=== PATIENT | female | born 1960 | race Caucasian/White ===

== ENCOUNTER → 2017-11-10 09:21 | Outpatient (CLI) | payer MEDICARE, MEDICAID, SELFPAY ==
--- NOTE | 2017-11-10 09:27 | MM_ITS ---
MM Dig screening mamm BI w/CAD CAD Screening COMPARISON: Digital mammograms 08/23/2013 and 03/22/2016 INDICATION: There is no personal or family history of breast cancer TECHNIQUE: Standard CC and MLO images were obtained. R2 CAD reviewed. FINDINGS: The breasts are composed primarily of fat with minimal scattered fibroglandular densities in each breast. Stable tiny nodular densities upper outer quadrant of the left breast. There is no new or suspicious lesion in either breast and there are no suspicious microcalcifications. IMPRESSION: Patient type breast parenchyma with no suspicious lesion seen recommend yearly follow-up BI-RADS Category: 2 Benign Finding(s) RECOMMENDED FOLLOW-UP: 1YR - 1 YEAR FOLLOW-UP (A letter has been sent to the patient regarding results of the study.)
--- NOTE | 2017-11-10 09:30 | XR_ITS ---
XR DEXA axial skeleton HISTORY: ITS.REASON: POST MENOPAUSAL ORDERING PHYSICIAN: Jean Pierre Johnston MD PATIENT AGE: 57 years COMPARISON: None FINDINGS: The BMD measured at the L1 L4 is 0.944 g/cm squared with a T score of -2.0. This is considered Osteopenic according to the World Health Organization criteria. Fracture risk is Moderate. Treatment lumbar spine density has increased by 4.5% in the hip density has increased by 0.8% compared to 03/08/2014. The density of left hip as a T score of -1.2 and density of the right hip has a T score of -1.3 IMPRESSION: Osteopenia with moderate fracture risk. See above for details
== END ==
PROVIDERS: Family Provider Internal Medicine Adolescent Medicine; PCP Internal Medicine Adolescent Medicine; Visit Provider Internal Medicine Adolescent Medicine
DX: Z12.31 Encounter for screening mammogram for malignant neoplasm of breast (principal); Z78.0 Asymptomatic menopausal state; Z13.820 Encounter for screening for osteoporosis
CPT/HCPCS: 77067; 77080

== ENCOUNTER → 2018-01-20 12:06 | Outpatient (CLI) | payer MEDICARE, MEDICAID, SELFPAY ==
--- NOTE | 2018-01-20 12:14 | XR_ITS ---
XR chest 2V HISTORY: ITS.REASON: COUGH, CHEST PAIN ORDERING PHYSICIAN: Jean Pierre Johnston MD PATIENT AGE: 57 years COMPARISON: 12/08/2015 FINDINGS: The cardiomediastinal silhouette and pulmonary vascularity are within normal limits. The lungs are clear without infiltrates, suspicious nodules, or pleural effusions. No acute bony abnormalities. IMPRESSION: Negative chest, no acute finding
--- NOTE | 2018-01-20 12:14 | XR_ITS ---
XR ribs RT 2V HISTORY: Cough, right-sided chest wall pain ITS.REASON: RT SIDED CHEST WALL PAIN ORDERING PHYSICIAN: Jean Pierre Johnston MD PATIENT AGE: 57 years COMPARISON: None FINDINGS: No fractures are healing. There is a change in density involving the mid aspect of the right sixth rib laterally. This is of questioned clinical significance. An underlying lucent lesion of the rib could cause this finding. May also be artifactual. If symptoms persist, chest CT may be of further value. IMPRESSION: 1. No acute fracture. 2. Lucency of the sixth rib laterally nonspecific. Chest CT may be of further value if clinically warranted
--- NOTE | 2018-01-20 12:14 | XR_ITS ---
XR ribs LT 2V HISTORY: ITS.REASON: LT SIDED CHEST WALL PAIN ORDERING PHYSICIAN: Jean Pierre Johnston MD PATIENT AGE: 57 years COMPARISON: None FINDINGS: No fracture or other significant anomalies. IMPRESSION: Negative left ribs
== END ==
PROVIDERS: PCP Internal Medicine Adolescent Medicine; Visit Provider Internal Medicine Adolescent Medicine
DX: R07.89 Other chest pain (principal); R05 Cough
CPT/HCPCS: 71046; 71100

== ENCOUNTER → 2018-02-15 10:08 | Outpatient (CLI) | payer MEDICARE, MEDICAID, SELFPAY ==
[2018-02-15 11:23] LABS: Basophils # 0.1 K/mm3 (0-0.2); Basophils % 0.6 % (0.1-2.0); Eosinophils # 0.2 K/mm3 (0.0-0.4); Eosinophils % 1.2 % (0.1-12.0); Hematocrit 38.8 % (37.0-47.0); Hemoglobin 12.3 g/dL (12.2-16.2); Lymphocytes # 9.2 K/mm3 (0.7-4.5); Lymphocytes % 70.5 K/mm3 (10-50); Mean Corpuscular HGB Conc 31.6 g/dL (31.8-35.4); Mean Corpuscular Hemoglobin 26.2 pg (27.0-31.2); Mean Corpuscular Volume 82.8 fl (81-99); Mean Platelet Volume 7.6 fl (7.4-10.4); Monocytes # 0.5 K/mm3 (0.1-1.0); Neutrophils # 3.1 K/mm3 (1.8-7.8); Neutrophils % 23.7 % (37.0-80.0); Platelet Count 188 K/mm3 (142-424); Red Blood Count 4.68 M/mm3 (4.20-5.40); Red Cell Distribution Width 14.6 % (11.5-17.5); White Blood Count 13.1 K/mm3 (4.8-10.8)
[2018-02-15 11:27] LABS: MANUAL DIFFERENTIAL MANUAL DIFFERENTIAL (MANUAL DIFF)
[2018-02-15 12:33] LABS: Albumin Level 3.5 gm/dL (3.4-5.0); Alkaline Phosphatase 124 U/L (46-116); Anion Gap 13.9 mEq/L (5-15); Aspartate Amino Transferase 20 U/L (15-37); Bilirubin,Total 0.5 mg/dL (0.2-1.0); Blood Urea Nitrogen 7 mg/dL (7-18); Carbon Dioxide 26 mmol/L (21.0-32.0); Chloride 105 mmol/L (98-107); Creatinine,Serum 0.61 mg/dL (0.55-1.02); Estimated Glomerular Filt Rate 101 ml/min (>60); GFR (African American) 122 ML/MIN (>60); Globulin 3.5 gm/dl (1.3-3.2); Potassium 3.9 mmoL/L (3.5-5.1); Sodium 141 mmol/L (136-145)
[2018-02-15 14:07] LABS: Alanine Aminotransferase 26 U/L (12-78); Calcium 11.5 mg/dL (8.5-10.1); Glucose 101 mg/dL (74-106)
[2018-02-15 18:52] LABS: Eosinophils % 2 % (0-3); Lymphocytes % 79 % (10-50); Monocytes % 5 % (2-9); Neutrophils % 14 % (42-76); Platelet Estimate Normal; RBC Morphology Normal; Total Cells Counted 100
== END ==
PROVIDERS: Visit Provider Internal Medicine
DX: C91.40 Hairy cell leukemia not having achieved remission (principal)
CPT/HCPCS: 36415; 80053; 85007; 85025

== ENCOUNTER → 2018-03-14 09:26 | Outpatient (CLI) | payer MEDICARE, MEDICAID, SELFPAY ==
[2018-03-14 09:43] LABS: Basophils # 0.1 K/mm3 (0-0.2); Basophils % 0.5 % (0.1-2.0); Eosinophils # 0.2 K/mm3 (0.0-0.4); Eosinophils % 1.6 % (0.1-12.0); Hemoglobin 12.2 g/dL (12.2-16.2); Lymphocytes # 8.3 K/mm3 (0.7-4.5); Lymphocytes % 70.6 K/mm3 (10-50); Mean Corpuscular HGB Conc 32.9 g/dL (31.8-35.4); Mean Corpuscular Hemoglobin 26.7 pg (27.0-31.2); Mean Corpuscular Volume 81.1 fl (81-99); Mean Platelet Volume 7.5 fl (7.4-10.4); Monocytes # 0.5 K/mm3 (0.1-1.0); Monocytes % 3.8 % (1.7-9.3); Neutrophils # 2.8 K/mm3 (1.8-7.8); Neutrophils % 23.5 % (37.0-80.0); Platelet Count 177 K/mm3 (142-424); Red Blood Count 4.56 M/mm3 (4.20-5.40); Red Cell Distribution Width 14.1 % (11.5-17.5); White Blood Count 11.8 K/mm3 (4.8-10.8)
[2018-03-14 10:05] LABS: MANUAL DIFFERENTIAL MANUAL DIFFERENTIAL (MANUAL DIFF)
[2018-03-14 11:33] LABS: Albumin Level 3.6 gm/dL (3.4-5.0); Alkaline Phosphatase 128 U/L (46-116); Anion Gap 12.1 mEq/L (5-15); Bilirubin,Total 0.4 mg/dL (0.2-1.0); Blood Urea Nitrogen 7 mg/dL (7-18); Carbon Dioxide 29 mmol/L (21.0-32.0); Chloride 105 mmol/L (98-107); Cholesterol 154 mg/dL (140-200); Creatinine,Serum 0.75 mg/dL (0.55-1.02); Estimated Glomerular Filt Rate 79 ml/min (>60); GFR (African American) 96 ML/MIN (>60); Globulin 3.5 gm/dl (1.3-3.2); HDL Cholesterol 31 mg/dL (29-89); LDL Cholesterol 98 mg/dL (0-130); Potassium 4.1 mmoL/L (3.5-5.1); Sodium 142 mmol/L (136-145); Thyroid Stimulating Hormone 3.91 uIU/ml (0.358-3.740); Total Protein,Serum 7.1 gm/dL (6.4-8.2); Triglycerides 124 mg/dL (30-200); VLDL Cholesterol 25 mg/dL (0-40)
[2018-03-14 12:05] LABS: Alanine Aminotransferase 20 U/L (12-78)
[2018-03-14 12:11] LABS: Eosinophils % 1 % (0-3); Lymphocytes % 62 % (10-50); Monocytes % 1 % (2-9); Neutrophils % 25 % (42-76); Total Cells Counted 100
[2018-03-14 12:12] LABS: Hypochromasia 2+
[2018-03-14 12:21] LABS: Platelet Estimate Normal
[2018-03-14 13:34] LABS: Aspartate Amino Transferase 17 U/L (15-37); Glucose 104 mg/dL (74-106)
[2018-03-14 13:41] LABS: Calcium 10.1 mg/dL (8.5-10.1)
== END ==
PROVIDERS: Visit Provider Internal Medicine Adolescent Medicine
DX: C91.40 Hairy cell leukemia not having achieved remission (principal); E78.5 Hyperlipidemia, unspecified; R13.10 Dysphagia, unspecified
CPT/HCPCS: 36415; 80053; 80061; 84443; 85007; 85025

== ENCOUNTER → 2018-03-23 09:08 | Outpatient (CLI) | payer MEDICARE, MEDICAID, SELFPAY ==
--- NOTE | 2018-03-23 09:10 | US_ITS ---
US thyroid HISTORY: ITS.REASON: dysphagia,thyromegaly,gastritis ORDERING PHYSICIAN: Marco Antonio Knox MD PATIENT AGE: 58 years Comparison: None FINDINGS: The right lobe is 4.5 x 2.2 x 2.7 cm. There is a mixed echogenic nodule in the upper pole measuring 1.9 x 1.5 cm. 2.9 x 1.9 cm solid-appearing nodule in the mid polar region. 1.9 x 1 cm solid-appearing nodule in the lower pole The left lobe is 3.5 x 0.9 x 1 cm. 3 mm cyst is present in the upper pole. IMPRESSION: 1. Enlarged right lobe of the thyroid gland. 2. 3 right thyroid nodules the largest in the mid polar region and 2.9 x 1.9 cm. Consider fine-needle aspiration with sonographic guidance for further evaluation
--- NOTE | 2018-03-23 09:10 | FL_ITS ---
EXAM: Barium swallow/esophagram. INDICATION: ITS.REASON: dysphagia,thromegaly,gastritis ORDERING PHYSICIAN: Marco Antonio Knox MD PATIENT AGE: 58 years COMPARISON: None TECHNIQUE: In the upright position the patient was observed to swallow barium in both the AP and lateral view. The cervical esophagus was examined under fluoroscopy with images obtained. The patient was then placed prone in the right anterior oblique position and was observed to swallow barium with Valsalva technique . FLUOROSCOPY TIME: 38 seconds FINDINGS: There was no evidence of aspiration. There was normal peristalsis. No filling defects or mucosal abnormalities. No masses or strictures. The esophagus was midline. No evidence of hiatal hernia IMPRESSION: Negative barium swallow.
== END ==
PROVIDERS: Family Provider Internal Medicine Adolescent Medicine; PCP Internal Medicine Adolescent Medicine; Visit Provider Surgery
DX: R13.10 Dysphagia, unspecified (principal); E01.0 Iodine-deficiency related diffuse (endemic) goiter
CPT/HCPCS: 74220; 76536

== ENCOUNTER → 2018-04-10 15:05 | Outpatient (CLI) | payer MEDICARE, MEDICAID, SELFPAY ==
[2018-04-10 18:15] LABS: Blood Urea Nitrogen 7 mg/dL (7-18); Creatinine,Serum 0.74 mg/dL (0.55-1.02); Estimated Glomerular Filt Rate 81 ml/min (>60); Free T4 (Free Thyroxine) 1.37 ng/dl (0.76-1.46); GFR (African American) 98 ML/MIN (>60); Thyroid Stimulating Hormone 0.95 uIU/ml (0.358-3.740)
[2018-04-12 09:30] LABS: Thyroid Peroxidase Antibodies 9 IU/mL (0-34)
[2018-04-14 13:28] LABS: Triiodothyronine (T3) Free 3.1 pg/mL (2.0-4.4)
[2018-04-14 13:31] LABS: Calcitonin <2.0 pg/mL (0.0-5.0); Thyroid Stimulating Immunoglob <0.10 IU/L (0.00-0.55)
== END ==
PROVIDERS: Visit Provider Otolaryngology
DX: E04.1 Nontoxic single thyroid nodule (principal); J39.8 Other specified diseases of upper respiratory tract; R13.10 Dysphagia, unspecified
CPT/HCPCS: 36415; 82308; 82565; 83520; 84439; 84443; 84481; 84520; 86376

== ENCOUNTER → 2018-04-18 16:30 | Outpatient (CLI) | payer MEDICARE, MEDICAID, SELFPAY ==
[2018-04-18 16:53] LABS: Basophils # 0.1 K/mm3 (0-0.2); Basophils % 0.6 % (0.1-2.0); Eosinophils # 0.1 K/mm3 (0.0-0.4); Hematocrit 39.1 % (37.0-47.0); Hemoglobin 11.8 g/dL (12.2-16.2); Lymphocytes # 8.6 K/mm3 (0.7-4.5); Lymphocytes % 69.8 K/mm3 (10-50); Mean Corpuscular HGB Conc 30.2 g/dL (31.8-35.4); Mean Corpuscular Hemoglobin 24.9 pg (27.0-31.2); Mean Corpuscular Volume 82.3 fl (81-99); Mean Platelet Volume 8.3 fl (7.4-10.4); Monocytes # 0.5 K/mm3 (0.1-1.0); Monocytes % 3.9 % (1.7-9.3); Neutrophils % 24.6 % (37.0-80.0); Platelet Count 167 K/mm3 (142-424); Red Blood Count 4.75 M/mm3 (4.20-5.40); Red Cell Distribution Width 13.8 % (11.5-17.5); White Blood Count 12.3 K/mm3 (4.8-10.8)
[2018-04-18 16:54] LABS: MANUAL DIFFERENTIAL MANUAL DIFFERENTIAL (MANUAL DIFF)
[2018-04-18 18:57] LABS: Eosinophils % 1 % (0-3); Lymphocytes % 65 % (10-50); Monocytes % 6 % (2-9); Neutrophils % 26 % (42-76); Total Cells Counted 100
[2018-04-18 18:58] LABS: Hypochromasia 1+; Platelet Estimate Normal
[2018-04-18 19:01] LABS: Albumin/Globulin Ratio 1.1 (1.1-1.8); Alkaline Phosphatase 123 U/L (46-116); Anion Gap 14.4 mEq/L (5-15); Blood Urea Nitrogen 7 mg/dL (7-18); Carbon Dioxide 29 mmol/L (21.0-32.0); Chloride 105 mmol/L (98-107); Creatinine,Serum 0.71 mg/dL (0.55-1.02); Estimated Glomerular Filt Rate 85 ml/min (>60); GFR (African American) 102 ML/MIN (>60); Globulin 3.5 gm/dl (1.3-3.2); Potassium 3.4 mmoL/L (3.5-5.1); Sodium 145 mmol/L (136-145); Total Protein,Serum 7.5 gm/dL (6.4-8.2)
[2018-04-18 19:47] LABS: Alanine Aminotransferase 24 U/L (12-78); Aspartate Amino Transferase 18 U/L (15-37); Bilirubin,Total 0.3 mg/dL (0.2-1.0); Calcium 9.2 mg/dL (8.5-10.1); Glucose 116 mg/dL (74-106)
== END ==
PROVIDERS: Visit Provider Internal Medicine
DX: E04.1 Nontoxic single thyroid nodule (principal); R13.10 Dysphagia, unspecified; J39.8 Other specified diseases of upper respiratory tract
CPT/HCPCS: 36415; 80053; 85007; 85025

== ENCOUNTER → 2018-04-19 09:06 | Outpatient (CLI) | payer MEDICARE, MEDICAID, SELFPAY ==
--- NOTE | 2018-04-19 09:08 | US_ITS ---
US organ site (thyroid), FNA w guidance HISTORY: ITS.REASON: dominant right nodule 3 cm ORDERING PHYSICIAN: Omid Arenas MD PATIENT AGE: 58 years COMPARISON: None Prebiopsy ultrasound: Rebiopsy ultrasound performed to confirm the presence of a large nodule in the right lobe of the thyroid gland as previously described. TECHNIQUE: Following obtaining informed consent, using aseptic technique and local anesthesia with buffered lidocaine, fine-needle aspiration was performed of the nodule of interest using sonographic guidance. 3 passes were made into the nodule with a 25-gauge needle. Specimen was given to cytology. The patient tolerated the procedure well without evidence of immediate complications and left the ultrasound suite in stable condition. CYTOLOGY:Negative for malignant cells. IMPRESSION: Successful and uneventful sonographic guided thyroid biopsy showing benign findings
--- NOTE | 2018-04-19 09:08 | CT_ITS ---
CT soft tissue neck wo/w con INDICATION: Right thyroid nodule, evaluate for tracheal displacement ITS.REASON: thyroid nodule/tracheal displacement ORDERING PHYSICIAN: Omid Arenas MD PATIENT AGE: 58 years COMPARISON: None TECHNIQUE: Axial images are obtained without and with contrast. Sagittal and coronal reformatted images are reviewed as well. All CT scans at the facility use one or more dose reduction, viz: automated exposure control; ma/kV adjustment per patient size (including targeted exams where dose is matched to indication; i.e. head); or iterative reconstruction technique. FINDINGS: The nasopharynx has an unremarkable appearance as does the epiglottis, supraglottic and glottic region. There is a 3.3 x 2.4 x 2.6 cm solid mass along the lower pole of the right lobe of the thyroid gland. This lesion is well-circumscribed and somewhat heterogeneous in density demonstrating mild diffuse contrast enhancement Trachea is deviated to the left by approximately 1 cm. The esophagus is slightly to the left of midline as well approximately 5 mm. No cervical adenopathy. There are scattered small cervical lymph nodes present which measure up to 1.5 x 1 cm in the left jugulodigastric chain. No superior mediastinal mass or adenopathy. Lung apices are clear. Salivary glands have an unremarkable appearance. There is a right ernie bullosa with mild leftward nasal septal deviation. The study was not performed as a CT angiogram. Therefore, it is difficult to determine the exact blood supply to the nodule secondary to both venous and arterial enhancement of the vascular structures IMPRESSION: 3 cm solid appearing enhancing mass along the lower pole the right lobe of the thyroid gland as described above. Trachea is displaced to the left by approximately 1 cm and the esophagus is also slightly displaced to the left x 4-5 mm. No adenopathy or other significant anomalies
== END ==
PROVIDERS: Family Provider Internal Medicine Adolescent Medicine; PCP Internal Medicine Adolescent Medicine; Visit Provider Otolaryngology
DX: E04.1 Nontoxic single thyroid nodule (principal)
CPT/HCPCS: 10022; 70492; 76536; 88173; Q9967

== ENCOUNTER → 2018-05-05 09:12 | Outpatient (CLI) | payer MEDICARE, MEDICAID, SELFPAY ==
--- NOTE | 2018-05-05 09:20 | CT_ITS ---
CT angio chest HISTORY: ITS.REASON: thyroid mass- tracheal/esoph displacemnt ORDERING PHYSICIAN: Omid Arenas MD PATIENT AGE: 58 years COMPARISON: 10/04/2017 TECHNIQUE: Axial images obtained following the administration of 75 mL of Isovue 370 . Sagittal, and coronal reformatted images are also generated and reviewed. All CT scans at the facility use one or more dose reduction, viz: automated exposure control; ma/kV adjustment per patient size (including targeted exams where dose is matched to indication; i.e. head); or iterative reconstruction technique. FINDINGS: There is a nodule arising from the lower pole of the right lobe of the thyroid gland which is isodense. This measures 2.9 x 2.5 x 2.7 cm previously 2.6 x 2 x 2.4 cm. This does not demonstrate significant enhancement. There is displacement of the trachea toward the left by the nodule. The trachea is displaced toward the left x 7 mm. The esophagus is midline. There is a small inferior thyroidal artery arising from each thyrocervical trunk entering the mid aspect of the thyroid gland. The superior thyroidal artery was not visualized on this study being more superior than images obtained. There is no evidence of a thyroidea lazaro artery. No evidence of aortic aneurysm or dissection. No evidence of pulmonary embolus. No mediastinal or hilar mass or adenopathy. There is some patchy groundglass density in the lung bases nonspecific. A stable 6 mm nodules present in the left lung base. There is mild fibrotic change in the right lower lobe. Upper abdominal images show mild splenomegaly at 14 cm. There are some mildly prominent lymph nodes in the portal area measuring up to 17 mm. There are some small nodes also in the mediastinum and right hilum not significant change. Scattered small nodes present in the axilla as well. No acute bony anomalies. IMPRESSION: 1. Enlarging solid appearing thyroid nodule in the lower pole on the right. 2. The trachea is deviated towards the left by approximately 7 mm by the nodule. The esophagus is midline. 3. The nodule does not appear hypervascular with small inferior thyroidal arteries from the thyrocervical trunk and no evidence of of a thyroidae lazaro artery 4. Small mediastinal, right hilar, axillary, and upper abdominal lymph nodes
[2018-05-05 09:30] LABS: Blood Urea Nitrogen 8 mg/dL (7-18); Creatinine,Serum 0.85 mg/dL (0.55-1.02); Estimated Glomerular Filt Rate 69 ml/min (>60); GFR (African American) 83 ML/MIN (>60)
== END ==
PROVIDERS: Family Provider Internal Medicine Adolescent Medicine; PCP Internal Medicine Adolescent Medicine; Visit Provider Otolaryngology
DX: E04.1 Nontoxic single thyroid nodule (principal); E01.0 Iodine-deficiency related diffuse (endemic) goiter; R22.1 Localized swelling, mass and lump, neck
CPT/HCPCS: 36415; 71275; 82565; 84520; Q9967

== ENCOUNTER → 2018-05-23 11:51 | Outpatient (CLI) | payer MEDICARE, MEDICAID, SELFPAY ==
[2018-05-23 12:57] LABS: Basophils # 0.1 K/mm3 (0-0.2); Basophils % 0.5 % (0.1-2.0); Eosinophils # 0.2 K/mm3 (0.0-0.4); Eosinophils % 1.5 % (0.1-12.0); Hematocrit 36.5 % (37.0-47.0); Hemoglobin 11.6 g/dL (12.2-16.2); Lymphocytes # 7.1 K/mm3 (0.7-4.5); Lymphocytes % 59.6 K/mm3 (10-50); Mean Corpuscular HGB Conc 31.8 g/dL (31.8-35.4); Mean Corpuscular Hemoglobin 25.5 pg (27.0-31.2); Mean Corpuscular Volume 80.2 fl (81-99); Mean Platelet Volume 7.5 fl (7.4-10.4); Monocytes # 0.4 K/mm3 (0.1-1.0); Monocytes % 3.6 % (1.7-9.3); Neutrophils # 4.1 K/mm3 (1.8-7.8); Neutrophils % 34.8 % (37.0-80.0); Platelet Count 160 K/mm3 (142-424); Red Blood Count 4.55 M/mm3 (4.20-5.40); Red Cell Distribution Width 14.1 % (11.5-17.5); White Blood Count 11.9 K/mm3 (4.8-10.8)
[2018-05-23 13:51] LABS: MANUAL DIFFERENTIAL MANUAL DIFFERENTIAL (MANUAL DIFF)
[2018-05-23 14:09] LABS: Alanine Aminotransferase 25 U/L (12-78); Albumin Level 3.5 gm/dL (3.4-5.0); Alkaline Phosphatase 123 U/L (46-116); Anion Gap 11.1 mEq/L (5-15); Aspartate Amino Transferase 16 U/L (15-37); Bilirubin,Total 0.3 mg/dL (0.2-1.0); Blood Urea Nitrogen 5 mg/dL (7-18); Calcium 8.5 mg/dL (8.5-10.1); Carbon Dioxide 28 mmol/L (21.0-32.0); Chloride 107 mmol/L (98-107); Creatinine,Serum 0.72 mg/dL (0.55-1.02); Estimated Glomerular Filt Rate 83 ml/min (>60); GFR (African American) 101 ML/MIN (>60); Globulin 3.5 gm/dl (1.3-3.2); Potassium 4.1 mmoL/L (3.5-5.1); Sodium 142 mmol/L (136-145)
[2018-05-23 15:21] LABS: Glucose 120 mg/dL (74-106)
[2018-05-23 16:28] LABS: Eosinophils % 1 % (0-3); Lymphocytes % 67 % (10-50); Monocytes % 8 % (2-9); Neutrophils % 24 % (42-76); Total Cells Counted 100
[2018-05-23 16:31] LABS: Microcytosis 1+
[2018-05-23 16:32] LABS: Hypochromasia 1+; Platelet Estimate Normal
== END ==
PROVIDERS: Visit Provider Internal Medicine
DX: C91.40 Hairy cell leukemia not having achieved remission (principal)
CPT/HCPCS: 36415; 80053; 85007; 85025

== ENCOUNTER → 2018-05-31 16:29 | Outpatient (CLI) | payer MEDICARE, MEDICAID, SELFPAY ==
[2018-05-31 17:00] LABS: Basophils # 0.1 K/mm3 (0-0.2); Basophils % 0.6 % (0.1-2.0); Eosinophils # 0.1 K/mm3 (0.0-0.4); Eosinophils % 0.8 % (0.1-12.0); Hematocrit 38.7 % (37.0-47.0); Hemoglobin 12.3 g/dL (12.2-16.2); Lymphocytes # 10.4 K/mm3 (0.7-4.5); Lymphocytes % 66.2 K/mm3 (10-50); Mean Corpuscular HGB Conc 31.8 g/dL (31.8-35.4); Mean Corpuscular Hemoglobin 25.4 pg (27.0-31.2); Mean Corpuscular Volume 79.7 fl (81-99); Mean Platelet Volume 7.2 fl (7.4-10.4); Monocytes # 0.8 K/mm3 (0.1-1.0); Monocytes % 4.9 % (1.7-9.3); Neutrophils # 4.3 K/mm3 (1.8-7.8); Neutrophils % 27.6 % (37.0-80.0); Platelet Count 194 K/mm3 (142-424); Red Blood Count 4.85 M/mm3 (4.20-5.40); Red Cell Distribution Width 14.3 % (11.5-17.5); White Blood Count 15.7 K/mm3 (4.8-10.8)
[2018-05-31 17:03] LABS: MANUAL DIFFERENTIAL MANUAL DIFFERENTIAL (MANUAL DIFF)
[2018-05-31 19:00] LABS: Lymphocytes % 66 % (10-50); Monocytes % 3 % (2-9); Neutrophils % 30 % (42-76); Total Cells Counted 100
[2018-05-31 19:01] LABS: Hypochromasia 1+; Microcytosis 1+; Platelet Estimate Normal
[2018-05-31 19:17] LABS: Alanine Aminotransferase 27 U/L (12-78); Albumin Level 3.5 gm/dL (3.4-5.0); Albumin/Globulin Ratio 1.1 (1.1-1.8); Alkaline Phosphatase 115 U/L (46-116); Anion Gap 8.9 mEq/L (5-15); Aspartate Amino Transferase 14 U/L (15-37); Bilirubin,Total 0.4 mg/dL (0.2-1.0); Blood Urea Nitrogen 14 mg/dL (7-18); Calcium 8.6 mg/dL (8.5-10.1); Carbon Dioxide 30 mmol/L (21.0-32.0); Chloride 106 mmol/L (98-107); Creatinine,Serum 0.94 mg/dL (0.55-1.02); Estimated Glomerular Filt Rate 61 ml/min (>60); Free Thyroxine Index 4.6 ug/dL (5.93-13.13); GFR (African American) 74 ML/MIN (>60); Globulin 3.3 gm/dl (1.3-3.2); Glucose 97 mg/dL (74-106); Potassium 3.9 mmoL/L (3.5-5.1); Sodium 141 mmol/L (136-145); T4 (Thyroxine) 13.2 ug/dl (4.7-13.3); Thyroid Stimulating Hormone 1.35 uIU/ml (0.358-3.740); Total Protein,Serum 6.8 gm/dL (6.4-8.2); Triiodothryronine (T3) Uptake 35 % (31-39)
== END ==
PROVIDERS: Visit Provider Internal Medicine Adolescent Medicine
DX: E01.0 Iodine-deficiency related diffuse (endemic) goiter (principal); C85.10 Unspecified B-cell lymphoma, unspecified site
CPT/HCPCS: 36415; 80053; 84436; 84443; 84479; 85007; 85025

== ENCOUNTER → 2018-06-21 08:21 | Outpatient (CLI) | payer MEDICARE, MEDICAID, SELFPAY ==
[2018-06-21 08:42] LABS: Basophils # 0.1 K/mm3 (0-0.2); Basophils % 0.5 % (0.1-2.0); Eosinophils # 0.2 K/mm3 (0.0-0.4); Eosinophils % 1.4 % (0.1-12.0); Hematocrit 34.2 % (37.0-47.0); Lymphocytes % 72.5 K/mm3 (10-50); Mean Corpuscular HGB Conc 32.1 g/dL (31.8-35.4); Mean Corpuscular Hemoglobin 25.6 pg (27.0-31.2); Mean Corpuscular Volume 79.7 fl (81-99); Mean Platelet Volume 7.9 fl (7.4-10.4); Monocytes # 0.5 K/mm3 (0.1-1.0); Neutrophils # 2.4 K/mm3 (1.8-7.8); Neutrophils % 21.6 % (37.0-80.0); Platelet Count 170 K/mm3 (142-424); Red Blood Count 4.29 M/mm3 (4.20-5.40); Red Cell Distribution Width 14.7 % (11.5-17.5); White Blood Count 11.1 K/mm3 (4.8-10.8)
[2018-06-21 08:52] LABS: Alanine Aminotransferase 28 U/L (12-78); Albumin Level 3.3 gm/dL (3.4-5.0); Albumin/Globulin Ratio 0.8 (1.1-1.8); Alkaline Phosphatase 124 U/L (46-116); Anion Gap 9.8 mEq/L (5-15); Aspartate Amino Transferase 14 U/L (15-37); Bilirubin,Total 0.4 mg/dL (0.2-1.0); Blood Urea Nitrogen 9 mg/dL (7-18); Carbon Dioxide 28 mmol/L (21.0-32.0); Chloride 107 mmol/L (98-107); Creatinine,Serum 0.86 mg/dL (0.55-1.02); Estimated Glomerular Filt Rate 68 ml/min (>60); GFR (African American) 82 ML/MIN (>60); Globulin 3.9 gm/dl (1.3-3.2); Potassium 3.8 mmoL/L (3.5-5.1); Sodium 141 mmol/L (136-145); Total Protein,Serum 7.2 gm/dL (6.4-8.2)
[2018-06-21 08:55] LABS: MANUAL DIFFERENTIAL MANUAL DIFFERENTIAL (MANUAL DIFF)
[2018-06-21 09:27] LABS: Glucose 120 mg/dL (74-106)
[2018-06-21 09:40] LABS: Eosinophils % 1 % (0-3); Lymphocytes % 72 % (10-50); Monocytes % 7 % (2-9); Neutrophils % 19 % (42-76); Total Cells Counted 100
[2018-06-21 09:42] LABS: Hypochromasia 1+; Microcytosis 1+
[2018-06-21 09:43] LABS: Platelet Estimate Normal
== END ==
PROVIDERS: Visit Provider Internal Medicine
DX: C91.40 Hairy cell leukemia not having achieved remission (principal)
CPT/HCPCS: 36415; 80053; 85007; 85025

== ENCOUNTER → 2018-07-20 09:31 | Outpatient (CLI) | payer MEDICARE, MEDICAID, SELFPAY ==
[2018-07-20 10:24] LABS: Thyroid Stimulating Hormone 2.47 uIU/ml (0.358-3.740)
== END ==
PROVIDERS: PCP Internal Medicine Adolescent Medicine; Visit Provider Otolaryngology
DX: D34 Benign neoplasm of thyroid gland (principal)
CPT/HCPCS: 36415; 84439; 84443

== ENCOUNTER → 2018-07-31 16:18 | Outpatient (CLI) | payer MEDICARE, MEDICAID, SELFPAY ==
--- NOTE | 2018-07-31 16:41 | XR_ITS ---
XR chest 2V HISTORY: ITS.REASON: ACUTE BRONCHOPNEUMONIA ORDERING PHYSICIAN: Jean Pierre Johnston MD PATIENT AGE: 58 years COMPARISON: 01/20/2018 FINDINGS: The cardiomediastinal silhouette and pulmonary vascularity are within normal limits. The lungs are clear without infiltrates, suspicious nodules, or pleural effusions. No acute bony abnormalities. IMPRESSION: No change with no acute finding
[2018-07-31 16:49] LABS: Basophils # 0.1 K/mm3 (0-0.2); Basophils % 0.6 % (0.1-2.0); Eosinophils # 0.2 K/mm3 (0.0-0.4); Hematocrit 36.4 % (37.0-47.0); Hemoglobin 11.7 g/dL (12.2-16.2); Lymphocytes # 10.4 K/mm3 (0.7-4.5); Lymphocytes % 64.6 K/mm3 (10-50); Mean Corpuscular HGB Conc 32.1 g/dL (31.8-35.4); Mean Corpuscular Hemoglobin 25.7 pg (27.0-31.2); Mean Platelet Volume 7.3 fl (7.4-10.4); Monocytes # 0.7 K/mm3 (0.1-1.0); Monocytes % 4.1 % (1.7-9.3); Neutrophils # 4.8 K/mm3 (1.8-7.8); Neutrophils % 29.7 % (37.0-80.0); Platelet Count 197 K/mm3 (142-424); Red Blood Count 4.55 M/mm3 (4.20-5.40); Red Cell Distribution Width 14.7 % (11.5-17.5); White Blood Count 16.2 K/mm3 (4.8-10.8)
[2018-07-31 17:10] LABS: MANUAL DIFFERENTIAL MANUAL DIFFERENTIAL (MANUAL DIFF)
[2018-07-31 17:51] LABS: Blood Urea Nitrogen 8 mg/dL (7-18); Calcium 8.7 mg/dL (8.5-10.1); Chloride 106 mmol/L (98-107); Potassium 4.1 mmoL/L (3.5-5.1); Sodium 143 mmol/L (136-145); Total Protein,Serum 7.3 gm/dL (6.4-8.2)
[2018-07-31 18:04] LABS: Aspartate Amino Transferase 18 U/L (15-37); Glucose 129 mg/dL (74-106)
[2018-07-31 18:22] LABS: Alanine Aminotransferase 28 U/L (12-78); Albumin Level 3.6 gm/dL (3.4-5.0); Alkaline Phosphatase 132 U/L (46-116); Anion Gap 16.1 mEq/L (5-15); Bilirubin,Total 0.3 mg/dL (0.2-1.0); Carbon Dioxide 25 mmol/L (21.0-32.0); Creatinine,Serum 0.77 mg/dL (0.55-1.02); Estimated Glomerular Filt Rate 77 ml/min (>60); GFR (African American) 93 ML/MIN (>60); Globulin 3.7 gm/dl (1.3-3.2)
[2018-07-31 18:39] LABS: Lymphocytes % 69 % (10-50); Monocytes % 5 % (2-9); Neutrophils % 25 % (42-76); Platelet Estimate Normal; RBC Morphology Normal; Total Cells Counted 100
== END ==
PROVIDERS: PCP Internal Medicine Adolescent Medicine; Visit Provider Internal Medicine Adolescent Medicine
DX: J18.0 Bronchopneumonia, unspecified organism (principal)
CPT/HCPCS: 36415; 71046; 80053; 85007; 85025

== ENCOUNTER → 2018-11-06 13:54 | Outpatient (CLI) | payer MEDICARE, MEDICAID, SELFPAY ==
--- NOTE | 2018-11-06 13:58 | MR_ITS ---
MR lumbar spine wo con, MR 3-d myelogram/MRCP HISTORY: RT sided LBP with pain radiating into groin and RT leg. Pain when walking. X3WKS. No trauma. No Hx back surgery. ITS.REASON: ACUTE RT SIDED LBP ORDERING PHYSICIAN: Jean Pierre Johnston MD PATIENT AGE: 58 years Comparison: MRI 10-21-15 TECHNIQUE: Standard multiplanar multiecho sequences are performed without contrast. 3-D MIP and myelographic images are also rendered and reviewed FINDINGS: There is normal alignment. The spinal cord ends at the L1 level. T12-L1, L1-L2, L2-L3, and L3-L4 have an unremarkable appearance. L4-L5: Mild facet hypertrophic change with minimal bilateral foraminal narrowing. L5-S1: Unremarkable. IMPRESSION: 1. Minimal bilateral foraminal narrowing at L4-L5 from facet hypertrophic change otherwise negative MRI of the lumbar spine. 2. No disc herniation or canal stenosis
== END ==
PROVIDERS: PCP Internal Medicine Adolescent Medicine; Visit Provider Internal Medicine Adolescent Medicine
DX: M54.41 Lumbago with sciatica, right side (principal)
CPT/HCPCS: 72148; 76376

== ENCOUNTER → 2019-01-11 09:07 | Outpatient (CLI) | payer MEDICARE, MEDICAID, SELFPAY ==
[2019-01-11 09:57] LABS: Basophils # 0.1 K/mm3 (0-0.2); Basophils % 0.6 % (0.1-2.0); Eosinophils # 0.4 K/mm3 (0.0-0.4); Eosinophils % 2.5 % (0.1-12.0); Hematocrit 40.1 % (37.0-47.0); Hemoglobin 12.8 g/dL (12.2-16.2); Lymphocytes % 70.8 % (10-50); Mean Corpuscular Hemoglobin 26.6 pg (27.0-31.2); Mean Corpuscular Volume 83.2 fl (81-99); Mean Platelet Volume 7.6 fl (7.4-10.4); Monocytes # 0.5 K/mm3 (0.1-1.0); Monocytes % 3.5 % (1.7-9.3); Neutrophils # 3.2 K/mm3 (1.8-7.8); Neutrophils % 22.6 % (37.0-80.0); Platelet Count 219 K/mm3 (142-424); Red Blood Count 4.82 M/mm3 (4.20-5.40); Red Cell Distribution Width 15.4 % (11.5-17.5); White Blood Count 14.1 K/mm3 (4.8-10.8)
[2019-01-11 09:59] LABS: MANUAL DIFFERENTIAL MANUAL DIFFERENTIAL (MANUAL DIFF)
[2019-01-11 11:46] LABS: Eosinophils % 4 % (0-3); Lymphocytes % 71 % (10-50); Monocytes % 2 % (2-9); Neutrophils % 23 % (42-76); Platelet Estimate Normal; Total Cells Counted 100
[2019-01-11 11:47] LABS: Hypochromasia 1+
[2019-01-11 12:25] LABS: Albumin Level 3.7 gm/dL (3.4-5.0); Alkaline Phosphatase 130 U/L (46-116); Anion Gap 16.8 mEq/L (5-15); Blood Urea Nitrogen 9 mg/dL (7-18); Carbon Dioxide 25 mmol/L (21.0-32.0); Chloride 104 mmol/L (98-107); Creatinine,Serum 0.69 mg/dL (0.55-1.02); Estimated Glomerular Filt Rate 87 ml/min (>60); GFR (African American) 106 ML/MIN (>60); Globulin 3.6 gm/dl (1.3-3.2); Lactate Dehydrogenase 201 U/L (82-234); Potassium 3.8 mmoL/L (3.5-5.1); Sodium 142 mmol/L (136-145); Total Protein,Serum 7.3 gm/dL (6.4-8.2)
[2019-01-11 14:31] LABS: Alanine Aminotransferase 41 U/L (12-78); Aspartate Amino Transferase 33 U/L (15-37); Bilirubin,Total 0.7 mg/dL (0.2-1.0); Calcium 10.7 mg/dL (8.5-10.1); Glucose 139 mg/dL (74-106)
== END ==
PROVIDERS: Visit Provider Internal Medicine Medical Oncology
DX: C91.40 Hairy cell leukemia not having achieved remission (principal)
CPT/HCPCS: 36415; 80053; 83615; 85007; 85025

== ENCOUNTER → 2019-04-10 16:59 | Outpatient (CLI) | payer MEDICARE, MEDICAID, SELFPAY ==
--- NOTE | 2019-04-10 17:02 | MM_ITS ---
MM Dig screening mamm BI w/CAD CAD Screening COMPARISON: Digital mammograms with CAD 11/10/2017 and 03/22/2016 INDICATION: There is no personal or family history of breast cancer TECHNIQUE: Standard CC and MLO images were obtained. R2 CAD reviewed. FINDINGS: The breasts are composed primarily of fat with minimal scattered fibroglandular densities in each breast. A tiny benign-appearing stable nodular densities in the left breast. There is no suspicious lesion and there are no suspicious microcalcifications. IMPRESSION: Fatty type breast parenchyma with no suspicious lesion seen BI-RADS Category: 2 Benign Finding(s) RECOMMENDED FOLLOW-UP: 1YR - 1 YEAR FOLLOW-UP (A letter has been sent to the patient regarding results of the study.)
== END ==
PROVIDERS: PCP Internal Medicine Adolescent Medicine; Visit Provider Internal Medicine Adolescent Medicine
DX: Z12.31 Encounter for screening mammogram for malignant neoplasm of breast (principal)
CPT/HCPCS: 77067

== ENCOUNTER → 2019-08-13 14:30 | Outpatient (CLI) | payer MEDICARE, MEDICAID, SELFPAY ==
[2019-08-13 15:05] LABS: Basophils # 0.1 K/mm3 (0-0.2); Basophils % 0.8 % (0.1-2.0); Eosinophils # 0.3 K/mm3 (0.0-0.4); Eosinophils % 2.4 % (0.1-12.0); Hematocrit 40.5 % (37.0-47.0); Hemoglobin 12.3 g/dL (12.2-16.2); Lymphocytes # 8.5 K/mm3 (0.7-4.5); Lymphocytes % 66.8 % (10-50); Mean Corpuscular HGB Conc 30.2 g/dL (31.8-35.4); Mean Corpuscular Hemoglobin 25.6 pg (27.0-31.2); Mean Corpuscular Volume 84.7 fl (81-99); Mean Platelet Volume 7.8 fl (7.4-10.4); Monocytes # 0.6 K/mm3 (0.1-1.0); Monocytes % 4.6 % (1.7-9.3); Neutrophils # 3.2 K/mm3 (1.8-7.8); Neutrophils % 25.4 % (37.0-80.0); Platelet Count 179 K/mm3 (142-424); Red Blood Count 4.78 M/mm3 (4.20-5.40); Red Cell Distribution Width 14.9 % (11.5-17.5); White Blood Count 12.7 K/mm3 (4.8-10.8)
[2019-08-13 15:08] LABS: MANUAL DIFFERENTIAL MANUAL DIFFERENTIAL (MANUAL DIFF)
[2019-08-13 15:39] LABS: Eosinophils % 3 % (0-3); Lymphocytes % 69 % (10-50); Monocytes % 4 % (2-9); Neutrophils % 23 % (42-76); Total Cells Counted 100
[2019-08-13 15:40] LABS: Hypochromasia 1+; Platelet Estimate Normal
[2019-08-13 17:27] LABS: Free T4 (Free Thyroxine) 1.23 ng/dl (0.76-1.46); Thyroid Stimulating Hormone 1.54 uIU/ml (0.358-3.740)
== END ==
PROVIDERS: Visit Provider Otolaryngology
DX: R13.10 Dysphagia, unspecified (principal); E03.9 Hypothyroidism, unspecified
CPT/HCPCS: 36415; 84439; 84443; 85007; 85025

== ENCOUNTER → 2019-08-17 09:38 | Outpatient (CLI) | payer MEDICARE, MEDICAID, SELFPAY ==
--- NOTE | 2019-08-17 09:40 | FL_ITS ---
PROCEDURE: FL BARIUM SWALLOW CLINICAL INDICATION: History of lymphoma, dysphagia, sensation of food sticking upper esophagus in the cervical region COMPARISON: ESO ESOPHAGUS (BA. SWALLOW) from 01/07/2017 TECHNIQUE: In the upright position the patient was observed to swallow barium in both the AP and lateral view. The cervical esophagus was examined under fluoroscopy with images obtained. The patient was then placed prone in the right anterior oblique position and was observed to swallow barium with Valsalva technique . FLUOROSCOPY TIME: 1.55 minutes FINDINGS: The swallowing function is normal. There is moderate focal posterior indentation of the barium column at the C4-5 level while swallowing consistent with cricopharyngeal dysfunction. Otherwise esophageal motility was normal. There is a small sliding hiatal hernia and there was minimal intermittent gastroesophageal reflux to the midthoracic esophagus with the patient in supine position. 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 Stable small sliding hiatal hernia basically unchanged from the previous exam with minimal GE reflux noted Dictated by: Dr. Alexsander Heard MD 08/17/2019 10:[address] Alexsander Heard MD in [place] 08/17/2019 10:39
== END ==
PROVIDERS: PCP Internal Medicine Adolescent Medicine; Visit Provider Otolaryngology
DX: R13.10 Dysphagia, unspecified (principal)
CPT/HCPCS: 74220

== ENCOUNTER → 2019-09-12 09:20 | Outpatient (CLI) | payer MEDICARE, MEDICAID, SELFPAY ==
--- NOTE | 2019-09-12 09:23 | MR_ITS ---
PROCEDURE: MR LUMBAR SPINE WO CON CLINICAL INDICATION: ACUTE RIGHT-SIDED BACK PAIN W/SCIATICA Follow back pain and right sided weakness, right leg numbness COMPARISON: SPLUMBWO MR lumbar spine wo con from 11/06/2018 TECHNIQUE: Standard multiplanar multiecho sequences are performed without contrast. 3-D MIP and myelographic images are also rendered and reviewed FINDINGS: There is normal alignment. The spinal cord ends at the L1 level. T11-T12: There is mild facet and ligamentum hypertrophy with mild bilateral lateral recess narrowing. T12-L1: Unremarkable. L1-L2: Unremarkable. L2-L3: Unremarkable. L3-L4: Unremarkable. L4-5: Minimal bilateral lateral recess narrowing at L4-5 with facet ligamentum hypertrophy unchanged L5-S1: Unremarkable. IMPRESSION: 1. No disc herniation, canal stenosis, or significant foraminal or lateral recess narrowing. 2. There is mild facet ligamentum hypertrophy with mild bilateral lateral recess narrowing at T11-T12. 3. Minimal bilateral foraminal narrowing at L4-5 as before from mild facet and ligamentum hypertrophy. Dictated by: Angelito Rosa MD 09/14/2019 11:30 Electronically signed by Angelito Rosa MD in [facility] 09/14/2019 11:30
--- NOTE | 2019-09-12 09:24 | MR_ITS ---
PROCEDURE: MR HEAD/BRAIN WO CON CLINICAL INDICATION: RIGHT HEMIPLEGIA Right-sided weakness COMPARISON: No exams were available for comparison TECHNIQUE: Routine multiplanar multi echo sequences are performed without gadolinium enhancement. FINDINGS: No midline shift, mass effect, intracranial hemorrhage, or hydrocephalus. No evidence of acute infarction The cerebellopontine angles, cerebellum, and brainstem are unremarkable. There is some minimal irregularity of the medial surface of the body of the caudate nucleus on the right. This is of questionable clinical significance. No abnormal T2 signal or diffusion signal evident. There is normal chen-white matter differentiation with no abnormal white matter signal intensity evident. The pituitary, optic chiasm, corpus callosum, and craniocervical junction have an unremarkable appearance. No mastoid effusion or sinus air-fluid level. IMPRESSION: 1. No acute intracranial findings. 2. Nonspecific minimal nodularity of the ventricular surface of the body of the caudate nucleus on the right. This is of questionable clinical significance. Six-month follow-up may confirm short term stability. Dictated by: Angelito Rosa MD 09/12/2019 17:39 Electronically signed by Angelito Rosa MD in [facility] 09/13/2019 06:54
== END ==
PROVIDERS: PCP Internal Medicine Adolescent Medicine; Visit Provider Internal Medicine Adolescent Medicine
DX: M54.41 Lumbago with sciatica, right side (principal); G81.91 Hemiplegia, unspecified affecting right dominant side
CPT/HCPCS: 70551; 72148; 76376

== ENCOUNTER → 2019-10-01 15:16 | Outpatient (CLI) | payer MEDICARE, MEDICAID, SELFPAY ==
[2019-10-03 14:10] LABS: Folate 5.3 ng/mL (>3.0); Vitamin B12 271 pg/mL (232-1245)
== END ==
PROVIDERS: PCP Internal Medicine Adolescent Medicine; Visit Provider Specialist
DX: M54.5 Low back pain (principal); M54.9 Dorsalgia, unspecified; M79.601 Pain in right arm; M79.604 Pain in right leg; M79.671 Pain in right foot; Z86.39 Personal history of other endocrine, nutritional and metabolic disease
CPT/HCPCS: 36415; 82607; 82746

== ENCOUNTER → 2019-10-15 12:59 | Outpatient (POV) | payer MEDICARE, MEDICAID, SELFPAY | PROVIDERS: Visit Provider Specialist | DX: M79.604 Pain in right leg (principal); M79.601 Pain in right arm | CPT/HCPCS: 95886; 95910 ==

== ENCOUNTER → 2020-01-22 15:38 | Outpatient (CLI) | payer MEDICARE, MEDICAID, SELFPAY ==
--- NOTE | 2020-01-22 16:06 | XR_ITS ---
PROCEDURE: XR CHEST PORTABLE CLINICAL HISTORY: COUGH,FEBRILE ILLNESS,EXPOSURE TO VIRAL DISEASE COMPARISON: CXR2V XR chest 2V from 07/31/2018 FINDINGS: The cardiomediastinal silhouette and pulmonary vascularity are within normal limits. There are faint increased markings in both lung bases. Cannot exclude patchy infiltrate. Upright PA and lateral chest may confirm. No acute bony abnormalities. IMPRESSION: Possible patchy infiltrate in the lung bases versus attenuation from overlying soft tissue. Upright PA and lateral chest may be of further value. Dictated by: Angelito Rosa MD 01/22/2020 18:45 Electronically signed by Angelito Rosa MD in [facility] 01/22/2020 18:45
[2020-01-22 16:27] LABS: Adenovirus,PCR Not Detected (NotDetected); Bordetella Pertussis Not Detected (NotDetected); Chlamydophila Pneumoniae, PCR Not Detected (NotDetected); Coronavirus 229E Not Detected (NotDetected); Coronavirus NL63 Not Detected (NotDetected); Coronavirus OC43 Not Detected (NotDetected); Coronovirus HKU1,PCR Not Detected (NotDetected); Human Metapneumovirus Not Detected (NotDetected); Influenza A, PCR Not Detected (NotDetected); Influenza AH1, 2009 Not Detected (NotDetected); Influenza AH1, PCR Not Detected (NotDetected); Influenza AH3,PCR Not Detected (NotDetected); Influenza B, PCR Not Detected (NotDetected); Mycoplasma Pneumoniae, PCR Not Detected (NotDetected); Parainfluenza 1, PCR Not Detected (NotDetected); Parainfluenza 2, PCR Not Detected (NotDetected); Parainfluenza 3, PCR Not Detected (NotDetected); Parainfluenza 4, PCR Not Detected (NotDetected); Respiratory Syncytial Virus Not Detected (NotDetected); Rhinovirus/Enterovirus Not Detected (NotDetected)
[2020-01-22 16:53] LABS: Basophils # 0.1 K/mm3 (0-0.2); Basophils % 0.9 % (0.1-2.0); Chloride 105 mmol/L (98-107); Eosinophils # 0.3 K/mm3 (0.0-0.4); Eosinophils % 3.6 % (0.1-12.0); Hematocrit 40.4 % (37.0-47.0); Hemoglobin 13.5 g/dL (12.2-16.2); Lymphocytes # 2.4 K/mm3 (0.7-4.5); Lymphocytes % 34.5 % (10-50); Mean Corpuscular HGB Conc 33.4 g/dL (31.8-35.4); Mean Corpuscular Hemoglobin 27.3 pg (27.0-31.2); Mean Corpuscular Volume 81.7 fl (81-99); Monocytes # 0.6 K/mm3 (0.1-1.0); Neutrophils # 3.7 K/mm3 (1.8-7.8); Platelet Count 218 K/mm3 (142-424); Potassium 4.1 mmoL/L (3.5-5.1); Red Blood Count 4.94 M/mm3 (4.20-5.40); Sodium 141 mmol/L (136-145); White Blood Count 7.1 K/mm3 (4.8-10.8)
[2020-01-22 16:55] LABS: Blood Urea Nitrogen 6 mg/dl (7-17); Estimated Glomerular Filt Rate 86 ml/min (>60); GFR (African American) 104 ML/MIN (>60)
[2020-01-22 16:56] LABS: Alanine Aminotransferase 41 U/L (12-78); Albumin Level 4.3 g/dl (3.5-5.0); Albumin/Globulin Ratio 1.5 (1.1-1.8); Alkaline Phosphatase 98 U/L (38-126); Anion Gap 14.1 mEq/L (5-15); Aspartate Amino Transferase 41 U/L (14-36); Bilirubin,Total 0.2 mg/dl (0.2-1.3); Calcium 9.2 mg/dl (8.4-10.2); Carbon Dioxide 26 mmol/L (22.0-30.0); Globulin 2.9 g/dL (1.3-3.2); Glucose 135 mg/dl (74-100); Total Protein,Serum 7.2 g/dl (6.3-8.2)
[2020-01-25 10:23] LABS: Covid-19 Nasal PCR Sendout Lex NOT DETECTED
== END ==
PROVIDERS: Visit Provider Internal Medicine Adolescent Medicine
DX: R50.9 Fever, unspecified (principal); R05 Cough; Z20.828 Contact with and (suspected) exposure to other viral communicable diseases
CPT/HCPCS: 36415; 71045; 80053; 85025; 87486; 87581; 87633; 87798

== ENCOUNTER 2020-01-30 12:08 | Observation (INO) ==
[2020-01-30 12:43] LABS: Chloride 106 mmol/L (98-107)
[2020-01-30 12:44] LABS: Sodium 143 mmol/L (136-145)
[2020-01-30 12:46] LABS: Alanine Aminotransferase 55 U/L (12-78); Alkaline Phosphatase 98 U/L (38-126); Aspartate Amino Transferase 38 U/L (14-36); Basophils % 0.2 % (0.1-2.0); Bilirubin,Total 0.4 mg/dl (0.2-1.3); Blood Urea Nitrogen 11 mg/dl (7-17); Eosinophils % 0.2 % (0.1-12.0); Hematocrit 44.2 % (37.0-47.0); Hemoglobin 14.5 g/dL (12.2-16.2); Lymphocytes # 2.4 K/mm3 (0.7-4.5); Mean Corpuscular HGB Conc 32.9 g/dL (31.8-35.4); Mean Corpuscular Volume 82.9 fl (81-99); Mean Platelet Volume 8.3 fl (7.4-10.4); Monocytes # 0.9 K/mm3 (0.1-1.0); Monocytes % 6.1 % (1.7-9.3); Neutrophils # 10.8 K/mm3 (1.8-7.8); Neutrophils % 76.5 % (37.0-80.0); Platelet Count 318 K/mm3 (142-424); Red Blood Count 5.33 M/mm3 (4.20-5.40); Red Cell Distribution Width 14.2 % (11.5-17.5); White Blood Count 14.1 K/mm3 (4.8-10.8)
[2020-01-30 12:47] LABS: Albumin Level 4.8 g/dl (3.5-5.0); Albumin/Globulin Ratio 1.4 (1.1-1.8); Anion Gap 18.8 mEq/L (5-15); Calcium 9.8 mg/dl (8.4-10.2); Carbon Dioxide 22 mmol/L (22.0-30.0); Globulin 3.4 g/dL (1.3-3.2); Glucose 139 mg/dl (74-100); Total Protein,Serum 8.2 g/dl (6.3-8.2)
[2020-01-30 12:56] LABS: ABG Base Excess -2.6 mmol/L (-2.4-2.3); ABG HCO3 22.2 mmhg (22.0-26.0); ABG Oxygen Saturation 97 % (90-100); ABG PCO2 36.8 mmhg (35.0-45.0); ABG PO2 101.4 mmhg (80-100); ABG TCO2 23.4 mmhg (23-27)
[2020-01-30 12:58] LABS: Allen's Test Acceptable; Oxygen 2.5L %
--- NOTE | 2020-01-30 14:31 | Emergency Department Note ---
ED Disposition Clinical Impression: Pneumonitis Disposition: Admitted as Observation Condition on Discharge: Good Additional Instructions: Spoke to Dr. Prakash about admission for this patient. Referrals: Jean Pierre Archer MD [Primary Care Provider] - - Critical Care Critical Care Time: No Attestation: On 01/30/20, the high probability of a clinically significant, sudden or life threatening deterioration of the following system(s) required my full and direct attention, intervention and personal management. The time I documented below is in addition to time spent performing reported procedures but includes the following listed in this critical care notation. Medical Decision Making - Medical Records Medical records reviewed: Yes: I reviewed the patient's medical records. - Say Inquiry Pt receiving controlled substance: No Vital Signs: 01/30/20 12:10 01/30/20 12:33 01/30/20 13:26 Temperature 97.9 F Temperature Source Oral Pulse Rate [Right] 112 H 95 H 98 H Respiratory Rate 24 24 22 Blood Pressure [Right Arm] 126/96 H 165/100 H 129/78 Blood Pressure Mean [Right Arm] 106 121 95 Blood Pressure Source [Right Arm] Blood Pressure Position [Right Arm] Sitting 02 Sat by Pulse Oximetry 94 L 88 L 98 Oxygen Delivery Method Room Air Room Air Nasal Cannula Oxygen Flow Rate (LPM) 3 01/30/20 14:32 Temperature Temperature Source Pulse Rate [Right] 98 H Respiratory Rate 22 Blood Pressure [Right Arm] 139/62 Blood Pressure Mean [Right Arm] 87 Blood Pressure Source [Right Arm] Automatic Cuff Blood Pressure Position [Right Arm] Supine 02 Sat by Pulse Oximetry 95 Oxygen Delivery Method Oxygen Flow Rate (LPM) - Lab Data Lab results reviewed: Yes: I reviewed the patient's lab results. Lab Results 01/30/20 12:18: Influenza Type A Ag Negative, Influenza Type B Ag Negative 01/30/20 12:18: Group A Strep Rapid Negative 01/30/20 12:25: WBC 14.1 H, RBC 5.33, Hgb 14.5, Hct 44.2, MCV 82.9, MCH 27.3, MCHC 32.9, RDW 14.2, Plt Count 318, MPV 8.3, Neut % (Auto) 76.5, Lymph % (Auto) 17.0, [place] % (Auto) 6.1, Eos % (Auto) 0.2, Baso % (Auto) 0.2, Neut # (Auto) 10.8 H, Lymph # (Auto) 2.4, [place] # (Auto) 0.9, Eos # (Auto) 0.0, Baso # (Auto) 0.0 01/30/20 12:25: Sodium 143, Potassium 3.8, Chloride 106, Carbon Dioxide 22, Anion Gap 18.8 H, BUN 11, Creatinine 0.60, Estimated Creat Clear 116, Estimated GFR 102, Est GFR ( Amer) 124, Glucose 139 H, Calcium 9.8, Total Bilirubin 0.4, AST 38 H, ALT 55, Alkaline Phosphatase 98, Troponin I < 0.01, Total Protein 8.2, Albumin 4.8, Globulin 3.4 H, Albumin/Globulin Ratio 1.4 01/30/20 12:25: Lactate 2.0 01/30/20 12:25: Specimen Source Right radial, O2 % 2.5l, ABG pH 7.40, ABG pCO2 36.8, ABG pO2 101.4 H, ABG HCO3 22.2, ABG Total CO2 23.4, ABG O2 Saturation 97, ABG Base Excess -2.6 L, Angelito Test Acceptable Result diagrams: 01/30/20 12:25 01/30/20 12:25 Orders (Tests/Meds): ED MEDICATIONS Generic Name Dose Route Start Last Admin Trade Name Freq PRN Reason Stop Dose Admin Sodium Chloride 10 ml 01/30/20 13:02 01/30/20 13:04 Rad-Saline Flush 10ml Syringe IV 02/29/20 13:01 10 ml NEEDED PRN Administration Maintain IV Site Discontinued Medications Generic Name Dose Route Start Last Admin Trade Name Freq PRN Reason Stop Dose Admin Sodium Chloride 1,000 mls @ 999 mls/hr 01/30/20 12:30 01/30/20 12:35 Sod Chlor 0.9% 1000ml Bag IV 01/30/20 13:30 999 mls/hr .Q1H1M TIGRE Administration Ioversol 80 ml 01/30/20 13:02 01/30/20 13:04 Rad-Optiray 350 150ml Vial IV 01/30/20 13:03 80 ml ONCE ONE Administration Miscellaneous 1 unit 01/30/20 12:26 01/30/20 13:11 Aerochamber/Optihaler MC 01/30/20 12:27 1 unit ONCE ONE Administration Sodium Chloride 50 ml 01/30/20 13:02 01/30/20 13:05 Rad-Ns 50ml Vial IV 01/30/20 13:03 50 ml ONCE ONE Administration ORDERS Category Date Time Status SARS-CoV-2, CHRISTINA Stat Lab 01/30/20 14:40 Received Troponin I Q3H Lab 01/30/20 15:30 Ordered Troponin I Q3H Lab 01/30/20 18:30 Ordered Blood Culture Stat Micro 01/30/20 12:25 Received Strep Screen Confirmation Stat Micro 01/30/20 12:18 Received ECG Request by /Chandu Stat Y 01/30/20 12:25 Ordered - CT Data CT Scan: Chest Time Received: 14:[address] Reviewed: Yes: I have reviewed the patient's CT results Preliminary Findings: Abnormal (Scattered ground-glass opacities in both lung jordan. Atelectasis is favored over pneumonitis.) Medical Decision Narrative: Patient with activity and not on oxygen and does desat down to about 82 to 84% on room air. On O2 patient is satting 96% with no exertion. Resp/SOB HPI - General Chief Complaint: Shortness of Breath/Dyspnea Stated Complaint: sore throat,cough,SOA Time Seen by Provider: 01/30/20 14:00 Mode of Arrival: Ambulatory Limitations: No Limitations Description of Symptoms (Recalled from ER Triage Doc. by RN): PT PRESENTS WITH SOA AND COUGH THAT SHE HAS HAD FOR 2 WEEKS, PT WAS DX WITH THE FLU 2 WEEKS AGO AND DID NOT GET BETTER THEN TESTED FOR COVID-19 WHICH WAS NEGATIVE. PT CALLED DR ARCHER OFFICE IN REFERENCE FOR WHAT TO DO AND SENT HERE FOR FURTHER EVAL. PT ALSO C.O CP THAT RADIATES TO HER BACK AND HURTS WHEN SHE BREATHES. - History of Present Illness 59-year-old female presents to the ED complaining of acute on chronic shortness of breath. She was recently diagnosed with influenza about 10 days ago and was tested for coronavirus 7 days ago and her test was resulted 5 days ago which was negative. However patient is failed to improve. She complains of more shortness of breath than usual. She also is complaining of a chronic cough that is more so than usual patient does have COPD. Patient states that she probably was febrile 2 days ago however has been taking ibuprofen and Tylenol [id number]. Patient denies any chest pain or diaphoresis. Positive for chills. Patient was unsure if she had any exposures. - Related Data Home Medications Medication Instructions Recorded Confirmed cyclobenzaprine 10 mg tablet 10 mg PO BID 30 Days 02/15/18 12/12/19 diazepam 5 mg tablet 5 mg PO BID 30 Days 02/15/18 12/12/19 aspirin 81 mg tablet,delayed 81 mg PO DAILY 07/20/18 12/12/19 release Levothyroxine Sodium [Tirosint] 75 mcg PO DAILY 09/17/18 12/12/19 Tamsulosin HCl [Flomax 0.4mg 0.4 mg PO HS 11/23/18 12/12/19 capsule] linaclotide 145 mcg capsule 145 mcg PO TID cap 08/14/19 12/12/19 gabapentin 100 mg capsule 300 mg PO BID #0 cap 10/01/19 12/12/19 famotidine 20 mg tablet 20 mg PO DAILY tab 10/29/19 12/12/19 Mecobal/Levomefolat Ca/B6 Phos 1 tab PO ONCE 12/12/19 12/12/19 [Foltanx] Previous Rx's Medication Instructions Recorded Albuterol Sulfate [Albuterol HFA 2 puffs IH Q6HP PRN #1 inh 11/23/18 Inhaler] Allergies Allergy/AdvReac Type Severity Reaction Status Date / Time oxycodone Allergy Unknown I-ITCHING Verified 10/29/19 08:20 Sulfa (Sulfonamide Allergy Unknown EYE Verified 10/29/19 08:20 Antibiotics) DROPS-EYES SWELL metaxalone AdvReac felt like Verified 10/29/19 08:20 i was dying [facility] History - Hepatitis A Screen Drug use history?: No High risk sexual behaviors?: No History of sexually transmitted infection?: No Currently employed?: No Childcare worker?: No Do you have indoor plumbing?: Yes Do you have electricity?: Yes Attestation statement:: This patient has been screened for Hepatitis A risk factors. I have reviewed the patient's past medical history: Yes Medical History: Reports:: Anxiety, Cancer, Chronic Obstructive Pulmonary Disease (COPD), Gastroesophageal Reflux Disease(GERD), Lung Disease, Kidney Stones, MRSA, Osteoporosis Denies:: Diabetes Mellitus Type 1, Diabetes Mellitus Type 2, Internal Pacemaker, Seizures Other Medical History: Reports: Anemia, Fibromyalgia, Osteoporosis Laterality Cases: Left: Other Other Surgeries: Yes: Appendectomy, Colonoscopy, , Diagnostic Lap, EGD, Hysterectomy-Total, Thyroidectomy, Tubal Ligation, Other. 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 ROS Obtained: Yes All systems reviewed & no additional complaints - Constitutional Constitutional: Reports system reviewed and no additional complaints, except as docu - Eyes Eyes: Reports system reviewed and no additional complaints, except as docu - ENT Ears, Nose, Mouth, and Throat: Reports system reviewed and no additional complaints, except as docu - Cardiovascular Cardiovascular: Reports system reviewed and no additional complaints, except as docu - Respiratory Respiratory: Yes system reviewed and no additional complaints, except as docu - Gastrointestinal Gastrointestingal: Reports: system reviewed and no additional complaints, except as docu - Genitourinary Male Genitourinary: Reports system reviewed and no additional complaints, except as docu Female Genitourinary: Reports system reviewed and no additional complaints, except as docu - Musculoskeletal Musculoskeletal: Reports system reviewed and no additional complaints, except as docu - Integumentary/Breasts Skin/Breast: Reports system reviewed and no additional complaints, except as docu - Neurologic Neurologic: Reports system reviewed and no additional complaints, except as docu - Endocrine Endocrine: Reports system reviewed and no additional complaints, except as docu - Hematologic/Lymphatic Henatologic/Lymphatic: Reports system reviewed and no additional complaints, except as docu - Allergic/Immunologic Allergic/Immunologic: Reports system reviewed and no additional complaints, except as docu Physical Exam - General General appearance: alert, in no apparent distress - Head Head exam: atraumatic, normocephalic - Eye Eye exam: Present: normal appearance - ENT ENT exam: Present: normal exam - Neck Neck exam: Present: normal inspection - Chest Chest inspection: Present: normal inspection - Respiratory Respiratory exam: Present: wheezes. Absent: normal lung sounds bilaterally - Cardiovascular Cardiovascular exam: Present: regular rate, normal rhythm - Abdominal Exam Abdominal exam: Present: soft - Extremities Exam Extremities exam: Present: normal inspection - Back Exam Back exam: Present: normal inspection - Neurological Exam Neurological exam: Present: alert, oriented X3 - Psychiatric Psychiatric exam: Present: normal affect - Skin Skin exam: Present: warm - Lymphatic Lymphatic Findings: no adenopathy
--- NOTE | 2020-01-30 16:56 | History & Physical Report ---
*Admission Date: 01/30/20 *Chief complaint: Shortness of air/respiratory distress *History of present illness: 59-year-old female presents to the ED complaining of acute on chronic shortness of breath. She was recently diagnosed with influenza about 10 days ago and was tested for coronavirus 7 days ago and her test was resulted 5 days ago which was negative. However patient is failed to improve. She complains of more shortness of breath than usual. She also is complaining of a chronic cough that is more so than usual patient does have COPD. Patient states that she probably was febrile 2 days ago however has been taking ibuprofen and Tylenol [id number]. Patient denies any chest pain or diaphoresis. Positive for chills. Patient was unsure if she had any exposures. Of note per ER. Given her symptomatic issues, appearance of viral pneumonitis on chest x-ray/CT scan and respiratory distress she is admitted for further diagnostic testing, repeat [facility] - coronavirus testing and IV steroids given her wheezing. [facility] History I have reviewed the patient's past medical history: Yes Medical History: Reports:: Anxiety, Cancer, Chronic Obstructive Pulmonary Disease (COPD), Gastroesophageal Reflux Disease(GERD), Lung Disease, Kidney Stones, MRSA, Osteoporosis Denies:: Diabetes Mellitus Type 1, Diabetes Mellitus Type 2, Internal Pacemaker, Seizures *Have you ever received a pneumonia vaccine?: Yes *Have you received a flu vaccine this season?: Yes Other Medical History: Reports: Anemia, Fibromyalgia, Osteoporosis Laterality Cases: Left: Other Other Surgeries: Yes: Appendectomy, Colonoscopy, , Diagnostic Lap, EGD, Hysterectomy-Total, Thyroidectomy, Tubal Ligation, Other. No: Pacemaker Amputation: No Fractures: Yes (WRIST) - *Social History Smoking Status: Former smoker Tobacco Type: cigarettes #Yrs smoked (if former smoker): 16 Alcohol Intake: never Alcohol Intake Frequency:: holidays/special occasions only Substance Use Type: denies use *Occupational Status:: retired Housing: house Household Members: significant other *Travel in the last 8 weeks: None - Psychiatric History Pschychiatric History:: Reports:: Anxiety Family Hx:: Cancer, Bleeding Disorder, Anemia, Heart Attack, Diabetes, Coronary Artery Disease, Hyperlipidemia, Hypertension, Kidney Disease, Stroke BUTTON SEWER HAND history: No BUTTON SEWER HAND history Review of Systems - Review of Systems Review of systems:: pertinent systems reviewed and negative unless documented below Meds Home Medications Medication Instructions Recorded Confirmed Type cyclobenzaprine 10 mg tablet 10 mg PO BID 30 Days 02/15/18 12/12/19 History diazepam 5 mg tablet 5 mg PO BID 30 Days 02/15/18 12/12/19 History aspirin 81 mg tablet,delayed 81 mg PO DAILY 07/20/18 12/12/19 History release Levothyroxine Sodium [Tirosint] 75 mcg PO DAILY 09/17/18 12/12/19 History Albuterol Sulfate [Albuterol HFA 2 puffs IH Q6HP PRN #1 inh 11/23/18 12/12/19 Rx Inhaler] Tamsulosin HCl [Flomax 0.4mg 0.4 mg PO HS 11/23/18 12/12/19 History capsule] linaclotide 145 mcg capsule 145 mcg PO TID cap 08/14/19 12/12/19 History gabapentin 100 mg capsule 300 mg PO BID #0 cap 10/01/19 12/12/19 History famotidine 20 mg tablet 20 mg PO DAILY tab 10/29/19 12/12/19 History Mecobal/Levomefolat Ca/B6 Phos 1 tab PO ONCE 12/12/19 12/12/19 History [Foltanx] Allergies Allergy/AdvReac Type Severity Reaction Status Date / Time oxycodone Allergy Unknown I-ITCHING Verified 10/29/19 08:20 Sulfa (Sulfonamide Allergy Unknown EYE Verified 10/29/19 08:20 Antibiotics) DROPS-EYES SWELL metaxalone AdvReac felt like Verified 10/29/19 08:20 i was dying Exam Vital signs and Labs for Last 24 Hours: Temp Pulse Resp BP Pulse Ox 97.1 F L 102 H 16 136/86 95 01/30/20 16:48 01/30/20 16:48 01/30/20 16:48 01/30/20 16:48 01/30/20 16:48 Laboratory Results - last 24 hr 01/30/20 12:18: Influenza Type A Ag Negative, Influenza Type B Ag Negative 01/30/20 12:18: Group A Strep Rapid Negative 01/30/20 12:25: WBC 14.1 H, RBC 5.33, Hgb 14.5, Hct 44.2, MCV 82.9, MCH 27.3, MCHC 32.9, RDW 14.2, Plt Count 318, MPV 8.3, Neut % (Auto) 76.5, Lymph % (Auto) 17.0, [place] % (Auto) 6.1, Eos % (Auto) 0.2, Baso % (Auto) 0.2, Neut # (Auto) 10.8 H, Lymph # (Auto) 2.4, [place] # (Auto) 0.9, Eos # (Auto) 0.0, Baso # (Auto) 0.0 01/30/20 12:25: Sodium 143, Potassium 3.8, Chloride 106, Carbon Dioxide 22, Anion Gap 18.8 H, BUN 11, Creatinine 0.60, Estimated Creat Clear 116, Estimated GFR 102, Est GFR ( Amer) 124, Glucose 139 H, Calcium 9.8, Total Bilirubin 0.4, AST 38 H, ALT 55, Alkaline Phosphatase 98, Troponin I < 0.01, Total Protein 8.2, Albumin 4.8, Globulin 3.4 H, Albumin/Globulin Ratio 1.4 01/30/20 12:25: Lactate 2.0 01/30/20 12:25: Specimen Source Right radial, O2 % 2.5l, ABG pH 7.40, ABG pCO2 36.8, ABG pO2 101.4 H, ABG HCO3 22.2, ABG Total CO2 23.4, ABG O2 Saturation 97, ABG Base Excess -2.6 L, Angelito Test Acceptable I & O for Last 24 hours: Intake & Output 01/28/20 01/29/20 01/30/20 01/31/20 11:59 11:59 11:59 11:59 Intake Total 1050 / 1050 Balance 1050 / 1050 Weight 160 lb - *Routine HEENT Exam Head: Present: normocephalic Eye: Present: EOMI, PERRL ENT: Present: mucous membranes moist - *Routine Neck Exam Present: supple. Absent: lymphadenopathy - *Routine Respiratory Exam Present: accessory muscle use, prolonged expiratory phase, rales, wheezes - *Routine Cardiovascular Exam Present: RRR - *Routine Abdominal Exam Present: soft, normoactive bowel sounds. Absent: tenderness - *Routine Extremities Exam Absent: cyanosis, clubbing, edema - *Routine Skin Exam Present: warm. Absent: rash - *Routine Neurological Exam Present: alert, oriented X3 Assessment and Plan (1) Pneumonitis Current visit: Yes Status: Acute Category: Medical Code(s): J18.9 - Pneumonia, unspecified organism (2) Abdominal pain Current visit: No Status: Acute Category: Medical Code(s): R10.9 - Unspecified abdominal pain (3) COPD (chronic obstructive pulmonary disease) Current visit: No Status: Acute Category: Medical Code(s): J44.9 - Chronic obstructive pulmonary disease, unspecified (4) Flu-like symptoms Current visit: No Status: Acute Category: Medical Code(s): R68.89 - Other general symptoms and signs - Assessment and plan all Dx Assessment and Plan for all problems:: Admit to negative pressure isolation room, reevaluate for Covid 19/[place] coronavirus exposure IV steroids and antibiotics given her risk for bacterial COPD exacerbation.
--- NOTE | 2020-01-30 17:27 | Pharmacy Consult Notes ---
[facility] Pharmacy VTE Monitoring - Patient Demographics Admission date: 01/30/20 Report Date: 01/30/20 Time: 17:27 Allergies/Adverse Reactions: Patient Allergies oxycodone Allergy (Unknown, Verified 10/29/19 08:20) I-ITCHING Sulfa (Sulfonamide Antibiotics) Allergy (Unknown, Verified 10/29/19 08:20) EYE DROPS-EYES SWELL metaxalone Adverse Reaction (Verified 10/29/19 08:20) felt like i was dying Height: 1.55 m Weight: 72.121 kg Patient Problems: Current Active Problems Pneumonitis (Acute) - VTE Risk Labs: VTE Related Lab Results Hgb 14.5 g/dL (12.2-16.2) 01/30/20 12:25 Hct 44.2 % (37.0-47.0) 01/30/20 12:25 Plt Count 318 K/mm3 (142-424) 01/30/20 12:25 BUN 11 mg/dl (7-17) 01/30/20 12:25 Creatinine 0.60 mg/dl (0.52-1.04) 01/30/20 12:25 Estimated Creat Clear 116 mL/min (50-200) 01/30/20 12:25 Was VTE Risk Assessment Performed: Yes VTE Score: 6 VTE Risk Level: Moderate Risk - Prophylaxis VTE Prophylaxis Ordered?: Yes Types of VTE Prophylaxis: TEDS Knee High Location of Applied Device: Bilateral Lower Extremeties - VTE Diagnosis Confirmed Treatment or plan recommended: Continue Current Treatment
--- NOTE | 2020-01-31 09:17 | Progress Note ---
Internal Medicine - PN: Subj *Date: 01/31/20 *Time: 09:15 Interval history: Patient feels better than yesterday. Nausea has resolved. She is breathing more easily. She has eaten well. Exam Vital signs and Labs for Last 24 Hours: Temp Pulse Resp BP Pulse Ox 97.5 F L 103 H 20 130/69 94 L 01/31/20 08:00 01/31/20 08:00 01/31/20 08:00 01/31/20 08:00 01/31/20 08:00 Laboratory Results - last 24 hr 01/30/20 12:18: Influenza Type A Ag Negative, Influenza Type B Ag Negative 01/30/20 12:18: Group A Strep Rapid Negative 01/30/20 12:25: WBC 14.1 H, RBC 5.33, Hgb 14.5, Hct 44.2, MCV 82.9, MCH 27.3, MCHC 32.9, RDW 14.2, Plt Count 318, MPV 8.3, Neut % (Auto) 76.5, Lymph % (Auto) 17.0, Yell % (Auto) 6.1, Eos % (Auto) 0.2, Baso % (Auto) 0.2, Neut # (Auto) 10.8 H, Lymph # (Auto) 2.4, Yell # (Auto) 0.9, Eos # (Auto) 0.0, Baso # (Auto) 0.0 01/30/20 12:25: Sodium 143, Potassium 3.8, Chloride 106, Carbon Dioxide 22, Anion Gap 18.8 H, BUN 11, Creatinine 0.60, Estimated Creat Clear 116, Estimated GFR 102, Est GFR ( Amer) 124, Glucose 139 H, Calcium 9.8, Total Bilirubin 0.4, AST 38 H, ALT 55, Alkaline Phosphatase 98, Troponin I < 0.01, Total Protein 8.2, Albumin 4.8, Globulin 3.4 H, Albumin/Globulin Ratio 1.4 01/30/20 12:25: Lactate 2.0 01/30/20 12:25: Specimen Source Right radial, O2 % 2.5l, ABG pH 7.40, ABG pCO2 36.8, ABG pO2 101.4 H, ABG HCO3 22.2, ABG Total CO2 23.4, ABG O2 Saturation 97, ABG Base Excess -2.6 L, Angeliot Test Acceptable I & O for Last 24 hours: Intake & Output 01/28/20 01/29/20 01/30/20 01/31/20 11:59 11:59 11:59 11:59 Intake Total 3975 / 3975 Output Total 1400 / 1400 Balance 2575 / 2575 Weight 160 lb 7 oz Narrative: Patient is awake, alert, oriented x3. Oropharynx clear. No scleral icterus or jaundice. Lungs have good air movement, minimal wheezing in the expiratory lung phase. No crackles. Heart rate regular. Abdomen soft nontender. No edema or clubbing or cyanosis. Assessment and Plan (1) Pneumonitis Current visit: Yes Status: Acute Category: Medical Code(s): J18.9 - Pneumonia, unspecified organism (2) Abdominal pain Current visit: No Status: Acute Category: Medical Code(s): R10.9 - U nspecified abdominal pain (3) COPD (chronic obstructive pulmonary disease) Current visit: No Status: Acute Category: Medical Code(s): J44.9 - Chronic obstructive pulmonary disease, unspecified (4) Flu-like symptoms Current visit: No Status: Acute Category: Medical Code(s): R68.89 - Other general symptoms and signs - Assessment and plan all Dx Assessment and Plan for all problems:: I reviewed patient's CT scan personally, and note extremely minimal opacities. Further review of radiology report reveals that their opinion is that this reflects atelectasis more than pneumonitis and I agree. We are awaiting coronavirus 19 repeat serologic testing and I think it is very prudent to keep patient in isolation until this is back. However I feel patient is most likely to have a bronchopneumonia/post influenza COPD exacerbation and we will continue treatment for such. I anticipate a good prognosis.
--- NOTE | 2020-01-31 20:12 | Discharge Summary ---
General - General Admission date:: 01/30/20 Discharge date: 01/31/20 HPI HPI: 59-year-old female presents to the ED complaining of acute on chronic shortness of breath. She was recently diagnosed with influenza about 10 days ago and was tested for coronavirus 7 days ago and her test was resulted 5 days ago which was negative. However patient is failed to improve. She complains of more shortness of breath than usual. She also is complaining of a chronic cough that is more so than usual patient does have COPD. Patient states that she probably was febrile 2 days ago however has been taking ibuprofen and Tylenol [id number]. Patient denies any chest pain or diaphoresis. Positive for chills. Patient was unsure if she had any exposures. Of note per ER. Given her symptomatic issues, appearance of viral pneumonitis on chest x-ray/CT scan and respiratory distress she is admitted for further diagnostic testing, repeat [facility] - coronavirus testing and IV steroids given her wheezing. Hospital Course Hospital Course: She was admitted, placed on IV antibiotics and steroids. She improved dramatically over the next 24 hours. She was maintained on room air oxygen IV fluids. Her appetite picked up very nicely and nausea resolved. Coronavirus 19 testing was once again negative per PCR returned this evening and she was taken out of isolation. She had improved very nicely and wished to be discharged home. She is reached maximal medical improvement in the hospital and she will be discharged home and warp picker prescriptions tomorrow. Objective Vital signs: Temp Pulse Resp BP Pulse Ox 97.9 F 80 18 138/86 94 L 01/31/20 15:33 01/31/20 16:00 01/31/20 15:33 01/31/20 15:33 01/31/20 16:00 no acute distress - *Routine HEENT Exam Head: Present: normocephalic Eye: Present: EOMI, PERRL ENT: Present: mucous membranes moist - *Routine Neck Exam Present: supple - *Routine Respiratory Exam Present: CTA bilaterally - *Routine Cardiovascular Exam Present: RRR - *Routine Abdominal Exam Present: soft, normoactive bowel sounds. Absent: tenderness - *Routine Extremities Exam Absent: cyanosis, clubbing, edema - *Routine Skin Exam Present: warm. Absent: rash - Detailed Eye Exam Eyelids: Bilateral normal inspection Results Labs on day of discharge: Labs from last 24 hours 01/30/20 14:40 COVID-19 (CHRISTINA) Not detected DS: Diagnosis - Discharge Diagnosis (1) Pneumonitis Status: Resolved (2) Abdominal pain Status: Resolved (3) COPD (chronic obstructive pulmonary disease) Status: Chronic (4) Flu-like symptoms Status: Resolved Discharge Plan - Patient Discharge Instructions ACTIVITY: Continue current activity DIET: continue same diet Patient Instructions: DI for Pneumonia -- Adult, Preventing the Spread of Coronavirus Discharge Instructions - Follow up Plan Follow up with: Jean Pierre Johnston MD [Primary Care Provider] - 02/05/20 Disposition: Home, Self-Jail Medications: Home Medications Medication Instructions Recorded Confirmed Type cyclobenzaprine 10 mg tablet 10 mg PO BID 30 Days 02/15/18 01/30/20 History diazepam 5 mg tablet 5 mg PO BID 30 Days 02/15/18 01/30/20 History aspirin 81 mg tablet,delayed 81 mg PO DAILY 07/20/18 01/30/20 History release Levothyroxine Sodium [Tirosint] 75 mcg PO DAILY 09/17/18 01/30/20 History Albuterol Sulfate [Albuterol HFA 2 puffs IH Q6HP PRN #1 inh 11/23/18 01/31/20 Rx Inhaler] linaclotide 145 mcg capsule 145 mcg PO DAILY cap 08/14/19 01/31/20 History Mecobal/Levomefolat Ca/B6 Phos 1 tab PO DAILY 12/12/19 01/31/20 History [Foltanx] Azithromycin [Zithromax 250mg 250 mg PO DIRECTED #6 tab 01/31/20 Rx tab] Cefdinir [Omnicef 300mg Capsule] 300 mg PO BID #14 cap 01/31/20 Rx Fluticasone Propionate 2 spr NOSTRIL-B DAILY 01/31/20 01/31/20 History Gabapentin [Gabapentin 300mg Cap] 300 mg PO BID 01/31/20 01/31/20 History Omeprazole [Omeprazole 40mg 40 mg PO DAILY 01/31/20 01/31/20 History Capsule] predniSONE [Deltasone 20mg 20 mg PO BID 7 Days #14 tab 01/31/20 Rx tablet] Prescriptions/Medication Reconciliation: New Cefdinir [Omnicef 300mg Capsule] 300 mg PO BID #14 cap predniSONE [Deltasone 20mg tablet] 20 mg PO BID 7 Days #14 tab Azithromycin [Zithromax 250mg tab] 250 mg PO DIRECTED #6 tab Continued diazepam 5 mg tablet 5 mg PO BID 30 Days cyclobenzaprine 10 mg tablet 10 mg PO BID 30 Days linaclotide 145 mcg capsule 145 mcg PO DAILY cap aspirin 81 mg tablet,delayed release 81 mg PO DAILY Levothyroxine Sodium [Tirosint] 75 mcg PO DAILY Albuterol Sulfate [Albuterol HFA Inhaler] 2 puffs IH Q6HP PRN #1 inh PRN Reason: Shortness Of Breath Or Wheezing Mecobal/Levomefolat Ca/B6 Phos [Foltanx] 1 tab PO DAILY Fluticasone Propionate 2 spr NOSTRIL-B DAILY Omeprazole [Omeprazole 40mg Capsule] 40 mg PO DAILY Gabapentin [Gabapentin 300mg Cap] 300 mg PO BID - Problem Reconciliation Problems Reviewed?: Yes
--- NOTE | 2020-02-02 13:54 | Electrocardiograph Report ---
APPROVED REPORT Exam: Resting ECG HR:89 bpm ECG Measurements Heart Rate 89 AXES VA 170 P 58 QRSd 80 QRS 14 QT 362 T37 QTc 440 <Conclusion> Normal sinus rhythm Normal ECG Electronically signed by : Jean Pierre Johnston, 02/02/2020 13:54:35
== END 2020-01-31 20:50 | disposition home or self-care (01) ==
LOC: ER 12:08 → ICU 12:08
PROVIDERS: ADMIT Internal Medicine Adolescent Medicine; ATTEND Internal Medicine Adolescent Medicine
CPT/HCPCS: 71010; 71045; 71275; 80053; 82803; 83605; 84484; 85025; 87040; 87275; 87276; 87430; 87635; 93005; 94761; 96365; 96366; 96367; 96375; 96376; 99285; G0378; J0456; J2405; Q9967; U0002

== ENCOUNTER → 2020-05-08 14:55 | Outpatient (CLI) | payer MEDICARE, MEDICAID, SELFPAY ==
[2020-05-08 15:13] LABS: Basophils % 0.9 % (0.1-2.0); Eosinophils # 0.2 K/mm3 (0.0-0.4); Eosinophils % 3.6 % (0.1-12.0); Hematocrit 42.3 % (37.0-47.0); Lymphocytes # 1.8 K/mm3 (0.7-4.5); Mean Corpuscular HGB Conc 33.1 g/dL (31.8-35.4); Mean Corpuscular Hemoglobin 27.8 pg (27.0-31.2); Mean Platelet Volume 8.2 fl (7.4-10.4); Monocytes # 0.5 K/mm3 (0.1-1.0); Monocytes % 10.9 % (1.7-9.3); Neutrophils # 1.9 K/mm3 (1.8-7.8); Neutrophils % 42.5 % (37.0-80.0); Platelet Count 222 K/mm3 (142-424); Red Blood Count 5.04 M/mm3 (4.20-5.40); White Blood Count 4.3 K/mm3 (4.8-10.8)
--- NOTE | 2020-05-08 15:18 | XR_ITS ---
PROCEDURE: XR CHEST 2V CLINICAL HISTORY: PANLOBULAR EMPHYSEMA COMPARISON: CXR2V XR chest 2V from 07/31/2018 XR CHEST PORTABLE from 01/22/2020 XR CHEST PORTABLE from 01/30/2020 CT ANGIO CHEST from 01/30/2020 FINDINGS: The cardiomediastinal silhouette and pulmonary vascularity are within normal limits. The lungs are clear without infiltrates, suspicious nodules, or pleural effusions. Right hemidiaphragm is slightly elevated as before. No acute bony anomalies. IMPRESSION: No change with no acute finding Dictated by: Angelito Rosa MD 05/08/2020 16:10 Electronically signed by Angelito Rosa MD in [place] 05/08/2020 16:10
[2020-05-08 16:10] LABS: Chloride 105 mmol/L (98-107); Sodium 139 mmol/L (136-145)
[2020-05-08 16:11] LABS: Potassium 4.1 mmoL/L (3.5-5.1)
[2020-05-08 16:13] LABS: Anion Gap 12.1 mEq/L (5-15); Blood Urea Nitrogen 8 mg/dl (7-17); Carbon Dioxide 26 mmol/L (22.0-30.0); Estimated Glomerular Filt Rate 85 ml/min (>60); GFR (African American) 103 ML/MIN (>60)
[2020-05-08 16:14] LABS: Calcium 9.3 mg/dl (8.4-10.2); Glucose 104 mg/dl (74-100)
[2020-05-08 16:22] LABS: NT Pro Brain Natriuretic Pep. 22.4 pg/mL (0-125)
== END ==
PROVIDERS: Visit Provider Internal Medicine Adolescent Medicine
DX: J43.1 Panlobular emphysema (principal); R05 Cough; R06.09 Other forms of dyspnea
CPT/HCPCS: 36415; 71046; 80048; 83880; 85025

== ENCOUNTER 2020-07-31 22:15 | Emergency (ER) | payer MEDICARE, MEDICAID, SELFPAY ==
[2020-07-31 22:16] VITALS: BP 176/95; PULSE 97; RESP 16; TEMP 36.8; O2SAT 98; BMI 30.6
[2020-07-31 22:57] LABS: Microscopic, Urine URINE MICROSCOPIC (MICROSCOPIC)
[2020-07-31 23:07] LABS: Appearance,Urine CLEAR (Clear); Bilirubin,Urine Negative (Negative); Blood, Urine TRACE-I (Negative); Color,Urine YELLOW (Yellow); Glucose,Urine (UA) Negative (Negative); Ketones,Urine Negative (Negative); Leukocyte Esterase,Urine 1+ (Negative); Nitrate,Urine Negative (Negative); PH,Urine 5.5 (5.0-8.5); Protein,Urine Negative (Negative); Specific Gravity, Urine 1.025 (1.005-1.030); Urobilinogen,Urine 0.2 EU/dl (0.2)
[2020-07-31 23:10] LABS: Bacteria,Urine 1+ /lpf
[2020-07-31 23:40] VITALS: BP 168/68; PULSE 92; RESP 16; TEMP 36.8; O2SAT 97
--- NOTE | 2020-08-01 00:38 | HMH.EDGENADL ---
ED Disposition Clinical Impression: Urinary tract infection Qualifiers: Urinary tract infection type: acute cystitis Hematuria presence: without hematuria Qualified Code(s): N30.00 - Acute cystitis without hematuria Disposition: Home, Self-Care Condition on Discharge: Good Instructions: Urinary Tract Infection Prescriptions: levoFLOXacin [Levofloxacin 750MG Tablet*] 750 mg PO DAILY #7 tab Prescription Printed Phenazopyridine HCl [Pyridium 200mg Tablet] 200 pow PO TID PRN #6 tab PRN Reason: Dysuria Prescription Printed Referrals: Jean Pierre Johnston MD [Primary Care Provider] - - Critical Care Critical Care Time: No Attestation: On 07/31/20, the high probability of a clinically significant, sudden or life threatening deterioration of the following system(s) required my full and direct attention, intervention and personal management. The time I documented below is in addition to time spent performing reported procedures but includes the following listed in this critical care notation. Medical Decision Making - Say Inquiry Pt receiving controlled substance: No Vital Signs: 07/31/20 22:16 07/31/20 23:40 Temperature 98.2 F 98.2 F Temperature Source Oral Pulse Rate 92 H Pulse Rate [Left Radial] 97 H Respiratory Rate 16 16 Blood Pressure 168/68 H Blood Pressure [Right Arm] 176/95 H Blood Pressure Mean [Right Arm] 122 Blood Pressure Source [Right Arm] Automatic Cuff Blood Pressure Position [Right Arm] Sitting 02 Sat by Pulse Oximetry 98 Oxygen Delivery Method Room Air Room Air - Lab Data Lab Results 07/31/20 22:29: Urine Color Yellow, Urine Appearance Clear, Urine pH 5.5, Ur Specific Acra 1.025, Urine Protein Negative, Urine Glucose (UA) Negative, Urine Ketones Negative, Urine Blood Trace-i, Urine Nitrate Negative, Urine Bilirubin Negative, Urine Urobilinogen 0.2, Ur Leukocyte Esterase 1+ A, Urine WBC 5-10, Ur Squamous Epith Cells 3-5, Urine Bacteria 1+ Orders (Tests/Meds): ED MEDICATIONS Discontinued Medications Generic Name Dose Route Start Last Admin Trade Name Freq PRN Reason Stop Dose Admin Ibuprofen 600 mg 07/31/20 22:30 07/31/20 22:36 Ibuprofen 600 Mg Tablet PO 07/31/20 22:31 600 mg ONCE ONE Administration Levofloxacin 750 mg 07/31/20 23:29 10/01/20 23:39 Levofloxacin 750 Mg Tablet PO 07/31/20 23:30 750 mg ONCE ONE Administration Protocol Phenazopyridine HCl 200 mg 07/31/20 22:30 07/31/20 22:36 Phenazopyridine 200mg Tablet PO 07/31/20 22:31 200 mg ONCE ONE Administration ORDERS Category Date Time Status Urine Culture Stat Micro 07/31/20 22:29 Received Medical Decision Narrative: Patient is a 60 year old female with dysuria and frequency. Benign abdomen. UA was obtained and is consistent with UTI. Will treat with levofloxacin for acute complicated UTI since patient is on outpatient chemotherapy. She was given first dose of 750 mg levoquin here as well as 200 mg pyridium PO for symptom control. General Adult HPI - General Chief complaint: Urogenital-Female Stated complaint: excessive voiding Time Seen by Provider: 07/31/20 22:16 Mode of Arrival: Ambulatory Limitations: No Limitations Description of Symptoms (Recalled from ER Triage Doc. by RN): pt c/o burning sensation when voiding and urgency when voiding. pt also complains of some left lower back pain for the last 2 days - History of Present Illness HPI narrative: Patient is a 60 year old female with a history of lymphoma on outpatient chemo infusions who presents to the ED with dysuria. States for the last 2 days has had dysuria and frequency. Has had UTIs in the past and this feels similar. No fever, N/V/D or any other symptoms. - Related Data Home Medications Medication Instructions Recorded Confirmed cyclobenzaprine 10 mg tablet 10 mg PO BID 30 Days 02/15/18 03/13/20 diazepam 5 mg tablet 5 mg PO BID 30 Days 02/15/18 03/13/20 aspirin 81 mg t
== END 2020-07-31 23:42 | disposition home or self-care (01) ==
PROVIDERS: Emergency Provider Emergency Medicine; PCP Internal Medicine Adolescent Medicine
DX: N30.00 Acute cystitis without hematuria (principal); K21.9 Gastro-esophageal reflux disease without esophagitis; J44.9 Chronic obstructive pulmonary disease, unspecified; M79.7 Fibromyalgia; F41.9 Anxiety disorder, unspecified; M81.0 Age-related osteoporosis without current pathological fracture; Z87.442 Personal history of urinary calculi; Z87.891 Personal history of nicotine dependence; Z79.899 Other long term (current) drug therapy
CPT/HCPCS: 81001; 87086; 87088; 87186; 99282

== ENCOUNTER 2020-08-13 13:01 | Emergency (ER) | payer MEDICARE, SELFPAY ==
[2020-08-13 13:45] VITALS: BP 138/86; PULSE 96; RESP 16; TEMP 36.7; O2SAT 98; BMI 29.6
--- NOTE | 2020-08-13 14:00 | HMH.EDUTC ---
[facility] [place] Clinical Impression: Exposure to COVID-19 virus Lymphoma Qualifiers: Lymphoma type: unspecified type Lymphoma site: unspecified region Qualified Code(s): C85.90 - Non-Hodgkin lymphoma, unspecified, unspecified site Disposition: Home, Self-Care Condition on Discharge: Good Instructions: Preventing the Spread of Coronavirus Discharge Instructions Additional Instructions: Drink plenty of fluids. Take tylenol for pain or fever. Follow up with your regular doctor. GO TO THE ER FOR ANY WORSENING SYMPTOMS FOLLOW THE DIRECTIONS ON THE COVID-19 HAND OUT THAT WE GAVE YOU REGARDING SELF-ISOLATION UNTIL YOU KNOW YOUR COVID-19 RESULTS Referrals: Jean Pierre Johnston MD [Primary Care Provider] - Time of Disposition: 14:12 Medical Decision Making - Medical Records Medical records reviewed: No: I reviewed the patient's medical records. - Say Inquiry Pt receiving controlled substance: No Vital Signs: 08/13/20 13:45 08/13/20 14:43 Temperature 98.1 F 98.1 F Temperature Source Oral Oral Pulse Rate 96 H Pulse Rate [Radial] 96 H Respiratory Rate 16 16 Blood Pressure 138/86 Blood Pressure [Right Arm] 138/86 Blood Pressure Mean [Right Arm] 103 Blood Pressure Source Automatic Cuff Blood Pressure Source [Right Arm] Automatic Cuff Blood Pressure Position Sitting Blood Pressure Position [Right Arm] Sitting 02 Sat by Pulse Oximetry 98 Oxygen Delivery Method Room Air Room Air - Lab Data Lab Results 08/13/20 13:35: Chlamy pneumoniae PCR Not detected, Adenovirus (PCR) Not detected, B. pertussis DNA (PCR) Not detected, Coronavirus OC43 (PCR) Not detected, Coronavirus HKU1 (PCR) Not detected, Coronavirus 229E (PCR) Not detected, SARS-CoV-2 (PCR) Not detected, Coronavirus NL63 (PCR) Not detected, Human Metapneumovir PCR Not detected, Influenza A (H1) PCR Not detected, Influ A (H1N1/09) PCR Not detected, Influenza A (H3) PCR Not detected, Influenza Type A (PCR) Not detected, Influenza Type B (PCR) Not detected, M. pneumoniae (PCR) Not detected, Parainfluenza 1 (PCR) Not detected, Parainfluenza 2 (PCR) Not detected, Parainfluenza 3 (PCR) Not detected, Parainfluenza 4 (PCR) Not detected, RSV (PCR) Not detected, Entero/Rhino (PCR) Not detected [facility] [place] - General Stated complaint: wants covid test Time Seen by Provider: 08/13/20 14:00 Mode of Arrival: Ambulatory Source of Information: Patient Limitations: No Limitations Description of Symptoms (Recalled from Triage Doc. by RN): NEEDS COVID TEST WAS EXPOSED 1 WEEK AGO HEENT Symptoms (Recalled from RN notes): No Resp Symptoms (Recalled from RN notes): No Skin Symptoms (Recalled from RN notes): No MS Symptoms (Recalled from RN notes): No Functional Status (Recalled from RN notes): WNL - History of Present Illness Provider Complaint: She was unknowingly exposed to covid 19 around 1 week ago. She has not developed any symptoms, but she is being treated for lymphoma and she is not allowed to go to her treatment center until she has a negative test. - Related Data Home Medications Medication Instructions Recorded Confirmed cyclobenzaprine 10 mg tablet 10 mg PO BID 30 Days 02/15/18 08/12/20 diazepam 5 mg tablet 5 mg PO BID 30 Days 02/15/18 08/12/20 aspirin 81 mg tablet,delayed 81 mg PO DAILY 07/20/18 08/12/20 release linaclotide 145 mcg capsule 145 mcg PO DAILY cap 08/14/19 08/12/20 Mecobal/Levomefolat Ca/B6 Phos 1 tab PO DAILY 12/12/19 08/12/20 [Foltanx] Fluticasone Propionate 2 spr NOSTRIL-B DAILY 01/31/20 08/12/20 Gabapentin [Gabapentin 300mg Cap] 300 mg PO BID 01/31/20 08/12/20 Omeprazole [Omeprazole 40mg 40 mg PO DAILY 01/31/20 08/12/20 Capsule] Previous Rx's Medication Instructions Recorded Albuterol Sulfate [Albuterol HFA 2 puffs IH Q6HP PRN #1 inh 11/23/18 Inhaler] predniSONE [Deltasone 20mg 20 mg PO BID 7 Days #14 tab 01/31/20 tablet] levothyroxine 75 mcg capsule 75 mcg PO DAILY #90 cap
[2020-08-13 14:43] VITALS: BP 138/86; PULSE 96; RESP 16; TEMP 36.7; O2SAT 98
[2020-08-13 18:07] LABS: Adenovirus,PCR Not Detected (NotDetected); Bordetella Pertussis Not Detected (NotDetected); Chlamydophila Pneumoniae, PCR Not Detected (NotDetected); Coronavirus 19, PCR Not Detected (NotDetected); Coronavirus 229E Not Detected (NotDetected); Coronavirus NL63 Not Detected (NotDetected); Coronavirus OC43 Not Detected (NotDetected); Coronovirus HKU1,PCR Not Detected (NotDetected); Human Metapneumovirus Not Detected (NotDetected); Influenza A, PCR Not Detected (NotDetected); Influenza AH1, 2009 Not Detected (NotDetected); Influenza AH1, PCR Not Detected (NotDetected); Influenza AH3,PCR Not Detected (NotDetected); Influenza B, PCR Not Detected (NotDetected); Mycoplasma Pneumoniae, PCR Not Detected (NotDetected); Parainfluenza 1, PCR Not Detected (NotDetected); Parainfluenza 2, PCR Not Detected (NotDetected); Parainfluenza 3, PCR Not Detected (NotDetected); Parainfluenza 4, PCR Not Detected (NotDetected); Respiratory Syncytial Virus Not Detected (NotDetected); Rhinovirus/Enterovirus Not Detected (NotDetected)
== END 2020-08-13 14:44 | disposition home or self-care (01) ==
PROVIDERS: Emergency Provider Nurse Practitioner Family; PCP Internal Medicine Adolescent Medicine
DX: Z20.828 Contact with and (suspected) exposure to other viral communicable diseases (principal); C85.90 Non-Hodgkin lymphoma, unspecified, unspecified site; F41.9 Anxiety disorder, unspecified; K21.9 Gastro-esophageal reflux disease without esophagitis; M81.0 Age-related osteoporosis without current pathological fracture; M79.7 Fibromyalgia; Z87.442 Personal history of urinary calculi; Z79.899 Other long term (current) drug therapy; Z87.891 Personal history of nicotine dependence; Z88.2 Allergy status to sulfonamides; Z88.5 Allergy status to narcotic agent
CPT/HCPCS: G0463; 87581; 87633; 87798; 99201; U0003

== ENCOUNTER → 2020-08-22 09:19 | Outpatient (CLI) | payer MEDICARE, MEDICAID, SELFPAY ==
--- NOTE | 2020-08-22 09:28 | US_ITS ---
PROCEDURE: US THYROID CLINICAL INDICATION: hx nodule Difficulty swallowing COMPARISON: US THY US thyroid from 03/23/2018 US BXTHYROID US organ site (thyroid) from 04/19/2018 FINDINGS: The right lobe and isthmus have been surgically removed . The left lobe measures 3.1 x 1.2 cm this. In the upper pole there is a 4 mm hypoechoic nodule well-circumscribed wider than tall without calcifications IMPRESSION: Small hypoechoic nodule upper pole on the left not significantly changed. Prior right thyroidectomy Dictated by: Angelito Rosa MD 08/23/2020 08:15 Angelito Rosa MD in [place] 08/23/2020 08:15
--- NOTE | 2020-08-22 09:28 | FL_ITS ---
PROCEDURE: FL BARIUM SWALLOW CLINICAL INDICATION: dysphagia COMPARISON: RF FL BARIUM SWALLOW from 08/17/[address] ANGIO CHEST from 01/30/2020 CR XR CHEST 2V from 05/08/2020 TECHNIQUE: In the upright position the patient was observed to swallow barium in both the AP and lateral view. The cervical esophagus was examined under fluoroscopy with images obtained. The patient was then placed prone in the right anterior oblique position and was observed to swallow barium with Valsalva technique . FLUOROSCOPY TIME: 44 seconds FINDINGS: There was no evidence of aspiration. There was normal peristalsis. No filling defects or mucosal abnormalities. No masses or strictures. Incidental note was made of mild spasm of the cricopharyngeus. There is a small sliding hiatal hernia with non constricting Schatzki's ring. There was some reflux noted during the exam. There are some surgical clips along the posterior gastric region. IMPRESSION: 1. Mild spasm of the cricopharyngeus muscle. 2. Small sliding hiatal hernia with non constricting Schatzki's ring and GE reflux Dictated by: Angelito Rosa MD 08/22/2020 17:13 Angelito Rosa MD in [place] 08/22/2020 17:13
[2020-08-22 14:17] LABS: Free T4 (Free Thyroxine) 1.52 ng/dl (0.78-2.19)
[2020-08-23 18:18] LABS: Calcium, Ionized 5.2 mg/dL (4.5-5.6)
== END ==
PROVIDERS: PCP Internal Medicine Adolescent Medicine; Visit Provider Otolaryngology
DX: E04.1 Nontoxic single thyroid nodule (principal); R13.10 Dysphagia, unspecified
CPT/HCPCS: 36415; 74220; 76536; 82330; 84439; 84443

== ENCOUNTER → 2020-09-09 13:45 | Outpatient (CLI) | payer MEDICARE, MEDICAID, SELFPAY ==
--- NOTE | 2020-09-09 14:18 | ECG_ITS ---
APPROVED REPORT Exam: Resting ECG HR:74 bpm ECG Measurements Heart Rate 74 AXES IA 166 P 64 QRSd 80 QRS 27 QT 412 T 54 QTc 457 Conclusion Normal sinus rhythm Nonspecific T wave abnormality Abnormal ECG Electronically signed by : Jean Pierre Johnston, 09/10/2020 18:38:23
[2020-09-09 15:05] LABS: Basophils % 0.5 % (0.1-2.0); Eosinophils # 0.2 K/mm3 (0.0-0.4); Eosinophils % 2.3 % (0.1-12.0); Hematocrit 43.6 % (37.0-47.0); Hemoglobin 14.4 g/dL (12.2-16.2); Lymphocytes # 1.9 K/mm3 (0.7-4.5); Lymphocytes % 29.3 % (10-50); Mean Corpuscular HGB Conc 33.2 g/dL (31.8-35.4); Mean Corpuscular Hemoglobin 28.1 pg (27.0-31.2); Mean Corpuscular Volume 84.8 fl (81-99); Mean Platelet Volume 8.6 fl (7.4-10.4); Monocytes # 0.5 K/mm3 (0.1-1.0); Monocytes % 7.8 % (1.7-9.3); Neutrophils # 3.9 K/mm3 (1.8-7.8); Platelet Count 194 K/mm3 (142-424); Red Blood Count 5.14 M/mm3 (4.20-5.40); Red Cell Distribution Width 15.1 % (11.5-17.5); White Blood Count 6.4 K/mm3 (4.8-10.8)
[2020-09-09 15:44] LABS: Anion Gap 11.7 mEq/L (5-15); Blood Urea Nitrogen 8 mg/dl (7-17); Calcium 9.2 mg/dl (8.4-10.2); Carbon Dioxide 29 mmol/L (22.0-30.0); Chloride 104 mmol/L (98-107); Estimated Glomerular Filt Rate 102 ml/min (>60); GFR (African American) 123 ML/MIN (>60); Glucose 99 mg/dl (74-100); Potassium 3.7 mmoL/L (3.5-5.1); Sodium 141 mmol/L (136-145)
[2020-09-09 18:29] LABS: Coronavirus 19 IgG Antibody Negative (Negative); Coronavirus 19 IgM Antibody Negative (Negative)
== END ==
PROVIDERS: Visit Provider Otolaryngology
DX: Z01.818 Encounter for other preprocedural examination (principal); R13.10 Dysphagia, unspecified
CPT/HCPCS: 36415; 80048; 85025; 86328; 93005

== ENCOUNTER 2020-09-11 06:10 | Day surgery (SDC) | payer MEDICARE, MEDICAID, SELFPAY ==
[2020-09-09 13:05] VITALS: BMI 30.8
[2020-09-11] VITALS (11 sets, daily range): BP systolic 119–140; BP diastolic 70–85; PULSE 85–98; RESP 12–22; TEMP 36.3–36.6; O2SAT 92–96
--- NOTE | 2020-09-11 07:25 | HMH.ANESCL ---
[facility] Anesthesia Checklist - Patient Identification Patient Identification: Arm Band - Structural Data Admitted From: Home Planned Operative Procedure/s: esophagoscopy with dilation Consent for Planned Operative Procedure(s) Verified: Yes Verified Documents: Surgical Consent, History and Physical - NPO Status Verified Time NPO: 00:00 - Additional verifications Anesthesia Reactions: Yes (NAUSEA / VOMITING) Hx Blood Transfusions: Yes Blood Transfusion Reaction: No - Airway Assessment C-Spine Mobility Assessed: Yes (mp2) TMJ Mobility Assessed: Yes Dentition: Good Dentition - Neurological Assessment Level of Consciousness: Awake, Alert - Anesthesia Plan Anesthesia Risk discussed: Yes Anesthesia Plan: Verified ASA Class: III Anesthesia Type: General [facility] History I have reviewed the patient's past medical history: Yes Medical History: Reports:: Anxiety, Cancer, Chronic Obstructive Pulmonary Disease (COPD), Gastroesophageal Reflux Disease(GERD), Lung Disease, Kidney Stones, MRSA, Osteoporosis, Seizures Denies:: Diabetes Mellitus Type 1, Diabetes Mellitus Type 2, Internal Pacemaker *Have you ever received a pneumonia vaccine?: No *Have you received a flu vaccine this season?: No Other Medical History: Reports: Anemia, Fibromyalgia, Osteoporosis. Denies: Blood Transfusion Reaction Anesthesia experience/problems:: nac Laterality Cases: Left: Other Other Surgeries: Yes: Appendectomy, Colonoscopy, , Diagnostic Lap, EGD, Hysterectomy-Total, Thyroidectomy, Tubal Ligation, Other. No: Pacemaker Amputation: No Fractures: Yes (WRIST) - *Social History Last grade of school completed: High school graduate Smoking Status: Former smoker Tobacco Type: cigarettes #Yrs smoked (if former smoker): 16 Alcohol Intake: never Alcohol Intake Frequency:: holidays/special occasions only Substance Use Type: denies use *Occupational Status:: other Housing: house Household Members: significant other *Travel in the last 8 weeks: None - Psychiatric History Pschychiatric History:: Reports:: Anxiety Family Hx:: Cancer, Bleeding Disorder, Anemia, Heart Attack, Diabetes, Coronary Artery Disease, Hyperlipidemia, Hypertension, Kidney Disease, Stroke PIER MASTER ASSISTANT history: No PIER MASTER ASSISTANT history
--- NOTE | 2020-09-11 08:07 | P.PN_ITS ---
[facility] Anesthesia Record Part I Intake, IV Amount: 800 Estimated blood loss (mL): 0 Urine output (mL): 0 Blood Pressure: 140/76 SaO2: 92 Pulse Rate: 98 Respiratory Rate: 16 Temperature: 97.4 F Patient is:: Drowsy, Stable Stable to PACU at:: 08:05
--- NOTE | 2020-09-11 09:01 | P.OP_ITS ---
Date of procedure: 09/11/20 Pre-op Diagnosis:: 1. Cricopharyngeus muscle spasm and hypertrophy 2. Dysphagia Post-op Diagnosis:: same Procedure performed:: 1. Esophagoscopy and dilatation Surgeon:: Omid Arenas MD WOOL HAT FLANGER:: Tito Astorga Anesthesia: GETA Estimated blood loss (mL): 0 Operative findings:: same Operative note:: With the patient under general anesthesia maintained with an oral endotracheal tube the 12 x 16 x 30 cm esophagoscope was used. There was significant tightness of the cricopharyngeus muscle area of the cervical esophagus. Using multiple dilators the tightness at the cricopharyngeus area was corrected and it was possible to pass the esophagoscope through the cricopharyngeus area into the cervical and thoracic portions of the esophagus, no other abnormalities were present. The patient tolerated the procedure well and was sent to recovery in good general condition. Omid Arenas Condition: stable Disposition: PACU Complications:: none
--- NOTE | 2020-09-11 14:47 | P.PN_ITS ---
[facility] Anesthesia Record Part II Discharge Time: 08:44 Destination: Surgical Day Care (OP Surgery) PACU nurse assessment reviewed?: Yes Patient Condition:: Good Anesthesia Complications:: None Swallowing reflex intact?: Yes Cyanosis?: No Blood Pressure: 132/74 Pulse Rate: 92 Temperature: 97.7 F Mental Status: Alert & Oriented Pain level:: 0 Nausea and/or vomitting:: None Intake, IV Amount: 0
== END 2020-09-11 09:15 | disposition home or self-care (01) ==
LOC: OR 06:11
PROVIDERS: PCP Internal Medicine Adolescent Medicine; Visit Provider Otolaryngology
PROC: (CPT 43195; principal; 2020-09-11 07:30)
DX: J39.2 Other diseases of pharynx (principal); R13.10 Dysphagia, unspecified; Z85.72 Personal history of non-Hodgkin lymphomas; J44.9 Chronic obstructive pulmonary disease, unspecified; K21.9 Gastro-esophageal reflux disease without esophagitis; M81.0 Age-related osteoporosis without current pathological fracture; Z86.14 Personal history of Methicillin resistant Staphylococcus aureus infection; D64.9 Anemia, unspecified
CPT/HCPCS: 43195; 96374; 96375; J2405

== ENCOUNTER → 2020-11-04 14:10 | Outpatient (CLI) | payer MEDICARE, MEDICAID, SELFPAY ==
--- NOTE | 2020-11-04 14:31 | ECG_ITS ---
APPROVED REPORT Exam: Resting ECG HR:98 bpm ECG Measurements Heart Rate 98 AXES UT 148 P 64 QRSd 78 QRS 52 QT 328 T 54 QTc 418 Conclusion Normal sinus rhythm Normal ECG Electronically signed by : Jean Pierre Johnston, 11/04/2020 19:54:32
[2020-11-04 14:57] LABS: Basophils # 0.1 K/mm3 (0-0.2); Eosinophils # 0.2 K/mm3 (0.0-0.4); Eosinophils % 3.2 % (0.1-12.0); Hematocrit 46.8 % (37.0-47.0); Hemoglobin 16.1 g/dL (12.2-16.2); Mean Corpuscular HGB Conc 34.4 g/dL (31.8-35.4); Mean Corpuscular Hemoglobin 29.3 pg (27.0-31.2); Mean Corpuscular Volume 85.2 fl (81-99); Mean Platelet Volume 8.3 fl (7.4-10.4); Monocytes # 0.5 K/mm3 (0.1-1.0); Monocytes % 8.4 % (1.7-9.3); Neutrophils # 3.4 K/mm3 (1.8-7.8); Neutrophils % 55.4 % (37.0-80.0); Platelet Count 270 K/mm3 (142-424); Red Blood Count 5.49 M/mm3 (4.20-5.40); Red Cell Distribution Width 13.6 % (11.5-17.5); White Blood Count 6.1 K/mm3 (4.8-10.8)
[2020-11-04 15:17] LABS: Chloride 106 mmol/L (98-107); Potassium 4.2 mmoL/L (3.5-5.1); Sodium 140 mmol/L (136-145)
[2020-11-04 15:20] LABS: Alanine Aminotransferase 77 U/L (12-78); Albumin Level 4.6 g/dl (3.5-5.0); Albumin/Globulin Ratio 1.6 (1.1-1.8); Alkaline Phosphatase 150 U/L (38-126); Anion Gap 12.2 mEq/L (5-15); Aspartate Amino Transferase 56 U/L (14-36); Bilirubin,Total 0.6 mg/dl (0.2-1.3); Blood Urea Nitrogen 7 mg/dl (7-17); Calcium 9.7 mg/dl (8.4-10.2); Carbon Dioxide 26 mmol/L (22.0-30.0); Estimated Glomerular Filt Rate 85 ml/min (>60); GFR (African American) 103 ML/MIN (>60); Globulin 2.8 g/dL (1.3-3.2); Glucose 132 mg/dl (74-100); Total Protein,Serum 7.4 g/dl (6.3-8.2)
[2020-11-04 15:33] LABS: Coronavirus 19 IgG Antibody Negative (Negative); Coronavirus 19 IgM Antibody Negative (Negative)
== END ==
PROVIDERS: Visit Provider Otolaryngology
DX: Z01.818 Encounter for other preprocedural examination (principal); Z03.818 Encounter for observation for suspected exposure to other biological agents ruled out; H65.23 Chronic serous otitis media, bilateral; H90.6 Mixed conductive and sensorineural hearing loss, bilateral
CPT/HCPCS: 36415; 80053; 85025; 86328; 93005

== ENCOUNTER 2020-11-06 08:01 | Day surgery (SDC) | payer MEDICARE, MEDICAID, SELFPAY ==
[2020-11-04 10:26] VITALS: BMI 30.2
[2020-11-06] VITALS (9 sets, daily range): BP systolic 118–141; BP diastolic 77–89; PULSE 88–94; RESP 12–18; TEMP 36.1–36.4; O2SAT 93–100
--- NOTE | 2020-11-06 10:52 | P.OP_ITS ---
Date of procedure: 11/06/20 Pre-op Diagnosis:: Bilateral serous otitis media Post-op Diagnosis:: same Procedure performed:: Bilaterl myringotomies with tube placement Surgeon:: Omid Arenas MD TRUCK JUMPER:: Bean Mercado Anesthesia: GETA Estimated blood loss (mL): 0 Operative findings:: same Operative note:: With the patient under general anesthesia having been given 1 g of Ancef and 12 mg of Decadron the right ear was prepped and draped. Using the operating microscope for all the procedure an incision was made in the posterior inferior quadrant,Serous fluid was aspirated, and a Triune T-tube was placed. Ciprodex drops were applied. The left ear was done in the same fashion the findings were identical a Triune T-tube was placed. And Ciprodex drops were applied. The patient tolerated the procedure well and was sent to recovery in good general condition. Condition: stable Disposition: PACU Complications:: none
--- NOTE | 2020-11-06 10:58 | HMH.ANESCL ---
[facility] [place] Anesthesia Checklist - Structural Data Admitted From: Home Planned Operative Procedure/s: bmt Consent for Planned Operative Procedure(s) Verified: Yes - Additional verifications Anesthesia Reactions: Yes (NAUSEA / VOMITING) Hx Blood Transfusions: Yes Blood Transfusion Reaction: No - Airway Assessment C-Spine Mobility Assessed: Yes TMJ Mobility Assessed: Yes Dentition: Good Dentition - Neurological Assessment Level of Consciousness: Awake, Alert, Appropriate - Anesthesia Plan Anesthesia Risk discussed: Yes Anesthesia Plan: Verified ASA Class: III Anesthesia Type: General [facility] [place] History I have reviewed the patient's past medical history: Yes Medical History: Reports:: Anxiety, Cancer, Chronic Obstructive Pulmonary Disease (COPD), Gastroesophageal Reflux Disease(GERD), Lung Disease, Kidney Stones, Osteoporosis, Seizures (childhood) Denies:: Diabetes Mellitus Type 1, Diabetes Mellitus Type 2, Internal Pacemaker, MRSA *Have you ever received a pneumonia vaccine?: Yes *Have you received a flu vaccine this season?: Yes Other Medical History: Reports: Anemia, Fibromyalgia, Osteoporosis. Denies: Blood Transfusion Reaction Anesthesia experience/problems:: none Laterality Cases: Left: Other Other Surgeries: Yes: Appendectomy, Colonoscopy, , Diagnostic Lap, EGD, Hysterectomy-Total, Thyroidectomy, Tubal Ligation, Other. No: Pacemaker Amputation: No Fractures: Yes (WRIST) - *Social History Smoking Status: Former smoker Tobacco Type: cigarettes #Yrs smoked (if former smoker): 16 Alcohol Intake: never Alcohol Intake Frequency:: holidays/special occasions only Substance Use Type: denies use *Occupational Status:: disabled Housing: house Household Members: significant other *Travel in the last 8 weeks: None - Psychiatric History Pschychiatric History:: Reports:: Anxiety Family Hx:: Stroke GUARD CAPTAIN history: No GUARD CAPTAIN history
--- NOTE | 2020-11-06 11:00 | P.PN_ITS ---
[facility] Anesthesia Record Part I Intake, IV Amount: 1,000 Estimated blood loss (mL): 0 Urine output (mL): 0 Blood Pressure: 140/88 SaO2: 96 Pulse Rate: 94 Respiratory Rate: 12 Temperature: 97.5 F Patient is:: Awake, Stable Stable to PACU at:: 10:55
--- NOTE | 2020-11-06 17:54 | P.PN_ITS ---
[facility] Anesthesia Record Part II Discharge Time: 11:15 Destination: Surgical Day Care (OP Surgery) PACU nurse assessment reviewed?: Yes Patient Condition:: Good Anesthesia Complications:: None Swallowing reflex intact?: Yes Cyanosis?: No Blood Pressure: 138/84 Pulse Rate: 90 Temperature: 97.5 F Mental Status: Alert & Oriented Pain level:: 0 Nausea and/or vomitting:: None Intake, IV Amount: 0
== END 2020-11-06 11:51 | disposition home or self-care (01) ==
LOC: OR 08:03
PROVIDERS: PCP Internal Medicine Adolescent Medicine; Visit Provider Otolaryngology
PROC: (CPT 69436; principal; 2020-11-06 09:45)
DX: H65.93 Unspecified nonsuppurative otitis media, bilateral; Z85.9 Personal history of malignant neoplasm, unspecified; J44.9 Chronic obstructive pulmonary disease, unspecified; K21.9 Gastro-esophageal reflux disease without esophagitis; M81.0 Age-related osteoporosis without current pathological fracture; F41.9 Anxiety disorder, unspecified; D64.9 Anemia, unspecified; M79.7 Fibromyalgia; Z87.891 Personal history of nicotine dependence; Z82.3 Family history of stroke; Z88.6 Allergy status to analgesic agent; Z88.2 Allergy status to sulfonamides
CPT/HCPCS: 69436; 96374; 96375

== ENCOUNTER 2020-12-06 12:13 | Emergency (ER) | payer MEDICARE, MEDICAID, SELFPAY ==
[2020-12-06 12:25] VITALS: BP 139/88; PULSE 88; RESP 18; TEMP 36.9; O2SAT 98; BMI 30.2
--- NOTE | 2020-12-06 12:36 | HMH.EDUTC ---
[facility] [place] Clinical Impression: Right otitis media Qualifiers: Otitis media type: suppurative Chronicity: acute Recurrence: recurrent Spontaneous tympanic membrane rupture: without spontaneous rupture Qualified Code(s): H66.004 - Acute suppurative otitis media without spontaneous rupture of ear drum, recurrent, right ear Disposition: Home, Self-Care Condition on Discharge: Good Instructions: DI for Otitis Media (Middle Ear Infection)-Child Additional Instructions: Use ear drops from previous surgery. Follow up with Dr Arenas next week. Prescriptions: Amoxicillin/Potassium Clav [Augmentin 875-125 Tablet] 1 tab PO Q12H 10 Days #20 tab Transmission Status: Pending to [id number] predniSONE [Prednisone 20mg Tab] 20 mg PO BID #10 tab Transmission Status: Pending to [id number] Referrals: Jean Pierre Johnston MD [Primary Care Provider] - Time of Disposition: 12:42 Medical Decision Making - Say Inquiry Pt receiving controlled substance: No [facility] [place] - General Stated complaint: had tubes put in ears,face and neck swollen Time Seen by Provider: 12/06/20 12:36 - History of Present Illness Provider Complaint: Had PE tubes placed last month. STill has ear pain, muffled sound, and swelling in the right side of her face and neck for 2 days. No fever. Onset (ago): day(s) (2) Location: head, face Relieving factors: none Exacerbating factors: none Associated symptoms: denies other symptoms Treatments prior to arrival: none - Related Data Home Medications Medication Instructions Recorded Confirmed cyclobenzaprine 10 mg tablet 10 mg PO BID 30 Days 02/15/18 11/06/20 diazepam 5 mg tablet 5 mg PO BID 30 Days 02/15/18 11/06/20 aspirin 81 mg tablet,delayed 81 mg PO DAILY 07/20/18 11/06/20 release linaclotide 145 mcg capsule 145 mcg PO DAILY cap 08/14/19 11/06/20 Gabapentin [Gabapentin 300mg Cap] 300 mg PO BID 01/31/20 11/06/20 Omeprazole [Omeprazole 40mg 40 mg PO DAILY 01/31/20 11/06/20 Capsule] Budesonide/Formoterol Fumarate 1 gm PO BID 09/09/20 11/06/20 [Symbicort 160-4.5 Mcg Inhaler] Furosemide [Furosemide 20mg Tab*] 20 mg PO DAILY 09/09/20 11/06/20 Ipratropium/Albuterol Sulfate 1 mcg PO NEEDED PRN 09/09/20 11/06/20 [Iprat-Albut 0.5-3(2.5) mg/3 ml] Previous Rx's Medication Instructions Recorded Albuterol Sulfate [Albuterol HFA 2 puffs IH Q6HP PRN #1 inh 11/23/18 Inhaler] levothyroxine 75 mcg capsule 75 mcg PO DAILY #90 cap 08/26/20 Amoxicillin/Potassium Clav 1 tab PO Q12H 10 Days #20 tab 12/06/20 [Augmentin 875-125 Tablet] predniSONE [Prednisone 20mg 20 mg PO BID #10 tab 12/06/20 Tab] Allergies Allergy/AdvReac Type Severity Reaction Status Date / Time oxycodone Allergy Unknown I-ITCHING Verified 11/04/20 09:50 Sulfa (Sulfonamide Allergy Unknown EYE Verified 11/04/20 09:50 Antibiotics) DROPS-EYES SWELL metaxalone AdvReac felt like Verified 11/04/20 09:50 i was dying [facility] History - Hepatitis A Screen Attestation statement:: This patient has been screened for Hepatitis A risk factors. I have reviewed the patient's past medical history: Yes Medical History: Reports:: Anxiety, Cancer, Chronic Obstructive Pulmonary Disease (COPD), Gastroesophageal Reflux Disease(GERD), Lung Disease, Kidney Stones, Osteoporosis, Seizures (childhood) Denies:: Diabetes Mellitus Type 1, Diabetes Mellitus Type 2, Internal Pacemaker, MRSA Other Medical History: Reports: Anemia, Fibromyalgia, Osteoporosis. Denies: Blood Transfusion Reaction Laterality Cases: Left: Other Other Surgeries: Yes: Appendectomy, Colonoscopy, , Diagnostic Lap, EGD, Hysterectomy-Total, Thyroidectomy, Tubal Ligation, Other. No: Pacemaker Amputation: No Fractures: Yes (WRIST) Comment: esophagoscopy - Social History Smoking Status: Former smoker Tobacco Type: cigarettes #Yrs smoked (if former smoker): 16 Alcohol Intake: never Alcohol Intake Frequency:: hol
[2020-12-06 12:44] VITALS: BP 139/88; PULSE 88; RESP 18; TEMP 36.9; O2SAT 98
== END 2020-12-06 12:46 | disposition home or self-care (01) ==
PROVIDERS: Emergency Provider Physician Assistant; PCP Internal Medicine Adolescent Medicine
DX: H66.004 Acute suppurative otitis media without spontaneous rupture of ear drum, recurrent, right ear (principal); K21.9 Gastro-esophageal reflux disease without esophagitis; J44.9 Chronic obstructive pulmonary disease, unspecified; M79.7 Fibromyalgia; Z87.891 Personal history of nicotine dependence; Z79.899 Other long term (current) drug therapy
CPT/HCPCS: 99202; G0463

== ENCOUNTER → 2021-01-07 11:47 | Outpatient (CLI) | payer MEDICARE, MEDICAID, SELFPAY ==
--- NOTE | 2021-01-07 | XR_ITS ---
PROCEDURE: XR CLAVICLE LT CLINICAL INDICATION: LT SIDED CHEST WALL PAIN, ACUTE PAIN OF LT SHOULDER COMPARISON: No exams were available for comparison FINDINGS: No fracture or dislocation. No lytic or blastic change. There is normal mineralization. The joint spaces are well-preserved. No significant degenerative/arthritic changes. No erosive changes evident. Other findings:None. IMPRESSION: Negative left clavicle Dictated by: Angelito Rosa MD 01/07/2021 16:49 Angelito Rosa MD in [place] 01/07/2021 16:49
--- NOTE | 2021-01-07 | XR_ITS ---
PROCEDURE: XR CHEST 2V CLINICAL HISTORY: LT SIDED CHEST WALL PAIN COMPARISON: CR XR CHEST PORTABLE from 01/22/2020 CR XR CHEST PORTABLE from 01/30/[address] ANGIO CHEST from 01/30/2020 CR XR CHEST 2V from 05/08/2020 FINDINGS: The cardiomediastinal silhouette and pulmonary vascularity are within normal limits. The lungs are clear without infiltrates, suspicious nodules, or pleural effusions. No acute bony abnormalities. IMPRESSION: No acute findings. Dictated by: Angelito Rosa MD 01/07/2021 16:50 Angelito Rosa MD in [place] 01/07/2021 16:50
--- NOTE | 2021-01-07 | XR_ITS ---
PROCEDURE: XR SHOULDER LT MIN 2V CLINICAL INDICATION: LT SIDED CHEST WALL PAIN Left-sided pain COMPARISON: CR SHOU3R [id number] VIEWS from 05/27/2017 CR XR CLAVICLE LT from 01/07/2021 FINDINGS: No fracture or dislocation. No lytic or blastic change. There is normal mineralization. Small bone island is present in the left 4th rib. Other findings:None. IMPRESSION: No acute findings. Dictated by: Angelito Rosa MD 01/07/2021 16:49 Angelito Rosa MD in [place] 01/07/2021 16:49
--- NOTE | 2021-01-07 | XR_ITS ---
PROCEDURE: XR RIBS LT MIN 3V W CXR1V CLINICAL INDICATION: LT SIDED CHEST WALL PAIN COMPARISON: CR RIBSLT XR ribs LT 2V from 01/20/2018 CR CXR2V XR chest 2V from 07/31/2018 CR XR CHEST PORTABLE from 01/22/2020 CR XR CHEST PORTABLE from 01/30/[address] ANGIO CHEST from 01/30/2020 CR XR CHEST 2V from 05/08/2020 FINDINGS: Sclerotic focus is present in the left 4th rib laterally may be due to a bone island. Minimally offset fracture involves the left 10th rib anteriorly and may be old.. Please correlate with patient's area of pain and tenderness. IMPRESSION: Left 10th rib fracture Dictated by: Angelito Rosa MD 01/07/2021 16:53 Angelito Rosa MD in [place] 01/07/2021 16:53
== END ==
PROVIDERS: PCP Internal Medicine Adolescent Medicine; Visit Provider Internal Medicine Adolescent Medicine
DX: R07.89 Other chest pain (principal); M25.512 Pain in left shoulder
CPT/HCPCS: 71046; 71101; 73000; 73030

== ENCOUNTER → 2021-01-13 17:01 | Outpatient (CLI) | payer MEDICARE, MEDICAID, SELFPAY ==
[2021-01-13 17:22] LABS: Basophils # 0.1 K/mm3 (0-0.2); Basophils % 0.8 % (0.1-2.0); Eosinophils # 0.2 K/mm3 (0.0-0.4); Eosinophils % 3.1 % (0.1-12.0); Hematocrit 43.1 % (37.0-47.0); Hemoglobin 14.2 g/dL (12.2-16.2); Lymphocytes # 1.9 K/mm3 (0.7-4.5); Lymphocytes % 28.2 % (10-50); Mean Corpuscular Hemoglobin 27.8 pg (27.0-31.2); Mean Corpuscular Volume 84.2 fl (81-99); Mean Platelet Volume 8.7 fl (7.4-10.4); Monocytes # 0.4 K/mm3 (0.1-1.0); Monocytes % 5.7 % (1.7-9.3); Neutrophils # 4.3 K/mm3 (1.8-7.8); Neutrophils % 62.2 % (37.0-80.0); Platelet Count 186 K/mm3 (142-424); Red Blood Count 5.11 M/mm3 (4.20-5.40); Red Cell Distribution Width 13.8 % (11.5-17.5); White Blood Count 6.9 K/mm3 (4.8-10.8)
[2021-01-15 11:39] LABS: Alpha-1-Antitrypsin 125 mg/dL (101-187)
[2021-01-17 04:49] LABS: D001-IgE D pteronyssinus <0.10 kU/L (Class 0); D002-IgE D farinae <0.10 kU/L (Class 0); E001-IgE Cat Dander <0.10 kU/L (Class 0); E005-IgE Dog Dander <0.10 kU/L (Class 0); G002-IgE Bermuda Grass <0.10 kU/L (Class 0); G006-IgE Timothy Grass <0.10 kU/L (Class 0); I006-IgE Cockroach, German <0.10 kU/L (Class 0); Immunoglobulin E, Total 7 IU/mL (6-495); M001-IgE Penicillium chrysogen <0.10 kU/L (Class 0); M002-IgE Cladosporium herbarum <0.10 kU/L (Class 0); M003-IgE Aspergillus fumigatus <0.10 kU/L (Class 0); M006-IgE Alternaria alternata <0.10 kU/L (Class 0); T001-IgE Maple/Box Elder <0.10 kU/L (Class 0); T003-IgE Common Silver Birch <0.10 kU/L (Class 0); T006-IgE Cedar, Mountain <0.10 kU/L (Class 0); T007-IgE Oak, White <0.10 kU/L (Class 0); T008-IgE Elm, American <0.10 kU/L (Class 0); T010-IgE Walnut <0.10 kU/L (Class 0); T011-IgE Maple Leaf Sycamore <0.10 kU/L (Class 0); T014-IgE Cottonwood <0.10 kU/L (Class 0); T015-IgE Ash, White <0.10 kU/L (Class 0); T022-IgE Pecan, Hickory <0.10 kU/L (Class 0); T070-IgE White Mulberry <0.10 kU/L (Class 0); W001-IgE Ragweed, Short <0.10 kU/L (Class 0); W011-IgE Thistle, Russian <0.10 kU/L (Class 0); W014-IgE Pigweed, Common <0.10 kU/L (Class 0); W018-IgE Sheep Sorrel <0.10 kU/L (Class 0)
[2021-01-17 13:42] LABS: E072-IgE Mouse Urine <0.10 kU/L (Class 0)
[2021-01-17 17:25] LABS: M003-IgE Aspergillus fumigatus <0.10 kU/L (Class 0)
== END ==
PROVIDERS: Visit Provider Internal Medicine Pulmonary Disease
DX: J44.9 Chronic obstructive pulmonary disease, unspecified (principal); J45.909 Unspecified asthma, uncomplicated
CPT/HCPCS: 36415; 82103; 82785; 85025; 86003

== ENCOUNTER → 2021-02-02 10:08 | Outpatient (CLI) | payer MEDICARE, MEDICAID, SELFPAY ==
--- NOTE | 2021-02-02 10:14 | XR_ITS ---
PROCEDURE: XR DEXA AXIAL SKELETON CLINICAL HISTORY: VITAMIN D DEFICIENCY COMPARISON: CR DEXAAX XR DEXA axial skeleton from 11/10/2017 FINDINGS: The right hip BMD is 0.702 with a T-score of -1.3. The left hip BMD is 0.770 with a T-score of -1.4. The lumbar spine BMD is 0.742 with a T-score of -2.8. Previously the lowest density was in the lumbar spine with a T-score -2.0. IMPRESSION: This patient is considered osteoporotic according to the World Health Organization criteria. Fracture risk is high. Treatment is advised. Based on these results a follow-up exam is recommended in 1 year. Dictated by: Angelito Rosa MD 02/03/2021 09:45 Angelito Rosa MD in [place] 02/03/2021 09:45
--- NOTE | 2021-02-02 10:14 | MM_ITS ---
PROCEDURE: MM DIG SCREENING MAMM BI W/CAD Digital Breast Tomosynthesis Included CLINICAL INDICATION: SCREENING There is no personal or family history of breast cancer. COMPARISON: MG DMSB DIG MAMM-SCREEN IVÁN from 03/22/2016 MG SCBI MM Dig screening mamm BI w/CAD from 11/10/2017 MG DIG MAMM-SCREEN IVÁN from 04/10/2019 TECHNIQUE: Standard CC and MLO images and 3D Tomosynthesis was obtained. R2 CAD reviewed. FINDINGS: Breasts are composed primarily minimal scattered fibroglandular densities in each breast. There are stable tiny benign-appearing nodular densities left breast. There is a benign-appearing calcification right breast. There is minimal vascular calcification left breast. IMPRESSION: Fatty type breast parenchyma with no suspicious lesions seen BI-RAD Category: 2 Benign Finding(s) FOLLOW-UP: 1YR 1 Year Follow-up (A letter has been sent to the patient regarding results of the study.) Dictated by: Dr. Alexsander Heard MD 02/06/2021 08:40 Dr. Alexsander Heard MD in [place] 02/06/2021 08:40
== END ==
PROVIDERS: PCP Internal Medicine Adolescent Medicine; Visit Provider Internal Medicine Adolescent Medicine
DX: Z12.31 Encounter for screening mammogram for malignant neoplasm of breast (principal); E55.9 Vitamin D deficiency, unspecified; M81.0 Age-related osteoporosis without current pathological fracture
CPT/HCPCS: 77063; 77067; 77080

== ENCOUNTER → 2021-02-10 11:02 | Outpatient (CLI) | payer MEDICARE, MEDICAID, SELFPAY ==
--- NOTE | 2021-02-10 12:24 | CT_ITS ---
PROCEDURE: CT CHEST WO CON [place] on exertion Prior cta 01/30/20 CLINICAL INDICATION: F/U Follow-up pulmonary nodule COMPARISON: CT CT ANGIO CHEST from 01/30/2020 TECHNIQUE: Axial images obtained with sagittal and coronal reformats. All CT scans at the facility use one or more dose reduction, viz: automated exposure control, ma/kV adjustment per patient size (including targeted exams where dose is matched to indication, i.e. head), or iterative reconstruction technique. FINDINGS: HEART AND MEDIASTINAL STRUCTURES: No mediastinal or hilar mass or adenopathy. Coronary artery calcifications are present. There is minimal thickening of the pericardium posteriorly measuring up to 7 mm suggesting small pericardial effusion. LUNGS AND PLEURAL SPACES: There are mild atelectatic changes in the right lower lobe. There is a stable 6 mm nodule in the extreme left lung base laterally and may be due to an area of scarring. Previously noted 3 mm nodule in the right lower lobe image 32 is unchanged.. 2 mm nodule previously described in the left lower lobe is unchanged. No new suspicious nodules are evident. BONY STRUCTURES: No acute bony abnormalities apparent. UPPER ABDOMEN: Fatty liver. Prior cholecystectomy. ADDITIONAL FINDINGS: No other significant abnormalities. IMPRESSION: Stable CT appearance of the chest. No change small bilateral nodules with no new nodules apparent. Dictated by: Angelito Rosa MD 02/11/2021 12:17 Angelito Rosa MD in [place] 02/11/2021 12:17
== END ==
PROVIDERS: PCP Internal Medicine Adolescent Medicine; Visit Provider Internal Medicine Pulmonary Disease
DX: R06.00 Dyspnea, unspecified (principal); R91.8 Other nonspecific abnormal finding of lung field
CPT/HCPCS: 71250; 94060; 94618; 94726; 94729

== ENCOUNTER 2021-03-15 15:24 | Emergency (ER) | payer MEDICARE, MEDICAID, SELFPAY ==
[2021-03-15 15:30] VITALS: BP 113/87; PULSE 78; RESP 19; TEMP 37; O2SAT 98; BMI 30.8
--- NOTE | 2021-03-15 16:09 | HMH.EDUTC ---
[facility] – [place] Dis[place] Clinical Impression: Strep throat Disposition: Home, Self-Care Condition on Discharge: Good Instructions: Strep Throat, DI for Strep Throat, Amoxicillin Additional Instructions: *If you did not take Penicillin shot or was unable to, start taking antibiotic immediately and make sure that you take it for the FULL length of time although you should start to feel better in 24-48 hours *change toothbrush and toothpaste 24-48 hours after starting to take antibiotics so you do not reinfect yourself Monitor Temp. Tylenol and/or Ibuprofen as needed. ER if fever is no less than 101 despite alternating Tylenol and Ibuprofen * Encourage fluids, water, Gatorade, powerade, pedialyte if /toddler/or child *Cold fluids, popsicles and ice cream may feel good on his throat *Monitor Temp, Over the counter Motrin or Tylenol as directed/as needed Tylenol every 4 hours and Motrin every 6 hours (as long as your family doctor has told you that you can take it) for fever or pain. and straight to ER if unable to lower temp less than 101.0 after medication given *Warm salt water gargles may help to soothe the throat *Throat Lozenges *Warm fluids like tea with honey may help to soothe the throat *Sleep elevated *Humidifier/Vaporizer Follow up IMMEDIATELY for new or worsening symptoms or no Noticeable improvement over the next 48-72 hours. 911 for difficulty breathing or swallowing Prescriptions: Amoxicillin [Amoxicillin 500mg Cap] 500 mg PO BID 10 Days #20 cap Transmission Status: Received by [id number] Referrals: Jean Pierre Johnston MD [Primary Care Provider] - As needed Time of Disposition: 16:26 Medical Decision Making - Say Inquiry Pt receiving controlled substance: No Say was queried for this patient: No Vital Signs: 03/15/21 15:30 03/15/21 16:28 Temperature 98.6 F 98.6 F Temperature Source Oral Pulse Rate 78 Pulse Rate [Right Brachial] 78 Respiratory Rate 19 19 Blood Pressure 113/87 Blood Pressure [Right Arm] 113/87 Blood Pressure Mean [Right Arm] 95 Blood Pressure Source [Right Arm] Automatic Cuff Blood Pressure Position [Right Arm] Sitting 02 Sat by Pulse Oximetry 98 Oxygen Delivery Method Room Air - Lab Data Lab results reviewed: Yes: I reviewed the patient's lab results. Lab Results 03/15/21 16:24: Strep Scn Rapid Clinic Positive A [facility] – [place] HPI - General Stated complaint: feverish, weak, body aches Time Seen by Provider: 03/15/21 16:09 Mode of Arrival: Ambulatory Limitations: No Limitations Description of Symptoms (Recalled from Triage Doc. by RN): PATIENT C/O CONGESTION, NASAL DRAINAGE, AND BODY ACHES SINCE TUESDAY HEENT Symptoms (Recalled from RN notes): Yes Resp Symptoms (Recalled from RN notes): No Skin Symptoms (Recalled from RN notes): No MS Symptoms (Recalled from RN notes): No Functional Status (Recalled from RN notes): WNL - History of Present Illness Provider Complaint: Patient states that she was recently around someone with strep throat State that she has been having body aches, chills, headache, nasal congestion and drainage and sore throat since Tuesday State that she has osteo and she often aches all over but she wasnt feeling well today so she came in to get checked - Related Data Home Medications Medication Instructions Recorded Confirmed cyclobenzaprine 10 mg tablet 10 mg PO BID 30 Days 02/15/18 02/24/21 diazepam 5 mg tablet 5 mg PO BID 30 Days 02/15/18 02/24/21 aspirin 81 mg tablet,delayed 81 mg PO DAILY 07/20/18 02/24/21 release linaclotide 145 mcg capsule 145 mcg PO DAILY cap 08/14/19 02/24/21 Gabapentin [Gabapentin 300mg Cap] 300 mg PO BID 01/31/20 02/24/21 Omeprazole [Omeprazole 40mg 40 mg PO DAILY 01/31/20 02/24/21 Capsule] Furosemide [Furosemide 20mg Tab*] 20 mg PO DAILY 09/09/20 02/24/21 Previous Rx's Medication Instructions Recorded levothyroxine 75 mcg capsule 75 mcg PO DAILY #90 cap 08/26/20 Amoxicillin/Potas
[2021-03-15 16:26] LABS: UTC Strep Screen (Rapid) Positive (Negative)
[2021-03-15 16:28] VITALS: BP 113/87; PULSE 78; RESP 19; TEMP 37; O2SAT 98
== END 2021-03-15 16:31 | disposition home or self-care (01) ==
PROVIDERS: Emergency Provider Nurse Practitioner; PCP Internal Medicine Adolescent Medicine
DX: J02.0 Streptococcal pharyngitis (principal); K21.9 Gastro-esophageal reflux disease without esophagitis; M79.7 Fibromyalgia; J44.9 Chronic obstructive pulmonary disease, unspecified; M81.0 Age-related osteoporosis without current pathological fracture; Z87.891 Personal history of nicotine dependence; Z79.899 Other long term (current) drug therapy
CPT/HCPCS: G0463; 87880; 99202

== ENCOUNTER → 2021-03-18 08:55 | Outpatient (CLI) | payer MEDICARE, MEDICAID, SELFPAY ==
--- NOTE | 2021-03-18 08:59 | XR_ITS ---
PROCEDURE: XR SHOULDER LT MIN 2V CLINICAL INDICATION: left shoulder pain COMPARISON: CR SHOU3R [id number] VIEWS from 05/27/2017 CR XR SHOULDER LT MIN 2V from 01/07/2021 FINDINGS: No fracture or dislocation. No lytic or blastic change. There is normal mineralization. There are mild osteoarthritic changes of the glenohumeral joint. The acromioclavicular joint has an unremarkable appearance. No evidence of subacromial stenosis. Other findings:None. 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
== END ==
PROVIDERS: PCP Internal Medicine Adolescent Medicine; Visit Provider Orthopaedic Surgery
DX: M25.512 Pain in left shoulder (principal)
CPT/HCPCS: 73030

== ENCOUNTER 2021-03-20 14:55 | Outpatient (RCR) | payer MEDICARE, MEDICAID, SELFPAY | END 2021-03-20 15:52 | disposition home or self-care (01) | LOC: OT 14:55 | PROVIDERS: Visit Provider Orthopaedic Surgery | DX: G56.03 Carpal tunnel syndrome, bilateral upper limbs (principal) | CPT/HCPCS: 97763 ==

== ENCOUNTER → 2021-03-25 15:46 | Outpatient (CLI) | payer MEDICARE, MEDICAID, SELFPAY ==
--- NOTE | 2021-03-25 15:46 | MR_ITS ---
PROCEDURE: MR SHOULDER LT WO CON CLINICAL INDICATION: evaluate for a rotator cuff tear Pt fell on arm [id number] ago and has had shoulder pain since. Pain when raising arm above head. COMPARISON: CR XR SHOULDER LT MIN 2V from 03/18/2021 TECHNIQUE: Routine multiplanar multi echo sequences are performed without gadolinium enhancement. FINDINGS: There are mild osteoarthritic changes of the glenohumeral joint with mild acromioclavicular hypertrophy. No significant subacromial stenosis. The infraspinatus tendon in the tact. There is mild thickening of the supraspinatus tendon but no obvious tear. The subscapularis tendon and teres minor tendon have an unremarkable appearance. No obvious labral tear. The bicipital tendon is in place. Small amount fluid is present in the shoulder joint IMPRESSION: 1. Mild tendinopathy/tendinosis of the supraspinatus tendon but no evidence of rotator cuff tear. 2. Mild osteoarthritis of the glenohumeral and acromioclavicular joint. Dictated by: Angelito Rosa MD 03/26/2021 10:20 Angelito Rosa MD in [place] 03/26/2021 10:20
== END ==
PROVIDERS: PCP Internal Medicine Adolescent Medicine; Visit Provider Orthopaedic Surgery
DX: M25.512 Pain in left shoulder (principal)
CPT/HCPCS: 73221

== ENCOUNTER → 2021-05-14 06:07 | Outpatient (CLI) | payer MEDICARE, MEDICAID, SELFPAY ==
--- NOTE | 2021-05-14 | CA_ITS ---
APPROVED REPORT Exam: Exercise Treadmill Technologist: Yu Hong, Ht: 5 ft 1 in Wt: 159 lbs BSA: 1.71 m2 HR: 78 bpm BP: 154/90 mmHg Medical History Medications: Spiriva,,,,, Levothyroxine,,,,, Aspirin,,,,, Gabapentin,,,,, Diazepam,,,,, Pantoprazole,,,,, SyMBICORT,,,,, Albuterol,,,,, ZYRTEC,,,,, Singulair,,,,, Cyclobenzaprine,,,,, Zofran,,,,, Stress Test Details Test: Baldo HR Resting HR: 80 bpm Max Heart Rate (APMHR): 159.112199 bpm Max HR Achieved: 142 bpm Target HR (85% APMHR): 135.875332 bpm % of APMHR: 89.31 Recovery HR: 91 bpm BP Resting BP: 162/93 mmHg Max BP: 190/88 mmHg Recovery BP: 158.0/84.0 mmHg ECG Resting ECG: NSR, low voltage QRS Clinical Exercise duration: 06:01 min Highest Stage Achieved: Exercise capacity: 7.0 METs Stress ECG Conclusion Exercised 6:00 on Baldo Protocol. Stopping due to SOA. Max HR: 140 % of PM: 88 Max HR: 190/88 METs: 7.0 Test stopped due to: SOA Symptoms: Chest tightness with SOA. Arrhythmias/Ectopy: None ST-T Changes: Normal ST response to exercise Conclusion: Exercised induced CP with normal EKG's. Myoview images reported separately. Electronically signed by : Vahid Ledesma, 05/14/2021 15:55:30
--- NOTE | 2021-05-14 06:12 | NM_ITS ---
APPROVED REPORT Exam: Nuclear Stress Test Indication: Chest pain, SOB, Family history Patient Location: Outpatient Stress Tech: Yu Hong [place] Tech:Karishma GomezOJ RT(R)(N) Ht: 5 ft 1 in Wt: 159 lbs Bra Size: 36D HR: 80 bpm BP: 162/93 mmHg BSA: 1.71 m2 BMI: 30.0 History: Chest pain, SOB, Family history Procedure: Patient exercised on Baldo protocol 6:01 minutes and sec, resting heart rate 80 bpm, resting blood pressure 162/93 mmHg, with exercise maximum heart rate achived was 142 bpm which is 89 % of the maximum predicted heart rate and blood pressure was 190/88 mmHg. Patient has Adequate exercise capacity, achieved 7.0 METs of workload on treadmill, the blood pressure response to exercise was Adequate. Electrocardiogram Resting electrocardiogram shows sinus rhythm, with exercise there is less than 1.[address] segment depression noted from the baseline EKG. The EKG portion of the exercise Myoview is negative for ischemia. Cardiac Stress and Resting SPECT Images: Cardiac Stress and Resting SPECT images were obtained using technetium 99m Myoview 31.4 mCi stress and 10.96 mCi at rest. Patient unable to do prone images. Gated SPECT for analysis of segmental wall motion and calculation of the ejection fraction also done. Cardiac stress and rest SPECT may show mild fixed defect in the anterior wall with normal eli gated SPECT is likely secondary to soft tissue attenuation, no reversible ischemia seen, however there is transient ischemic dilatation of the left ventricle seen, raising the concerns for presence of balanced ischemia, other causes for transient ischemic dilatation include microvascular disease, diabetes, hypertensive heart disease and elevated left ventricular end-diastolic pressure. Clinical correlation is recommended. Conclusion: 1. The EKG portion of the exercise Myoview is negative for ischemia patient is adequate exercise capacity 7 mets of workload on treadmill, the blood pressure response to exercise was adequate, patient complained exercise-induced chest discomfort which was relieved with rest. 2. No scintigraphic evidence of reversible ischemia seen, computer derived ejection fraction is over 65% with no regional wall motion abnormality, right ventricle is normal size and contractility, however transient ischemic dilatation of the left ventricle seen, the causes for the transient ischemic dilatation include balanced ischemia, microvascular disease, diabetes, hypertensive heart disease and elevated left ventricular end-diastolic pressure. Clinical correlation is recommended. 3. Likely abnormal exercise Myoview study. Electronically signed by : Vahid Ledesma, 05/14/2021 15:59:38
== END ==
PROVIDERS: PCP Emergency Medicine; Visit Provider Emergency Medicine
DX: R07.9 Chest pain, unspecified (principal)
CPT/HCPCS: 78452; 93017; A9502

== ENCOUNTER → 2021-06-26 13:08 | Outpatient (CLI) | payer MEDICARE, MEDICAID, SELFPAY ==
--- NOTE | 2021-06-26 13:09 | MR_ITS ---
PROCEDURE: MR CERVICAL SPINE WO CON CLINICAL INDICATION: neck pain and headache COMPARISON: No exams were available for comparison TECHNIQUE: Standard multiplanar multiecho sequences are performed without contrast. 3-D MIP and myelographic images are also rendered and reviewed FINDINGS: There is normal alignment. No acute fracture or dislocation is evident. C2-C3: Unremarkable. C3-C4: Unremarkable. C4-C5: Minimal bulging disc with minimal central disc protrusion with canal stenosis at 9 mm. Very minimal flattening of the cord anteriorly. Mild bilateral foraminal narrowing from facet hypertrophic change. This is slightly greater on the right. C5-C6: Bulging disc with minimal central disc protrusion very slightly eccentric toward the left with borderline narrowing of the canal at 11 mm. Mild right foraminal narrowing. C6-C7: Minimal bulging disc. C7-T1 unremarkable. No extruded herniated disc is evident. IMPRESSION: 1. C4-C5: Minimal bulging disc with minimal central disc protrusion with canal stenosis at 9 mm. Very minimal flattening of the cord anteriorly. Mild bilateral foraminal narrowing from facet hypertrophic change. This is slightly greater on the right. 2. C5-C6: Bulging disc with minimal central disc protrusion very slightly eccentric toward the left with borderline narrowing of the canal at 11 mm. Mild right foraminal narrowing. 3. C6-C7: Minimal bulging disc. 4. No extruded herniated disc apparent Dictated by: Angelito Rosa MD 06/26/2021 15:22 Angelito Rosa MD in [place] 06/26/2021 15:22
--- NOTE | 2021-06-26 13:09 | MR_ITS ---
PROCEDURE: MR HEAD/BRAIN WO CON CLINICAL INDICATION: headaches COMPARISON: No exams were available for comparison TECHNIQUE: Routine multiplanar multi echo sequences are performed without gadolinium enhancement. FINDINGS: No midline shift, mass effect, intracranial hemorrhage, or hydrocephalus. No evidence of acute infarction. There are a few small T2 white matter hyperintensities nonspecific and may be due to small ischemic gliotic foci. The the cerebellopontine angle, cerebellum, and brainstem have an unremarkable appearance. The pituitary, optic chiasm, corpus callosum, and craniocervical junction have an unremarkable appearance no mastoid effusion or sinus air-fluid level. IMPRESSION: No acute intracranial findings Dictated by: Angelito Rosa MD 06/26/2021 15:18 Angelito Rosa MD in [place] 06/26/2021 15:18
== END ==
PROVIDERS: PCP Emergency Medicine; Visit Provider Emergency Medicine
DX: M54.2 Cervicalgia (principal); R51.9 Headache, unspecified
CPT/HCPCS: 70551; 72141; 76376

== ENCOUNTER → 2021-06-29 09:53 | Outpatient (CLI) | payer MEDICARE, MEDICAID, SELFPAY ==
[2021-06-29 10:38] LABS: Basophils # 0.1 K/mm3 (0-0.2); Basophils % 0.7 % (0.1-2.0); Eosinophils # 0.2 K/mm3 (0.0-0.4); Eosinophils % 2.6 % (0.1-12.0); Hematocrit 43.9 % (37.0-47.0); Hemoglobin 14.3 g/dL (12.2-16.2); Lymphocytes # 2.4 K/mm3 (0.7-4.5); Lymphocytes % 34.9 % (10-50); Mean Corpuscular HGB Conc 32.6 g/dL (31.8-35.4); Mean Corpuscular Hemoglobin 28.1 pg (27.0-31.2); Mean Corpuscular Volume 86.3 fl (81-99); Mean Platelet Volume 8.7 fl (7.4-10.4); Monocytes # 0.5 K/mm3 (0.1-1.0); Monocytes % 7.1 % (1.7-9.3); Neutrophils # 3.8 K/mm3 (1.8-7.8); Neutrophils % 54.7 % (37.0-80.0); Platelet Count 261 K/mm3 (142-424); Red Blood Count 5.09 M/mm3 (4.20-5.40); Red Cell Distribution Width 13.4 % (11.5-17.5); White Blood Count 6.9 K/mm3 (4.8-10.8)
[2021-06-29 11:21] LABS: Chloride 105 mmol/L (98-107); Potassium 4.2 mmoL/L (3.5-5.1); Sodium 141 mmol/L (136-145)
[2021-06-29 11:24] LABS: Anion Gap 12.2 mEq/L (5-15); Blood Urea Nitrogen 9 mg/dl (7-17); Calcium 8.5 mg/dl (8.4-10.2); Carbon Dioxide 28 mmol/L (22.0-30.0); Estimated Glomerular Filt Rate 85 ml/min (>60); GFR (African American) 103 ML/MIN (>60); Glucose 127 mg/dl (74-100)
== END ==
PROVIDERS: Visit Provider Urology
DX: Z01.812 Encounter for preprocedural laboratory examination; Z20.822 Contact with and (suspected) exposure to COVID-19; R06.00 Dyspnea, unspecified; C85.90 Non-Hodgkin lymphoma, unspecified, unspecified site; I20.9 Angina pectoris, unspecified; I25.84 Coronary atherosclerosis due to calcified coronary lesion; R94.30 Abnormal result of cardiovascular function study, unspecified; R94.31 Abnormal electrocardiogram [ECG] [EKG]
CPT/HCPCS: 36415; 80048; 85025; U0003

== ENCOUNTER 2021-06-30 08:51 | Day surgery (SDC) | payer MEDICARE, MEDICAID, SELFPAY ==
[2021-06-30] VITALS (15 sets, daily range): BP systolic 92–140; BP diastolic 61–89; PULSE 75–106; RESP 13–18; TEMP 36.6; O2SAT 91–96; BMI 29.8
--- NOTE | 2021-06-30 | IR_ITS ---
APPROVED REPORT Patient Location: Outpatient PROCEDURES Left heart catheterization Left ventriculogram Selective coronary angiogram Drug-eluting stent deployment to the proximal LAD INDICATION Unstable angina, Coronary disease Informed consent was obtained prior to the procedure. COMPLICATIONS None Estimated Blood Loss: Less than 10 mls TECHNIQUE One percent lidocaine used to anesthetize the right anterior aspect of the wrist. The right radial artery was accessed via the Seldinger technique. A 6 [place] sheath was placed in the right radial artery. 2.5 mg of verapamil, 800 mcg of nitroglycerin, 1mg Lidocaine and 5000 U Heparin were given through the arterial sheath. The trap catheter was also used to perform left heart catheterization, left ventriculogram and selective coronary angiogram. At the end of the diagnostic procedure therapeutic heparin was administered giving a therapeutic ACT and a JL 3 guide catheter was used to intubate the left main artery. Choice PT wire was placed distally and a 3 mm x 22 mm resolute [place] stent was deployed at 16 ghazal reducing the severe tandem stenoses to 0%. SUDHEER-3 flow was present before and after the procedure. 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 Dual antiplatelet therapy 2. LDL less than 55 3. Avoidance of tobacco products 4. Risk factor modification 5. Cardiac rehabilitation Electronically signed by : Juan Alberto Burnett MD 06/30/2021 17:18:30
--- NOTE | 2021-06-30 12:57 | ECG_ITS ---
APPROVED REPORT Exam: Resting ECG HR:89 bpm ECG Measurements Heart Rate 89 AXES ID 182 P 58 QRSd 80 QRS 39 QT 398 T 42 QTc 484 Conclusion Normal sinus rhythm Normal ECG Electronically signed by : Jean Pierre Johnston MD 07/01/2021 17:44:34
[2021-06-30 14:01] LABS: CATHL Activated Clotting Time 301 SEC (74-125)
--- NOTE | 2021-06-30 15:53 | HMH.PHACLD ---
Anabell Green has received discharge medication counseling on the following medications: PATIENT DISCHARGED WITH BRILINTA 90 MG BID, LIPITOR 40 MG HS, BISOPROLOL 5 MG DAILY, AND RAMIPRIL 2.5 MG DAILY. PATIENT WAS ALREADY TAKING ASPIRIN 81 MG DAILY.
== END 2021-06-30 15:44 | disposition home or self-care (01) ==
LOC: CATHLAB 08:53
PROVIDERS: PCP Emergency Medicine; Visit Provider Internal Medicine
DX: R94.30 Abnormal result of cardiovascular function study, unspecified (principal); Z79.01 Long term (current) use of anticoagulants; Z79.899 Other long term (current) drug therapy; I25.110 Atherosclerotic heart disease of native coronary artery with unstable angina pectoris; I25.84 Coronary atherosclerosis due to calcified coronary lesion; K21.9 Gastro-esophageal reflux disease without esophagitis; Z82.49 Family history of ischemic heart disease and other diseases of the circulatory system
CPT/HCPCS: 85347; 92928; 93005; 93458; 99152; 99153; C1725; C1769; C1876; C9600; J1644; J2405

== ENCOUNTER → 2021-07-01 14:59 | Outpatient (CLI) | payer MEDICARE, MEDICAID, SELFPAY ==
--- NOTE | 2021-07-01 15:00 | CA_ITS ---
APPROVED REPORT EXAM: Comprehensive 2D, Doppler, and color-flow Echocardiogram Liquefied Petroleum Gasfitter: Emmie Padilla CRT Ht: 5 ft 1 in Wt: 158lbs BSA: 1.71 BP: 138/75 mmHg Indications: Chest Pain, COPD, Dyspnea, 06/30/21 CATH AND STENTS, NEW CHEST PAIN. 2D Dimensions LVOT 1.73 cm (M/F) 1.5-2.5 M-Mode Dimensions RVDd 2.71 cm (0.9-2.6) LA Diam 3.35 cm (1.9-4.0) LVDd 4.08 cm (3.5-5.7) Ao Diam 3.02 cm (2.0-3.7) LVDs 2.59 cm (3.5-5.7) IVSd 1.41 cm (0.6-1.1) PWd 0.80 cm (0.6-1.1) EF (Teich) 66.80% FS 36.50% EDV (Teich) 73.40 mL TAPSE 1.75 (<1.7) ESV (Teich) 24.40 mL LV Diastology E Decel Time 150.00 (160-240 msec) E/A Ratio 1.08 MED E' 5.00 (< 7 cm/sec) MED A' 6.50 cm/s E'/MED E' Ratio 13.72 (>14) LAT E' 5.80 (<10 cm/sec) LAT A' 6.50 cm/s E/LAT E' Ratio 11.83 (>14) Aortic Valve AO Peak GR. 4.80 mmHg Mitral Valve MV A Velocity 64.00 (40-130 cm/s) E/A Ratio 1.08 MV Decel. Time 150.00 (160-240 ms) Tricuspid Valve TR P. Velocity 209.00 cm/s RAP Estimate 10.00 mmHg RVSP 27.40 mmHg Left Ventricle Technically difficult study because of the patient factors and poor acoustic windows. Endocardial surfaces are poorly visualized. Left atrium is mildly enlarged, left ventricle is normal size, mild concentric left ventricular hypertrophy, visually estimated ejection fraction 50% with no regional wall motion abnormality, diastolic parameters are inconclusive. Right Ventricle Right atrium and right ventricle are mildly enlarged with normal contractility. Aortic Valve Aortic valve is minimally thickened and fibrosed, there is no aortic stenosis or aortic insufficiency. Mitral Valve Mitral valve is grossly normal, there is mild mitral regurgitation. Tricuspid Valve Tricuspid grossly normal, there is mild tricuspid regurgitation, tricuspid regurgitation jet velocity is inadequate for calculation of the right ventricular systolic pressure. Pulmonic Valve Pulmonic valve is poorly visualized. Great Vessels Aortic root is normal size. Pericardium No significant pericardial effusion noted. Conclusion 1. Mild biatrial enlargement, normal left ventricular size, mild concentric left ventricular hypertrophy, visually estimated ejection fraction 50% with no obvious regional wall motion abnormality, endocardial surfaces are poorly visualized, diastolic parameters are inconclusive. 2. Mildly enlarged right ventricle with normal contractility. 3. Mild mitral and tricuspid regurgitation. 4. No significant pericardial effusion noted. Electronically signed by : Vahid Ledesma MD 07/02/2021 13:32:38
== END ==
PROVIDERS: PCP Emergency Medicine; Visit Provider Urology
DX: R06.00 Dyspnea, unspecified (principal)
CPT/HCPCS: 93306

== ENCOUNTER → 2021-07-02 15:11 | Outpatient (CLI) | payer MEDICARE, MEDICAID, SELFPAY ==
[2021-07-02 16:13] LABS: Blood Urea Nitrogen 13 mg/dl (7-17); Estimated Glomerular Filt Rate 85 ml/min (>60); GFR (African American) 103 ML/MIN (>60)
== END ==
PROVIDERS: Visit Provider Physician Assistant
DX: Z01.818 Encounter for other preprocedural examination (principal)
CPT/HCPCS: 36415; 82565; 84520

== ENCOUNTER → 2021-07-03 11:07 | Outpatient (CLI) | payer MEDICARE, MEDICAID, SELFPAY ==
--- NOTE | 2021-07-03 11:08 | CT_ITS ---
PROCEDURE: CT ANGIO CHEST PE PROTOCOL CLINCIAL INDICATION: to rule out PE COMPARISON: No exams were available for comparison TECHNIQUE: IV Contrast: 70ML Isovue 370 Axial images obtained with sagittal and coronal reformats. All CT scans at the facility use one or more dose reduction, viz: automated exposure control, ma/kV adjustment per patient size (including targeted exams where dose is matched to indication, i.e. head), or iterative reconstruction technique. FINDINGS: HEART AND MEDIASTINAL STRUCTURES: Size is normal. There is excellent vascular opacification and no pulmonary emboli are identified. There is no abnormal mediastinal adenopathy. LUNGS AND PLEURAL SPACES: The lung jordan are well expanded appear clear of infiltrate. There is minimal discoid atelectasis right perihilar region and lateral basilar segment right lower lobe. BONY STRUCTURES: No acute bony abnormalities apparent. UPPER ABDOMEN: Diffuse hypodensity in the visualized portion of the liver suggesting fatty infiltration. ADDITIONAL FINDINGS: No other significant abnormalities. IMPRESSION: 1. No evidence of PE 1. Minimal discoid atelectasis lateral basilar segment right lower lobe Dictated by: Dr. Alexsander Heard MD 07/03/2021 12:39 Dr. Alexsander Heard MD in [place] 07/03/2021 12:39
== END ==
PROVIDERS: PCP Emergency Medicine; Visit Provider Physician Assistant
DX: C91.40 Hairy cell leukemia not having achieved remission (principal); E78.5 Hyperlipidemia, unspecified; I10 Essential (primary) hypertension; I20.9 Angina pectoris, unspecified; J44.9 Chronic obstructive pulmonary disease, unspecified; R06.00 Dyspnea, unspecified
CPT/HCPCS: 71275; Q9967

== ENCOUNTER 2021-07-09 09:53 | Outpatient (RCR) | payer MEDICARE, MEDICAID, SELFPAY | END 2021-09-03 09:55 | disposition home or self-care (01) | LOC: PT 09:53 | PROVIDERS: Visit Provider Internal Medicine | DX: I25.10 Atherosclerotic heart disease of native coronary artery without angina pectoris (principal); Z95.5 Presence of coronary angioplasty implant and graft | CPT/HCPCS: 93798 ==

== ENCOUNTER → 2021-07-13 08:32 | Outpatient (CLI) | payer MEDICARE, MEDICAID, SELFPAY ==
[2021-07-13 09:27] LABS: Basophils % 0.5 % (0.1-2.0); Eosinophils # 0.2 K/mm3 (0.0-0.4); Eosinophils % 2.7 % (0.1-12.0); Hematocrit 43.2 % (37.0-47.0); Hemoglobin 14.1 g/dL (12.2-16.2); Lymphocytes # 2.5 K/mm3 (0.7-4.5); Lymphocytes % 33.4 % (10-50); Mean Corpuscular HGB Conc 32.6 g/dL (31.8-35.4); Mean Corpuscular Hemoglobin 28.5 pg (27.0-31.2); Mean Corpuscular Volume 87.3 fl (81-99); Mean Platelet Volume 8.6 fl (7.4-10.4); Monocytes # 0.6 K/mm3 (0.1-1.0); Monocytes % 7.8 % (1.7-9.3); Neutrophils # 4.2 K/mm3 (1.8-7.8); Neutrophils % 55.6 % (37.0-80.0); Platelet Count 264 K/mm3 (142-424); Red Blood Count 4.94 M/mm3 (4.20-5.40); Red Cell Distribution Width 13.3 % (11.5-17.5); White Blood Count 7.6 K/mm3 (4.8-10.8)
[2021-07-13 10:30] LABS: Chloride 102 mmol/L (98-107)
[2021-07-13 10:31] LABS: Potassium 4.5 mmoL/L (3.5-5.1); Sodium 141 mmol/L (136-145)
[2021-07-13 10:33] LABS: Blood Urea Nitrogen 11 mg/dl (7-17); Estimated Glomerular Filt Rate 85 ml/min (>60); GFR (African American) 103 ML/MIN (>60)
[2021-07-13 10:34] LABS: Anion Gap 13.5 mEq/L (5-15); Calcium 9.2 mg/dl (8.4-10.2); Carbon Dioxide 30 mmol/L (22.0-30.0); Glucose 116 mg/dl (74-100)
== END ==
PROVIDERS: Visit Provider Internal Medicine
DX: I25.10 Atherosclerotic heart disease of native coronary artery without angina pectoris (principal); Z95.5 Presence of coronary angioplasty implant and graft
CPT/HCPCS: 36415; 80048; 85025

== ENCOUNTER → 2021-08-21 08:38 | Outpatient (CLI) | payer MEDICARE, MEDICAID, SELFPAY ==
[2021-08-21 10:59] LABS: Anion Gap 11.5 mEq/L (5-15); Blood Urea Nitrogen 13 mg/dl (7-17); Calcium 9.5 mg/dl (8.4-10.2); Carbon Dioxide 31 mmol/L (22.0-30.0); Chloride 100 mmol/L (98-107); Estimated Glomerular Filt Rate 85 ml/min (>60); GFR (African American) 103 ML/MIN (>60); Glucose 143 mg/dl (74-100); Potassium 4.5 mmoL/L (3.5-5.1); Sodium 138 mmol/L (136-145)
== END ==
PROVIDERS: Visit Provider Physician Assistant
DX: C85.90 Non-Hodgkin lymphoma, unspecified, unspecified site (principal); E78.5 Hyperlipidemia, unspecified; I10 Essential (primary) hypertension; I20.9 Angina pectoris, unspecified; R06.00 Dyspnea, unspecified; R94.31 Abnormal electrocardiogram [ECG] [EKG]
CPT/HCPCS: 36415; 80048

== ENCOUNTER → 2021-09-03 16:17 | Outpatient (CLI) | payer MEDICARE, MEDICAID, SELFPAY ==
[2021-09-03 17:38] LABS: Chloride 100 mmol/L (98-107); Sodium 141 mmol/L (136-145)
[2021-09-03 17:39] LABS: Potassium 5.3 mmoL/L (3.5-5.1)
[2021-09-03 17:41] LABS: Alanine Aminotransferase 52 U/L (12-78); Albumin Level 4.8 g/dl (3.5-5.0); Alkaline Phosphatase 94 U/L (38-126); Anion Gap 17.3 mEq/L (5-15); Aspartate Amino Transferase 61 U/L (14-36); Bilirubin,Direct 0.5 mg/dl (0.0-0.4); Bilirubin,Indirect 0.3 mg/dL (0.0-0.9); Bilirubin,Total 0.8 mg/dl (0.2-1.3); Bilirubin,Unconjugated 0.3 mg/dL (0.0-1.1); Blood Urea Nitrogen 12 mg/dl (7-17); Carbon Dioxide 29 mmol/L (22.0-30.0); Cholesterol 170 mg/dl (140-200); Estimated Glomerular Filt Rate 73 ml/min (>60); GFR (African American) 88 ML/MIN (>60); Triglycerides 164 mg/dl (30-150); VLDL Cholesterol 33 mg/dL (0-40)
[2021-09-03 17:42] LABS: Calcium 9.3 mg/dl (8.4-10.2); Chol/HDL Ratio 3.5 (1-3.5); Glucose 105 mg/dl (74-100); HDL Cholesterol 49 mg/dl (40-60); Total Protein,Serum 7.4 g/dl (6.3-8.2)
[2021-09-03 17:53] LABS: Direct LDL Cholesterol 91.54 mg/dL (100-129)
== END ==
PROVIDERS: Visit Provider Physician Assistant
DX: C91.40 Hairy cell leukemia not having achieved remission (principal); E78.5 Hyperlipidemia, unspecified; I11.9 Hypertensive heart disease without heart failure; I20.9 Angina pectoris, unspecified; J44.9 Chronic obstructive pulmonary disease, unspecified; R06.00 Dyspnea, unspecified; E11.9 Type 2 diabetes mellitus without complications
CPT/HCPCS: 36415; 80048; 80061; 80076

== ENCOUNTER → 2021-09-14 14:44 | Outpatient (CLI) | payer MEDICARE, MEDICAID, SELFPAY ==
[2021-09-14 16:29] LABS: Alanine Aminotransferase 34 U/L (12-78); Albumin Level 4.5 g/dl (3.5-5.0); Alkaline Phosphatase 84 U/L (38-126); Anion Gap 12.3 mEq/L (5-15); Aspartate Amino Transferase 42 U/L (14-36); Bilirubin,Direct 0.1 mg/dl (0.0-0.4); Bilirubin,Indirect 0.4 mg/dL (0.0-0.9); Bilirubin,Total 0.5 mg/dl (0.2-1.3); Bilirubin,Unconjugated 0.4 mg/dL (0.0-1.1); Blood Urea Nitrogen 9 mg/dl (7-17); Calcium 8.6 mg/dl (8.4-10.2); Carbon Dioxide 30 mmol/L (22.0-30.0); Chloride 102 mmol/L (98-107); Chol/HDL Ratio 2.3 (1-3.5); Cholesterol 112 mg/dl (140-200); Estimated Glomerular Filt Rate 85 ml/min (>60); GFR (African American) 103 ML/MIN (>60); Glucose 93 mg/dl (74-100); HDL Cholesterol 48 mg/dl (40-60); Potassium 4.3 mmoL/L (3.5-5.1); Sodium 140 mmol/L (136-145); Total Protein,Serum 6.9 g/dl (6.3-8.2); Triglycerides 114 mg/dl (30-150); VLDL Cholesterol 23 mg/dL (0-40)
[2021-09-14 16:40] LABS: Direct LDL Cholesterol 75.58 mg/dL (100-129)
[2021-09-14 16:41] LABS: Troponin I < 0.01 ng/ml (0.00-0.034)
== END ==
PROVIDERS: Urology; Visit Provider Physician Assistant
DX: C91.40 Hairy cell leukemia not having achieved remission (principal); E78.5 Hyperlipidemia, unspecified; I10 Essential (primary) hypertension; I25.10 Atherosclerotic heart disease of native coronary artery without angina pectoris; J44.9 Chronic obstructive pulmonary disease, unspecified; R06.00 Dyspnea, unspecified; C85.90 Non-Hodgkin lymphoma, unspecified, unspecified site; R94.31 Abnormal electrocardiogram [ECG] [EKG]
CPT/HCPCS: 36415; 80048; 80061; 80076; 84484

== ENCOUNTER → 2021-09-18 06:32 | Outpatient (CLI) | payer MEDICARE, MEDICAID, SELFPAY ==
--- NOTE | 2021-09-18 06:34 | CA_ITS ---
APPROVED REPORT Exam: Pharmacologic Technologist: Yu Hong, Ht: 5 ft 1 in Wt: 159 lbs BSA: 1.71 m2 HR: 65 bpm BP: 139/69 mmHg Medical History Medications: Aspirin,,,,, Gabapentin,,,,, Diazepam,,,,, Pantoprazole,,,,, Atorvastatin,,,,, Lasix,,,,, Ramipril,,,,, ZYRTEC,,,,, Plavix,,,,, BisOPROLOL,,,,, Singulair,,,,, Aldactone,,,,, Stress Test Details Test: LEXISCAN HR Resting HR: 68 bpm Max Heart Rate (APMHR): 159.179858 bpm Max HR Achieved: 86 bpm Target HR (85% APMHR): 135.368553 bpm % of APMHR: 54.09 Recovery HR: 72 bpm BP Resting BP: 139/69 mmHg Max BP: 139/69 mmHg Recovery BP: 135.0/72.0 mmHg ECG Resting ECG: NSR Clinical Reason for Termination: Completed Protocol Exercise duration: 04:01 min Highest Stage Achieved: Exercise capacity: 1.0 METs Stress ECG Conclusion Switched from GXT to Adenosine due to CP in stage 2 of Baldo Protocol with PT unable to continue and HR far from target. Symptoms: No CP but relates chest pressure. Arrhythmias/Ectopy: None ST-T Changes: <1.5mm ST Segment Changes Conclusion: Non-Diagnostic Test Summary REST . . . . . . . Resting REST 06:22 . . 68 . 139/ 69 . . Stage 1 01:00 . . 82 . . . . Stage 2 01:00 . . 85 . 128/ 69 . . Stage 3 01:00 . . 84 . 130/ 68 . . Stage 4 01:00 . . 79 . 125/ 71 . . Stage 4 01:01 . . 78 . 125/ 71 . Stop exercise at 04:01 RECOVERY 01:00 . . 75 . . . . RECOVERY 02:00 . . 72 . . . . RECOVERY 03:00 . . 72 . . . . RECOVERY 03:11 . . 72 . 135/ 72 . . Electronically signed by : Vahid Ledesma MD 09/21/2021 19:37:19
--- NOTE | 2021-09-18 06:34 | NM_ITS ---
APPROVED REPORT Exam: Nuclear Stress Test Indication: Chest pain, Abnormal EKG, HTN, CAD, High cholesterol, Family history Patient Location: Outpatient Stress Tech: Yu Hong [place] Tech:Lamar Rivera, ARRT, RT (R)(N) Ht: 5 ft 1 in Wt: 159 lbs Bra Size: 38D HR: 68 bpm BP: 139/69 mmHg BSA: 1.71 m2 BMI: 30.0 History: Chest pain, Abnormal EKG, HTN, CAD, High cholesterol, Family history Procedure: Patient received a 0.4 mg of intravenous Lexiscan, resting heart rate 68 bpm, resting blood pressure 139/69 mmHg, with Lexiscan maximum heart rate achived was 86 bpm which is % of the maximum predicted heart rate and blood pressure was 139/69 mmHg. With Lexiscan, patient denied any complaint of chest pain. Cardiac Stress and Resting SPECT Images: Cardiac Stress and Resting SPECT images were obtained using technetium 99m Myoview 32.6 mCi stress and 9.98 mCi at rest. EF 74 % with no wall motion abnormalities Normal perfusion Conclusion: Normal exam Electronically signed by : Angelito Rosa MD 09/21/2021 14:32:21
--- NOTE | 2021-09-18 08:25 | HMH.ITSHM ---
Current Home Medications as stated by this patient Anabell Green or public service representative. []ALBUTEROL SPIRIVA PANTOPRAZOLE MONTELUKAST BUDESONIDE SPIRONOLACTONE RANOLAZINE RAMIPRIL OFLOXACIN NITOR LINACLOTIDE BISOPROLOL LEVOTHYROXINE IPRATROPIUM HYDROCODONE GABAPENTIN FUROSEMIDE ATORVASTATIN DIAZEPAM DENOSUMAB CYCLOBENZAPRINE CLOPIDOGREL CETIRIZINE CALCIUM ASA
== END ==
PROVIDERS: PCP Emergency Medicine; Visit Provider Nurse Practitioner Family
DX: C85.90 Non-Hodgkin lymphoma, unspecified, unspecified site (principal); E78.5 Hyperlipidemia, unspecified; I10 Essential (primary) hypertension; I20.9 Angina pectoris, unspecified; R06.00 Dyspnea, unspecified; R94.31 Abnormal electrocardiogram [ECG] [EKG]
CPT/HCPCS: 78452; 93017; A9502; J2785

== ENCOUNTER → 2021-09-21 16:07 | Outpatient (CLI) | payer MEDICARE, MEDICAID, SELFPAY | PROVIDERS: Visit Provider Urology | DX: C85.90 Non-Hodgkin lymphoma, unspecified, unspecified site (principal); E78.5 Hyperlipidemia, unspecified; I10 Essential (primary) hypertension; I20.9 Angina pectoris, unspecified; R06.00 Dyspnea, unspecified; R94.31 Abnormal electrocardiogram [ECG] [EKG]; Z01.812 Encounter for preprocedural laboratory examination; Z11.52 Encounter for screening for COVID-19 | CPT/HCPCS: C9803; U0003; U0005 ==

== ENCOUNTER 2021-09-22 08:57 | Day surgery (SDC) | payer MEDICARE, MEDICAID, SELFPAY ==
[2021-09-22] VITALS (8 sets, daily range): BP systolic 102–164; BP diastolic 60–113; PULSE 60–69; RESP 18–20; TEMP 36.6–36.8; O2SAT 91–96; BMI 30.2
--- NOTE | 2021-09-22 | IR_ITS ---
APPROVED REPORT Patient Location: Outpatient Mechanical Planner: OJ Fatima RT (R) PROCEDURES Left heart catheterization Left ventriculogram Selective coronary angiogram INDICATION Known coronary artery disease, Recalcitrant class III-IV angina pectoris, Informed consent was obtained prior to the procedure. COMPLICATIONS NONE Estimated Blood Loss: LESS THAN 10 ML TECHNIQUE One percent lidocaine was used to anesthetize the right groin. The right femoral artery was accessed via the Seldinger technique. A 4-Botswanan sheath was placed in the right femoral artery. The JL-4 and JR-4 catheter was also used to perform left heart catheterization left ventriculogram and selective coronary angiogram. At the end of the procedure the patient was transferred to the post-op holding area in stable condition for arterial sheath removal. ANGIOGRAPHIC RESULTS The left main artery Normal The left anterior descending artery Has a smooth ostial 20% stenosis followed by a widely patent stent which is free of in-stent restenosis and has excellent distal transitioning. A moderate-sized first diagonal artery is widely patent with SUDHEER-3 flow The circumflex artery Nondominant yet still large and normal The right coronary artery Is dominant has a proximal 10% stenosis and a mid vessel 20% stenosis The MCDOWELL ventriculogram reveals Hyperdynamic 70% The left ventricular end-diastolic pressure Severely elevated at 38 mmHg IMPRESSION Coronary disease as described above Hyperdynamic ventricle with severely elevated LVEDP which is almost certainly the etiology for patient's angina pectoris PLAN 1. Maximize antianginal medications and treat diastolic dysfunction which is the etiology for patient's angina Electronically signed by : Juan Alberto Burnett MD 09/22/2021 13:34:45
[2021-09-22 09:36] LABS: Basophils # 0.1 K/mm3 (0-0.2); Basophils % 1.5 % (0.1-2.0); Eosinophils # 0.2 K/mm3 (0.0-0.4); Eosinophils % 2.6 % (0.1-12.0); Hematocrit 42.6 % (37.0-47.0); Hemoglobin 14.2 g/dL (12.2-16.2); Mean Corpuscular HGB Conc 33.4 g/dL (31.8-35.4); Mean Corpuscular Hemoglobin 28.9 pg (27.0-31.2); Mean Corpuscular Volume 86.5 fl (81-99); Mean Platelet Volume 8.6 fl (7.4-10.4); Monocytes # 0.5 K/mm3 (0.1-1.0); Monocytes % 6.1 % (1.7-9.3); Neutrophils # 5.2 K/mm3 (1.8-7.8); Neutrophils % 64.8 % (37.0-80.0); Platelet Count 315 K/mm3 (142-424); Red Blood Count 4.92 M/mm3 (4.20-5.40); Red Cell Distribution Width 14.6 % (11.5-17.5)
[2021-09-22 09:37] LABS: Chloride 100 mmol/L (98-107); Sodium 140 mmol/L (136-145)
[2021-09-22 09:41] LABS: Blood Urea Nitrogen 6 mg/dl (7-17); Calcium 8.9 mg/dl (8.4-10.2); Carbon Dioxide 31 mmol/L (22.0-30.0); Creatinine Clearance Estimated 68 mL/min (50-200); Estimated Glomerular Filt Rate 73 ml/min (>60); GFR (African American) 88 ML/MIN (>60); Glucose 112 mg/dl (74-100)
== END 2021-09-22 15:00 | disposition home or self-care (01) ==
LOC: CATHLAB 09:00
PROVIDERS: PCP Emergency Medicine; Visit Provider Internal Medicine
DX: I25.118 Atherosclerotic heart disease of native coronary artery with other forms of angina pectoris (principal); Z79.899 Other long term (current) drug therapy; Z88.8 Allergy status to other drugs, medicaments and biological substances; E03.9 Hypothyroidism, unspecified; Z79.01 Long term (current) use of anticoagulants; C85.90 Non-Hodgkin lymphoma, unspecified, unspecified site; R94.31 Abnormal electrocardiogram [ECG] [EKG]; I10 Essential (primary) hypertension
CPT/HCPCS: 80048; 85025; 93458; 99152; C1725; C1769; J1644; Q9967

== ENCOUNTER 2021-09-26 14:41 | Emergency (ER) | payer MEDICARE, MEDICAID, SELFPAY ==
[2021-09-26] VITALS (7 sets, daily range): BP systolic 94–124; BP diastolic 57–73; PULSE 55–68; RESP 12–23; TEMP 36.2; O2SAT 89–94; BMI 30.6
--- NOTE | 2021-09-26 14:34 | ECG_ITS ---
APPROVED REPORT Exam: Resting ECG HR:67 bpm ECG Measurements Heart Rate 67 AXES NE 156 P 21 QRSd 88 QRS 34 QT 446 T 35 QTc 471 Conclusion Normal sinus rhythm Normal ECG Electronically signed by : Jean Pierre Johnston MD 09/28/2021 14:24:58
--- NOTE | 2021-09-26 14:52 | XR_ITS ---
PROCEDURE INFORMATION: Exam: XR Chest Exam date and time: 09/26/2021 2:52 PM Age: 61 years old Clinical indication: Pain; Chest pressure; Additional info: Cp TECHNIQUE: Imaging protocol: XR of the chest. Views: 1 view. COMPARISON: CT CHEST WO CON 02/10/2021 12:26 PM FINDINGS: Lungs: Unremarkable. No consolidation. Pleural spaces: Unremarkable. No pleural effusion. No pneumothorax. Heart/Mediastinum: Unremarkable. No cardiomegaly. Bones/joints: Unremarkable. IMPRESSION: No acute findings.
[2021-09-26 15:00] LABS: Basophils # 0.1 K/mm3 (0-0.2); Basophils % 0.8 % (0.1-2.0); Eosinophils # 0.2 K/mm3 (0.0-0.4); Eosinophils % 1.8 % (0.1-12.0); Hematocrit 41.2 % (37.0-47.0); Hemoglobin 14.4 g/dL (12.2-16.2); Lymphocytes # 1.9 K/mm3 (0.7-4.5); Lymphocytes % 16.4 % (10-50); Mean Corpuscular Hemoglobin 29.9 pg (27.0-31.2); Mean Corpuscular Volume 85.5 fl (81-99); Mean Platelet Volume 8.9 fl (7.4-10.4); Monocytes # 0.7 K/mm3 (0.1-1.0); Monocytes % 5.8 % (1.7-9.3); Neutrophils # 8.7 K/mm3 (1.8-7.8); Neutrophils % 75.2 % (37.0-80.0); Platelet Count 290 K/mm3 (142-424); Red Blood Count 4.82 M/mm3 (4.20-5.40); Red Cell Distribution Width 14.5 % (11.5-17.5); White Blood Count 11.6 K/mm3 (4.8-10.8)
[2021-09-26 15:02] LABS: Chloride 102 mmol/L (98-107); Potassium 4.4 mmoL/L (3.5-5.1); Sodium 139 mmol/L (136-145)
[2021-09-26 15:04] LABS: Blood Urea Nitrogen 15 mg/dl (7-17)
[2021-09-26 15:05] LABS: Alanine Aminotransferase 30 U/L (12-78); Albumin Level 4.6 g/dl (3.5-5.0); Albumin/Globulin Ratio 1.8 (1.1-1.8); Alkaline Phosphatase 83 U/L (38-126); Anion Gap 16.4 mEq/L (5-15); Aspartate Amino Transferase 52 U/L (14-36); Bilirubin,Total 1.1 mg/dl (0.2-1.3); Carbon Dioxide 25 mmol/L (22.0-30.0); Creatinine Clearance Estimated 69 mL/min (50-200); Estimated Glomerular Filt Rate 73 ml/min (>60); GFR (African American) 88 ML/MIN (>60); Globulin 2.6 g/dL (1.3-3.2); Glucose 132 mg/dl (74-100); Total Protein,Serum 7.2 g/dl (6.3-8.2)
[2021-09-26 15:18] LABS: Troponin I < 0.01 ng/ml (0.00-0.034)
[2021-09-26 17:34] LABS: Troponin I < 0.01 ng/ml (0.00-0.034)
--- NOTE | 2021-09-26 17:48 | HMH.EDGENADL ---
ED Disposition Clinical Impression: Chest pain Qualifiers: Chest pain type: other chest pain Qualified Code(s): R07.89 - Other chest pain Disposition: Home, Self-Care Condition on Discharge: Good Additional Instructions: Maintain appointment Dr. Burnett on Tuesday. Follow with PCP in 2 to 3 days. Return to [facility] part for chest pain, shortness of breath. Referrals: Benjie José MD [Primary Care Provider] - 3 days Time of Disposition: 17:52 - Critical Care Critical Care Time: No Attestation: On 09/26/21, the high probability of a clinically significant, sudden or life threatening deterioration of the following system(s) required my full and direct attention, intervention and personal management. The time I documented below is in addition to time spent performing reported procedures but includes the following listed in this critical care notation. Medical Decision Making - Medical Records Medical records reviewed: Yes: I reviewed the patient's medical records. - Say Inquiry Pt receiving controlled substance: No Vital Signs: 09/26/21 14:41 09/26/21 15:00 09/26/21 15:30 Temperature 97.2 F L Temperature Source Axillary Pulse Rate 63 55 L Pulse Rate [Left Radial] 64 Respiratory Rate 18 12 15 Blood Pressure 104/65 L 94/57 L Blood Pressure [Right Arm] 124/73 Blood Pressure Mean 78 Blood Pressure Mean [Right Arm] 90 Blood Pressure Source [Right Arm] Automatic Cuff Blood Pressure Position [Right Arm] Sitting 02 Sat by Pulse Oximetry 93 L 93 L 89 L Oxygen Delivery Method Room Air 09/26/21 16:00 09/26/21 16:30 09/26/21 17:00 Temperature Temperature Source Pulse Rate 68 67 Pulse Rate [Left Radial] Respiratory Rate 15 23 15 Blood Pressure 101/59 L 98/57 L 95/64 L Blood Pressure [Right Arm] Blood Pressure Mean Blood Pressure Mean [Right Arm] Blood Pressure Source [Right Arm] Blood Pressure Position [Right Arm] 02 Sat by Pulse Oximetry 93 L 94 L Oxygen Delivery Method - Lab Data Lab results reviewed: Yes: I reviewed the patient's lab results. Lab Results 09/26/21 14:50: WBC 11.6 H, RBC 4.82, Hgb 14.4, Hct 41.2, MCV 85.5, MCH 29.9, MCHC 35.0, RDW 14.5, Plt Count 290, MPV 8.9, Neut % (Auto) 75.2, Lymph % (Auto) 16.4, Boyd % (Auto) 5.8, Eos % (Auto) 1.8, Baso % (Auto) 0.8, Neut # (Auto) 8.7 H, Lymph # (Auto) 1.9, Boyd # (Auto) 0.7, Eos # (Auto) 0.2, Baso # (Auto) 0.1 09/26/21 14:50: Sodium 139, Potassium 4.4, Chloride 102, Carbon Dioxide 25, Anion Gap 16.4 H, BUN 15, Creatinine 0.80, Estimated Creat Clear 69, Estimated GFR 73, Est GFR ( Amer) 88, Glucose 132 H, Calcium 9.0, Total Bilirubin 1.1, AST 52 H, ALT 30, Alkaline Phosphatase 83, Troponin I < 0.01, Total Protein 7.2, Albumin 4.6, Globulin 2.6, Albumin/Globulin Ratio 1.8 09/26/21 17:01: Troponin I < 0.01 Result diagrams: 09/26/21 14:50 09/26/21 14:50 Orders (Tests/Meds): ED MEDICATIONS Generic Name Dose Route Start Last Admin Trade Name Freq PRN Reason Stop Dose Admin Lactated Ringer's 1,000 mls @ 999 mls/hr 09/26/21 15:30 09/26/21 15:40 Lactated Ringer's 1000 Ml Bag IV 09/26/21 16:30 999 mls/hr .Q1H1M TIGRE Administration Discontinued Medications Generic Name Dose Route Start Last Admin Trade Name Freq PRN Reason Stop Dose Admin Aspirin 324 mg 09/26/21 14:52 09/26/21 14:58 Aspirin 81mg Chewable Tablet PO 09/26/21 14:53 324 mg ONCE ONE Administration Ondansetron HCl 4 mg 09/26/21 15:55 09/26/21 15:56 Ondansetron 4mg/2ml Vial IV 09/26/21 15:56 4 mg ONCE ONE Administration ORDERS Category Date Time Status Troponin I Q3H Lab 09/26/21 21:00 Ordered - ECG Data Tracing #1 I reviewed this ECG and interpreted as documented below: Normal sinus rhythm, 67 bpm, no ST elevation or depression, no ectopy, normal intervals. ECG initial impression date: 09/26/21 ECG initial impression time: 14:36 Medical Decision Narrative:
== END 2021-09-26 18:02 | disposition home or self-care (01) ==
PROVIDERS: Emergency Provider Family Medicine; PCP Emergency Medicine
DX: R07.89 Other chest pain (principal); K21.9 Gastro-esophageal reflux disease without esophagitis; F41.9 Anxiety disorder, unspecified; J44.9 Chronic obstructive pulmonary disease, unspecified; M79.7 Fibromyalgia; M81.0 Age-related osteoporosis without current pathological fracture; Z87.891 Personal history of nicotine dependence
CPT/HCPCS: 71045; 80053; 84484; 85025; 93005; 96365; 96375; 99283; J2405

== ENCOUNTER → 2021-10-07 09:26 | Outpatient (CLI) | payer MEDICARE, MEDICAID, SELFPAY ==
[2021-10-07 10:37] LABS: Anion Gap 10.2 mEq/L (5-15); Blood Urea Nitrogen 11 mg/dl (7-17); Calcium 9.6 mg/dl (8.4-10.2); Carbon Dioxide 33 mmol/L (22.0-30.0); Chloride 100 mmol/L (98-107); Estimated Glomerular Filt Rate 64 ml/min (>60); GFR (African American) 77 ML/MIN (>60); Glucose 124 mg/dl (74-100); Potassium 4.2 mmoL/L (3.5-5.1); Sodium 139 mmol/L (136-145)
== END ==
PROVIDERS: Nurse Practitioner Family; Visit Provider Internal Medicine
DX: E78.5 Hyperlipidemia, unspecified (principal); I10 Essential (primary) hypertension; I25.10 Atherosclerotic heart disease of native coronary artery without angina pectoris; R06.00 Dyspnea, unspecified; R07.9 Chest pain, unspecified; R94.31 Abnormal electrocardiogram [ECG] [EKG]
CPT/HCPCS: 36415; 80048

== ENCOUNTER 2021-10-15 16:20 | Emergency (ER) | payer MEDICARE, MEDICAID, SELFPAY ==
--- NOTE | 2021-10-15 17:16 | XR_ITS ---
PROCEDURE INFORMATION: Exam: XR Lumbosacral Spine Exam date and time: 10/15/2021 5:16 PM Age: 61 years old Clinical indication: Patient HX: Low back pain for 2 days, twisted back, no known injury TECHNIQUE: Imaging protocol: XR of the lumbosacral spine. Views: 2 or 3 views. Total images: 3 COMPARISON: MR LUMBAR SPINE WO CON 09/12/2019 9:40 AM FINDINGS: Bones/joints: Osteopenia. Normal alignment. Mild chronic superior endplate compression of L3 is unchanged from prior MRI 09/12/2019. No acute fractures were evident radiographically. No blastic or lytic lesions. Disc space heights are well-maintained. Mild anterior spurring L1-L2, L2-L3, and L3-L4. Minor lower lumbar osteoarthritic facet sclerosis. No gross pars defects. The visualized sacrum/pelvis and SI joints are unremarkable. Multiple calcifications measuring between 3 mm and 19 mm projecting over the right iliac wing. These are nonspecific in nature, possibly granulomatous calcifications in the adjacent soft tissues. Intrapelvic linear ligamentous calcifications are present bilaterally. Left paraspinous 8 mm calcification at the L2-L3 level is nonspecific. 2.5 mm possible right renal stone projecting over the right 12th rib. Soft tissues: See Bones/joints finding. Intraperitoneal space: Right upper quadrant surgical clips suggest prior cholecystectomy. Gastrointestinal tract: Unremarkable bowel gas pattern. IMPRESSION: 1. No acute fractures were evident radiographically. Mild chronic superior endplate compression of L3 is unchanged from 09/12/2019. 2. Osteopenia and minor anterior degenerative changes. 3. Additional nonemergent findings detailed above.
[2021-10-15 17:17] VITALS: BP 106/61; PULSE 81; RESP 18; TEMP 37.1; O2SAT 94; BMI 25.8
--- NOTE | 2021-10-15 17:32 | HMH.EDUTC ---
[facility] – [place] Disposition Clinical Impression: Dizziness Sciatica Qualifiers: Laterality: left Qualified Code(s): M54.32 - Sciatica, left side Disposition: Home, Self-Care Condition on Discharge: Good Instructions: Vertigo, DI for Sciatica, DI for Back Pain With Sciatica, Meclizine Additional Instructions: *Ibuprofen tray 6 hours with meal as needed for pain/inflammation if your Doctor has said you can take it *Remember you had a Toradol shot in the clinic today, which is similar to Motrin *Not additional anti-inflammatory like motrin, aleve, advil with the above amount of ibuprofen. You can still take Tylenol every 4 hours as needed if you need something else for pain *Ice 20 minutes every 2 hours for the first 48 hours after the initial injury followed by moist heat every 20 minutes 3-4 times a day to affected area *Muscle relaxer every 8 hours as needed for muscle spasms as you was previously prescribed but remember, it WILL cause drowsiness You cannot take it and drive, operate machinery or care for small children. *Keep this area active, no movement leads to more stiffness, However take it easy and avoid heavy lifting pushing or pulling *Follow up with you family doctor if no improvement for further treatment GO straight to the ER if any life threatening symptoms Prescriptions: Meclizine HCl [Antivert 12.5mg tablet] 12.5 mg PO Q8HP PRN #15 tab PRN Reason: Dizziness Transmission Status: Received by [id number] methylPREDNISolone [Medrol 4mg tab] 4 mg PO DIRECTED #21 tab Transmission Status: Received by [id number] Referrals: Benjie José MD [Primary Care Provider] - As needed Time of Disposition: 19:14 Medical Decision Making - Say Inquiry Pt receiving controlled substance: No Say was queried for this patient: No Vital Signs: 10/15/21 17:17 10/15/21 19:20 Temperature 98.7 F 98.7 F Temperature Source Oral Oral Pulse Rate 81 Pulse Rate [Right Radial] 81 Respiratory Rate 18 18 Blood Pressure 106/61 L Blood Pressure [Right Arm] 106/61 L Blood Pressure Mean [Right Arm] 76 Blood Pressure Source Automatic Cuff Blood Pressure Source [Right Arm] Automatic Cuff Blood Pressure Position Sitting Blood Pressure Position [Right Arm] Sitting 02 Sat by Pulse Oximetry 94 L Oxygen Delivery Method Room Air Room Air - Lab Data Lab results reviewed: Yes: I reviewed the patient's lab results. Lab Results 10/15/21 17:54: Urine Color Dark yellow, Urine Appearance Clear, Urine pH 5.5, Ur Specific Thornton 1.030, Urine Protein Trace, Urine Glucose (UA) Negative, Urine Ketones Negative, Urine Blood Negative, Urine Nitrate Negative, Urine Bilirubin 1+ A, Urine Urobilinogen 0.2, Ur Leukocyte Esterase Negative Orders (Tests/Meds): ED MEDICATIONS Discontinued Medications Generic Name Dose Route Start Last Admin Trade Name Elmer PRN Reason Stop Dose Admin Meclizine HCl 12.5 mg 10/15/21 18:34 10/15/21 18:53 Meclizine 12.5mg Tablet PO 10/15/21 18:35 12.5 mg ONCE ONE Administration Methylprednisolone Sodium Succinate 125 mg 10/15/21 18:33 10/15/21 18:54 Methylprednisolone Sod Succ 125mg Vial IM 10/15/21 18:34 125 mg ONCE ONE Administration - Radiology Data #1 Image(s): L-Spine Image Reviewed: Yes I have reviewed radiologist's interpretation IMPRESSION: 1. No acute fractures were evident radiographically. Mild chronic superior endplate compression of L3 is unchanged from 09/12/2019. 2. Osteopenia and minor anterior degenerative changes. 3. Additional nonemergent findings detailed above. Medical Decision Narrative: Patient back from xray patient ambulated to toilet to collect urine without difficulty Discussed with patient about transfer to the ED and she advised she was not having any pain in her chest and only felt dizzy at times when she would stand too quieckly and pain in lower back/buttock area States that she will try medication and see if sy
[2021-10-15 18:04] LABS: Apearance,Urine Clear (Clear); Bilirubin,Urine 1+ (Negative); Blood, Urine Negative (Negative); Color,Urine Dark Yellow (Yellow); Glucose,Urine (UA) Negative (Negative); Ketones,Urine Negative (Negative); PH,Urine 5.5 (5.0-8.5); Protein,Urine Trace (Negative); UTC Leukocyte Esterase,Urine Negative (Negative); UTC Nitrate,Urine Negative (Negative); Urobilinogen,Urine 0.2 EU/dl (0.2)
[2021-10-15 19:20] VITALS: BP 106/61; PULSE 81; RESP 18; TEMP 37.1; O2SAT 94
== END 2021-10-15 19:20 | disposition home or self-care (01) ==
PROVIDERS: Emergency Provider Nurse Practitioner; PCP Emergency Medicine
DX: M54.32 Sciatica, left side (principal); R42 Dizziness and giddiness; J44.9 Chronic obstructive pulmonary disease, unspecified; K21.9 Gastro-esophageal reflux disease without esophagitis; F41.9 Anxiety disorder, unspecified; M81.0 Age-related osteoporosis without current pathological fracture; M79.7 Fibromyalgia; Z87.442 Personal history of urinary calculi; Z79.899 Other long term (current) drug therapy
CPT/HCPCS: G0463; 72100; 81003; 90471; 99202

== ENCOUNTER 2021-10-20 10:27 | Emergency (ER) | payer MEDICARE, MEDICAID, SELFPAY ==
[2021-10-20 10:38] VITALS: BP 0/0; PULSE 0; RESP 0; TEMP -17.7; TEMP 0; O2SAT 0
--- NOTE | 2021-10-20 10:38 | PC.NURSE ---
pt has outpt orders infusion department. Pt had come from PCP office, states she was unsure where to check in. ER staff has spoken outpt infusion staff who state they have orders for. IV was already established in ER and blood drawn, pt walked to infusion staff with joy guardado
== END 2021-10-20 10:38 | disposition left against medical advice (07) ==
LOC: ER 11:13
PROVIDERS: Emergency Provider Emergency Medicine; PCP Emergency Medicine
DX: Z53.21 Procedure and treatment not carried out due to patient leaving prior to being seen by health care provider (principal)
CPT/HCPCS: G0463; 99211

== ENCOUNTER 2021-10-20 10:49 | Outpatient (CLI) | payer MEDICARE, MEDICAID, SELFPAY ==
--- NOTE | 2021-10-20 10:55 | PC.NURSE ---
1055-ANAYA MCRAE, LAB WEAVER WIRE LOOM HERE AT PT CHAIRSIDE TO SWAB FOR FLU AND COVID.
[2021-10-20 10:57] VITALS: BMI 28.3
[2021-10-20 11:00] VITALS: BP 107/75; PULSE 72; RESP 16; TEMP 36.6; O2SAT 100
[2021-10-20 11:23] LABS: Influenza A, PCR Not Detected (NotDetected); Influenza B, PCR Not Detected (NotDetected); Microscopic, Urine URINE MICROSCOPIC (MICROSCOPIC)
[2021-10-20 11:26] LABS: Appearance,Urine CLOUDY (Clear); Bilirubin,Urine 1+ (Negative); Blood, Urine Negative (Negative); Color,Urine DK YELLOW (Yellow); Glucose,Urine (UA) Negative (Negative); Ketones,Urine TRACE (Negative); Leukocyte Esterase,Urine 1+ (Negative); Nitrate,Urine POSITIVE (Negative); Protein,Urine 1+ (Negative); Specific Gravity, Urine >= 1.030 (1.005-1.030)
[2021-10-20 11:27] LABS: Basophils % 0.3 % (0.1-2.0); Chloride 96 mmol/L (98-107); Eosinophils # 0.1 K/mm3 (0.0-0.4); Hematocrit 42.9 % (37.0-47.0); Lymphocytes # 1.4 K/mm3 (0.7-4.5); Lymphocytes % 18.7 % (10-50); Mean Corpuscular HGB Conc 34.9 g/dL (31.8-35.4); Mean Corpuscular Hemoglobin 30.1 pg (27.0-31.2); Mean Corpuscular Volume 86.3 fl (81-99); Monocytes # 0.6 K/mm3 (0.1-1.0); Monocytes % 8.1 % (1.7-9.3); Neutrophils # 5.5 K/mm3 (1.8-7.8); Platelet Count 244 K/mm3 (142-424); Red Blood Count 4.98 M/mm3 (4.20-5.40); Red Cell Distribution Width 14.1 % (11.5-17.5); Sodium 139 mmol/L (136-145); White Blood Count 7.7 K/mm3 (4.8-10.8)
[2021-10-20 11:30] LABS: Alanine Aminotransferase 45 U/L (12-78); Alkaline Phosphatase 88 U/L (38-126); Anion Gap 15.9 mEq/L (5-15); Aspartate Amino Transferase 54 U/L (14-36); Bilirubin,Total 1.1 mg/dl (0.2-1.3); Blood Urea Nitrogen 12 mg/dl (7-17); Calcium 7.8 mg/dl (8.4-10.2); Carbon Dioxide 30 mmol/L (22.0-30.0); Creatinine Clearance Estimated 63 mL/min (50-200); Estimated Glomerular Filt Rate 64 ml/min (>60); GFR (African American) 77 ML/MIN (>60); Glucose 139 mg/dl (74-100)
[2021-10-20 11:31] LABS: Albumin Level 4.6 g/dl (3.5-5.0); Albumin/Globulin Ratio 1.5 (1.1-1.8); Total Protein,Serum 7.6 g/dl (6.3-8.2)
[2021-10-20 11:38] LABS: Potassium 2.9 mmoL/L (3.5-5.1)
--- NOTE | 2021-10-20 11:45 | PC.NURSE ---
1145-LEAH SHOOK CALLED RN Fiorella 1145 TO REPORT POTASSIUM LEVEL 2.9. RN REPEATED AND VERIFIED PT NAME, , AND LAB VALUE. RESULT CALLED TO , NEW ORDER FOR POTASSIUM 40MEQ PO NOW.
[2021-10-20 11:49] LABS: Coronavirus 19, PCR Detected (NotDetected)
[2021-10-20 11:50] LABS: Bacteria,Urine 3+ /lpf; WBC,Urine Occasional #/hpf (0-3)
[2021-10-20 11:55] VITALS: BP 110/71; PULSE 76; RESP 18
[2021-10-20 13:38] VITALS: BP 138/76; PULSE 73; RESP 18
== END 2021-10-20 13:41 | disposition home or self-care (01) ==
LOC: INF 10:50
PROVIDERS: PCP Emergency Medicine; Visit Provider Emergency Medicine
DX: U07.1 COVID-19 (principal); R11.2 Nausea with vomiting, unspecified; R82.90 Unspecified abnormal findings in urine
CPT/HCPCS: 80053; 81001; 85025; 87086; 96360; 96361; 96375; C9803; J2405; U0003; U0005

== ENCOUNTER 2021-10-22 12:48 | Emergency (ER) | payer MEDICARE, MEDICAID, SELFPAY ==
[2021-10-22] VITALS (9 sets, daily range): BP systolic 96–119; BP diastolic 55–93; PULSE 70–103; RESP 15–20; TEMP 36.6–36.7; O2SAT 93–98; BMI 29.0
--- NOTE | 2021-10-22 13:38 | XR_ITS ---
PROCEDURE: XR CHEST 2V CLINICAL HISTORY: covid COMPARISON: CR XR CHEST 2V from 01/07/2021 CR XR RIBS LT MIN 3V W CXR1V from 01/07/[address] ANGIO CHEST PE PROTOCOL from 07/03/2021 CR XR CHEST PORTABLE from 09/26/2021 FINDINGS: The cardiomediastinal silhouette and pulmonary vascularity are within normal limits. Patchy areas of infiltrate are present in both mid lung zones and left lower lobe with mild atelectatic change in the right midlung. These findings may be seen with Covid19 pneumonia. No effusions. No acute bony abnormalities. IMPRESSION: Bilateral patchy areas of infiltrate with atelectatic change in the right midlung which may be seen with Covid19 pneumonia Dictated by: Angelito Rosa MD 10/22/2021 15:03 Angelito Rosa MD in [facility] 10/22/2021 15:03
--- NOTE | 2021-10-22 13:56 | HMH.EDUTC ---
[facility] [place] Disposition Clinical Impression: COVID-19 Lymphoma Qualifiers: Lymphoma type: unspecified type Lymphoma site: unspecified region Qualified Code(s): C85.90 - Non-Hodgkin lymphoma, unspecified, unspecified site CAD (coronary artery disease) Qualifiers: Coronary Disease-Associated Artery/Lesion type: [place] artery [place] vs. transplanted heart: [place]am heart Associated angina: unspecified whether angina present Qualified Code(s): I25.10 - Atherosclerotic heart disease of [place]haaviatam coronary artery without angina pectoris Disposition: Still a Patient Condition on Discharge: Fair Referrals: Benjie José MD [Primary Care Provider] - Medical Decision Making - Medical Records Medical records reviewed: No: I reviewed the patient's medical records. - Say Inquiry Pt receiving controlled substance: No Vital Signs: 10/22/21 13:33 Temperature 97.9 F Temperature Source Oral Pulse Rate [Left] 93 H Respiratory Rate 20 Blood Pressure [Right Arm] 116/55 L Blood Pressure Mean [Right Arm] 75 02 Sat by Pulse Oximetry 97 Orders (Tests/Meds): ORDERS Category Date Time Status Chest XR 2 view (NOT portable) [XR chest 2V] Stat Exams 10/22/21 13:38 Taken Medical Decision Narrative: She was transferred to the ER due to her shortness of breath with covid-19, chest pressure with history of CAD, and her history of lymphoma. [facility] [place] HPI - General Stated complaint: covid positive, worsening symptoms Time Seen by Provider: 10/22/21 13:56 Mode of Arrival: Wheelchair Source of Information: Patient Limitations: No Limitations Description of Symptoms (Recalled from Triage Doc. by RN): pt was dx with covid on 10/13. pt c/o a productive cough and myalgia. pt states she has only urinated once in the last 24 hours, abd pain and states she has not been drinking adequately. pt states she has not been taking her meds the last few days to include her diuretic. HEENT Symptoms (Recalled from RN notes): No Resp Symptoms (Recalled from RN notes): Yes (productive cough) Skin Symptoms (Recalled from RN notes): No MS Symptoms (Recalled from RN notes): No Functional Status (Recalled from RN notes): wnl - History of Present Illness Provider Complaint: She is here feeling much worse today. She was diagnosed with Covid-19 on 10-20. At this time she is having chest pressure, shortness of breath, extreme fatigue, and body aches. She has a history of CAD and lymphoma. - Related Data Home Medications Medication Instructions Recorded Confirmed aspirin 81 mg tablet,delayed 81 mg PO DAILY 07/20/18 10/20/21 release linaclotide 145 mcg capsule 145 mcg PO DAILY cap 08/14/19 10/20/21 calcium carbonate 600 mg-vitamin 1 tab PO DAILY 04/08/21 10/20/21 D3 20 mcg (800 unit) tablet Azelastine HCl [Azelastine Nasal 1 spray INTRANASAL BID 06/30/21 10/20/21 [place] 30mL Bottle] Budesonide/Formoterol Fumarate 2 puff INHALATION BID 06/30/21 10/20/21 [Budesonide-Formoterol 160-4.5] Montelukast Sodium [Singulair] 10 mg PO HS 06/30/21 10/20/21 Pantoprazole Sodium See Rx Instructions .ROUTE .COMPLEX 06/30/21 10/20/21 nitroglycerin 2.5 mg 2.5 mg PO DAILY cap 07/08/21 10/20/21 capsule,extended release Clopidogrel Bisulfate [Plavix] 75 mg PO DAILY 09/22/21 10/20/21 Denosumab [Prolia] 60 mg SQ [id number] 09/22/21 10/20/21 Ranolazine [Ranolazine ER] 1,000 mg PO BID 09/22/21 10/20/21 Spironolactone [Spironolactone 25 mg PO .mwf 09/22/21 10/20/21 25mg Tablet] Previous Rx's Medication Instructions Recorded levothyroxine 75 mcg capsule 75 mcg PO DAILY #90 cap 08/26/20 albuterol sulfate 90 mcg/actuation 2 puff INHALATION Q6HP PRN #8.5 g 01/13/21 aerosol inhaler ipratropium 0.5 mg-albuterol 3 mg 3 ml INHALATION QID PRN #180 ml 02/24/21 (2.5 mg base)/3 mL nebulization soln cetirizine 10 mg tablet 10 mg PO DAILY PRN #30 tab 04/24/21 atorvastatin 40 mg tablet 40 mg PO HS #90 tab 07/13/21 bisoprolol fumarate 5 mg tablet 5 mg PO DAILY #90 ta
--- NOTE | 2021-10-22 14:54 | HMH.EDGENADL ---
ED Disposition Clinical Impression: Pneumonia due to COVID-19 virus, Hypokalemia Disposition: Home, Self-Care Condition on Discharge: Fair Instructions: DI for Hypokalemia, DI for COVID-19 (Suspected or Confirmed ) Additional Instructions: Rest and drink plenty of fluids. Outpatient monoclonal antibody therapy will be scheduled and you will be contacted with appointment time. Tylenol for aches and fever. COVID-19 Isolation: Isolate yourself for a MINIMUM of 10 days from onset of symptoms: What to do: Monitor your symptoms. If you have an emergency warning sign (including trouble breathing), seek emergency medical care immediately. Stay in a separate room from other household members, if possible. Use a separate bathroom, if possible. Avoid contact with other members of the household and pets. Don?t share personal household items, like cups, towels, and utensils. Wear a mask when around other people if able. You can be around others AFTER: 10 days since symptoms first appeared AND 24 hours with no fever without the use of fever-reducing medications AND Other symptoms of COVID-19 are improving Referrals: Benjie José MD [Primary Care Provider] - - Critical Care Critical Care Time: No Attestation: On 10/22/21, the high probability of a clinically significant, sudden or life threatening deterioration of the following system(s) required my full and direct attention, intervention and personal management. The time I documented below is in addition to time spent performing reported procedures but includes the following listed in this critical care notation. Medical Decision Making - Say Inquiry Pt receiving controlled substance: No Vital Signs: 10/22/21 13:33 10/22/21 14:55 10/22/21 15:00 Temperature 97.9 F 97.9 F Temperature Source Oral Oral Pulse Rate 84 Pulse Rate [Left] 93 H 97 H Respiratory Rate 20 16 Blood Pressure 96/69 L Blood Pressure [Right Arm] 116/55 L 103/69 L Blood Pressure Mean 78 Blood Pressure Mean [Right Arm] 75 80 Blood Pressure Source [Right Arm] Automatic Cuff Blood Pressure Position [Right Arm] Sitting 02 Sat by Pulse Oximetry 97 95 98 Oxygen Delivery Method Room Air 10/22/21 15:30 10/22/21 16:00 10/22/21 16:30 Temperature Temperature Source Pulse Rate 87 86 89 Pulse Rate [Left] Respiratory Rate 15 15 Blood Pressure 113/74 119/93 H 116/63 Blood Pressure [Right Arm] Blood Pressure Mean 87 101 80 Blood Pressure Mean [Right Arm] Blood Pressure Source [Right Arm] Blood Pressure Position [Right Arm] 02 Sat by Pulse Oximetry 95 96 97 Oxygen Delivery Method - Lab Data Lab Results 10/22/21 15:41: WBC 4.2 L D, RBC 4.59, Hgb 13.5, Hct 40.9, MCV 89.1, MCH 29.4, MCHC 33.0, RDW 14.7, Plt Count 168 D, MPV 9.1, Neut % (Auto) 66.3, Lymph % (Auto) 22.7, [place] % (Auto) 9.2, Eos % (Auto) 0.8, Baso % (Auto) 1.0, Neut # (Auto) 2.8, Lymph # (Auto) 1.0, [place] # (Auto) 0.4, Eos # (Auto) 0.0, Baso # (Auto) 0.0 10/22/21 15:41: Sodium 139, Potassium 3.1 L, Chloride 98, Carbon Dioxide 31 H, Anion Gap 13.1, BUN 4 L D, Creatinine 0.60 D, Estimated Creat Clear 65, Estimated GFR 102, Est GFR ( Amer) 123 D, Glucose 101 H, Calcium 7.4 L, Total Bilirubin 0.8, AST 55 H, ALT 37, Alkaline Phosphatase 84, Troponin I < 0.01, Total Protein 7.1, Albumin 4.2, Globulin 2.9, Albumin/Globulin Ratio 1.4, Lipase 154 Result diagrams: 10/22/21 15:41 10/22/21 15:41 Orders (Tests/Meds): ED MEDICATIONS Discontinued Medications Generic Name Dose Route Start Last Admin Trade Name Freq PRN Reason Stop Dose Admin Iopamidol 100 ml 10/22/21 16:05 10/22/21 16:07 Iopamidol-370 (76%);100ml Bottle IV 10/22/21 16:06 100 ml ONCE ONE Administration Potassium Chloride 40 meq 10/22/21 16:58 Potassium Chloride 20meq Tab PO 10/22/21 16:59 ONCE ONE Sodium Chloride 1,000 ml 10/22/21 15:29 10/22/21 15:40 Sodium Chloride 0
--- NOTE | 2021-10-22 15:27 | CT_ITS ---
PROCEDURE INFORMATION: Exam: CTA Chest With Contrast Exam date and time: 10/22/2021 3:27 PM Age: 61 years old Clinical indication: Shortness of breath; Additional info: Covid, SOA TECHNIQUE: Imaging protocol: Computed tomographic angiography of the chest with contrast. 3D rendering (Not supervised by radiologist): MIP and/or 3D reconstructed images were created by the technologist. Radiation optimization: All CT scans at this facility use at least one of these dose optimization techniques: automated exposure control; mA and/or kV adjustment per patient size (includes targeted exams where dose is matched to clinical indication); or iterative reconstruction. Contrast material: ISOVUE 370; Contrast volume: 100 ml; Contrast route: INTRAVENOUS (IV); COMPARISON: CT ANGIO CHEST PE PROTOCOL 07/03/2021 11:29 AM FINDINGS: Pulmonary arteries: No pulmonary emboli. Aorta: No aortic aneurysm. No aortic dissection. Lungs: Bilateral multifocal ground-glass opacity and partial consolidation. No mass or cavitary lesion. Pleural spaces: Unremarkable. No pneumothorax. No pleural effusion. Heart: No cardiomegaly. No pericardial effusion. Lymph nodes: No significant adenopathy. Diaphragm: Right hemidiaphragm elevation. Bones/joints: No acute findings. Soft tissues: Unremarkable. IMPRESSION: Bilateral pneumonia consistent with COVID-19 pneumonia.
--- NOTE | 2021-10-22 15:28 | CT_ITS ---
PROCEDURE INFORMATION: Exam: CT Abdomen And Pelvis With Contrast Exam date and time: 10/22/2021 3:28 PM Age: 61 years old Clinical indication: Abdominal pain; Generalized; Additional info: Abdo pain TECHNIQUE: Imaging protocol: Computed tomography of the abdomen and pelvis with contrast. Radiation optimization: All CT scans at this facility use at least one of these dose optimization techniques: automated exposure control; mA and/or kV adjustment per patient size (includes targeted exams where dose is matched to clinical indication); or iterative reconstruction. Contrast material: ISOVUE; Contrast volume: 100 ml; Contrast route: IV; COMPARISON: CT ABDOMEN PELVIS WO/W CON 12/12/2019 8:41 PM FINDINGS: Liver: No mass. Stable 1 cm cyst. Gallbladder and bile ducts: Cholecystectomy. No biliary ductal dilatation. Pancreas: Normal. No ductal dilation. Spleen: Normal. No splenomegaly. Adrenal glands: Normal. No mass. Kidneys and ureters: Normal. No hydronephrosis. Stomach and bowel: No acute findings. No obstruction. No mucosal thickening. Appendix: Appendectomy. Intraperitoneal space: Unremarkable. No free air. No significant fluid collection. Vasculature: No abdominal aortic aneurysm. Lymph nodes: No significant adenopathy. Urinary bladder: Unremarkable as visualized. Reproductive: Hysterectomy. Bones/joints: No acute findings. Soft tissues: No acute finding. Benign buttocks calcifications. IMPRESSION: No acute abdominal findings.
[2021-10-22 16:25] LABS: Alanine Aminotransferase 37 U/L (12-78); Albumin Level 4.2 g/dl (3.5-5.0); Albumin/Globulin Ratio 1.4 (1.1-1.8); Alkaline Phosphatase 84 U/L (38-126); Anion Gap 13.1 mEq/L (5-15); Aspartate Amino Transferase 55 U/L (14-36); Bilirubin,Total 0.8 mg/dl (0.2-1.3); Blood Urea Nitrogen 4 mg/dl (7-17); Calcium 7.4 mg/dl (8.4-10.2); Carbon Dioxide 31 mmol/L (22.0-30.0); Chloride 98 mmol/L (98-107); Creatinine Clearance Estimated 65 mL/min (50-200); Estimated Glomerular Filt Rate 102 ml/min (>60); GFR (African American) 123 ML/MIN (>60); Globulin 2.9 g/dL (1.3-3.2); Glucose 101 mg/dl (74-100); Lipase 154 U/L (23-300); Potassium 3.1 mmoL/L (3.5-5.1); Sodium 139 mmol/L (136-145); Total Protein,Serum 7.1 g/dl (6.3-8.2)
[2021-10-22 16:27] LABS: Eosinophils % 0.8 % (0.1-12.0); Hematocrit 40.9 % (37.0-47.0); Hemoglobin 13.5 g/dL (12.2-16.2); Lymphocytes % 22.7 % (10-50); Mean Corpuscular Hemoglobin 29.4 pg (27.0-31.2); Mean Corpuscular Volume 89.1 fl (81-99); Mean Platelet Volume 9.1 fl (7.4-10.4); Monocytes # 0.4 K/mm3 (0.1-1.0); Monocytes % 9.2 % (1.7-9.3); Neutrophils # 2.8 K/mm3 (1.8-7.8); Neutrophils % 66.3 % (37.0-80.0); Platelet Count 168 K/mm3 (142-424); Red Blood Count 4.59 M/mm3 (4.20-5.40); Red Cell Distribution Width 14.7 % (11.5-17.5); White Blood Count 4.2 K/mm3 (4.8-10.8)
[2021-10-22 16:44] LABS: Troponin I < 0.01 ng/ml (0.00-0.034)
--- NOTE | 2021-10-22 17:07 | ECG_ITS ---
APPROVED REPORT Exam: Resting ECG HR:97 bpm ECG Measurements Heart Rate 97 AXES AR 176 P 54 QRSd 80 QRS 46 QT 382 T 52 QTc 485 Conclusion Normal sinus rhythm Normal ECG Electronically signed by : Jean Pierre Johnston MD 10/23/2021 12:35:17
== END 2021-10-22 18:00 | disposition home or self-care (01) ==
LOC: UTC 14:28 → ER 14:29
PROVIDERS: Emergency Provider Emergency Medicine; PCP Emergency Medicine
DX: U07.1 COVID-19 (principal); C85.90 Non-Hodgkin lymphoma, unspecified, unspecified site; I25.10 Atherosclerotic heart disease of native coronary artery without angina pectoris; M79.7 Fibromyalgia; J44.9 Chronic obstructive pulmonary disease, unspecified; K21.9 Gastro-esophageal reflux disease without esophagitis; M81.0 Age-related osteoporosis without current pathological fracture; E87.6 Hypokalemia; Z79.899 Other long term (current) drug therapy
CPT/HCPCS: 71046; 71275; 74177; 80053; 83690; 84484; 85025; 93005; 96365; 99283; Q9967

== ENCOUNTER 2021-10-23 07:53 | Outpatient (CLI) | payer MEDICARE, MEDICAID, SELFPAY ==
[2021-10-23] VITALS (7 sets, daily range): BP systolic 92–105; BP diastolic 53–60; PULSE 85–93; RESP 18–20; TEMP 36.4–36.9; O2SAT 94–97
== END 2021-10-23 10:45 | disposition home or self-care (01) ==
PROVIDERS: PCP Emergency Medicine; Visit Provider Emergency Medicine
DX: U07.1 COVID-19 (principal); Z23 Encounter for immunization
CPT/HCPCS: 96365

== ENCOUNTER → 2021-11-04 13:43 | Outpatient (CLI) | payer MEDICARE, MEDICAID, SELFPAY | PROVIDERS: Visit Provider Nurse Practitioner Family | DX: N39.0 Urinary tract infection, site not specified (principal) | CPT/HCPCS: 87086 ==

== ENCOUNTER → 2022-02-04 10:15 | Outpatient (CLI) | payer MEDICARE, MEDICAID, SELFPAY ==
--- NOTE | 2022-02-04 10:15 | MM_ITS ---
PROCEDURE INFORMATION: Exam: MG Bilateral Screening 3D Mammography Exam date and time: 02/04/2022 10:14 AM Age: 61 years old Clinical indication: Screening examination; Additional info: Breast cancer screening TECHNIQUE: Imaging protocol: Bilateral Screening tomosynthesis and 2D mammography including computer-aided detection (CAD) when performed. COMPARISON: 1. MG MM DIG SCREENING MAMM BI W/CAD 02/02/2021 10:14 AM 2. MG DIG MAMM-SCREEN IVÁN 04/10/2019 5:06 PM 3. MG SCBI MM Dig screening mamm BI w/CAD 11/10/2017 9:48 AM FINDINGS: MAMMOGRAPHY: Breast composition: There are scattered areas of fibroglandular density. Mass: No suspicious masses. Architectural distortion: No suspicious distortion. Calcifications: No suspicious calcifications. Asymmetric density: None. Skin thickening: None. Axillary adenopathy: None. IMPRESSION: No mammographic evidence of malignancy. Annual screening is recommended unless otherwise clinically indicated. ASSESSMENT: BI-RADS Category 1: Negative
== END ==
PROVIDERS: PCP Emergency Medicine; Visit Provider Emergency Medicine
DX: Z12.31 Encounter for screening mammogram for malignant neoplasm of breast (principal)
CPT/HCPCS: 77063; 77067

== ENCOUNTER 2022-03-04 16:04 | Emergency (ER) | payer MEDICARE, MEDICAID, SELFPAY ==
[2022-03-04 16:20] VITALS: BP 119/75; PULSE 65; RESP 18; TEMP 36.8; O2SAT 97; BMI 30.9
--- NOTE | 2022-03-04 16:42 | PC.NURSE ---
PATIENT SENT TO ER PER Artie KINCAID APRN FOR FURTHER EVALUATION. REPORT GIVEN TO Ivanna MCGARRY RN BY Artie KINCAID APRN
--- NOTE | 2022-03-04 16:55 | HMH.EDUTC ---
[facility] [place] Disposition Clinical Impression: Skin pain Disposition: Home, Self-Care Condition on Discharge: Good Instructions: CRIS Casillas for Knee Pain Additional Instructions: Watch area as advised in [facility] for swelling, changes in color or any lumps or bumps and follow up immediately if seen Follow up with your Family Doctor if any worsening of symptoms Return if needed Straight to ER if any life threatening symptoms Referrals: Benjie José MD [Primary Care Provider] - As needed Time of Disposition: 17:15 Medical Decision Making - Say Inquiry Pt receiving controlled substance: No Say was queried for this patient: No Vital Signs: 03/04/22 16:20 Temperature 98.2 F Temperature Source Oral Pulse Rate [Left Brachial] 65 Respiratory Rate 18 Blood Pressure [Left Arm] 119/75 Blood Pressure Mean [Left Arm] 89 Blood Pressure Source [Left Arm] Automatic Cuff Blood Pressure Position [Left Arm] Sitting 02 Sat by Pulse Oximetry 97 Oxygen Delivery Method Room Air [facility] [place] HPI - General Stated complaint: spot behind left knee Time Seen by Provider: 03/04/22 16:55 Mode of Arrival: Ambulatory Source of Information: Patient Limitations: No Limitations Description of Symptoms (Recalled from Triage Doc. by RN): PATIENT C/O PAINFUL AREA BEHIND LEFT KNEE X A COUPLE OF DAYS HEENT Symptoms (Recalled from RN notes): No Resp Symptoms (Recalled from RN notes): No Skin Symptoms (Recalled from RN notes): No MS Symptoms (Recalled from RN notes): No Functional Status (Recalled from RN notes): WNL - History of Present Illness Provider Complaint: Patient states that she noticed a small brown spot behind her left knee a couple days ago that is sore to the touch State that today it still felt tender and sore when she would lay it against something so she came in to get it checked - Related Data Home Medications Medication Instructions Recorded Confirmed aspirin 81 mg tablet,delayed 81 mg PO DAILY 07/20/18 02/17/22 release linaclotide 145 mcg capsule 145 mcg PO DAILY cap 08/14/19 02/17/22 calcium carbonate 600 mg-vitamin 1 tab PO DAILY 04/08/21 02/17/22 D3 20 mcg (800 unit) tablet Budesonide/Formoterol Fumarate 2 puff INHALATION BID 06/30/21 02/17/22 [Budesonide-Formoterol 160-4.5] Montelukast Sodium [Singulair] 10 mg PO HS 06/30/21 02/17/22 Pantoprazole Sodium See Rx Instructions .ROUTE .COMPLEX 06/30/21 02/17/22 nitroglycerin 2.5 mg 2.5 mg PO DAILY cap 07/08/21 02/17/22 capsule,extended release Clopidogrel Bisulfate [Plavix] 75 mg PO DAILY 09/22/21 02/17/22 Denosumab [Prolia] 60 mg SQ [id number] 09/22/21 02/17/22 Spironolactone [Spironolactone 25 mg PO .mwf 09/22/21 02/17/22 25mg Tablet] Previous Rx's Medication Instructions Recorded levothyroxine 75 mcg capsule 75 mcg PO DAILY #90 cap 08/26/20 albuterol sulfate 90 mcg/actuation 2 puff INHALATION Q6HP PRN #8.5 g 01/13/21 aerosol inhaler ipratropium 0.5 mg-albuterol 3 mg 3 ml INHALATION QID PRN #180 ml 02/24/21 (2.5 mg base)/3 mL nebulization soln cetirizine 10 mg tablet 10 mg PO DAILY PRN #30 tab 04/24/21 atorvastatin 40 mg tablet 40 mg PO HS #90 tab 07/13/21 bisoprolol fumarate 5 mg tablet 5 mg PO DAILY #90 tab 08/27/21 Meclizine HCl [Antivert 12.5mg 12.5 mg PO Q8HP PRN #15 tab 10/15/21 tablet] tiotropium bromide 1.25 See Rx Instructions .ROUTE 12/15/21 mcg/actuation mist for inhalation .COMPLEX #12 g cyclobenzaprine 10 mg tablet See Rx Instructions .ROUTE 12/30/21 .COMPLEX #180 tab diazepam 5 mg tablet 5 mg PO BID #60 tab 01/25/22 gabapentin 300 mg capsule 300 mg PO BID #60 cap 01/25/22 ranolazine 500 mg tablet,extended See Rx Instructions .ROUTE 02/15/22 release,12 hr .COMPLEX #180 tablet furosemide 20 mg tablet See Rx Instructions .ROUTE 02/22/22 .COMPLEX #90 tab Allergies Allergy/AdvReac Type Severity Reaction Status Date / Time oxycodone Allergy Unknown I-ITCHING Verified 02/17/22 09:36 Sulfa (Sulfonamide Allergy Unknown E
[2022-03-04 17:03] VITALS: BP 119/75; PULSE 65; RESP 18; TEMP 36.8; O2SAT 97
== END 2022-03-04 17:18 | disposition home or self-care (01) ==
PROVIDERS: Emergency Provider Emergency Medicine; PCP Emergency Medicine
DX: L98.8 Other specified disorders of the skin and subcutaneous tissue (principal)
CPT/HCPCS: 99211; G0463

== ENCOUNTER → 2022-04-13 11:00 | Outpatient (CLI) | payer MEDICARE, MEDICAID, SELFPAY ==
[2022-04-13 13:57] LABS: Amphetamine/Metha Screen,Urine Negative ng/ml (<1000)
[2022-04-13 13:58] LABS: Barbiturates Screen,Urine Negative ng/ml (<200); Benzodiazepines Screen,Urine Positive ng/ml (<200)
[2022-04-13 14:02] LABS: Cannabinoid Screen,Urine Positive ng/ml (<50); Cocaine Screen,Urine Negative ng/ml (<300)
[2022-04-13 14:03] LABS: Methadone Screen,Urine Negative ng/ml (<300)
[2022-04-13 14:06] LABS: Opiate Screen,Urine Negative ng/ml (<300)
[2022-04-13 14:07] LABS: Phencyclidine Screen,Urine Negative ng/ml (<25)
== END ==
LOC: LAB 04-28 11:01 → LAB.DROPOF 04-28 11:04
PROVIDERS: PCP Emergency Medicine; Visit Provider Emergency Medicine
DX: G89.29 Other chronic pain (principal); M54.50 Low back pain, unspecified
CPT/HCPCS: 80305

== ENCOUNTER → 2022-04-22 08:24 | Outpatient (CLI) | payer MEDICARE, MEDICAID, SELFPAY ==
--- NOTE | 2022-04-22 08:24 | CA_ITS ---
FINAL REPORT TECHNIQUE: Color Doppler, duplex Doppler and chen scale sonography of the bilateral neck arterial vasculature was performed. Velocities were measured in the carotid arteries. Stenosis evaluation based on the validated velocity criteria. CLINICAL HISTORY: DIZZINESS,HTN,HLD FINDINGS: The peak systolic velocity of the right common carotid artery is 56 cm/s. The peak systolic velocity of the right internal carotid artery is 79cm/s and end diastolic velocity 27 cm/s. The ICA/CCA ratio is 1.4. A mild amount of plaque is present. The right external carotid artery is patent. The right vertebral artery is patent with antegrade flow. The peak systolic velocity of the left common carotid artery is 72 cm/s. The peak systolic velocity of the left internal carotid artery is 81 cm/s and end diastolic velocity 33 cm/s. The ICA/CCA ratio is 1.3. A mild amount of plaque is present. The left external carotid artery is patent.The left vertebral artery is patent with antegrade flow. IMPRESSION: Less than 50% bilateral carotid stenoses. Bilateral patent vertebral arteries with antegrade flow. If indicated, CTA or MRA could further evaluate. Reviewed, Interpreted and Dictated by Rich Merino III, MD Transcribed by Kina Davis Authenticated and [facility]
--- NOTE | 2022-04-22 08:42 | MR_ITS ---
FINAL REPORT CLINICAL HISTORY: cva. DIZZINESS, FORGETFULNESS, CONSTANT HEADACHE, FREQUENT FALLS, NECK PAIN. HISTORY OSTEOARTHRITIS AND DEGENERATIVE BONE DISEASE. FINDINGS: Multiple projection images of the brain arterial vasculature were obtained without contrast. The raw data images were also reviewed. The distal internal carotid, distal vertebral and basilar arteries have an unremarkable appearance without evidence of significant stenosis or occlusion. The proximal anterior, middle and posterior cerebral arteries have an unremarkable appearance. There is no evidence of significant stenosis or major branch occlusion. No aneurysm or vascular malformation is identified. IMPRESSION: Unremarkable MR angiogram of the head. Reviewed, Interpreted and Dictated by Rich Merino III, MD Transcribed by Zohaib Manning Authenticated and [facility]
--- NOTE | 2022-04-22 08:42 | MR_ITS ---
FINAL REPORT CLINICAL HISTORY: Dizziness / CVA. DIZZINESS, FORGETFULNESS, CONSTANT HEADACHE, FREQUENT FALLS, NECK PAIN. HISTORY OSTEOARTHRITIS AND DEGENERATIVE BONE DISEASE. FINDINGS: Multiple projection images of the neck arterial vasculature were obtained without contrast. The raw data images were also reviewed. Motion on some of the images decreases exam sensitivity. The right common carotid artery has an unremarkable appearance without evidence of stenosis or occlusion. The right internal carotid artery has an unremarkable appearance without evidence of stenosis or occlusion. The right external carotid artery is patent. The right vertebral artery is patent without evidence of stenosis. The left common carotid artery has an unremarkable appearance without evidence of stenosis or occlusion. The left internal carotid artery is patent without evidence of stenosis or occlusion. The left external carotid artery is patent. The left vertebral artery is patent without evidence of stenosis. IMPRESSION: Unremarkable MR angiogram of the neck without evidence of stenosis or occlusion. Reviewed, Interpreted and Dictated by Rich Merino III, MD Transcribed by Zohaib Manning Authenticated and [facility]
== END ==
PROVIDERS: PCP Emergency Medicine; Visit Provider Emergency Medicine
DX: R42 Dizziness and giddiness (principal); I10 Essential (primary) hypertension; E78.5 Hyperlipidemia, unspecified
CPT/HCPCS: 70544; 70547; 93880

== ENCOUNTER → 2022-06-01 12:45 | Outpatient (CLI) | payer MEDICARE, MEDICAID, SELFPAY ==
--- NOTE | 2022-06-01 13:01 | MR_ITS ---
FINAL REPORT CLINICAL HISTORY: hx of lymphoma , vertigo and memory impairment symptoms are getting worse h/a no injury.trauma 15 ml prohance given COMPARISON: 06/26/2021 FINDINGS: Multiplanar MR imaging of the brain was performed without and with contrast. There is no evidence of intracranial hemorrhage or mass. No abnormal extra-axial fluid collection is seen. The ventricular size is within normal limits. There is no evidence of shift of the midline structures. The posterior fossa and brainstem have an unremarkable appearance. No area of abnormal restricted diffusion is identified. No abnormal contrast enhancement is seen. Normal major vessel vascular flow voids are noted. IMPRESSION: No acute intracranial abnormality identified. Reviewed, Interpreted and Dictated by Rich Merino III, MD Transcribed by Zohaib Manning Authenticated and [facility]
[2022-06-01 13:52] LABS: Anion Gap 12.9 mEq/L (5-15); Blood Urea Nitrogen 8 mg/dl (7-17); Calcium 9.2 mg/dl (8.4-10.2); Carbon Dioxide 26 mmol/L (22.0-30.0); Chloride 106 mmol/L (98-107); Estimated Glomerular Filt Rate 85 ml/min (>60); GFR (African American) 103 ML/MIN (>60); Glucose 138 mg/dl (74-100); Potassium 3.9 mmoL/L (3.5-5.1); Sodium 141 mmol/L (136-145)
[2022-06-01 14:23] LABS: Thyroid Stimulating Hormone 0.89 uIU/mL (0.465-4.68)
[2022-06-01 14:59] LABS: Vitamin B12 297 pg/mL (239-931)
[2022-06-01 15:00] LABS: Folate 5.68 ng/mL
== END ==
PROVIDERS: PCP Emergency Medicine; Referring Provider Physician Assistant; Visit Provider Specialist
DX: I50.30 Unspecified diastolic (congestive) heart failure (principal); I11.0 Hypertensive heart disease with heart failure; R42 Dizziness and giddiness; C85.90 Non-Hodgkin lymphoma, unspecified, unspecified site
CPT/HCPCS: 70553; 80048; 82607; 82746; 84443; A9576

== ENCOUNTER 2022-06-03 15:00 | Outpatient (RCR) | payer MEDICARE, MEDICAID, SELFPAY ==
--- NOTE | 2022-06-01 15:49 | HMH.PTOPEV ---
PT Outpatient Evaluation Rehab PT Outpatient Evaluation Start: 06/01/22 14:52 Freq: Status: Active Protocol: Document 06/01/22 15:30 ZULAYAISSATOU (Rec: 06/01/22 15:49 FERNRICHARD [id number]) Electronically Signed By Jose Daniels PT 06/01/22 15:30 Outpatient Therapy Subjective History Subjective History This is the initial Physical THerapy evaluation for Anabell Green. Pt is a 62 y/o female referred to PT for c/o dizziness. Pt reports spells began insidiously ~ 6+ months ago. Pt also reports this is approximately the same time she had her first heart catheterization. Pt reports her dizziness is not based on position or turning. Pt reports it can feel like she is blacking out to everything is spinning . Pt does note that her BP medicine dosages were adjusted last week and she has not had a spell in 3 or 4 days. Pt did report c/o pressure in her chest today during MRI, no c/o dizziness, but feels it could possibly be do to anxiety. Chief Complaint Other Symptom Type Other Symptoms Relieved By Rest/Positioning Current Functional Limitations Housework,Driving,Recreation Activity,Walking,Balance Symptom Description Intermittent Balance Eval Chief Complaint Did you feel dizzy, unsteady or faint? Yes Activity at onset unknown Hx of Falls Hx Falls Yes Number in last 6 months 2 Gait/Posture Asssessment General Gait Observation No Deviations/Normal Assistive Devices None / NA Level of Transfer Assist Independent Hip Observation in Gait Swing No Deviation Hip Observation in Gait Stance No Deviation Ankle/Foot Observation in Gait Swing No Deviation Ankle/Foot Observation in Gait Stance No Deviation Nystagmus Nystagmus Presence None Oculomotor Gaze Oculomotor Gaze Nml: Vergence Smooth Pursuit Saccades VOR Cancellation Cover/Uncover Cross Cover [place] Feet Together/Eyes open/Stable Surface
== END 2022-06-03 15:05 | disposition home or self-care (01) ==
LOC: PT 15:00
PROVIDERS: PCP Emergency Medicine; Visit Provider Specialist
DX: R42 Dizziness and giddiness (principal)
CPT/HCPCS: 97163

== ENCOUNTER → 2022-06-18 13:45 | Outpatient (CLI) | payer MEDICARE, MEDICAID, SELFPAY ==
[2022-06-18 16:07] LABS: Alanine Aminotransferase 17 U/L (12-78); Albumin Level 4.2 g/dl (3.5-5.0); Alkaline Phosphatase 68 U/L (38-126); Anion Gap 11.7 mEq/L (5-15); Aspartate Amino Transferase 25 U/L (14-36); Bilirubin,Direct 0.2 mg/dl (0.0-0.4); Bilirubin,Indirect 0.6 mg/dL (0.0-0.9); Bilirubin,Total 0.8 mg/dl (0.2-1.3); Bilirubin,Unconjugated 0.6 mg/dL (0.0-1.1); Blood Urea Nitrogen 12 mg/dl (7-17); Calcium 9.2 mg/dl (8.4-10.2); Carbon Dioxide 29 mmol/L (22.0-30.0); Chloride 105 mmol/L (98-107); Estimated Glomerular Filt Rate 85 ml/min (>60); GFR (African American) 103 ML/MIN (>60); Glucose 113 mg/dl (74-100); Potassium 4.7 mmoL/L (3.5-5.1); Sodium 141 mmol/L (136-145); Total Protein,Serum 6.3 g/dl (6.3-8.2)
== END ==
PROVIDERS: PCP Emergency Medicine; Visit Provider Internal Medicine Cardiovascular Disease
DX: R11.0 Nausea (principal); E11.9 Type 2 diabetes mellitus without complications
CPT/HCPCS: 36415; 80048; 80076

== ENCOUNTER → 2022-08-04 11:10 | Outpatient (CLI) | payer MEDICARE, MEDICAID, SELFPAY ==
[2022-08-04 13:38] LABS: Amphetamine/Metha Screen,Urine Negative ng/ml (<1000)
[2022-08-04 13:40] LABS: Barbiturates Screen,Urine Negative ng/ml (<200)
[2022-08-04 13:41] LABS: Benzodiazepines Screen,Urine Positive ng/ml (<200); Cannabinoid Screen,Urine Positive ng/ml (<50)
[2022-08-04 13:42] LABS: Cocaine Screen,Urine Negative ng/ml (<300)
[2022-08-04 13:43] LABS: Methadone Screen,Urine Negative ng/ml (<300); Opiate Screen,Urine Negative ng/ml (<300)
[2022-08-04 13:44] LABS: Phencyclidine Screen,Urine Negative ng/ml (<25)
== END ==
PROVIDERS: PCP Emergency Medicine; Visit Provider Emergency Medicine
DX: Z79.899 Other long term (current) drug therapy (principal)
CPT/HCPCS: 80305; 93225; 93226

== ENCOUNTER → 2022-08-04 16:12 | Outpatient (CLI) | payer MEDICARE, MEDICAID, SELFPAY | PROVIDERS: PCP Emergency Medicine; Visit Provider Emergency Medicine | DX: R55 Syncope and collapse (principal); Z79.899 Other long term (current) drug therapy | CPT/HCPCS: 80305; 93225; 93226 ==

== ENCOUNTER → 2022-08-30 14:54 | Outpatient (CLI) | payer MEDICARE, MEDICAID, SELFPAY ==
[2022-08-30 14:19] LABS: Amphetamine/Metha Screen,Urine Negative ng/ml (<1000); Barbiturates Screen,Urine Negative ng/ml (<200)
[2022-08-30 14:20] LABS: Benzodiazepines Screen,Urine Positive ng/ml (<200)
[2022-08-30 14:21] LABS: Cannabinoid Screen,Urine Positive ng/ml (<50); Cocaine Screen,Urine Negative ng/ml (<300)
[2022-08-30 14:22] LABS: Methadone Screen,Urine Negative ng/ml (<300)
[2022-08-30 14:23] LABS: Opiate Screen,Urine Negative ng/ml (<300); Phencyclidine Screen,Urine Negative ng/ml (<25)
== END ==
PROVIDERS: PCP Emergency Medicine; Visit Provider Emergency Medicine
DX: Z79.899 Other long term (current) drug therapy (principal)
CPT/HCPCS: 80305

== ENCOUNTER → 2022-09-07 14:00 | Outpatient (CLI) | payer MEDICARE, MEDICAID, SELFPAY ==
[2022-09-07 18:29] LABS: Influenza A, PCR Not Detected (NotDetected); Influenza B, PCR Not Detected (NotDetected)
[2022-09-07 21:43] LABS: Coronavirus 19, PCR Detected (NotDetected)
== END ==
PROVIDERS: PCP Emergency Medicine; Visit Provider Emergency Medicine
DX: R68.89 Other general symptoms and signs (principal); U07.1 COVID-19
CPT/HCPCS: C9803; U0003; U0005

== ENCOUNTER → 2022-11-19 09:58 | Outpatient (CLI) | payer MEDICARE, MEDICAID, SELFPAY ==
[2022-11-19 10:25] VITALS: PULSE 60; PULSE 64
== END ==
PROVIDERS: PCP Emergency Medicine; Visit Provider Internal Medicine Pulmonary Disease
DX: J45.909 Unspecified asthma, uncomplicated (principal)
CPT/HCPCS: 94060; 94640

== ENCOUNTER 2022-12-21 12:56 | Emergency (ER) | payer MEDICARE, MEDICAID, SELFPAY ==
--- NOTE | 2022-12-21 13:38 | EXP.UTC ---
Discharge Plan Disposition Patient Disposition: Home, Self-Care Condition: Fair Chief Complaint: PAIN Prescriptions Prescriptions: No Action linaclotide 145 mcg capsule 145 mcg PO DAILY Qty: 90 3RF bisoprolol fumarate 5 mg tablet 2.5 mg PO DAILY Qty: 30 3RF clopidogrel 75 mg tablet 75 mg PO DAILY Qty: 90 2RF diazepam 5 mg tablet 5 mg PO DAILY Lagevrio (EUA) 200 mg capsule 800 mg PO Q12H atorvastatin 40 mg tablet See Rx Instructions .ROUTE .COMPLEX Rx Instructions: TAKE 1 TABLET AT BEDTIME FOR CHOLESTEROL , paroxetine HCl [Paxil] 10 mg tablet 10 mg PO DAILY clonazepam [Klonopin] 0.5 mg tablet 0.5 mg PO TID levothyroxine 75 mcg tablet 75 mcg PO DAILY pantoprazole 40 mg tablet,delayed release (DR/EC) 40 mg PO DAILY montelukast 10 mg tablet 10 mg PO DAILY ergocalciferol (vitamin D2) 1,250 mcg (50,000 unit) capsule 1,250 mcg PO WEEKLY Label Comments: TAKE 1 CAPSULE BY MOUTH ONCE A WEEK Referrals Follow up/Referrals: Benjie José MD [Primary Care Provider] - See instructions Clinical Impressions Clinical Impression: Weakness Discharge ED Provider: Naresh Foster [facility] General Chief complaint: PAIN Stated complaint: RT face inflammation Time Seen by Provider: 12/21/22 13:38 History of Present Illness Provider Complaint: She states that for the past day she has had right sided face paresthesia. She has felt like her tongue is swollen or thick but it is not. She has had shaking and weakness of both her hands and feet also. Related Data Home Medications Medication Instructions Recorded Confirmed atorvastatin 40 mg tablet See Rx Instructions .Route 12/21/22 12/21/22 .COMPLEX . clonazepam 0.5 mg tablet (Klonopin) 0.5 mg PO TID . 12/21/22 12/21/22 diazepam 5 mg tablet 5 mg PO DAILY . 12/21/22 12/21/22 ergocalciferol (vitamin D2) 1,250 1,250 mcg PO WEEKLY . 12/21/22 12/21/22 mcg (50,000 unit) capsule levothyroxine 75 mcg tablet 75 mcg PO DAILY . 12/21/22 12/21/22 molnupiravir 200 mg capsule (EUA) 800 mg PO Q12H . 12/21/22 12/21/22 (Lagevrio) montelukast 10 mg tablet 10 mg PO DAILY . 12/21/22 12/21/22 pantoprazole 40 mg tablet,delayed 40 mg PO DAILY . 12/21/22 12/21/22 release paroxetine HCl 10 mg tablet (Paxil) 10 mg PO DAILY . 12/21/22 12/21/22 Previous Rx's Medication Instructions Recorded linaclotide 145 mcg capsule 145 mcg PO DAILY IBS #90 caps 07/13/22 bisoprolol fumarate 5 mg tablet 2.5 mg PO DAILY Heart disease #30 08/12/22 tabs clopidogrel 75 mg tablet 75 mg PO DAILY Heart disease #90 12/01/22 tabs Allergies Allergy/AdvReac Type Severity Reaction Status Date / Time oxycodone Allergy Unknown I-ITCHING Verified 12/21/22 13:52 Sulfa (Sulfonamide Allergy Unknown EYE Verified 12/21/22 13:52 Antibiotics) DROPS-EYES SWELL isosorbide AdvReac Mild dizziness Verified 12/21/22 13:52 metaxalone AdvReac felt like Verified 12/21/22 13:52 i was dying [facility] Disclaimer: The information contained in this section may have been updated after the patient was seen, as this information can be updated by other users. Medical History Elevated left ventricular end-diastolic pressure (LVEDP) HLD (hyperlipidemia) HTN (hypertension) Social History Smoking Status: Former smoker pack-years: 16 alcohol intake: never substance use type: denies use current occupational status: unemployed Travel in the last 8 weeks: Inside the [place] household members: significant other housing: house current occupational exposures/hazards: No caffeine: Yes ROS Obtained: Yes All systems reviewed & no additional complaints except as documented Constitutional Constitutional: Denies chills and Denies fever(s) Eyes Eyes: Denies eye discharge ENT Ears, Nose, Mouth, and
[2022-12-21 13:40] VITALS: BP 141/72; PULSE 77; RESP 20; TEMP 36.6; O2SAT 94; BMI 30.8
[2022-12-21 14:21] VITALS: BP 145/72; PULSE 78; RESP 17; TEMP 36.6; O2SAT 97; BMI 30.7
--- NOTE | 2022-12-21 15:18 | CT_ITS ---
FINAL REPORT CLINICAL HISTORY: rule out right mastoiditis FINDINGS: Axial images of the head were obtained without contrast. Coronal reformatted images were also obtained.This study was performed with techniques to keep radiation doses as low as reasonably achievable (ALARA). Individualized dose reduction techniques using automated exposure control or adjustment of mA and/or kV according to the patient's size were employed. There is no evidence of intracranial hemorrhage or mass. The ventricular size is within normal limits. There is no evidence of shift of the midline structures. No abnormal extra axial fluid collection is identified. The sinuses and mastoid air cells are clear. No skull abnormality is seen on the bone window images. IMPRESSION: No acute intracranial abnormality. Reviewed, Interpreted and Dictated by Rich Merino III, MD Transcribed by Zohaib Manning Authenticated and [facility]
--- NOTE | 2022-12-21 15:19 | HMH.EDGENADL ---
Discharge Plan Disposition Patient Disposition: Home, Self-Care Condition: Fair Prescriptions Prescriptions: No Action linaclotide 145 mcg capsule 145 mcg PO DAILY Qty: 90 3RF bisoprolol fumarate 5 mg tablet 2.5 mg PO DAILY Qty: 30 3RF clopidogrel 75 mg tablet 75 mg PO DAILY Qty: 90 2RF diazepam 5 mg tablet 5 mg PO DAILY Lagevrio (EUA) 200 mg capsule 800 mg PO Q12H atorvastatin 40 mg tablet See Rx Instructions .ROUTE .COMPLEX Rx Instructions: TAKE 1 TABLET AT BEDTIME FOR CHOLESTEROL , paroxetine HCl [Paxil] 10 mg tablet 10 mg PO DAILY clonazepam [Klonopin] 0.5 mg tablet 0.5 mg PO TID levothyroxine 75 mcg tablet 75 mcg PO DAILY pantoprazole 40 mg tablet,delayed release (DR/EC) 40 mg PO DAILY montelukast 10 mg tablet 10 mg PO DAILY ergocalciferol (vitamin D2) 1,250 mcg (50,000 unit) capsule 1,250 mcg PO WEEKLY Label Comments: TAKE 1 CAPSULE BY MOUTH ONCE A WEEK Referrals Follow up/Referrals: Benjie José MD [Primary Care Provider] - See instructions Clinical Impressions Clinical Impression: Weakness Discharge ED Provider: Naresh Foster General Adult HPI General Chief complaint: PAIN Stated complaint: RT face inflammation Time Seen by Provider: 12/21/22 13:38 Mode of Arrival: Ambulatory Source of Information: Patient Limitations: No Limitations Description of Symptoms (Recalled from ER Triage Doc. by RN): 62 F presents from [facility] with multiple chornic complaint issues. She reports dragging her feet at times, inflammation to her face, and weakness. She has no acute issues today. Patient was recently treated for COVID19 on the 6th of this month. History of Present Illness HPI narrative: This is a 62-year-old female with history of leukemia, lymphoma, numerous right-sided otitis media, subsequent balance issues, status post bilateral tympanostomy and left-sided tympanostomy tube placement currently following with ENT who is presenting with headache and right-sided scalp swelling. Headache is mild in intensity, does not radiate, starts on right/posterior scalp. Nothing particular makes it better or worse. Patient states for the past few weeks she has been developing right-sided ear and posterior headache. Denies fevers, chills, nausea, vomiting, decreased hearing, vision changes, but states that she has felt off balance and had mild tremor. She has been on and off multiple medications for depression, anxiety and does not know if these are related. Denies difficulty breathing, face or tongue swelling, vision changes, any other neurologic deficits, or any other concerns at this time Related Data Home Medications Medication Instructions Recorded Confirmed atorvastatin 40 mg tablet See Rx Instructions .Route 12/21/22 12/21/22 .COMPLEX . clonazepam 0.5 mg tablet (Klonopin) 0.5 mg PO TID . 12/21/22 12/21/22 diazepam 5 mg tablet 5 mg PO DAILY . 12/21/22 12/21/22 ergocalciferol (vitamin D2) 1,250 1,250 mcg PO WEEKLY . 12/21/22 12/21/22 mcg (50,000 unit) capsule levothyroxine 75 mcg tablet 75 mcg PO DAILY . 12/21/22 12/21/22 molnupiravir 200 mg capsule (EUA) 800 mg PO Q12H . 12/21/22 12/21/22 (Lagevrio) montelukast 10 mg tablet 10 mg PO DAILY . 12/21/22 12/21/22 pantoprazole 40 mg tablet,delayed 40 mg PO DAILY . 12/21/22 12/21/22 release paroxetine HCl 10 mg tablet (Paxil) 10 mg PO DAILY . 12/21/22 12/21/22 Previous Rx's Medication Instructions Recorded linaclotide 145 mcg capsule 145 mcg PO DAILY IBS #90 caps 07/13/22 bisoprolol fumarate 5 mg tablet 2.5 mg PO DAILY Heart disease #30 08/12/22 tabs clopidogrel 75 mg tablet 75 mg PO DAILY Heart disease #90 12/01/22 tabs Allergies Allergy/AdvReac Type Severity Reaction Status Date / Time oxycodone Allergy Unknown I-ITCHING Verified 12/21/22 13:52 Sulfa (Sulfonamide Allergy Unknown EYE Verified 12/21/22 13:52 Antibiotics) DROPS-EYES SWELL
--- NOTE | 2022-12-21 15:22 | PC.NURSE ---
pt to radiology
[2022-12-21 16:24] LABS: Basophils # 0.1 K/mm3 (0-0.2); Basophils % 1.4 % (0.1-2.0); Eosinophils # 0.1 K/mm3 (0.0-0.4); Eosinophils % 1.3 % (0.1-12.0); Hematocrit 42.4 % (37.0-47.0); Hemoglobin 14.3 g/dL (12.2-16.2); Lymphocytes % 27.4 % (10-50); Mean Corpuscular HGB Conc 33.8 g/dL (31.8-35.4); Mean Corpuscular Hemoglobin 29.8 pg (27.0-31.2); Mean Corpuscular Volume 88.1 fl (81-99); Mean Platelet Volume 8.3 fl (7.4-10.4); Monocytes # 0.5 K/mm3 (0.1-1.0); Monocytes % 7.1 % (1.7-9.3); Neutrophils # 4.6 K/mm3 (1.8-7.8); Neutrophils % 62.9 % (37.0-80.0); Platelet Count 280 K/mm3 (142-424); Red Cell Distribution Width 13.9 % (11.5-17.5); White Blood Count 7.3 K/mm3 (4.8-10.8)
[2022-12-21 16:26] LABS: Chloride 107 mmol/L (98-107)
[2022-12-21 16:27] LABS: Potassium 4.4 mmoL/L (3.5-5.1); Sodium 142 mmol/L (136-145)
[2022-12-21 16:30] LABS: Anion Gap 9.4 mEq/L (5-15); Blood Urea Nitrogen 12 mg/dl (7-17); Calcium 8.6 mg/dl (8.4-10.2); Carbon Dioxide 30 mmol/L (22.0-30.0); Creatinine Clearance Estimated 68 mL/min (50-200); Estimated Glomerular Filt Rate 73 ml/min (>60); GFR (African American) 88 ML/MIN (>60); Glucose 114 mg/dl (74-100)
[2022-12-21 17:19] VITALS: BP 107/78; PULSE 74; RESP 17; TEMP 36.8; O2SAT 97
== END 2022-12-21 17:20 | disposition home or self-care (01) ==
LOC: UTC 12:58 → ER 14:20
PROVIDERS: Emergency Provider Emergency Medicine; PCP Emergency Medicine
DX: R53.1 Weakness (principal); Z85.6 Personal history of leukemia; Z85.72 Personal history of non-Hodgkin lymphomas; E78.5 Hyperlipidemia, unspecified; I10 Essential (primary) hypertension; Z87.891 Personal history of nicotine dependence
CPT/HCPCS: 70450; 80048; 85025; 99284; 99285

== ENCOUNTER → 2023-01-13 11:13 | Outpatient (CLI) | payer MEDICARE, MEDICAID, SELFPAY ==
[2023-01-13 11:56] LABS: Hemoglobin A1C 5.5 % (4.0-6.0)
[2023-01-13 13:09] LABS: Vitamin B12 287 pg/mL (239-931)
[2023-01-13 13:10] LABS: Folate 8.42 ng/mL
== END ==
PROVIDERS: PCP Emergency Medicine; Visit Provider Specialist
DX: R25.1 Tremor, unspecified (principal); Z86.39 Personal history of other endocrine, nutritional and metabolic disease
CPT/HCPCS: 36415; 82607; 82746; 83036

== ENCOUNTER → 2023-01-24 10:54 | Outpatient (CLI) | payer MEDICARE, MEDICAID, SELFPAY ==
--- NOTE | 2023-01-24 10:58 | CA_ITS ---
APPROVED REPORT EXAM: Comprehensive 2D, Doppler, and color-flow Echocardiogram Uniform Maker: Lisa Mcfadden RDCS Ht: 5 ft 1 in Wt: 162lbs BSA: 1.73 BP: 111/60 mmHg Indications: CAD,CP,HTN,HLP 2D Dimensions LVOT 1.79 cm (M/F) 1.5-2.5 M-Mode Dimensions RVDd 2.53 cm (0.9-2.6) LA Diam 3.12 cm (1.9-4.0) LVDd 4.35 cm (3.5-5.7) Ao Diam 2.58 cm (2.0-3.7) LVDs 3.14 cm (3.5-5.7) IVSd 0.75 cm (0.6-1.1) PWd 0.71 cm (0.6-1.1) EF (Teich) 54.20% FS 27.80% EDV (Teich) 85.40 mL ESV (Teich) 39.10 mL LV Diastology E Decel Time 187.00 (160-240 msec) E/A Ratio 0.9 MED E' 7.30 (< 7 cm/sec) E'/MED E' Ratio 8.04 (>14) LAT E' 4.40 (<10 cm/sec) E/LAT E' Ratio 13.34 (>14) Mitral Valve MV E Max Marcos. 59.00 (40-130 cm/s) MV A Velocity 65.00 (40-130 cm/s) E/A Ratio 0.90 MV Decel. Time 187.00 (160-240 ms) MV PHT 55.00 ms Left Ventricle Left atrium is mildly enlarged, left ventricle is normal size mild concentric left ventricular hypertrophy, estimated ejection fraction 55% with no regional wall motion abnormality, grade 1 diastolic dysfunction seen without tissue Doppler evidence of reduced left atrial pressure. Right Ventricle Right atrium and right ventricular normal size and contractility. Aortic Valve Aortic valve is grossly normal there is no aortic stenosis aortic insufficiency. Mitral Valve Mitral valve is grossly normal, there is trace mitral regurgitation. Tricuspid Valve Tricuspid valve grossly normal, there is trace tricuspid regurgitation, tricuspid regurgitation jet velocity is inadequate for calculation of the right ventricular systolic pressure. Pulmonic Valve Pulmonic valve is poorly visualized. Great Vessels Aortic root is normal size. Inferior vena cava is poorly visualized. Pericardium No significant pericardial effusion noted. Conclusion 1. Normal left ventricular size mild concentric left ventricular hypertrophy, estimated ejection fraction 55% with no regional wall motion abnormality, grade 1 diastolic dysfunction seen without tissue Doppler evidence of raised left atrial pressure. 2. Trace mitral and tricuspid regurgitation. 3. No significant pericardial effusion noted. 4. Inferior vena cava is poorly visualized. Electronically signed by : Vahid Ledesma MD 01/25/2023 06:40:08
--- NOTE | 2023-01-24 11:25 | NM_ITS ---
APPROVED REPORT Exam: Nuclear Stress Test Indication: chest pain..soa..fatigue Patient Location: Outpatient Stress Tech: Jenna Larios NM Tech:Jyothi Manley NORARosa Elena RT (R)(N)(M) Ht: 5 ft 1 in Wt: 166 lbs Bra Size: 38c HR: 60 bpm BP: 147/42 mmHg BSA: 1.74 m2 TID: 0.83 BMI: 31.3 History: chest pain..soa..fatigue Procedure: Patient received 0.4 mg of intravenous Lexiscan, resting heart rate 60 bpm, resting blood pressure 147/42 mmHg, with Lexiscan maximum heart rate achieved was 96 bpm which is Less than 85 % of the maximum predicted heart rate and blood pressure was 143/63 mmHg. Electrocardiogram Resting electrocardiogram shows sinus rhythm, with Lexiscan there is less than 1.[address] segment depression noted from the baseline EKG. The EKG portion of the Lexiscan is nondiagnostic. Cardiac Stress and Resting SPECT Images: Cardiac Stress and Resting SPECT images were obtained using technetium 99m Myoview 31.4 mCi stress and 10.95 mCi at rest. Gated SPECT analysis of segmental wall motion and calculation of the ejection fraction also done. Prone images were also obtained. Cardiac stress and rest SPECT images show uniform myocardial activity without segmental perfusion abnormality, computer derived ejection fraction is over 65% with no regional wall motion abnormality, right ventricle is normal size and contractility. Conclusion: 1. The EKG portion of the Lexiscan is nondiagnostic. 2. No scintigraphic evidence of reversible ischemia seen, computer derived ejection fraction is over 65% with no regional wall motion abnormality, right ventricle is normal size and contractility. 3. Normal Lexiscan Myoview study. Electronically signed by : Vahid Ledesma MD 01/24/2023 17:22:10
--- NOTE | 2023-01-24 13:53 | CA_ITS ---
APPROVED REPORT Exam: Pharmacologic Technologist: Jenna Larios Ht: 5 ft 1 in Wt: 165 lbs BSA: 1.74 m2 HR: 60 bpm BP: 147/72 mmHg Indications: Atypical Angina Medical History Medications: Spiriva,,,,, Levothyroxine,,,,, Diazepam,,,,, Pantoprazole,,,,, Atorvastatin,,,,, SyMBICORT,,,,, Montelukast,,,,, CloPIdogrel,,,,, BisOPROLOL,,,,, Cyclobenzaprine,,,,, Vitamin D2,,,,, Nitroglycerin,,,,, Stress Test Details Test: LEXISCAN HR Resting HR: 71 bpm Max Heart Rate (APMHR): 158.840630 bpm Max HR Achieved: 99 bpm Target HR (85% APMHR): 134.079220 bpm % of APMHR: 62.66 Recovery HR: 93 bpm BP Resting BP: 147.0/72.0 mmHg Max BP: 147.0/72.0 mmHg Recovery BP: 133.0/67.0 mmHg ECG Clinical Exercise duration: 04:00 min Highest Stage Achieved: Exercise capacity: 1.0 METs Stress ECG Conclusion Symptoms: Chest heaviness, shortness of air Arrhythmisa/Ectopy: Rare PAC/PVC ST-T Changes: < 1.[address] change Test Summary REST . . . . . . . Resting REST 06:07 . . 71 . 147/ 72 . . Stage 1 . . . . . . . Myoview Injected Stage 1 01:00 . . 96 . . . . Stage 2 . . . . . . . chest pressure Shortness of Breath Stage 2 01:00 . . 96 . 143/ 65 . . Stage 3 01:00 . . 90 . 128/ 63 . . Stage 4 01:00 . . 89 . 122/ 64 . Stop exercise at 04:00 RECOVERY 01:00 . . 92 . . . . RECOVERY 01:27 . . 88 . 133/ 67 . . Electronically signed by : Vahid Ledesma MD 01/24/2023 17:19:18
== END ==
PROVIDERS: PCP Emergency Medicine; Visit Provider Physician Assistant
DX: E78.2 Mixed hyperlipidemia (principal); I10 Essential (primary) hypertension; R06.00 Dyspnea, unspecified; R07.9 Chest pain, unspecified; R94.31 Abnormal electrocardiogram [ECG] [EKG]; I20.8 Other forms of angina pectoris
CPT/HCPCS: 78452; 93017; 93306; A9502; J2785

== ENCOUNTER → 2023-02-14 14:35 | Outpatient (CLI) | payer MEDICARE, MEDICAID, SELFPAY ==
[2023-02-14 15:38] LABS: Chloride 102 mmol/L (98-107)
[2023-02-14 15:39] LABS: Potassium 4.1 mmoL/L (3.5-5.1); Sodium 141 mmol/L (136-145)
[2023-02-14 15:42] LABS: Anion Gap 13.1 mEq/L (5-15); Blood Urea Nitrogen 10 mg/dl (7-17); Calcium 8.6 mg/dl (8.4-10.2); Carbon Dioxide 30 mmol/L (22.0-30.0); Estimated Glomerular Filt Rate 63 ml/min (>60); GFR (African American) 77 ML/MIN (>60); Glucose 77 mg/dl (74-100)
== END ==
PROVIDERS: PCP Emergency Medicine; Visit Provider Nurse Practitioner Family
DX: E78.2 Mixed hyperlipidemia (principal); I10 Essential (primary) hypertension; R06.00 Dyspnea, unspecified; R07.9 Chest pain, unspecified; R94.30 Abnormal result of cardiovascular function study, unspecified; R94.31 Abnormal electrocardiogram [ECG] [EKG]; I20.8 Other forms of angina pectoris
CPT/HCPCS: 36415; 80048

== ENCOUNTER → 2023-02-18 16:18 | Outpatient (CLI) | payer MEDICARE, MEDICAID, SELFPAY ==
--- NOTE | 2023-02-18 16:19 | MM_ITS ---
PROCEDURE INFORMATION: Exam: MG Bilateral Screening 3D Mammography Exam date and time: 02/18/2023 4:13 PM Age: 63 years old Clinical indication: Screening examination TECHNIQUE: Imaging protocol: Bilateral Screening tomosynthesis and 2D mammography including computer-aided detection (CAD) when performed. COMPARISON: 1. MG MM DIG SCREENING MAMM BI W/CAD 02/04/2022 10:14 AM 2. MG MM DIG SCREENING MAMM BI W/CAD 02/02/2021 10:14 AM FINDINGS: MAMMOGRAPHY: Breast composition: There are scattered areas of fibroglandular density. Mass: None. Architectural distortion: None. Calcifications: No suspicious calcifications. Asymmetric density: None. Skin thickening: None. Axillary adenopathy: None. IMPRESSION: No mammographic evidence of malignancy. Annual screening is recommended unless otherwise clinically indicated. ASSESSMENT: BI-RADS Category 1: Negative
== END ==
PROVIDERS: PCP Emergency Medicine; Visit Provider Emergency Medicine
DX: Z12.31 Encounter for screening mammogram for malignant neoplasm of breast (principal)
CPT/HCPCS: 77063; 77067

== ENCOUNTER → 2023-05-20 11:59 | Outpatient (CLI) | payer MEDICARE, SELFPAY | LOC: SL 12:00 | PROVIDERS: PCP Emergency Medicine; Visit Provider Internal Medicine Pulmonary Disease | DX: R06.09 Other forms of dyspnea (principal) | CPT/HCPCS: 94762 ==

== ENCOUNTER → 2023-06-15 09:45 | Outpatient (CLI) | payer MEDICARE, SELFPAY | LOC: RT 09:45 | PROVIDERS: PCP Emergency Medicine; Visit Provider Internal Medicine Pulmonary Disease | DX: R06.02 Shortness of breath (principal) | CPT/HCPCS: 94060; 94618; 94726; 94729 ==

== ENCOUNTER → 2023-07-01 15:07 | Outpatient (CLI) | payer MEDICARE, SELFPAY | LOC: RT 15:08 | PROVIDERS: PCP Emergency Medicine; Visit Provider Internal Medicine Pulmonary Disease | DX: G47.34 Idiopathic sleep related nonobstructive alveolar hypoventilation (principal) | CPT/HCPCS: 94762 ==

== ENCOUNTER → 2023-07-15 07:49 | Outpatient (CLI) | payer MEDICARE, SELFPAY ==
--- NOTE | 2023-07-15 07:56 | MR_ITS ---
FINAL REPORT TECHNIQUE: Multiplanar imaging of the abdomen, including MRCP with 3D imaging CLINICAL HISTORY: pancreatic abnormality left sided back and abdominal pain COMPARISON: None FINDINGS: Multiplanar MR imaging of the abdomen was performed without contrast, including MRCP. The 3D images were reviewed. There is an 8 mm cyst present in the dome of the right liver. There is no evidence of biliary ductal dilatation. The gallbladder has been surgically resected. There is a long cystic duct remnant present, which is unremarkable in appearance. The pancreas and spleen are unremarkable in appearance. The kidneys and adrenal glands are also unremarkable. No other mass or adenopathy is identified. IMPRESSION: Prior cholecystectomy, with a long cystic duct remnant present. No evidence of biliary ductal dilatation is seen. The pancreas is unremarkable in appearance. Reviewed, Interpreted and Dictated by Rich Merino III, MD Transcribed by Manju Tony Authenticated and [facility]
== END ==
LOC: RAD 07:52
PROVIDERS: PCP Emergency Medicine; Visit Provider Emergency Medicine
DX: Q45.3 Other congenital malformations of pancreas and pancreatic duct (principal); G47.34 Idiopathic sleep related nonobstructive alveolar hypoventilation
CPT/HCPCS: 74181; 76376; 94762

== ENCOUNTER → 2023-08-23 16:59 | Outpatient (CLI) | payer MEDICARE, MEDICAID, SELFPAY | PROVIDERS: PCP Emergency Medicine; Visit Provider Emergency Medicine | DX: S61.202A Unspecified open wound of right middle finger without damage to nail, initial encounter; L03.011 Cellulitis of right finger | CPT/HCPCS: 87070; 87205 ==

== ENCOUNTER 2023-12-14 22:04 | Outpatient (CLI) | payer MEDICARE, MEDICAID, SELFPAY ==
[2023-12-14 19:06] LABS: Coronavirus 19, PCR Not Detected (NotDetected); Influenza A, PCR Not Detected (NotDetected); Influenza B, PCR Not Detected (NotDetected)
== END 2023-12-14 23:59 ==
LOC: LAB.DROPOF 22:04
PROVIDERS: PCP Physician Assistant; Visit Provider Physician Assistant
DX: R68.89 Other general symptoms and signs (principal); R06.02 Shortness of breath; R53.83 Other fatigue; R11.10 Vomiting, unspecified; Z20.822 Contact with and (suspected) exposure to COVID-19
CPT/HCPCS: 87636

== ENCOUNTER 2024-02-16 12:11 | Outpatient (CLI) | payer MEDICARE, MEDICAID, SELFPAY ==
[2024-02-16 18:37] LABS: Free T4 (Free Thyroxine) 1.87 ng/dl (0.78-2.19)
[2024-02-16 18:53] LABS: Thyroid Stimulating Hormone 1.16 uIU/mL (0.465-4.68)
[2024-02-18 09:14] LABS: Thyroid Peroxidase Antibodies <9 IU/mL (0-34)
[2024-02-20 19:03] LABS: Thyroglobulin Level <1.0 IU/mL (0.0-0.9)
== END 2024-02-16 23:59 | disposition home or self-care (01) ==
LOC: LAB.DROPOF 02-17 12:12
PROVIDERS: PCP Internal Medicine; Visit Provider Internal Medicine
DX: R53.83 Other fatigue (principal)
CPT/HCPCS: 84439; 84443; 86376; 86800

== ENCOUNTER 2024-03-21 07:43 | Outpatient (CLI) | payer MEDICAID, SELFPAY ==
[2024-03-21 08:41] LABS: Basophils # 0.1 K/mm3 (0-0.2); Eosinophils # 0.2 K/mm3 (0.0-0.4); Eosinophils % 2.3 % (0.1-12.0); Hematocrit 42.2 % (37.0-47.0); Hemoglobin 13.7 g/dL (12.2-16.2); Lymphocytes # 3.9 K/mm3 (0.7-4.5); Lymphocytes % 44.6 % (10-50); Mean Corpuscular HGB Conc 32.5 g/dL (31.8-35.4); Mean Corpuscular Hemoglobin 29.1 pg (27.0-31.2); Mean Corpuscular Volume 89.5 fl (81-99); Mean Platelet Volume 8.4 fl (7.4-10.4); Monocytes # 0.6 K/mm3 (0.1-1.0); Neutrophils # 3.9 K/mm3 (1.8-7.8); Neutrophils % 45.3 % (37.0-80.0); Platelet Count 288 K/mm3 (142-424); Red Blood Count 4.72 M/mm3 (4.20-5.40); Red Cell Distribution Width 14.1 % (11.5-17.5); White Blood Count 8.7 K/mm3 (4.8-10.8)
[2024-03-21 09:56] LABS: Alanine Aminotransferase 25 U/L (12-78); Albumin Level 4.1 g/dl (3.5-5.0); Albumin/Globulin Ratio 1.2 (1.1-1.8); Alkaline Phosphatase 101 U/L (38-126); Anion Gap 13.8 mEq/L (5-15); Aspartate Amino Transferase 39 U/L (14-36); Bilirubin,Total 0.7 mg/dl (0.2-1.3); Blood Urea Nitrogen 7 mg/dl (7-17); Calcium 9.6 mg/dl (8.4-10.2); Carbon Dioxide 35 mmol/L (22.0-30.0); Chloride 99 mmol/L (98-107); Cholesterol 133 mg/dl (140-200); Estimated Glomerular Filt Rate 84 ml/min (>60); GFR (African American) 102 ML/MIN (>60); Globulin 3.3 g/dL (1.3-3.2); Glucose 123 mg/dl (74-100); HDL Cholesterol 33 mg/dl (40-60); Potassium 3.8 mmoL/L (3.5-5.1); Sodium 144 mmol/L (136-145); Total Protein,Serum 7.4 g/dl (6.3-8.2); Triglycerides 276 mg/dl (30-150); VLDL Cholesterol 55 mg/dL (0-40)
== END 2024-03-21 23:59 | disposition home or self-care (01) ==
LOC: LAB 07:44
PROVIDERS: PCP Internal Medicine; Visit Provider Internal Medicine
DX: R53.83 Other fatigue (principal); Z79.899 Other long term (current) drug therapy
CPT/HCPCS: 36415; 80053; 80061; 85025

== ENCOUNTER 2024-04-24 08:12 | Outpatient (CLI) | payer MEDICARE, MEDICAID, SELFPAY ==
--- NOTE | 2024-04-24 08:13 | MM_ITS ---
PROCEDURE INFORMATION: Exam: MG Bilateral Screening 3D Mammography Exam date and time: 04/24/2024 8:15 AM Age: 64 years old Clinical indication: Screening. Personal history of leukemia/lymphoma. No family history of breast cancer. TECHNIQUE: Imaging protocol: Bilateral Screening tomosynthesis and 2D mammography including computer-aided detection (CAD) when performed. COMPARISON: 1. MG MM DIG SCREENING MAMM BI W/CAD 02/18/2023 4:13 PM 2. MG MM DIG SCREENING MAMM BI W/CAD 02/04/2022 10:14 AM 3. MG MM DIG SCREENING MAMM BI W/CAD 02/02/2021 10:14 AM 4. MG DIG MAMM-SCREEN IVÁN 04/10/2019 5:06 PM FINDINGS: MAMMOGRAPHY: Breast composition: There are scattered areas of fibroglandular density. Mass: No suspicious mass. Architectural distortion: None. Calcifications: No suspicious calcifications. Asymmetric density: None. Skin thickening: None. Axillary adenopathy: None. IMPRESSION: No mammographic evidence of malignancy. Annual screening is recommended unless otherwise clinically indicated. ASSESSMENT: BI-RADS Category 1: Negative
--- NOTE | 2024-04-24 08:13 | XR_ITS ---
FINAL REPORT TECHNIQUE: Bone densitometry calculations of the lumbar spine and left hip were obtained. CLINICAL HISTORY: osteoporosis COMPARISON: None FINDINGS: Using L1-4, the bone mineral density of the spine is 0.833 g/cm2, corresponding to T-score of -1.9. Using the left hip, the bone mineral density of the femoral neck is 0.777 g/cm2, corresponding to a T-score of -1.4. NOTE: T-score: Standard deviation compared with peak bone mass of young adult mean. *Following the recommendations of the International Society of Bone densitometry, classification of hip BMD is based on the lower of two T-scores; total hip or femoral neck. IMPRESSION: Diminished bone mineral density of the lumbar spine and left hip consistent with osteopenia. Reviewed, Interpreted and Dictated by Danny Shah MD Transcribed by Manju Tony Authenticated and [facility]
== END 2024-04-24 23:59 | disposition home or self-care (01) ==
LOC: RAD 08:13
PROVIDERS: PCP Internal Medicine; Visit Provider Internal Medicine
DX: M81.0 Age-related osteoporosis without current pathological fracture (principal); Z12.31 Encounter for screening mammogram for malignant neoplasm of breast
CPT/HCPCS: 77063; 77067; 77080

== ENCOUNTER 2024-05-17 20:23 | Emergency (ER) | payer MEDICARE, MEDICAID, SELFPAY ==
[2024-05-17 20:23] VITALS: BP 142/69; PULSE 92; RESP 18; TEMP 37.1; O2SAT 96; BMI 27.8
--- NOTE | 2024-05-17 20:25 | ECG_ITS ---
APPROVED REPORT Exam: Resting ECG HR:94 bpm ECG Measurements Heart Rate 94 AXES NE 145 P 16 QRSd 86 QRS 38 QT 336 T 29 QTc 388 Conclusion SINUS RHYTHM NORMAL ECG Electronically signed by : DALE RODRIGUEZ, 05/18/2024 12:50:20
--- NOTE | 2024-05-17 20:25 | PC.NURSE ---
Dr. Foster at bedside
--- NOTE | 2024-05-17 20:29 | XR_ITS ---
PROCEDURE INFORMATION: Exam: XR Chest Exam date and time: 05/17/2024 8:37 PM Age: 64 years old Clinical indication: Pain; Chest pressure; Additional info: Cp/luq abd pain TECHNIQUE: Imaging protocol: Radiologic exam of the chest. Views: 1 view. COMPARISON: CT ANGIO CHEST PE PROTOCOL 10/22/2021 3:32 PM FINDINGS: Lungs: Unremarkable. No consolidation. Pleural spaces: Unremarkable. No pleural effusion. No pneumothorax. Heart/Mediastinum: Unremarkable. No cardiomegaly. Bones/joints: Unremarkable. IMPRESSION: No acute findings.
[2024-05-17 20:30] VITALS: BP 121/65; PULSE 92; RESP 26; O2SAT 96
[2024-05-17 20:34] VITALS: PULSE 101
--- NOTE | 2024-05-17 20:36 | ED_ITS ---
Discharge Plan Disposition Patient Disposition: Home, Self-Care Prescriptions Prescriptions: New doxycycline hyclate 100 mg capsule 100 mg PO BID 5 Days Qty: 10 0RF prednisone 20 mg tablet 40 mg PO DAILY 5 Days Qty: 10 0RF No Action nitroglycerin 0.4 mg tablet, sublingual 0.4 mg sublingual Q5M PRN (Reason: chest pain) Qty: 25 0RF Rx Instructions: do not exceed 3 doses per episode metronidazole 500 mg tablet 500 mg PO Q12H 7 Days Qty: 14 0RF cyclobenzaprine 10 mg tablet 10 mg PO TID PRN ipratropium-albuterol 0.5 mg-3 mg(2.5 mg base)/3 mL solution for nebulization 3 ml INHALATION QID PRN (Reason: shortness of breath or wheezing) Qty: 180 12RF budesonide-formoterol [Symbicort] 160-4.5 mcg/actuation HFA aerosol inhaler 2 puff inhalation BID 90 Days Qty: 10.2 3RF albuterol sulfate 90 mcg/actuation HFA aerosol inhaler 2 inh inhalation QID Qty: 8.5 3RF montelukast [Singulair] 10 mg tablet 10 mg PO DAILY Qty: 90 2RF tiotropium bromide [Spiriva with HandiHaler] 18 mcg capsule, w/inhalation device 1 cap inhalation DAILY 90 Days Qty: 90 3RF Rx Instructions: puncture 1 cap using device; one dose = 2 inhalations buspirone 10 mg tablet 10 mg PO BID Qty: 60 1RF diazepam 5 mg tablet 5 mg PO BID Qty: 60 2RF levothyroxine 75 mcg tablet 75 mcg PO DAILY Qty: 90 3RF aspirin [Adult Aspirin Regimen] 81 mg tablet,delayed release (DR/EC) 81 mg PO DAILY Qty: 30 2RF denosumab 60 mg/mL syringe 60 mg SQ [id number] Qty: 1 2RF bisoprolol fumarate 5 mg tablet 5 mg PO DAILY Qty: 90 3RF linaclotide 145 mcg capsule 145 mcg PO DAILY Qty: 90 3RF atorvastatin 80 mg tablet 80 mg PO DAILY Qty: 30 2RF miconazole nitrate 2 % cream 1 appful vaginal HS 3 Days Qty: 45 0RF spironolactone 25 mg tablet See Rx Instructions .ROUTE .COMPLEX Qty: 90 3RF Dose Instruction: Take 1 tablet by mouth once daily Rx Instructions: Take 1 tablet by mouth once daily furosemide 40 mg tablet See Rx Instructions .ROUTE .COMPLEX Qty: 90 3RF Dose Instruction: Take 1 tablet by mouth once daily Rx Instructions: Take 1 tablet by mouth once daily alendronate 10 mg tablet 10 mg PO DAILY Qty: 30 2RF clopidogrel 75 mg tablet See Rx Instructions .ROUTE .COMPLEX Qty: 90 3RF Dose Instruction: TAKE 1 TABLET BY MOUTH ONCE DAILY FOR HEART DISEASE Rx Instructions: TAKE 1 TABLET BY MOUTH ONCE DAILY FOR HEART DISEASE pantoprazole 40 mg tablet,delayed release (DR/EC) 40 mg PO DAILY Referrals Follow up/Referrals: Fiorella Solano MD [Primary Care Provider] - See instructions Activity Restrictions/Add. Instructions Additional Instructions/Restrictions: Call your family doctor to establish care for this visit to the emergency department and schedule follow-up within 48 hours to ensure improvement. If you have any worsening of your condition or any other concerning signs or symptoms, return to the emergency department or your primary care doctor for further evaluation. Follow-up with cardiology as well as discussed. Prednisone each morning for the next 5 days with plenty of food and water to prevent GI upset and kidney dysfunction. Doxycycline if cough gets worse, sputum changes, or you have any worsening symptoms. Pain can cause severe sunburn, if you are in the sun, be sure to wear sunscreen and protective clothing Clinical Impressions Clinical Impression: Chest pain, Acute exacerbation of chronic obstructive pulmonary disease Discharge ED Provider: Naresh Foster HPI General Chief Complaint: Chest Pain Stated Complaint: Chest Pain Time Seen by Provider: 05/17/24 20:25 Mode of Arrival: Ambulatory Source of Information: Patient Limitations: No Limitations Description of Symptoms (Recalled from ER Triage Doc. by RN): Pt presents to ED for chest pain and feeling sick. Pt states her grandbaby has been sick and maybe she got sick from the baby. Pt has a lengthy health hx. COPD, Cancer, Stents placed. Pt states she saw cardiology last month.Pt is A&O*4 at this time. History of Present Illness HPI narrative: Please note that above description of symptoms, in this electronic medical record under categorization of recalled from ER triage doctor by RN are reflective of an initial nursing assessment, however, is not reflective of my full history and physical exam that was personally taken and clarified. Consequentially, this preceding description of symptoms, which may include the patient's categorized chief complaint in the EMR, do not reflect my personal clinical impression, and the ultimate description of history of present illness and patient stated complaints should be deferred to this section of the note. Unless stated otherwise or congruent with this section of the note, additional signs, symptoms, or incongruence should be interpreted as inaccurate with my clinical impression. Related Data Home Medications Medication Instructions Recorded Confirmed pantoprazole 40 mg tablet,delayed 40 mg PO DAILY . 12/21/22 04/13/24 release cyclobenzaprine 10 mg tablet 10 mg PO TID PRN 12/27/22 04/13/24 Previous Rx's Medication Instructions Recorded nitroglycerin 0.4 mg sublingual 0.4 mg sublingual Q5M PRN chest 12/31/22 tablet pain #25 tabs levothyroxine 75 mcg tablet 75 mcg PO DAILY thyroid disorder 04/05/23 #90 tabs albuterol sulfate 90 mcg/actuation 2 inh inhalation QID #8.5 grams 09/19/23 aerosol inhaler budesonide-formoterol HFA 160 2 puff inhalation BID 90 days 09/19/23 mcg-4.5 mcg/actuation aerosol #10.2 grams inhaler (Symbicort) ipratropium 0.5 mg-albuterol 3 mg 3 ml inhalation QID PRN shortness 09/19/23 (2.5 mg base)/3 mL nebulization of breath or wheezing #180 mL soln montelukast 10 mg tablet 10 mg PO DAILY #90 tabs 09/19/23 (Singulair) tiotropium bromide 18 mcg capsule 1 cap inhalation DAILY 90 days #90 09/19/23 with inhalation device (Spiriva puffs with HandiHaler) aspirin 81 mg tablet,delayed 81 mg PO DAILY #30 tabs 02/17/24 release (Adult Aspirin Regimen) denosumab 60 mg/mL subcutaneous 60 mg SQ [id number] #1 mL 02/17/24 syringe bisoprolol fumarate 5 mg tablet 5 mg PO DAILY Heart disease #90 02/21/24 tabs linaclotide 145 mcg capsule 145 mcg PO DAILY IBS #90 caps 03/16/24 diazepam 5 mg tablet 5 mg PO BID . #60 tabs 03/19/24 atorvastatin 80 mg tablet 80 mg PO DAILY #30 tabs 03/22/24 buspirone 10 mg tablet 10 mg PO BID #60 tabs 04/09/24 metronidazole 500 mg tablet 500 mg PO Q12H 7 days #14 tabs 04/18/24 miconazole nitrate 2 % vaginal 1 appful vaginal HS 3 days #45 04/18/24 cream grams alendronate 10 mg tablet 10 mg PO DAILY #30 tabs 04/25/24 furosemide 40 mg tablet See Rx Instructions .Route 04/25/24 .COMPLEX #90 tabs spironolactone 25 mg tablet See Rx Instructions .Route 04/25/24 .COMPLEX #90 tabs clopidogrel 75 mg tablet See Rx Instructions .Route 05/14/24 .COMPLEX #90 tabs doxycycline hyclate 100 mg capsule 100 mg PO BID 5 days #10 caps 05/17/24 prednisone 20 mg tablet 40 mg (2 x 20 mg) PO DAILY 5 days 05/17/24 #10 tabs Allergies Allergy/AdvReac Type Severity Reaction Status Date / Time oxycodone Allergy Unknown I-ITCHING Verified 04/10/24 13:08 Sulfa (Sulfonamide Allergy Unknown EYE Verified 04/10/24 13:08 Antibiotics) DROPS-EYES SWELL isosorbide AdvReac Mild dizziness Verified 04/10/24 13:08 metaxalone AdvReac felt like Verified 04/10/24 13:08 i was dying [facility] Disclaimer: The information contained in this section may have been updated after the patient was seen, as this information can be updated by other users. Medical History (Updated 05/17/24 @ 21:57 by Naresh Foster MD) Nocturnal hypoxia Multiple pulmonary nodules Allergic rhinitis, unspecified Elevated hemidiaphragm Moderate persistent asthma Allergy, unspecified, subsequent encounter Dyspnea on exertion Diastolic dysfunction Typical angina Dyspnea Chest pain Elevated left ventricular end-diastolic pressure (LVEDP) HTN (hypertension) HLD (hyperlipidemia) Surgical History (Updated 04/10/24 @ 13:22 by KELSEY Dia) H/O thyroidectomy H/O tubal ligation History of History of hysterectomy History of esophagogastroduodenoscopy (EGD) History of myringotomy Family History Other Anemia Cancer Coronary artery disease Diabetes Heart attack Hyperlipidemia Hypertension Kidney disease Stroke Social History Smoking Status: Former smoker tobacco type: e-cigarettes second hand exposure: No (she does THC vapes; not nicotine) alcohol intake: former counseling given: No substance use type: marijuana counseling given: No (does THC vapes) current occupational status: disabled Travel in the last 8 weeks: None adopted: No caregiver/support person: No foster care: No household members: significant other housing: house lives independently: No marital status: life partner number of children: 1 education level: other details: she went to 11th grade; hated it; got and current occupational exposures/hazards: No caffeine: Yes physical activity: none working smoke detector in home: No fire extinguisher in home: Yes carbon monox detector in home: No firearms in home: Yes firearms unloaded and locked: Yes do you feel safe at home: Yes victim of physical abuse: No victim of emotional abuse: No victim of sexual abuse: No would you like helpful sources: No ROS Obtained: Yes All systems reviewed & no additional complaints except as documented Physical Exam General General appearance: alert Neck Neck exam: Present trachea midline Chest Chest inspection: Present normal inspection and symmetric chest wall rise Respiratory Respiratory exam: Present normal lung sounds bilaterally; Absent respiratory distress, wheezes, stridor, accessory muscle use or prolonged expiratory phase Cardiovascular Cardiovascular exam: Present regular rate, normal rhythm and other (Pulses equal and symmetric in upper and lower extremities) Extremities Exam Extremities exam: Absent edema Neurological Exam Neurological exam: Present alert, oriented X3 and CN II-XII intact Skin Skin exam: Present warm and dry; Absent cyanosis, diaphoresis or pallor HEART Score HEART Score HEART Score assessment performed?: Yes History (anamnesis): Moderately suspicious ECG: Normal Age: 45-65 years Risk factors: 3 or more risk factors Troponin: </= normal limit HEART Score: 4 Critical Care Critical Care Time Critical Care Time: No Medical Decision Making Medical Records Medical records reviewed: Yes I reviewed the patient's medical records. Say Inquiry Pt receiving controlled substance: No Say was queried for this patient: No Vital Signs Vital Signs: 05/17/24 20:23 05/17/24 20:30 05/17/24 20:34 Temperature 98.8 F Temperature Source Oral Pulse Rate 92 H 101 H Pulse Rate [Left] 92 H Respiratory Rate 18 26 H Blood Pressure 121/65 Blood Pressure [Right Arm] 142/69 H Blood Pressure Mean Blood Pressure Mean [Right Arm] 93 02 Sat by Pulse Oximetry 96 96 Oxygen Delivery Method Room Air Room Air 05/17/24 21:01 Temperature Temperature Source Pulse Rate Pulse Rate [Left] Respiratory Rate 25 H Blood Pressure 117/66 Blood Pressure [Right Arm] Blood Pressure Mean 76 Blood Pressure Mean [Right Arm] 02 Sat by Pulse Oximetry 93 L Oxygen Delivery Method Room Air Lab Data Labs: Lab Results 05/17/24 20:30: VBG pH 7.45 H, VBG pCO2 37.2, VBG pO2 24.6 L, VBG HCO3 25.4, VBG Total CO2 26.5, VBG O2 Saturation 47.1 L, VBG Base Excess 1.4, VBG Lactic Acid 1.3 05/17/24 20:33: WBC 10.2, RBC 4.75, Hgb 13.8, Hct 40.1, MCV 84.3, MCH 29.0, MCHC 34.5, RDW 14.5, Plt Count 242, MPV 8.4, Neut % (Auto) 73.4, Lymph % (Auto) 17.4, [place] % (Auto) 7.3, Eos % (Auto) 1.1, Baso % (Auto) 0.9, Neut # (Auto) 7.5, Lymph # (Auto) 1.8, [place] # (Auto) 0.7, Eos # (Auto) 0.1, Baso # (Auto) 0.1, Sodium 137, Potassium 3.6, Chloride 100, Carbon Dioxide 29, Anion Gap 11.6, BUN 10, Creatinine 0.90, Estimated Creat Clear 60, Estimated GFR 63, Est GFR ( Amer) 76, Glucose 110 H, Calcium 9.4, Total Bilirubin 1.2, AST 40 H, ALT 30, Alkaline Phosphatase 90, Troponin I < 0.01, NT-Pro-B Natriuret Pep 190 H, Total Protein 8.9 H, Albumin 4.8, Globulin 4.1 H, Albumin/Globulin Ratio 1.2, Lipase 79 05/17/24 20:35: D-Dimer < 0.25 05/17/24 20:33 05/17/24 20:33 Response Orders (Tests/Meds): ED MEDICATIONS Discontinued Medications Generic Name Dose Route Start Last Admin Trade Name Freq PRN Reason Stop Dose Admin Acetaminophen 1,000 mg 05/17/24 20:29 05/17/24 20:46 Acetaminophen 1,000mg/100ml Vial IV 05/17/24 20:30 1,000 mg ONCE ONE Administration Albuterol/Ipratropium 9 ml 05/17/24 21:24 05/17/24 21:42 Ipratropium/Albuterol 3 Ml Neb IH 05/17/24 21:25 9 ml ONCE ONE Administration Aspirin 324 mg 05/17/24 20:29 05/17/24 20:47 Aspirin 81mg Chewable Tablet PO 05/17/24 20:30 324 mg ONCE ONE Administration Ketorolac Tromethamine 15 mg 05/17/24 20:29 05/17/24 20:46 Ketorolac 30mg/Ml Vial IV 05/17/24 20:30 15 mg ONCE ONE Administration Methylprednisolone Sodium Succinate 125 mg 05/17/24 21:24 05/17/24 21:51 Methylprednisolone Sod Succ 125mg Vial IV 05/17/24 21:25 125 mg ONCE ONE Administration ORDERS Category Date Time Status XR chest portable Stat Exams 05/17/24 20:29 Completed Complete Blood Count Auto Diff Stat Lab 05/17/24 20:33 Completed Comprehensive Metabolic Panel Stat Lab 05/17/24 20:33 Completed D-Dimer Stat Lab 05/17/24 20:35 Completed Lipase Stat Lab 05/17/24 20:33 Completed NT Pro Brain Natriuretic Pep. 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 Patient states that her great grand kid has cough, fever, rhinorrhea, some viral syndrome. Patient states that she started feeling poorly today. Has progressed. States that she is currently having general malaise, started having left upper abdomen/left lower parasternal chest wall pain/substernal pain a few hours prior to this visit. Does not radiate. Not associated with shortness of breath, nausea, vomiting, but she is subjectively chilled. No PND orthopnea, lower extremity swelling. Has not noticed anything that makes it better or worse. History was obtained via conversation with patient. On arrival, patient hemodynamically stable, alert, oriented x4, appropriate, GCS 15, moving all extremities spontaneously, pupils equal and reactive to light. Full physical exam performed and significant for very well-appearing woman in no acute distress. Lungs clear to auscultation bilaterally anterior and posteriorly without focal sounds. Cardiac exam normal. No lower extremity edema. Pulses equal and symmetric in upper and lower extremities. Patient neurologically intact. Differential includes microvascular coronary artery disease, CHF, ACS, [place], coronary artery dissection, pneumothorax, PE, dissection, pericarditis, myocarditis, pneumothorax, aortic aneurysm, pneumonia, bronchitis, among others. Patient was given 324 mg aspirin, Tylenol, Toradol for symptomatic management and correction of underlying abnormalities. Patient placed on continuous cardiac monitoring and continuous pulse ox with initial blood pressure 142/69, heart rate 2, saturation 96% on room air. Independent interpretation of EKG shows sinus rhythm 94 beats a minute without ST or T wave changes concerning for acute ischemia. VA 145, QRS 86, QTc 388. Normal axis. Workup independently interpreted and significant for. See radiology read for full review of final results. Heart score 4. Because patient's symptoms started early this morning, 05/17, delta troponin not deemed necessary at this time. Patient also feeling better after conservative medical management here. I feel this is less likely to be ACS given improvement with medications and breathing treatments. Negative workup also reassuring. Is explained to patient that cardiac chest pain cannot be completely ruled out, she should still follow-up with cardiology, she voiced understanding. Because patient at baseline without signs or symptoms of clinical decompensation, deemed appropriate for discharge. Results were relayed to patient who voiced understanding and were agreeable to outpatient management and follow up. I discussed my clinical impression with patient and answered all questions. At this time, the evidence for any other entities in the differential is insufficient to warrant any further testing or ED observation. This was explained as well. Advisory was given that persistent or worsening symptoms require further evaluation. I confirmed the understanding of this discussion. [employer] Operator disclaimer Much of this encounter note is an electronic pharmacy analyst spoken language to printed text. Electronic pharmacy analyst of the spoken language may permit errors. Although I have reviewed the note, some errors may still exist.
[2024-05-17 20:40] LABS: Lactate Venous 1.3 mmol/L (0.4-2.0); VBG Base Excess 1.4 mmol/L (-2.4-2.3); VBG HCO3 25.4 mmol/L (23-30); VBG Oxygen Saturation 47.1 % (50-70); VBG PCO2 37.2 mmol/L (35-51); VBG PH 7.45 mmol/L (7.31-7.41); VBG PO2 24.6 mmol/L (28-40); VBG Total CO2 26.5 mmol/L (23-27)
[2024-05-17 20:41] LABS: Basophils # 0.1 K/mm3 (0-0.2); Basophils % 0.9 % (0.1-2.0); Eosinophils # 0.1 K/mm3 (0.0-0.4); Eosinophils % 1.1 % (0.1-12.0); Hematocrit 40.1 % (37.0-47.0); Hemoglobin 13.8 g/dL (12.2-16.2); Lymphocytes # 1.8 K/mm3 (0.7-4.5); Lymphocytes % 17.4 % (10-50); Mean Corpuscular HGB Conc 34.5 g/dL (31.8-35.4); Mean Corpuscular Volume 84.3 fl (81-99); Mean Platelet Volume 8.4 fl (7.4-10.4); Monocytes # 0.7 K/mm3 (0.1-1.0); Monocytes % 7.3 % (1.7-9.3); Neutrophils # 7.5 K/mm3 (1.8-7.8); Neutrophils % 73.4 % (37.0-80.0); Platelet Count 242 K/mm3 (142-424); Red Blood Count 4.75 M/mm3 (4.20-5.40); Red Cell Distribution Width 14.5 % (11.5-17.5); White Blood Count 10.2 K/mm3 (4.8-10.8)
[2024-05-17] MEDS: ACETAMINOPHEN 1,000MG/100ML VIAL 1000 MG IV (20:46)
[2024-05-17] MEDS: KETOROLAC 30MG/ML VIAL 15 MG IV (20:46)
[2024-05-17] MEDS: ASPIRIN 81MG CHEWABLE TABLET 324 MG PO (20:47)
--- NOTE | 2024-05-17 20:48 | PC.NURSE ---
Respiratory aware of VBG order and resulting it now.
[2024-05-17 20:50] LABS: Chloride 100 mmol/L (98-107)
[2024-05-17 20:51] LABS: Potassium 3.6 mmoL/L (3.5-5.1); Sodium 137 mmol/L (136-145)
[2024-05-17 20:53] LABS: Alanine Aminotransferase 30 U/L (12-78); Alkaline Phosphatase 90 U/L (38-126); Aspartate Amino Transferase 40 U/L (14-36); Bilirubin,Total 1.2 mg/dl (0.2-1.3); Blood Urea Nitrogen 10 mg/dl (7-17); Creatinine Clearance Estimated 60 mL/min (50-200); Estimated Glomerular Filt Rate 63 ml/min (>60); GFR (African American) 76 ML/MIN (>60); Lipase 79 U/L (23-300)
[2024-05-17 20:54] LABS: Albumin Level 4.8 g/dl (3.5-5.0); Albumin/Globulin Ratio 1.2 (1.1-1.8); Anion Gap 11.6 mEq/L (5-15); Calcium 9.4 mg/dl (8.4-10.2); Carbon Dioxide 29 mmol/L (22.0-30.0); Globulin 4.1 g/dL (1.3-3.2); Glucose 110 mg/dl (74-100); Total Protein,Serum 8.9 g/dl (6.3-8.2)
[2024-05-17 21:01] VITALS: BP 117/66; RESP 25; O2SAT 93
[2024-05-17 21:03] LABS: NT Pro Brain Natriuretic Pep. 190 pg/mL (0-125)
[2024-05-17 21:06] LABS: Troponin I < 0.01 ng/ml (0.00-0.034)
--- NOTE | 2024-05-17 21:28 | PC.NURSE ---
Contacted RT for a DuoNeb treatment.
[2024-05-17 21:30] VITALS: BP 101/63; PULSE 96; RESP 22; O2SAT 99
[2024-05-17 21:39] LABS: D-Dimer < 0.25 ug/mL (0.0-0.5)
[2024-05-17] MEDS: IPRATROPIUM/ALBUTEROL 3 ML NEB 9 ML IH (21:42)
[2024-05-17] MEDS: METHYLPREDNISOLONE SOD SUCC 125MG VIAL 125 MG IV (21:51)
[2024-05-17 21:59] VITALS: BP 101/63; PULSE 112; RESP 28; TEMP 37.1; O2SAT 91
== END 2024-05-17 22:05 | disposition home or self-care (01) ==
PROVIDERS: Emergency Provider Emergency Medicine; PCP Family Medicine
DX: R07.9 Chest pain, unspecified (principal); J44.1 Chronic obstructive pulmonary disease with (acute) exacerbation; I10 Essential (primary) hypertension; E78.5 Hyperlipidemia, unspecified; Z87.891 Personal history of nicotine dependence
CPT/HCPCS: 71045; 80053; 82803; 83690; 83880; 84484; 85025; 85378; 93005; 96374; 96375; 99284; J0131; J1885; J2919; J7620

== ENCOUNTER 2024-06-02 19:49 | Emergency (ER) | payer MEDICARE, MEDICAID, SELFPAY ==
[2024-06-02 19:50] VITALS: BP 118/85; PULSE 86; RESP 18; TEMP 37.3; O2SAT 97; BMI 27.3
--- NOTE | 2024-06-02 20:30 | ED_ITS ---
Discharge Plan Disposition Patient Disposition: Home, Self-Care Prescriptions Prescriptions: New nystatin 100,000 unit/mL suspension 5 ml PO QID 14 Days Qty: 280 0RF Rx Instructions: swish and swallow No Action nitroglycerin 0.4 mg tablet, sublingual 0.4 mg sublingual Q5M PRN (Reason: chest pain) Qty: 25 0RF Rx Instructions: do not exceed 3 doses per episode metronidazole 500 mg tablet 500 mg PO Q12H 7 Days Qty: 14 0RF cyclobenzaprine 10 mg tablet 10 mg PO TID PRN ipratropium-albuterol 0.5 mg-3 mg(2.5 mg base)/3 mL solution for nebulization 3 ml INHALATION QID PRN (Reason: shortness of breath or wheezing) Qty: 180 12RF budesonide-formoterol [Symbicort] 160-4.5 mcg/actuation HFA aerosol inhaler 2 puff inhalation BID 90 Days Qty: 10.2 3RF albuterol sulfate 90 mcg/actuation HFA aerosol inhaler 2 inh inhalation QID Qty: 8.5 3RF montelukast [Singulair] 10 mg tablet 10 mg PO DAILY Qty: 90 2RF tiotropium bromide [Spiriva with HandiHaler] 18 mcg capsule, w/inhalation device 1 cap inhalation DAILY 90 Days Qty: 90 3RF Rx Instructions: puncture 1 cap using device; one dose = 2 inhalations buspirone 10 mg tablet 10 mg PO BID Qty: 60 1RF diazepam 5 mg tablet 5 mg PO BID Qty: 60 2RF levothyroxine 75 mcg tablet 75 mcg PO DAILY Qty: 90 3RF aspirin [Adult Aspirin Regimen] 81 mg tablet,delayed release (DR/EC) 81 mg PO DAILY Qty: 30 2RF denosumab 60 mg/mL syringe 60 mg SQ [id number] Qty: 1 2RF bisoprolol fumarate 5 mg tablet 5 mg PO DAILY Qty: 90 3RF linaclotide 145 mcg capsule 145 mcg PO DAILY Qty: 90 3RF atorvastatin 80 mg tablet 80 mg PO DAILY Qty: 30 2RF miconazole nitrate 2 % cream 1 appful vaginal HS 3 Days Qty: 45 0RF spironolactone 25 mg tablet See Rx Instructions .ROUTE .COMPLEX Qty: 90 3RF Dose Instruction: Take 1 tablet by mouth once daily Rx Instructions: Take 1 tablet by mouth once daily furosemide 40 mg tablet See Rx Instructions .ROUTE .COMPLEX Qty: 90 3RF Dose Instruction: Take 1 tablet by mouth once daily Rx Instructions: Take 1 tablet by mouth once daily alendronate 10 mg tablet 10 mg PO DAILY Qty: 30 2RF clopidogrel 75 mg tablet See Rx Instructions .ROUTE .COMPLEX Qty: 90 3RF Dose Instruction: TAKE 1 TABLET BY MOUTH ONCE DAILY FOR HEART DISEASE Rx Instructions: TAKE 1 TABLET BY MOUTH ONCE DAILY FOR HEART DISEASE pantoprazole 40 mg tablet,delayed release (DR/EC) 40 mg PO DAILY doxycycline hyclate 100 mg capsule 100 mg PO BID 5 Days Qty: 10 0RF prednisone 20 mg tablet 40 mg PO DAILY 5 Days Qty: 10 0RF Referrals Follow up/Referrals: Fiorella Solano MD [Primary Care Provider] - See instructions Activity Restrictions/Add. Instructions Additional Instructions/Restrictions: At this time it was felt you are safe to be discharged home. If new or worsening symptoms please do not hesitate to return the emergency department. Please take your nystatin swish and swallow as prescribed and follow-up with your family doctor in 1 week. Please take Tylenol 1000 mg every 6 hours for pain. Clinical Impressions Clinical Impression: Oropharyngeal candidiasis Print Language Print Language: Khmer Discharge ED Provider: Aneesh Horne General Adult HPI General Chief complaint: Dental/Oral Stated complaint: Sore mouth Time Seen by Provider: 06/02/24 20:11 Mode of Arrival: Ambulatory Source of Information: Patient Limitations: No Limitations Description of Symptoms (Recalled from ER Triage Doc. by RN): patient has white patches and sores in her mouth that began one week ago. she states she has been to the ER and to see her PCP and has been taking steriods without improvement. patient has tried salt water rinses, mouthwashes, and steriods without improvement. History of Present Illness HPI narrative: Patient is a 64-year-old female with past medical history of COPD with recent exacerbation with treatment, on daily controller medication who presents emergency department for evaluation of oral lesions. Patient states that she has taken multiple courses of steroids, has a daily inhaler that also has steroids and for which she has been compliant. Her respiratory symptoms have improved however she has had painful lesions over her mouth for the last week. 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 There is associated pain with swallowing. Patient has decreased oral intake throughout the course secondary to pain. No chest pain reported. No other acute complaints at this time. Related Data Home Medications ?Medication ?Instructions ?Recorded ?Confirmed pantoprazole 40 mg tablet,delayed 40 mg PO DAILY . 12/21/22 04/13/24 release cyclobenzaprine 10 mg tablet 10 mg PO TID PRN 12/27/22 04/13/24 Previous Rx's ?Medication ?Instructions ?Recorded nitroglycerin 0.4 mg sublingual 0.4 mg sublingual Q5M PRN chest 12/31/22 tablet pain #25 tabs levothyroxine 75 mcg tablet 75 mcg PO DAILY thyroid disorder 04/05/23 #90 tabs albuterol sulfate 90 mcg/actuation 2 inh inhalation QID #8.5 grams 09/19/23 aerosol inhaler budesonide-formoterol HFA 160 2 puff inhalation BID 90 days 09/19/23 mcg-4.5 mcg/actuation aerosol #10.2 grams inhaler (Symbicort) ipratropium 0.5 mg-albuterol 3 mg 3 ml inhalation QID PRN shortness 09/19/23 (2.5 mg base)/3 mL nebulization of breath or wheezing #180 mL soln montelukast 10 mg tablet 10 mg PO DAILY #90 tabs 09/19/23 (Singulair) tiotropium bromide 18 mcg capsule 1 cap inhalation DAILY 90 days #90 09/19/23 with inhalation device (Spiriva puffs with HandiHaler) aspirin 81 mg tablet,delayed 81 mg PO DAILY #30 tabs 02/17/24 release (Adult Aspirin Regimen) denosumab 60 mg/mL subcutaneous 60 mg SQ [id number] #1 mL 02/17/24 syringe bisoprolol fumarate 5 mg tablet 5 mg PO DAILY Heart disease #90 02/21/24 tabs linaclotide 145 mcg capsule 145 mcg PO DAILY IBS #90 caps 03/16/24 diazepam 5 mg tablet 5 mg PO BID . #60 tabs 03/19/24 atorvastatin 80 mg tablet 80 mg PO DAILY #30 tabs 03/22/24 buspirone 10 mg tablet 10 mg PO BID #60 tabs 04/09/24 metronidazole 500 mg tablet 500 mg PO Q12H 7 days #14 tabs 04/18/24 miconazole nitrate 2 % vaginal 1 appful vaginal HS 3 days #45 04/18/24 cream grams alendronate 10 mg tablet 10 mg PO DAILY #30 tabs 04/25/24 furosemide 40 mg tablet See Rx Instructions .Route 04/25/24 .COMPLEX #90 tabs spironolactone 25 mg tablet See Rx Instructions .Route 04/25/24 .COMPLEX #90 tabs clopidogrel 75 mg tablet See Rx Instructions .Route 05/14/24 .COMPLEX #90 tabs doxycycline hyclate 100 mg capsule 100 mg PO BID 5 days #10 caps 05/17/24 prednisone 20 mg tablet 40 mg (2 x 20 mg) PO DAILY 5 days 05/17/24 #10 tabs nystatin 100,000 unit/mL oral 5 ml PO QID oral candidiasis 06/02/24 suspension (thrush) 14 days #280 mL Allergies Allergy/AdvReac Type Severity Reaction Status Date / Time oxycodone Allergy Unknown I-ITCHING Verified 04/10/24 13:08 Sulfa (Sulfonamide Allergy Unknown EYE Verified 04/10/24 13:08 Antibiotics) DROPS-EYES SWELL isosorbide AdvReac Mild dizziness Verified 04/10/24 13:08 metaxalone AdvReac felt like Verified 04/10/24 13:08 i was dying [facility] Disclaimer: The information contained in this section may have been updated after the patient was seen, as this information can be updated by other users. Medical History (Updated 06/02/24 @ 20:36 by Aneesh Horne MD) Nocturnal hypoxia Multiple pulmonary nodules Allergic rhinitis, unspecified Elevated hemidiaphragm Moderate persistent asthma Allergy, unspecified, subsequent encounter Dyspnea on exertion Diastolic dysfunction Typical angina Dyspnea Chest pain Elevated left ventricular end-diastolic pressure (LVEDP) HTN (hypertension) HLD (hyperlipidemia) Surgical History (Updated 04/10/24 @ 13:22 by KELSEY Dia) H/O thyroidectomy H/O tubal ligation History of History of hysterectomy History of esophagogastroduodenoscopy (EGD) History of myringotomy Family History Other Anemia Cancer Coronary artery disease Diabetes Heart attack Hyperlipidemia Hypertension Kidney disease Stroke Social History Smoking Status: Former smoker tobacco type: e-cigarettes second hand exposure: No (she does THC vapes; not nicotine) alcohol intake: former counseling given: No substance use type: marijuana counseling given: No (does THC vapes) current occupational status: disabled Travel in the last 8 weeks: None adopted: No caregiver/support person: No foster care: No household members: significant other housing: house lives independently: No marital status: life partner number of children: 1 education level: other details: she went to 11th grade; hated it; got and current occupational exposures/hazards: No caffeine: Yes physical activity: none working smoke detector in home: No fire extinguisher in home: Yes carbon monox detector in home: No firearms in home: Yes firearms unloaded and locked: Yes do you feel safe at home: Yes victim of physical abuse: No victim of emotional abuse: No victim of sexual abuse: No would you like helpful sources: No ROS Obtained: Yes Systems reviewed as appropriate & no additional complaints except as documented Physical Exam General General appearance: alert and in no apparent distress Head Head exam: atraumatic and normocephalic Eye Eye exam: Present PERRL and EOMI ENT ENT exam: Present mucous membranes moist; Absent normal oropharynx (Scattered white plaque over the tongue, buccal mucosa. Uvula midline posterior oropharynx, no asymmetric swelling posterior oropharynx) or TM's normal bilaterally (Perforated tympanic membranes bilaterally without otorrhea) Neck Neck exam: Present normal inspection Chest Chest inspection: Present normal inspection and symmetric chest wall rise Respiratory Respiratory exam: Present normal lung sounds bilaterally; Absent respiratory d istress Cardiovascular Cardiovascular exam: Present regular rate, normal rhythm and other (Capillary refill 1 second) Abdominal Exam Abdominal exam: Present soft Extremities Exam Extremities exam: Present normal inspection Neurological Exam Neurological exam: Present alert Psychiatric Psychiatric exam: Present normal affect Skin Skin exam: Present warm and dry Medical Decision Making Say Inquiry Pt receiving controlled substance: No Vital Signs: 06/02/24 19:50 Temperature 99.1 F Temperature Source Oral Pulse Rate [Right Radial] 86 Respiratory Rate 18 Blood Pressure [Right Arm] 118/85 Blood Pressure Mean [Right Arm] 96 02 Sat by Pulse Oximetry 97 Oxygen Delivery Method Room Air Orders (Tests/Meds): ED MEDICATIONS Discontinued Medications Generic Name Dose Route Start Last Admin Trade Name Freq PRN Reason Stop Dose Admin Acetaminophen 1,000 mg 08/03/24 20:26 06/02/24 20:34 Acetaminophen 500mg Tab PO 06/02/24 20:27 1,000 mg ONCE ONE Administration Nystatin 500,000 unit 06/02/24 20:26 06/02/24 20:34 Nystatin Susp 500,000 Units/5ml Udc PO 06/02/24 20:27 500,000 unit ONCE ONE Administration Tetracycl/Hydrocort/Nystatin/Diphen 15 ml 06/02/24 20:27 06/02/24 20:35 Magic Mouthwash 300ml Bottle PO 06/02/24 20:28 15 ml ONCE ONE Administration Medical Decision Narrative: In summary patient is a 64-year-old female past medical history described above who presents emergency department for evaluation of mouth sores. Clinically patient has oropharyngeal candidiasis in the setting of chronic steroid use. No asymmetric swelling of the posterior oropharynx to suspect deep space infection or abscess, patient is ranging her neck freely therefore workup with labs and imaging was considered but will be deferred. Capillary refills less than 2 seconds and patient is not tachycardic to suggest dehydration although decreased p.o. intake. Patient was given Tylenol, oral nystatin, Magic mouthwash and will be discharged with a course of oral nystatin swish and swallow. Patient was given return precautions and verbalized understanding. Critical Care Critical Care Time Critical Care Time: No
[2024-06-02] MEDS: NYSTATIN SUSP 500,000 UNITS/5ML UDC 500000 UNIT PO (20:34)
[2024-06-02] MEDS: ACETAMINOPHEN 500MG TAB 1000 MG PO (20:34)
[2024-06-02] MEDS: MAGIC MOUTHWASH 300ML BOTTLE 15 ML PO (20:35)
[2024-06-02 20:47] VITALS: BP 98/66; PULSE 73; RESP 16; TEMP 37.3; O2SAT 94
== END 2024-06-02 20:46 | disposition home or self-care (01) ==
PROVIDERS: Emergency Provider Emergency Medicine; PCP Family Medicine
DX: B37.0 Candidal stomatitis (principal)
CPT/HCPCS: 99283

== ENCOUNTER 2024-09-26 07:42 | Outpatient (CLI) | payer MEDICARE, MEDICAID, SELFPAY ==
[2024-09-26 09:00] VITALS: PULSE 55; PULSE 57
[2024-09-26] MEDS: ALBUTEROL 0.083% 2.5 MG/3 ML NEB IH (09:00)
== END 2024-09-26 23:59 | disposition home or self-care (01) ==
LOC: RT 07:46
PROVIDERS: PCP Family Medicine; Visit Provider Internal Medicine Pulmonary Disease
DX: R06.09 Other forms of dyspnea (principal)
CPT/HCPCS: 94060; 94618; 94640; 94726; 94729; J7613

== ENCOUNTER 2025-03-20 07:06 | Outpatient (CLI) | payer MEDICARE, MEDICAID, SELFPAY ==
--- NOTE | 2025-03-20 | CA_ITS ---
APPROVED REPORT Exam: Pharmacologic Technologist: Yu Rosas Ht: 5 ft 1 in Wt: 151 lbs BSA: 1.68 m2 Medical History Medications: Albuterol, Aspirin, Atorvastatin, bisoprolol fumarate, symbicort, buspirone, clopidogrel, cyclobenzaprine, nitroglycerin, nystatin, denosumab, pantoprazole, diazepam, spironolactone, furosemide, spirive, levothyroxine, linaclotide, montekulast Stress Test Details Test: Lexiscan Reason for pharmacologic stress test: physical limitation. HR Resting HR: 68 bpm Max Heart Rate (APMHR): 155 bpm Max HR Achieved: 83 bpm Target HR (85% APMHR): 132 bpm % of APMHR: 54 Recovery HR: 80 bpm BP Resting BP: 126.0/62.0 mmHg Max BP: 126.0/62.0 mmHg Recovery BP: 103.0/55.0 mmHg ECG Resting ECG: NSR Stress ECG Conclusion Symptoms: None. Arrhythmias/Ectopy: None. ST-T Changes: <1.5mm ST Segment changes. Conclusion: Non-Diagnostic Lexiscan stress. Electronically signed by : Nina Myrick MD 03/20/2025 13:25:26
--- NOTE | 2025-03-20 07:30 | NM_ITS ---
APPROVED REPORT Exam: Nuclear Stress Test Indication: Chest pain, SOB, High cholesterol, Former tobacco use, Family history, CAD Patient Location: Outpatient Stress Tech: Yu Hong [place] Tech:Lamar Rivera, ARRT, RT (R)(N) Ht: 5 ft 1 in Wt: 151 lbs Bra Size: D HR: 68 bpm BP: 126/62 mmHg BSA: 1.68 m2 TID: 1.28 BMI: 28.5 History: Chest pain, SOB, High cholesterol, Former tobacco use, Family history, CAD Procedure: Patient received 0.4 mg of intravenous Lexiscan, resting heart rate 68 bpm, resting blood pressure 126/62 mmHg, with Lexiscan maximum heart rate achieved was 85 bpm which is % of the maximum predicted heart rate and blood pressure was 107/58 mmHg. With Lexiscan, patient denied any complaint of chest pain. Cardiac Stress and Resting SPECT Images: Cardiac Stress and Resting SPECT images were obtained using technetium 99m Myoview 29.4 mCi stress and 10.27 mCi at rest. Resting and stress imaging in supine and prone positions demonstrate no evidence of focal fixed or reversible perfusion defects. There is increase in transient ischemic dilatation ratio (TID 1.28), suggestive of possible multivessel disease or balanced ischemia. Gated imaging demonstrates normal global and regional LV systolic function. LVEF is calculated at > 75%. Conclusion: No evidence of focal fixed or reversible perfusion defects. There is increase in transient ischemic dilatation ratio (TID 1.28), suggestive of possible multivessel disease or balanced ischemia. Gated imaging demonstrates normal global and regional LV systolic function. LVEF is calculated at > 75%. Electronically signed by : Nina Myrick MD 03/20/2025 13:17:31
[2025-03-20] MEDS: ISOTOPE MYOVIEW (PER STUDY) 1 DOSE IV (09:25)
[2025-03-20] MEDS: REGADENOSON 0.4MG/5ML SYRINGE 0.4 MG IV (09:25)
[2025-03-20] MEDS: SODIUM CHLORIDE 0.9% 10ML SYR (RAD ONLY) 10 ML IV ×2 (09:25)
[2025-03-20 11:49] LABS: Basophils # 0.1 K/mm3 (0-0.2); Basophils % 0.5 % (0.1-2.0); Eosinophils # 0.2 Kmm3 (0.0-0.4); Eosinophils % 1.6 % (0.1-12.0); Hematocrit 41.6 % (37.0-47.0); Hemoglobin 13.7 g/dL (12.2-16.2); Immature Granulocytes # 0.04 10^3uL; Immature Granulocytes % 0.4 %; Lymphocytes # 3.4 K/mm3 (0.7-4.5); Lymphocytes % 31.9 % (10-50); Mean Corpuscular HGB Conc 32.9 g/dL (31.8-35.4); Mean Corpuscular Hemoglobin 29.4 pg (27.0-31.2); Mean Corpuscular Volume 89.3 fl (81-99); Mean Platelet Volume 10.1 fl (7.4-10.4); Neutrophils # 6.1 K/mm3 (1.8-7.8); Neutrophils % 56.6 % (37.0-80.0); Nucleated Red Blood Cells # 0 10^3/uL; Nucleated Red Blood Cells % 0 %; Platelet Count 272 K/mm3 (142-424); Red Blood Count 4.66 M/mm3 (4.20-5.40); Red Cell Distribution Width-SD 42.3 fL; White Blood Count 10.8 K/mm3 (4.8-10.8)
[2025-03-20 12:22] LABS: Alanine Aminotransferase 30 U/L (12-78); Albumin Level 4.5 g/dl (3.5-5.0); Alkaline Phosphatase 72 U/L (38-126); Aspartate Amino Transferase 35 U/L (14-36); Bilirubin,Direct 0.1 mg/dl (0.0-0.4); Bilirubin,Indirect 0.8 mg/dL (0.0-0.9); Bilirubin,Total 0.9 mg/dl (0.2-1.3); Bilirubin,Unconjugated 0.9 mg/dL (0.0-1.1); Blood Urea Nitrogen 11 mg/dl (7-17); Calcium 9.2 mg/dl (8.4-10.2); Carbon Dioxide 31 mmol/L (22.0-30.0); Chloride 100 mmol/L (98-107); Chol/HDL Ratio 3.2 (1-3.5); Cholesterol 112 mg/dl (140-200); Estimated Glomerular Filt Rate 84 ml/min (>60); GFR (African American) 102 ML/MIN (>60); Glucose 111 mg/dl (74-100); HDL Cholesterol 35 mg/dl (40-60); Sodium 137 mmol/L (136-145); Total Protein,Serum 7.3 g/dl (6.3-8.2); Triglycerides 142 mg/dl (30-150); VLDL Cholesterol 28 mg/dL (0-40)
[2025-03-20 12:33] LABS: Direct LDL Cholesterol 58.03 mg/dL (100-129)
[2025-03-20 12:38] LABS: Free T4 (Free Thyroxine) 1.36 ng/dl (0.78-2.19)
[2025-03-20 12:54] LABS: Thyroid Stimulating Hormone 1.08 uIU/mL (0.465-4.68)
== END 2025-03-20 23:59 | disposition home or self-care (01) ==
LOC: RAD 07:06
PROVIDERS: PCP Family Medicine; Visit Provider Physician Assistant
DX: R06.02 Shortness of breath (principal); R06.09 Other forms of dyspnea; I10 Essential (primary) hypertension; E78.2 Mixed hyperlipidemia; I25.10 Atherosclerotic heart disease of native coronary artery without angina pectoris
CPT/HCPCS: 36415; 78452; 80048; 80061; 80076; 84439; 84443; 85025; 93017; 93018; A9502; J2785

== ENCOUNTER 2025-04-09 09:45 | Day surgery (SDC) | payer MEDICARE, MEDICAID, SELFPAY ==
[2025-04-08 16:25] VITALS: BMI 28.7
[2025-04-09 10:58] VITALS: BP 123/71; PULSE 69; RESP 16; TEMP 36.2; O2SAT 97
[2025-04-09] MEDS: PHENYLEPHRINE 2.5% OPHTH SOLN 2ML OP ×3 (10:58→11:08)
[2025-04-09] MEDS: TETRACAINE 0.5% OPTH SOL 15ML OP ×3 (10:58→11:07)
[2025-04-09] MEDS: CYCLOPENTOLATE 2% OPHTH SOLN 2ML BOTTLE OP ×3 (10:58→11:08)
[2025-04-09 12:30] VITALS: BP 121/57; PULSE 63; RESP 16; TEMP 36.6; O2SAT 99
[2025-04-09] MEDS: SODIUM CHLORIDE 0.9% 10ML FLUSH SYRINGE 10 ML IV (12:30)
[2025-04-09] MEDS: MIDAZOLAM 2MG/2ML VIAL 1 MG IV (12:30)
[2025-04-09 12:35] VITALS: BP 116/56; PULSE 65; RESP 16; TEMP 36.6; O2SAT 97
[2025-04-09 12:40] VITALS: BP 128/65; PULSE 60; RESP 16; TEMP 36.6; O2SAT 97
[2025-04-09] MEDS: TIMOLOL 0.5% OPTH SOLN 5ML OP (12:43)
[2025-04-09] MEDS: LIDOCAINE 1% PF 2ML AMPULE 2 ML IJ (12:44)
[2025-04-09] MEDS: TOBRAMYCIN/DEX OPTH SUSP 2.5ML OP (12:44)
[2025-04-09 12:45] VITALS: BP 113/63; PULSE 60; RESP 16; TEMP 36.6; O2SAT 99
[2025-04-09 12:52] VITALS: BP 113/70; PULSE 67; RESP 18; TEMP 36.1; O2SAT 99
--- NOTE | 2025-04-09 13:30 | HMH.PROCNOTE ---
[facility] Procedure Note Date: 04/09/25 Time: 13:30 Procedure Note:: Preoperative Diagnosis: Cataract combined NS Cortical Complex [Right/Left] Eye Postop diagnosis: same Operation: Microscopic phacoemulsification with intraocular lens implant [Right/Left] Eye Specimen: None Blood Loss: None The patient was examined in the office with a complaint of poor vision in the [left/right] eye. The patient reports that this interferes with ADLs such as reading, watching TV and/or driving or the vision is like looking through a foggy haze and is very troubling. The patient was examined and found to have a visually significant cataract with best corrected vision of [20/400] by refraction and/or glare testing. Treatment options, risks and benefits were explained and the patient elected to have cataract surgery in an attempt to improve their vision. The patient had the eye anesthetized with topical tetracaine, the eye ways prepped and draped in the usual fashion for cataract surgery. A paracentesis and a temporal keratotomy were made. 0.2cc of 1% lidocaine PF was placed into the anterior chamber. And aqueous/viscoelastic exchange was done and a 360 degree capsulorexis was performed. Through hydrodissection and delineation with BSS on a cannula was done. The lens nucleus was phecoemulsified with CDE of [8.18]. Residual cortical material was removed using automated I&A The capsular bag was deepened with viscoelastica and a PCIOL was placed in the capsular bag with good centration and stability. Residual viscoelastic was removed using automated I&A. The keratotomy incision was hydrated with BSS on a cannula. The wound were checked and found to be water tight. IOP was checked digitally and adjusted as needed so as not to be too high. 1 drop of timolol 0.5%, ofloxacin, prednisolone acetate and ketorolac was instilled and eye shield taped over the eye. The patient was taken to recovery in good condition and will be seen postoperatively.
== END 2025-04-09 13:08 | disposition home or self-care (01) ==
PROVIDERS: PCP Family Medicine; Visit Provider Ophthalmology
PROC: (CPT 66984; principal; 2025-04-09 13:30)
DX: H25.812 Combined forms of age-related cataract, left eye (principal); F41.9 Anxiety disorder, unspecified; M19.90 Unspecified osteoarthritis, unspecified site; I25.10 Atherosclerotic heart disease of native coronary artery without angina pectoris; E78.2 Mixed hyperlipidemia; J44.9 Chronic obstructive pulmonary disease, unspecified; J45.40 Moderate persistent asthma, uncomplicated; G47.36 Sleep related hypoventilation in conditions classified elsewhere; E89.0 Postprocedural hypothyroidism; H91.90 Unspecified hearing loss, unspecified ear; Z97.3 Presence of spectacles and contact lenses; Z87.891 Personal history of nicotine dependence; Z88.2 Allergy status to sulfonamides; Z88.5 Allergy status to narcotic agent; Z88.8 Allergy status to other drugs, medicaments and biological substances; Z79.1 Long term (current) use of non-steroidal anti-inflammatories (NSAID); Z79.51 Long term (current) use of inhaled steroids; Z79.82 Long term (current) use of aspirin; Z79.02 Long term (current) use of antithrombotics/antiplatelets; Z79.890 Hormone replacement therapy; Z79.899 Other long term (current) drug therapy; Z79.620 Long term (current) use of immunosuppressive biologic
CPT/HCPCS: 66984; J2250; V2632

== ENCOUNTER 2025-04-10 07:53 | Day surgery (SDC) | payer MEDICARE, MEDICAID, SELFPAY ==
[2025-04-10] VITALS (15 sets, daily range): BP systolic 90–132; BP diastolic 56–76; PULSE 53–70; RESP 16–20; TEMP 36.6; O2SAT 93–100; BMI 25.1
--- NOTE | 2025-04-10 07:16 | IR_ITS ---
APPROVED REPORT Patient Location: Outpatient PROCEDURES Left heart catheterization Left ventriculogram Selective coronary angiogram INDICATION Known coronary artery disease, Abnormal Myoview, Angina pectoris Informed consent was obtained prior to the procedure. COMPLICATIONS NONE Estimated Blood Loss: LESS THAN 10 ML TECHNIQUE One percent lidocaine was used to anesthetize the right groin. The right femoral artery was accessed via the Seldinger technique. A 4-Polish sheath was placed in the right femoral artery. The JL-4 and JR-4 catheter was also used to perform left heart catheterization left ventriculogram and selective coronary angiogram. At the end of the procedure the patient was transferred to the post-op holding area in stable condition for arterial sheath removal. ANGIOGRAPHIC RESULTS The left main artery Normal The left anterior descending artery Has a stent in the proximal segment which is widely patent free of in-stent restenosis with excellent proximal distal transitioning The circumflex artery Normal The right coronary artery Dominant normal The MCDOWELL ventriculogram reveals Normal 60% The left ventricular end-diastolic pressure 10 mmHg IMPRESSION Widely patent proximal LAD stent as described above Normal ejection fraction Normal LVEDP PLAN 1. Continue medical management Electronically signed by : Juan Alberto Burnett MD 04/10/2025 09:55:11
[2025-04-10 08:25] LABS: Basophils % 0.4 % (0.1-2.0); Eosinophils # 0.2 Kmm3 (0.0-0.4); Eosinophils % 2.2 % (0.1-12.0); Hematocrit 39.1 % (37.0-47.0); Hemoglobin 13.1 g/dL (12.2-16.2); Immature Granulocytes # 0.02 10^3uL; Immature Granulocytes % 0.2 %; Lymphocytes # 4.1 K/mm3 (0.7-4.5); Lymphocytes % 41.1 % (10-50); Mean Corpuscular HGB Conc 33.5 g/dL (31.8-35.4); Mean Corpuscular Volume 89.5 fl (81-99); Mean Platelet Volume 10.3 fl (7.4-10.4); Monocytes % 9.7 % (1.7-9.3); Neutrophils # 4.7 K/mm3 (1.8-7.8); Neutrophils % 46.4 % (37.0-80.0); Nucleated Red Blood Cells # 0 10^3/uL; Nucleated Red Blood Cells % 0 %; Platelet Count 253 K/mm3 (142-424); Red Blood Count 4.37 M/mm3 (4.20-5.40); Red Cell Distribution Width 12.6 % (11.5-17.5); Red Cell Distribution Width-SD 41.4 fL
[2025-04-10 08:40] LABS: Chloride 106 mmol/L (98-107); Potassium 4.2 mmoL/L (3.5-5.1); Sodium 141 mmol/L (136-145)
[2025-04-10 08:43] LABS: Anion Gap 8.2 mEq/L (5-15); Blood Urea Nitrogen 7 mg/dl (7-17); Carbon Dioxide 31 mmol/L (22.0-30.0); Creatinine Clearance Estimated 61 mL/min (50-200); Estimated Glomerular Filt Rate 84 ml/min (>60); GFR (African American) 102 ML/MIN (>60)
[2025-04-10 08:44] LABS: Calcium 8.9 mg/dl (8.4-10.2); Glucose 109 mg/dl (74-100)
[2025-04-10] MEDS: HEPARIN 1,000 UNITS/500ML NS (CATH LAB) 3000 UNIT IV (09:33)
[2025-04-10] MEDS: diphenhydrAMINE 50MG/ML VIAL 50 MG IV (09:33)
[2025-04-10] MEDS: LIDOCAINE 1% 10ML MDV 10 ML IJ (09:33)
[2025-04-10] MEDS: HEPARIN 1,000 UNITS/ML 10ML VIAL (CATH LAB) 5000 UNIT IV (09:34)
[2025-04-10] MEDS: 0.9 % SODIUM CHLORIDE 500 ML 25 ML IV (09:34)
[2025-04-10] MEDS: VERAPAMIL 2.5MG/ML 2ML VIAL 2.5 MG IV (09:34)
[2025-04-10] MEDS: NITROGLYCERIN 800MCG/8ML SYR (CATH LAB) 800 MCG IA (09:34)
[2025-04-10] MEDS: MIDAZOLAM HCL 1MG/ML 5ML VIAL 1 MG IV (09:52)
[2025-04-10] MEDS: FENTANYL 100MCG/2ML VIAL 50 MCG IV (09:52)
[2025-04-10] MEDS: IOPAMIDOL-370 (76%);100ML BOTTLE 50 ML IV (14:08)
== END 2025-04-10 13:09 | disposition home or self-care (01) ==
PROVIDERS: PCP Family Medicine; Visit Provider Internal Medicine
PROC: 4A023N7 Measurement of Cardiac Sampling and Pressure, Left Heart, Percutaneous Approach (ICD-10-PCS; CPT 93452; principal; 2025-04-10 07:30)
DX: I25.118 Atherosclerotic heart disease of native coronary artery with other forms of angina pectoris (principal); R93.1 Abnormal findings on diagnostic imaging of heart and coronary circulation; R06.02 Shortness of breath; R07.89 Other chest pain; I10 Essential (primary) hypertension; J44.89 Other specified chronic obstructive pulmonary disease; J45.40 Moderate persistent asthma, uncomplicated; E78.2 Mixed hyperlipidemia; E03.9 Hypothyroidism, unspecified; F17.290 Nicotine dependence, other tobacco product, uncomplicated; Z79.02 Long term (current) use of antithrombotics/antiplatelets; Z88.5 Allergy status to narcotic agent; Z88.2 Allergy status to sulfonamides; Z88.8 Allergy status to other drugs, medicaments and biological substances; Z79.82 Long term (current) use of aspirin; Z79.899 Other long term (current) drug therapy; Z95.5 Presence of coronary angioplasty implant and graft; Z82.49 Family history of ischemic heart disease and other diseases of the circulatory system
CPT/HCPCS: 93458; 80048; 85025; 99152; C1725; C1769; J1200; J1644; J2003; J3010; J7040; Q9967

== ENCOUNTER 2025-04-23 06:44 | Day surgery (SDC) | payer MEDICARE, MEDICAID, SELFPAY ==
[2025-04-22 11:25] VITALS: BMI 63.7
[2025-04-23] MEDS: PHENYLEPHRINE 2.5% OPHTH SOLN 2ML OP ×3 (07:05→07:15)
[2025-04-23] MEDS: TETRACAINE 0.5% OPTH SOL 15ML OP ×3 (07:05→07:15)
[2025-04-23] MEDS: CYCLOPENTOLATE 2% OPHTH SOLN 2ML BOTTLE OP ×3 (07:05→07:15)
[2025-04-23 07:09] VITALS: BP 121/84; PULSE 82; RESP 18; O2SAT 96
[2025-04-23 08:35] VITALS: BP 108/57; PULSE 81; RESP 16; O2SAT 100
[2025-04-23] MEDS: MIDAZOLAM 2MG/2ML VIAL 2 MG (08:35)
[2025-04-23] MEDS: TIMOLOL 0.5% OPTH SOLN 5ML OP (08:39)
[2025-04-23] MEDS: LIDOCAINE 1% PF 2ML AMPULE 2 ML IJ (08:39)
[2025-04-23] MEDS: TOBRAMYCIN/DEX OPTH SUSP 2.5ML OP (08:39)
[2025-04-23 08:40] VITALS: BP 111/56; PULSE 80; RESP 16; O2SAT 100
[2025-04-23] MEDS: SODIUM CHLORIDE 0.9% 10ML FLUSH SYRINGE 10 ML IV (08:40)
[2025-04-23 08:45] VITALS: BP 121/60; PULSE 80; RESP 16; O2SAT 100
[2025-04-23 08:50] VITALS: BP 109/57; PULSE 79; RESP 16; O2SAT 100
[2025-04-23 08:52] VITALS: BP 112/64; PULSE 76; RESP 16; TEMP 36.1; O2SAT 99
--- NOTE | 2025-04-23 10:54 | HMH.PROCNOTE ---
[facility] Procedure Note Date: 04/23/25 Time: 10:54 Procedure Note:: Preoperative Diagnosis: Cataract combined NS Cortical Complex [Right] Eye Postop diagnosis: same Operation: Microscopic phacoemulsification with intraocular lens implant [Right] Eye Specimen: None Blood Loss: None The patient was examined in the office with a complaint of poor vision in the [right] eye. The patient reports that this interferes with ADLs such as reading, watching TV and/or driving or the vision is like looking through a foggy haze and is very troubling. The patient was examined and found to have a visually significant cataract with best corrected vision of [20/400] by refraction and/or glare testing. Treatment options, risks and benefits were explained and the patient elected to have cataract surgery in an attempt to improve their vision. The patient had the eye anesthetized with topical tetracaine, the eye ways prepped and draped in the usual fashion for cataract surgery. A paracentesis and a temporal keratotomy were made. 0.2cc of 1% lidocaine PF was placed into the anterior chamber. And aqueous/viscoelastic exchange was done and a 360 degree capsulorexis was performed. Through hydrodissection and delineation with BSS on a cannula was done. The lens nucleus was phecoemulsified with CDE of [7.94]. Residual cortical material was removed using automated I&A The capsular bag was deepened with viscoelastica and a PCIOL was placed in the capsular bag with good centration and stability. Residual viscoelastic was removed using automated I&A. The keratotomy incision was hydrated with BSS on a cannula. The wound were checked and found to be water tight. IOP was checked digitally and adjusted as needed so as not to be too high. 1 drop of timolol 0.5%, ofloxacin, prednisolone acetate and ketorolac was instilled and eye shield taped over the eye. The patient was taken to recovery in good condition and will be seen postoperatively.
== END 2025-04-23 09:02 | disposition home or self-care (01) ==
PROVIDERS: PCP Family Medicine; Visit Provider Ophthalmology
PROC: (CPT 66984; principal; 2025-04-23 08:00)
DX: H25.811 Combined forms of age-related cataract, right eye (principal); F41.9 Anxiety disorder, unspecified; M19.90 Unspecified osteoarthritis, unspecified site; H91.90 Unspecified hearing loss, unspecified ear; H35.30 Unspecified macular degeneration; I25.10 Atherosclerotic heart disease of native coronary artery without angina pectoris; E78.2 Mixed hyperlipidemia; G47.34 Idiopathic sleep related nonobstructive alveolar hypoventilation; J45.40 Moderate persistent asthma, uncomplicated; J44.9 Chronic obstructive pulmonary disease, unspecified; I10 Essential (primary) hypertension; Z97.3 Presence of spectacles and contact lenses; Z96.1 Presence of intraocular lens; E89.0 Postprocedural hypothyroidism; Z79.51 Long term (current) use of inhaled steroids; Z79.82 Long term (current) use of aspirin; Z79.02 Long term (current) use of antithrombotics/antiplatelets; Z79.620 Long term (current) use of immunosuppressive biologic; Z87.891 Personal history of nicotine dependence; Z88.2 Allergy status to sulfonamides; Z88.5 Allergy status to narcotic agent; Z88.8 Allergy status to other drugs, medicaments and biological substances; Z79.1 Long term (current) use of non-steroidal anti-inflammatories (NSAID); Z79.890 Hormone replacement therapy; Z79.899 Other long term (current) drug therapy
CPT/HCPCS: 66984; J2250; V2632

== ENCOUNTER 2025-04-29 14:00 | Outpatient (CLI) | payer MEDICARE, MEDICAID, SELFPAY ==
--- OUTSIDE RECORDS SUMMARY | 2023-11-16 04:15 | XMS_ITS ---
Author Organization [facility] [place] Address [address] [place] [address] Care Team Providers Care Dialysis Rn Name Role Phone LAQUITA BEARD Unavailable [phone] ANDREA BAILEY Unavailable [phone] REASON FOR VISIT cancel Encounters Encounter Location Date Provider Diagnosis [facility] [place] [address] [place], [place] [id number] 11/16/2023 BAILEY MENDEZ Plan Of Treatment No Information Progress Notes * REECE SANTILLANDOB:1960 (65 yo F)Acc No.[id number]:11/16/2023 Progress Notes Patient: REECE ROBLES Provider: Mylene MENDEZ :1960 A ge:63 Y S ex:Female Date:11/16/2023 Address:[address], [place] Subjective: * Chief Complaints: * 1 . Cancel. * Medical History: Objective: * Vitals: Assessment: Plan: * Treatment: * * Electronic signature of BINA MENDEZ MD on 04/29/2025 at 02:03 PM EDT Sign off status: Pending * Provider: Mylene MENDEZ Date: 0 11/16/2023 Generated for Printi ng/Faxing/eTransmitting on: 0 04/29/2025 02:03 PM EDT
--- OUTSIDE RECORDS SUMMARY | 2025-02-02 17:30 | XMS_ITS ---
Author Organization [facility] Address [address] [place] [address] Care Team Providers Care Alterations Sewer Name Role Phone Jean Pierre Johnston Primary Care Provider Migration, Provider Unavailable Unavailable Allergies Allergen (clinical drug ingredient) Drug/Non Drug Allergy documented on EMR Reaction Allergy Type Onset Date Status SULFA (uncoded) Unknown Allergy Acti ve acetaminophen / oxycodone Percocet n/v Drug Allergy Active tizanidine tiZANidine tongue swelling and trouble swallowing Drug Allergy Active REASON FOR VISIT [facility] To [facility] Conversion Encounter Medications Medication SIG (Take, [...] 01/07/2021 Active Vitamin D (Ergocalciferol) 1.25 MG (01955 UT) 1 cap(s) orally twice weekly; Duration: [...] Active Encounters Encounter Location Date Provider [facility] [address] [facility] [address] [place], [place] [address] 02/02/2025 Provider Migration Idiopathic peripheral neuropathy G60.9 [...] Notes * Anabell GREENDOB:1960 (65 yo F)Acc No.[id number]:02/02/2025 Patient: Anabell ROBLES Provider: Fernando Velasco :1960 A ge:64 Y S ex:Female Date:02/02/2025 Address:[facility] [address] , [facility] [id number] Pcp:Jean Pierre Johnston Subjective: * Chief Complaints: * [facility] * Medical History: * Medications: [...] , Taking Vitamin D (Ergocalciferol) 1.25 MG (67373 UT) Capsule 1 cap(s) orally twice weekly [...] Electronic signature of Prov ider Migration on 04/29/2025 at 02:03 PM EDT Sign off status: Pending * Provider: Fernando wood Migration Date: 0 02/02/2025 Generated for Hung mckinney/Omero/eTransmitting on: 0 04/29/2025 02:03 PM EDT
--- OUTSIDE RECORDS SUMMARY | 2025-04-29 14:03 | XMS_ITS | Patient Health Record ---
Author Organization [facility] Address [address] [place] [address] Care Team Providers Care Binder Coverstitch Name Role Phone Jean Pierre Johnston Primary Care Provider Migration, Provider Unavailable Unavailable Allergies Allergen (clinical drug ingredient) Drug/Non Drug Allergy documented on EMR Reaction Allergy Type Onset Date Status SULFA (uncoded) Unknown Allergy Acti ve acetaminophen / oxycodone Percocet n/v Drug Allergy Active tizanidine tiZANidine tongue swelling and trouble swallowing Drug Allergy Active Medications Medication SIG (Take, Route, Frequency, Duration) Notes Start Date End Date Status diazePAM 5 MG 1 tab(s) orally 2 times a day; Duration: 30 day(s) 10/25/2013 Active DUONEB 2.5 MG-0.5 MG/3 ML 3 ML INHALED 4 TIMES A DAY PRN; Duration: 90 DAYS *Please review for potential replacement for e-prescription and drug interaction check* Active CHEMOTHERAPY every 3 months *Please review for potential replacement for e-prescription and drug interaction check* Active Gabapentin 300 MG 1 tab(s) orally twice a day; Duration: 30 days 08/21/2019 Active Cyclobenzaprine HCl 10 MG TAKE 1 TABLET TWICE DAILY Active CALTRATE 600 WITH D (OBSOLETE) 600 MG-400 INTL UNITS 1 TAB(S) ORALLY QD; Duration: 30 DAY(S) *Please review for potential replacement for e-prescription and drug interaction check* Active Linzess 145 MCG 1 cap(s) orally once a day; Duration: 90 Active Loratadine 10 MG 1 tab(s) orally once a day; Duration: 30 day(s) 06/18/2016 Active Pantoprazole Sodium 40 MG 1 tab(s) orally twice a day; Duration: 30 Active Levothyroxine Sodium 75 MCG 1 tab(s) orally once a day; Duration: 30 day(s) Active Furosemide 20 MG TAKE 1 TABLET EVERY DAY Active Aspirin 81 MG 1 tab(s) orally once a day Active Albuterol Sulfate (2.5 MG/3ML) 0.083% 3 mL inhaled every 6 hours prn Active HYDROcodone-Acetaminoph en 5-325 MG 1 tab(s) orally every 6 hours; Duration: 3 days 01/07/2021 Active Prolia 60 MG/ML USE DIRECTED EVERY 6 MONTHS SUBCUTANEOUSLY; Duration: 90 Active Ventolin HFA 108 (90 Base) MCG/ACT INHALE 2 PUFFS 4 TIMES A DAY NEEDED Active valACYclovir HCl 500 MG 1 tab(s) orally three times a day prn 11/29/2018 Active NEBULIZER KIT NEEDS ADULT TUBING ONLY *Please review for potential replacement for e-prescription and drug interaction check* 03/19/2016 Active Vitamin D (Ergocalciferol) 1.25 MG (63962 UT) 1 cap(s) orally twice weekly; Duration: 90 days 12/11/2020 Active Symbicort 160-4.5 MCG/ACT 2 puff(s) inhaled 2 times a day; Duration: 90 Active Famotidine 20 MG 1 tab(s) orally 2 times a day; Duration: 30 day(s) 10/02/2019 Active Immunizations Vaccine Route Administration Date Status Comme nts Adacel (Tdap) IM Intramuscular 08/07/2014 Administered Flublok IM Intramuscular 09/09/2020 Administered FLUZONE 6MO - OLDER IM Intramuscular 08/21/2019 Administer ed Influenza (Fluzone)--Medicare only IM Intramuscular 08/07/2014 Administered Influenza (Fluzone)--Medicare only IM Intramuscular 10/06/2016 Administered Influenza (Fluzone)--Medicare only IM Intramuscular 08/30/2017 Administered Influenza (Fluzone)--Medicare only IM Intramuscular 08/22/2018 Administered Influenza-Fluzone 3+years (NON-MEDICARE) IM Intramuscular 08/07/2015 Administered Pneumovax 23 IM Intramuscular 09/09/2020 Administered Pneumovax-23 (pneumococccal vaccine polyvalent)2 years or older IM Intramuscular 07/09/2014 Administered Problems Problem Type SNOMED Code ICD Code Onset Dates Problem Status W/U Status Risk Notes Problem Generalized anxiety disorder (96631055) Generalized anxiety disorder (F41.1) Active confirmed Problem Chronic serous otitis media (93797306) Chronic serous otitis media, right ear (H65.21) Active confirmed Problem Panlobular emphysema (6827587) Panlobular emphysema (J43.1) Active confirmed Problem Vitamin D deficiency (39915678) Vitamin D deficiency (E55.9) Active confirmed Problem Osteoporosis (24719339) Osteoporosis (M81.0) Active confirmed Problem Hyperlipidemia (43205030) Hyperlipemia, idiopathic familial (E78.5) Active confirmed Problem Rupture of right rotator cuff (63392955245691513) Rotator cuff syndrome of right shoulder (M75.101) Active confirmed Problem Acute exacerbation of chronic obstructive airways disease (469333336) COPD exacerbation (J44.1) Active confirmed Problem Idiopathic peripheral neuropathy (96028501) Idiopathic peripheral neuropathy (G60.9) Active confirmed Problem Nephrolithiasis (19375260) Nephrolithiasis (N20.0) Active confirmed Problem Gastroesophageal reflux disease with esophagitis (disorder) (608483977) GERD with esophagitis (K21.0) Active confirmed Problem Body mass index 30+ - obesity (091361750) BMI 30.0-30.9,adult (Z68.30) Active confirmed Problem Mood disorder (51480603) Mood disorder (F39) Active confirmed Problem Chronic diastolic heart failure (001073889) Chronic diastolic congestive heart failure (I50.32) Active confirmed Problem Hairy cell leukemia (19319853) 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) Active confirmed Problem Chronic constipation (163604277) Chronic constipation (K59.09) Active confirmed Problem Menopausal syndrome (disorder) (120801373) Menopausal disorder (N95.9) Active confirmed Problem Thyromegaly (9892666) Thyromegaly (E01.0) Active confirmed Problem Sciatica (96955465) Acute right- sided back pain with sciatica (M54.41) Active confirmed Problem B-cell lymphoma (disorder) (979181861) B-cell lymphoma, unspecified B-cell lymphoma type, unspecified body region (C85.10) Active confirmed Problem Right hemiplegia (974382526) Right hemiplegia (G81.91) Active confirmed Problem Cricopharyngeal dysphagia (71579631) Cricopharyngeal dysphagia (R13.13) Active confirmed Encounters Encounter Location Date Provider Diagnosis [facility] [address] [facility] [address] [place] [address] 02/02/2025 Provider Migration Idiopathic peripheral neuropathy G60.9 Assessments Encounter Date Diagnosis (ICD Code) Assessment Notes Treatment Notes Treatment Clinical Notes Section Notes 02/02/2025 Idiopathic peripheral neuropathy (ICD-10 - G60.9) Plan Of Treatment Pending Test Test Name Order Date Urinalysis 04/27/2019 Urinalysis 06/07/2016 Barium Swallow 10/11/2014 DEXA Hip and Spine - Screening 7 Physical Therapy 06/07/2016 CT Scan : Chest, With & Without Contrast 06/22/2013 Mammogram : Bilateral 04/08/2017 H-LIPID PANEL 07/09/2014 C-VITAMIN B12 12/09/2020 C-THYROID PROFILE 12/09/2020 M-Miscellaneous Test 01/22/2020 Future Test Test Name Order Date H-VITAMIN B12 10/04/2017 Insurance Providers Payer Name Payer Address Payer Phone Subscriber Number Group Number Insured Name Patient Relationship to Insured Coverage Start Date Coverage End Date [employer] MEDICARE [address] [address] [place] [address] [id number] Anabell Green Self - patient is the insured MEDICAID EDS [address] [place] [address] [id number] Anabell Green Self - patient is the insured Medications Administered Medication Instructions Date of Administration Dosage Notes Ceftriaxone 500 07/28/2018 500 mg Cyanocobalamin/B-12 Pt's Own Medication 07/12/2014 Cyanocobalamin/B-12 Pt's Own Medication 08/07/2014 1 mL Cyanocobalamin/B-12 Pt's Own Medication 08/20/2014 1 mL Cyanocobalamin/B-12 Pt's Own Medication 10/11/2014 1 mL Cyanocobalamin/B-12 Pt's Own Medication 09/12/2020 1 mL Kenalog 40mg 12/14/2017 40 mg Kenalog 40mg 02/06/2019 40 mg Prolia 02/19/2021 60 units Triamcinolone Acetonide 40mg Injection 07/28/2018 1 mL Kenalog 04/17/2014 Kenalog 04/11/2015 1 Kenalog 06/13/2015 1 mL Medical (General) History Medical History History ICD Code hairy cell leukemia diagnosed fall 2012 chronically enlarged and painful spleen asthma chronic anxiety chronic myofascial back pain GERD vit b12 def Kidney stones HAIRY-CELL LEUKEM SPLEEN colonoscopy 2010 with tubular adenoma, r epeated in 2013 and normal Normal mammogram 11/17 - repeat normal and 01/18 osteopenia on DEXA scan October/2017 - w orsened 02/18 - recommended prolia EGD March 2018 with gastritris Surgical History Surgery Date(Month/Year) 1977 tubal 1982 complete hysterectomy gallbladder R wrist surgery 1992 cyst removal from L ear and R side kidney stones 1999 Heart Cath 12/2015 thyroid 07/2018 ear tubes 10/2020 Hospitalization History Reason Date(Month/Year)
--- OUTSIDE RECORDS SUMMARY | 2025-04-29 14:03 | XMS_ITS | Encounter Summary ---
Author Organization [facility] Address [address] [place] [address] Care Team Providers Care Car Sweeper Name Role Phone Jean Pierre Johnston MD Primary Care Provider [phone] Reason for Referral * Consultation (Routine) - Authorized Specialty Diagnoses / Procedures Referred By Norma roldan Referred To Contact Endocrinology Diagnoses Other thyrotoxicosis without thyrotoxic crisis or storm Lin Hidalgo MD [address] [place] [address] Phone: tel: fax: [facility] [address] [place] [address] Phone: tel: fax: Referral ID Status Reason Start Date Expiration Date Visits Requested Visits Authorized [id number] Authorized Specialty Services Required 02/12/2025 08/14/2026 1 1 Encounter Details Date Type Department Care Team (Late st Contact Info) Description 02/12/2025 Community [facility] [address] [place] [address] Lin Hidalgo MD [address] [place], [place] [id number] 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) Social History Tobacco Use Types Packs/Day Years Used Date Smoking Tobacco: Never Assessed Comments Unknown Sex and Gender Information Value Date Recorded Sex Assigned at Not on file Legal Sex Female 8:29 PM EDT Gender Identity Not on file Sexual Orientation Not on file documented as of this encounter Plan of Treatment Scheduled Referrals Name Type Priority Associated Diagnoses Orde r Schedule Ambulatory referral to Endocrinology Outpatient Referral Routine Other thyrotoxicosis without thyrotoxic crisis or storm Expected: 02/12/2025 (Approximate), Expires: 08/14/2026 documented as of this encounter Visit Diagnoses Diagnosis Other thyrotoxicosis without thyrotoxic crisis or storm- Primary documented in this encounter Care Teams Car Sweeper Relationship Specialty Start Date End Date Jean Pierre Johnston MD [address] [place] [address] PCP - General 03/13/21 documented as of this encounter
--- OUTSIDE RECORDS SUMMARY | 2025-04-29 14:04 | XMS_ITS | Data Portability ---
Author Organization [place] - [facility] & SHARRI Banegas ADMIN Address [address] [place] [id number] Care Team Providers Care Copy Lathe Tender Name Role Phone KELIN BLAIR Primary Care Provider [phone] Assessment No assessment recorded. Plan of Treatment Reminders Order Date Submit Date Provider Last Modified By Organization Details Last Modified Time Details Appointments OV EST 30 2024 03:30P M Hira Nix PA-C Not available Not available Not available OV EST 30 2024 10:30A M Hira Nix PA-C Not available Not available Not available Lab CBC w/ auto diff 2024 025 [facility], [address] [place], [address], 03/27/2025 14:21:11 CMP, serum or plasma 2024 025 [facility], [address] [place], [address], 03/27/2025 15:09:00 iron + TIBC + ferritin, serum 2024 025 [facility], [address] [place], [address], 04/03/2025 09:15:45 iron saturatio n, serum 2024 025 [email or web address] [facility], [address] [place], [address], 04/03/2025 09:15:45 vitamin B12 + folate, serum or blood [address] [facility], [address] [place], [address], 04/03/2025 09:15:45 ldh, serum or plasma 2024 025 [facility], [address] [place], [address], 01/30/2025 15:24:17 immunofix ation + protein electroph oresis + free light chains, serum [address] [facility], [address] [place], [address], 02/06/2025 08:18:11 CBC w/ auto diff 2024 025 [facility], [address] [place], [address], 01/30/2025 12:56:42 CMP, serum or plasma 2024 025 [facility], [address] [place], [address], 01/30/2025 15:23:14 iron + TIBC + ferritin, serum [address] [facility], [address] [place], [address], 02/06/2025 08:18:11 iron saturatio n, serum [address] [facility], [address] [place], [address], 02/06/2025 08:18:12 ldh, serum or plasma 2023 024 [facility], [address] [place], [address], 09/26/2024 17:27:12 immunofix ation + protein electroph oresis + free light chains, serum [address] [facility], [address] [place], [address], 10/03/2024 08:44:26 CBC w/ auto diff 2023 024 [facility], [address] [place], [address], 09/26/2024 16:43:42 CMP, serum or plasma 2023 024 [facility], [address] [place], [address], 09/26/2024 17:20:57 iron + TIBC + ferritin, serum [address] [facility], [address] [place], [address], 10/03/2024 08:44:26 ldh, serum or plasma 2023 024 [facility], [address] [place], [address], 03/28/2024 16:51:06 immunofix ation + protein electroph oresis + free light chains, serum [address] [facility], [address] [place], [address], 04/04/2024 08:47:31 CBC w/ auto diff 2023 024 [facility], [address] [place], [address], 03/28/2024 15:49:50 CMP, serum or plasma 2023 024 [facility], [address] [place], [address], 03/28/2024 16:51:05 iron + TIBC + ferritin, serum [address] [facility], [address] [place], [address], 04/04/2024 08:47:30 immunofix ation + protein electroph oresis + free light chains, serum [address] [facility], [address] [place], [address], 10/05/2023 08:30:22 CBC w/ auto diff 2022 023 [facility], [address] [place], [address], 09/28/2023 17:28:09 CMP, serum or plasma 2022 023 [facility], [address] [place], [address], 09/28/2023 18:21:37 iron + TIBC + ferritin, serum [address] [facility], [address] [place], [address], 10/05/2023 08:30:22 Referral None recorded. Procedures None recorded. Surgeries None recorded. Imaging XR, osseous survey, complete 2024 025 [facility] (Centralized Scheduling), [address] [place], [address], 02/04/2025 13:26:36 CT, chest + abdomen + pelvis, w/ contrast 2023 024 [email or web address] [facility] (Centralized Scheduling), [address] [place], [address], 10/15/2024 09:10:02 Medication Orders Protonix 40 mg tablet,de layed release 2022 023 [facility] 591, [address], [address], 09/28/2023 14:11:12 Patient TargetsNo targets recorded. Patient InstructionsNo instructions recorded. Reason for Referral None Reported. Results Created Date Observation Date Name Description Value Unit Range Abnormal Flag Note LastModifiedBy Organization Detail LastModifiedTime 09/28/2009/28/2023 CBC AUTO W DIFF WBC 7.5 K/uL 4.0-10 .5 Not Available [facility] ([facility]) [address] , [place], [address], 09/28/2023 17:28:09 09/28/20 23 09/28/2023 CBC AUTO W DIFF RBC 4.5 M/mm3 4.2-6. 4 Not Available [facility] ([facility]) [address] , [place], [address], 09/28/2023 17:28:09 09/28/20 23 09/28/2023 CBC AUTO W DIFF HGB 13.2 gm/dL 12.5-1 6.0 Not Available [facility] ([facility]) [address] , [place], [address], 09/28/2023 17:28:09 09/28/20 23 09/28/2023 CBC AUTO W DIFF HCT 39.4 % 37.0-4 7.0 Not Available [facility] ([facility]) [address] , [place], [address], 09/28/2023 17:28:09 09/28/20 23 09/28/2023 CBC AUTO W DIFF MCV 87.8 fL 78-100 Not Available [facility] ([facility]) [address] , [place], [address], 09/28/2023 17:28:09 09/28/20 23 09/28/2023 CBC AUTO W DIFF MCH 29.4 pg 27-31 Not Available [facility] ([facility]) [address], [place], [address], 09/28/2023 17:28:09 09/28/20 23 09/28/2023 CBC AUTO W DIFF MCHC 33.5 g/dL 32-36 Not Available [facility] ([facility]) [address] [facility], [place], [address], 09/28/2023 17:28:09 09/28/20 23 09/28/2023 CBC AUTO W DIFF RDW 12.4 % 11.5-1 4.0 Not Available [facility] ([facility]) [address] [facility], [place], [address], 09/28/2023 17:28:09 09/28/20 23 09/28/2023 CBC AUTO W DIFF platelet count 217 K/uL 150-45 0 Not Available [facility] ([facility]) [address] [facility], [place], [address], 09/28/2023 17:28:09 09/28/20 23 09/28/2023 CBC AUTO W DIFF MPV 11.2 fL 6-9.5 high Not Available [facility] ([facility]) [address] [facility], [place], [address], 09/28/2023 17:28:09 09/28/20 23 09/28/2023 CBC AUTO W DIFF neutrophil% 56.5 % 43-65 Not Available [facility] ([facility]) [address], [place], [address], 09/28/2023 17:28:09 09/28/20 23 09/28/2023 CBC AUTO W DIFF lymphocyte% 31.5 % 20.5-4 5.5 Not Available [facility] ([facility]) [address] [facility], [place], [address], 09/28/2023 17:28:09 09/28/20 23 09/28/2023 CBC AUTO W DIFF monocyte% 9.6 % 5.5-11 .7 Not Available [facility] ([facility]) [address], [place], [address], 09/28/2023 17:28:09 09/28/20 23 09/28/2023 CBC AUTO W DIFF eosinophil% 1.6 % 0.9-2. 9 Not Available [facility] ([facility]) [address], [place], [address], 09/28/2023 17:28:09 09/28/20 23 09/28/2023 CBC AUTO W DIFF basophil% 0.5 % 0.2-1. 0 Not Available [facility] ([facility]) [address], [place], [address], 09/28/2023 17:28:09 09/28/20 23 09/28/2023 CBC AUTO W DIFF immature granulocytes % 0.3 % 0.0-0. 8 Not Available [facility] ([facility]) [address], [place], [address], 09/28/2023 17:28:09 09/28/20 23 09/28/2023 CBC AUTO W DIFF nucleated red blood cells % 0.0 % Not Available [facility] ([facility]) [address], [place], [address], 09/28/2023 17:28:09 09/28/20 23 09/28/2023 CBC AUTO W DIFF neutrophil# 4.2 K/uL 2.2-4. 8 Not Available [facility] ([facility]) [address], [place], [address], 09/28/2023 17:28:09 09/28/20 23 09/28/2023 CBC AUTO W DIFF lymphocyte# 2.4 cell/ mcL 1.3-2. 9 Not Available [facility] ([facility]) [address], [place], [address], 09/28/2023 17:28:09 09/28/20 23 09/28/2023 CBC AUTO W DIFF monocyte# 0.7 cell/ mcL 0.3-0. 8 Not Available [facility] ([facility]) [address], [place], [address], 09/28/2023 17:28:09 09/28/20 23 09/28/2023 CBC AUTO W DIFF eosinophil# 0.1 cell/ mcL 0-0.2 Not Available [facility] ([facility]) [address], [place], [address], 09/28/2023 17:28:09 09/28/20 23 09/28/2023 CBC AUTO W DIFF basophil# 0.0 cell/ mcL 0.0-1. 0 Not Available [facility] ([facility]) [address] [facility], [place], [address], 09/28/2023 17:28:09 09/28/20 23 09/28/2023 CBC AUTO W DIFF immature gramulocytes # 0.02 K/uL Not Available [facility] ([facility]) [address] [facility], [place], [address], 09/28/2023 17:28:09 09/28/20 23 09/28/2023 CBC AUTO W DIFF nucleated red blood cells # 0.00 K/uL Not Available [facility] ([facility]) [address] [facility], [place], [address], 09/28/2023 17:28:09 09/28/20 23 09/28/2023 CBC AUTO W DIFF manual differential NO Not Available [facility] ([facility]) [address] [place], [address], 09/28/2023 17:28:09 09/28/20 23 09/28/2023 IRON STUDY (IRON /TIBC /%SAT ) iron 66 mcg/m L 40-180 Not Available [facility] ([facility]) [address] [place], [address], 09/28/2023 18:08:17 09/28/20 23 09/28/2023 IRON STUDY (IRON /TIBC /%SAT ) TIBC 343 mcg/d L 250-45 0 Not Available [facility] ([facility]) [address], [place], [address], 09/28/2023 18:08:17 09/28/20 23 09/28/2023 IRON STUDY (IRON /TIBC /%SAT ) %sat 19 15-55 Not Available [facility] ([facility]) [address], [place], [address], 09/28/2023 18:08:17 09/28/20 23 09/28/2023 COMP METAB OLIC PANEL sodium 142 mmol/ L 136-14 5 Not Available [facility] ([facility]) [address], [place], [address], 09/28/2023 18:21:37 09/28/20 23 09/28/2023 COMP METAB OLIC PANEL potassium 3.2 mmol/ L 3.6-5. 0 low Not Available [facility] ([facility]) [address], [place], [address], 09/28/2023 18:21:37 09/28/20 23 09/28/2023 COMP METAB OLIC PANEL chloride 103 mmol/ L 98-107 Not Available [facility] ([facility]) [address] , [place], [address], 09/28/2023 18:21:37 09/28/20 23 09/28/2023 COMP METAB OLIC PANEL carbon dioxide 27.9 mmol/ L 21.0-3 2.0 Not Available [facility] ([facility]) [address] [place], [address], 09/28/2023 18:21:37 09/28/20 23 09/28/2023 COMP METAB OLIC PANEL anion gap 14.3 Not Available [facility] ([facility]) [address], [place], [address], 09/28/2023 18:21:37 09/28/20 23 09/28/2023 COMP METAB OLIC PANEL glucose 85 mg/dL 70-120 Not Available [facility] ([facility]) [address], [place], [address], 09/28/2023 18:21:37 09/28/20 23 09/28/2023 COMP METAB OLIC PANEL BUN 7 mg/dL 7-18 Not Available [facility] ([facility]) [address] , [place], [address], 09/28/2023 18:21:37 09/28/20 23 09/28/2023 COMP METAB OLIC PANEL creatinine 0.8 mg/dL 0.6-1. 3 Not Available [facility] ([facility]) [address] , [place], [address], 09/28/2023 18:21:37 09/28/20 23 09/28/2023 COMP METAB OLIC PANEL glomerular filtration rate >60 mlper min 60- Not Available [facility] ([facility]) [address] , [place], [address], 09/28/2023 18:21:37 09/28/20 23 09/28/2023 COMP METAB OLIC PANEL total protein 7.6 g/dL 6.4-8. 2 Not Available [facility] ([facility]) [address] , [place], [address], 09/28/2023 18:21:37 09/28/20 23 09/28/2023 COMP METAB OLIC PANEL albumin 3.7 g/dL 3.4-5. 0 Not Available [facility] ([facility]) [address] , [place], [address], 09/28/2023 18:21:37 09/28/20 23 09/28/2023 COMP METAB OLIC PANEL globulin 3.9 Not Available [facility] ([facility]) [address] , [place], [address], 09/28/2023 18:21:37 09/28/20 23 09/28/2023 COMP METAB OLIC PANEL alb/glob ratio 0.9 0.7-2 Not Available [facility] ([facility]) [address], [place], [address], 09/28/2023 18:21:37 09/28/20 23 09/28/2023 COMP METAB OLIC PANEL calcium 8.8 mg/dL 8.5-10 .5 Not Available [facility] ([facility]) [address], [place], [address], 09/28/2023 18:21:37 09/28/20 23 09/28/2023 COMP METAB OLIC PANEL bilirubin total 0.90 mg/dL 0.10-1 .00 Not Available [facility] ([facility]) [address], [place], [address], 09/28/2023 18:21:37 09/28/20 23 09/28/2023 COMP METAB OLIC PANEL AST (SGOT) 16 U/L 0-37 Not Available [facility] ([facility]) [address], [place], [address], 09/28/2023 18:21:37 09/28/20 23 09/28/2023 COMP METAB OLIC PANEL ALT (SGPT) 25 U/L 0-65 Not Available [facility] ([facility]) [address] [facility], [place], [address], 09/28/2023 18:21:37 09/28/20 23 09/28/2023 COMP METAB OLIC PANEL alk phosphatase 97 U/L 46-116 Not Available [facility] ([facility]) [address], [place], [address], 09/28/2023 18:21:37 09/28/20 23 09/28/2023 ALLAN TIN ferritin, serum 55 NG/mL 3-244 Not Available [facility] ([facility]) [address], [place], [address], 09/28/2023 18:21:39 09/28/20 23 09/30/2023 ELAINA AND PE, SERUM total protein, serum 7.0 g/dL 6.0-8. 5 Not Available [facility] ([facility]) [address], [place], [address], 09/30/2023 17:09:37 09/28/20 23 09/30/2023 ELAINA AND PE, SERUM IgA 151 mg/dL 87-352 Not Available [facility] ([facility]) [address] [facility], [place], [address], 09/30/2023 17:09:37 09/28/20 23 09/30/2023 ELAINA AND PE, SERUM IgM 958 mg/dL 26-217 high Resul ts confi rmed on dilut ion. Not Available [facility] ([facility]) [address], [place], [address], 09/30/2023 17:09:37 09/28/20 23 09/30/2023 ELAINA AND PE, SERUM albumin 3.6 g/dL 2.9-4. 4 Not Available [facility] ([facility]) [address], [place], [address], 09/30/2023 17:09:37 09/28/20 23 09/30/2023 ELAINA AND PE, SERUM jyqax-3-asnx ulin 0.3 g/dL 0.0-0. 4 Not Available [facility] ([facility]) [address] [facility], [place], [address], 09/30/2023 17:09:37 09/28/20 23 09/30/2023 ELAINA AND PE, SERUM IgG 714 mg/dL 586-16 02 Not Available [facility] ([facility]) [address] , [place], [address], 09/30/2023 17:09:37 09/28/20 23 09/30/2023 ELAINA AND PE, SERUM cgmar-6-vtvm ulin 0.9 g/dL 0.4-1. 0 Not Available [facility] ([facility]) [address], [place], [address], 09/30/2023 17:09:37 09/28/20 23 09/30/2023 ELAINA AND PE, SERUM beta globulin 0.9 g/dL 0.7-1. 3 Not Available [facility] ([facility]) [address], [place], [address], 09/30/2023 17:09:37 09/28/20 23 09/30/2023 ELAINA AND PE, SERUM gamma globulin 1.3 g/dL 0.4-1. 8 Not Available [facility] ([facility]) [address], [place], [address], 09/30/2023 17:09:37 09/28/20 23 09/30/2023 ELAINA AND PE, SERUM M-spike 0.9 g/dL not observ ed high Not Available [facility] ([facility]) [address], [place], [address], 09/30/2023 17:09:37 09/28/20 23 09/30/2023 ELAINA AND PE, SERUM total globulin 3.4 g/dL 2.2-3. 9 Not Available [facility] ([facility]) [address], [place], [address], 09/30/2023 17:09:37 11/29/09/30/2023 ELAINA AND PE, SERUM A/G ratio 1.1 0.7-1. 7 Not Available [facility] ([facility]) [address] [facility], [place], [address], 09/30/2023 17:09:37 09/28/20 23 09/30/2023 ELAINA AND PE, SERUM immunofixati on result, serum Commen t delta Immun ofixa tion shows IgM monoc lonal prote in with kappa light chain speci ficit y. Not Available [facility] ([facility]) [address] [facility], [place], [address], 09/30/2023 17:09:37 09/28/20 23 09/30/2023 ELAINA AND PE, SERUM pdf . Perfo rmed at: [place] [address] Lab Direc tor: Rei mckenzie PhD, Phone : [phone] Not Available [facility] ([facility]) [address] [facility], [place], [address], 09/30/2023 17:09:37 09/28/20 23 09/30/2023 ELAINA AND PE, SERUM please note Commen t . Prote in elect ropho resis scan will follo w via compu ter, mail, or couri jeanette esquivel. Not Available [facility] ([facility]) [address] [facility], [place], [address], 09/30/2023 17:09:37 09/28/20 23 09/30/2023 FREE K+L LT CHAIN S, SERUM free kappa lt chain, serum 20.8 mg/L 3.3-19 .4 high Not Available [facility] ([facility]) [address] [facility], [place], [address], 09/30/2023 17:09:38 09/28/20 23 09/30/2023 FREE K+L LT CHAIN S, SERUM free lambda lt chain, serum 14.6 mg/L 5.7-26 .3 Not Available [facility] ([facility]) [address] , [place], [address], 09/30/2023 17:09:38 09/28/20 23 09/30/2023 FREE K+L LT CHAIN S, SERUM kappa/lambda ratio, serum 1.42 0.26-1 .65 Perfo rmed at: [facility] [place] [address] Lab Direc tor: Rei mckenzie PhD, Phone : [phone] Not Available [facility] ([facility]) [address] , [place], [address], 09/30/2023 17:09:38 10/14/20 23 11/28/2023 PATHO LOGY SPECI MEN pathology specimen SEE KILEY Briseno RPT STAIN S: N/A Not Available [facility] ([facility]) [address] , [place], [address], 11/28/2023 13:58:45 03/28/20 24 03/28/2024 CBC AUTO W DIFF WBC 8.4 K/uL 4.0-10 .5 Not Available [facility] ([facility]) [address] , [place], [address], 03/28/2024 15:49:50 03/28/20 24 03/28/2024 CBC AUTO W DIFF RBC 4.6 M/mm3 4.2-6. 4 Not Available [facility] ([facility]) [address] , [place], [address], 03/28/2024 15:49:50 03/28/20 24 03/28/2024 CBC AUTO W DIFF HGB 13.5 gm/dL 12.5-1 6.0 Not Available [facility] ([facility]) [address] , [place], [address], 03/28/2024 15:49:50 03/28/20 24 03/28/2024 CBC AUTO W DIFF HCT 39.3 % 37.0-4 7.0 Not Available [facility] ([facility]) [address] , [place], [address], 03/28/2024 15:49:50 03/28/20 24 03/28/2024 CBC AUTO W DIFF MCV 86.0 fL 78-100 Not Available [facility] ([facility]) [address] , [place], [address], 03/28/2024 15:49:50 03/28/20 24 03/28/2024 CBC AUTO W DIFF MCH 29.5 pg 27-31 Not Available [facility] ([facility]) [address] , [place], [address], 03/28/2024 15:49:50 03/28/20 24 03/28/2024 CBC AUTO W DIFF MCHC 34.4 g/dL 32-36 Not Available [facility] ([facility]) [address] , [place], [address], 03/28/2024 15:49:50 03/28/20 24 03/28/2024 CBC AUTO W DIFF RDW 12.9 % 11.5-1 4.0 Not Available [facility] ([facility]) [address] , [place], [address], 03/28/2024 15:49:50 03/28/20 24 03/28/2024 CBC AUTO W DIFF platelet count 303 K/uL 150-45 0 Not Available [facility] ([facility]) [address] [place], [address], 03/28/2024 15:49:50 03/28/20 24 03/28/2024 CBC AUTO W DIFF MPV 10.5 fL 6-9.5 high Not Available [facility] ([facility]) [address] [place], [address], 03/28/2024 15:49:50 03/28/20 24 03/28/2024 CBC AUTO W DIFF neutrophil% 54.2 % 43-65 Not Available [facility] ([facility]) [address] [place], [address], 03/28/2024 15:49:50 03/28/20 24 03/28/2024 CBC AUTO W DIFF lymphocyte% 33.0 % 20.5-4 5.5 Not Available [facility] ([facility]) [address] [place], [address], 03/28/2024 15:49:50 03/28/20 24 03/28/2024 CBC AUTO W DIFF monocyte% 10.6 % 5.5-11 .7 Not Available [facility] ([facility]) [address] [place], [address], 03/28/2024 15:49:50 03/28/20 24 03/28/2024 CBC AUTO W DIFF eosinophil% 1.5 % 0.9-2. 9 Not Available [facility] ([facility]) [address] [place], [address], 03/28/2024 15:49:50 03/28/20 24 03/28/2024 CBC AUTO W DIFF basophil% 0.5 % 0.2-1. 0 Not Available [facility] ([facility]) [address] [place], [address], 03/28/2024 15:49:50 03/28/20 24 03/28/2024 CBC AUTO W DIFF immature granulocytes % 0.2 % 0.0-0. 8 Not Available [facility] ([facility]) [address] [place], [address], 03/28/2024 15:49:50 03/28/20 24 03/28/2024 CBC AUTO W DIFF nucleated red blood cells % 0.0 % Not Available [facility] ([facility]) [address], [place], [address], 03/28/2024 15:49:50 03/28/20 24 03/28/2024 CBC AUTO W DIFF neutrophil# 4.6 K/uL 2.2-4. 8 Not Available [facility] ([facility]) [address] [facility], [place], [address], 03/28/2024 15:49:50 03/28/20 24 03/28/2024 CBC AUTO W DIFF lymphocyte# 2.8 cell/ mcL 1.3-2. 9 Not Available [facility] ([facility]) [address] [facility], [place], [address], 03/28/2024 15:49:50 03/28/20 24 03/28/2024 CBC AUTO W DIFF monocyte# 0.9 cell/ mcL 0.3-0. 8 high Not Available [facility] ([facility]) [address] [facility], [place], [address], 03/28/2024 15:49:50 03/28/20 24 03/28/2024 CBC AUTO W DIFF eosinophil# 0.1 cell/ mcL 0-0.2 Not Available [facility] ([facility]) [address] [place], [address], 03/28/2024 15:49:50 03/28/20 24 03/28/2024 CBC AUTO W DIFF basophil# 0.0 cell/ mcL 0.0-1. 0 Not Available [facility] ([facility]) [address] [place], [address], 03/28/2024 15:49:50 03/28/20 24 03/28/2024 CBC AUTO W DIFF immature gramulocytes # 0.02 K/uL Not Available [facility] ([facility]) [address] [place], [address], 03/28/2024 15:49:50 03/28/20 24 03/28/2024 CBC AUTO W DIFF nucleated red blood cells # 0.00 K/uL Not Available [facility] ([facility]) [address] [place], [address], 03/28/2024 15:49:50 03/28/20 24 03/28/2024 CBC AUTO W DIFF manual differential NO Not Available [facility] ([facility]) [address] [place], [address], 03/28/2024 15:49:50 03/28/20 24 03/28/2024 IRON STUDY (IRON /TIBC /%SAT ) iron 62 mcg/m L 40-180 Not Available [facility] ([facility]) [address], [place], [address], 03/28/2024 16:50:59 03/28/20 24 03/28/2024 IRON STUDY (IRON /TIBC /%SAT ) TIBC 382 mcg/d L 250-45 0 Not Available [facility] ([facility]) [address] [place], [address], 03/28/2024 16:50:59 03/28/20 24 03/28/2024 IRON STUDY (IRON /TIBC /%SAT ) %sat 16 15-55 Not Available [facility] ([facility]) [address] [place], [address], 03/28/2024 16:50:59 03/28/20 24 03/28/2024 COMP METAB OLIC PANEL sodium 140 mmol/ L 136-14 5 Not Available [facility] ([facility]) [address] [place], [address], 03/28/2024 16:51:04 03/28/20 24 03/28/2024 COMP METAB OLIC PANEL potassium 3.1 mmol/ L 3.6-5. 0 low Not Available [facility] ([facility]) [address] [facility] [place], [address], 03/28/2024 16:51:04 03/28/20 24 03/28/2024 COMP METAB OLIC PANEL chloride 100 mmol/ L 98-107 Not Available [facility] ([facility]) [address], [place], [address], 03/28/2024 16:51:04 03/28/20 24 03/28/2024 COMP METAB OLIC PANEL carbon dioxide 27.1 mmol/ L 21.0-3 2.0 Not Available [facility] ([facility]) [address], [place], [address], 03/28/2024 16:51:04 03/28/20 24 03/28/2024 COMP METAB OLIC PANEL anion gap 16.0 Not Available [facility] ([facility]) [address] , [place], [address], 03/28/2024 16:51:04 03/28/20 24 03/28/2024 COMP METAB OLIC PANEL glucose 115 mg/dL 70-120 Not Available [facility] ([facility]) [address] , [place], [address], 03/28/2024 16:51:04 03/28/20 24 03/28/2024 COMP METAB OLIC PANEL BUN 9 mg/dL 7-18 Not Available [facility] ([facility]) [address] , [place], [address], 03/28/2024 16:51:04 03/28/20 24 03/28/2024 COMP METAB OLIC PANEL creatinine 0.9 mg/dL 0.6-1. 3 Not Available [facility] ([facility]) [address] , [place], [address], 03/28/2024 16:51:04 03/28/20 24 03/28/2024 COMP METAB OLIC PANEL glomerular filtration rate >60 mlper min 60- Not Available [facility] ([facility]) [address], [place], [address], 03/28/2024 16:51:04 03/28/20 24 03/28/2024 COMP METAB OLIC PANEL total protein 8.1 g/dL 6.4-8. 2 Not Available [facility] ([facility]) [address], [place], [address], 03/28/2024 16:51:04 03/28/20 24 03/28/2024 COMP METAB OLIC PANEL albumin 3.9 g/dL 3.4-5. 0 Not Available [facility] ([facility]) [address], [place], [address], 03/28/2024 16:51:04 03/28/20 24 03/28/2024 COMP METAB OLIC PANEL globulin 4.2 Not Available [facility] ([facility]) [address], [place], [address], 03/28/2024 16:51:04 03/28/20 24 03/28/2024 COMP METAB OLIC PANEL alb/glob ratio 0.9 0.7-2 Not Available [facility] ([facility]) [address], [place], [address], 03/28/2024 16:51:04 03/28/20 24 03/28/2024 COMP METAB OLIC PANEL calcium 8.4 mg/dL 8.5-10 .5 low Not Available [facility] ([facility]) [address], [place], [address], 03/28/2024 16:51:04 03/28/20 24 03/28/2024 COMP METAB OLIC PANEL bilirubin total 1.20 mg/dL 0.10-1 .00 high Not Available [facility] ([facility]) [address] [place], [address], 03/28/2024 16:51:04 03/28/20 24 03/28/2024 COMP METAB OLIC PANEL AST (SGOT) 21 U/L 0-37 Not Available [facility] ([facility]) [address] [facility], [place], [address], 03/28/2024 16:51:04 03/28/20 24 03/28/2024 COMP METAB OLIC PANEL ALT (SGPT) 28 U/L 0-65 Not Available [facility] ([facility]) [address] [facility], [place], [address], 03/28/2024 16:51:04 03/28/20 24 03/28/2024 COMP METAB OLIC PANEL alk phosphatase 119 U/L 46-116 high Not Available [facility] ([facility]) [address] [facility], [place], [address], 03/28/2024 16:51:04 03/28/20 24 03/28/2024 LDH (LD) LDH 218 U/L 0-190 high Not Available [facility] ([facility]) [address] [place], [address], 03/28/2024 16:51:06 03/28/20 24 03/28/2024 ALLAN TIN ferritin, serum 58 NG/mL 3-244 Not Available [facility] ([facility]) [address] [place], [address], 03/28/2024 16:51:11 03/28/20 24 03/30/2024 IMMUN OFIXA TION, SERUM (ELAINA) IgA 148 mg/dL 87-352 Not Available [facility] ([facility]) [address] [place], [address], 03/30/2024 17:11:43 03/28/20 24 03/30/2024 IMMUN OFIXA TION, SERUM (ELAINA) IgM 1226 mg/dL 26-217 high Resul ts confi rmed on dilut ion. Perfo rmed at: [facility] [address] [facility], [place] [address] Lab Direc tor: Rei mckenzie PhD, Phone : [phone] Not Available [facility] ([facility]) [address], [place], [address], 03/30/2024 17:11:43 03/28/20 24 03/30/2024 IMMUN OFIXA TION, SERUM (ELAINA) IgG 713 mg/dL 586-16 02 Not Available [facility] ([facility]) [address] [facility], [place], [address], 03/30/2024 17:11:43 03/28/20 24 03/30/2024 IMMUN OFIXA TION, SERUM (ELAINA) immunofixati on, serum (elaina) Commen t delta Immun ofixa tion shows IgM monoc lonal prote in with kappa light chain speci ficit y. Not Available [facility] ([facility]) [address] [facility], [place], [address], 03/30/2024 17:11:43 03/28/20 24 03/30/2024 FREE K+L LT CHAIN S, SERUM free kappa lt chain, serum 21.7 mg/L 3.3-19 .4 high Not Available [facility] ([facility]) [address] [facility], [place], [address], 03/30/2024 17:11:44 03/28/20 24 03/30/2024 FREE K+L LT CHAIN S, SERUM free lambda lt chain, serum 14.9 mg/L 5.7-26 .3 Not Available [facility] ([facility]) [address] [place], [address], 03/30/2024 17:11:44 03/28/20 24 03/30/2024 FREE K+L LT CHAIN S, SERUM kappa/lambda ratio, serum 1.46 0.26-1 .65 Perfo rmed at: CB - [facility] n [address] [facility], [place] [address] Lab Direc tor: Rei mckenzie PhD, Phone : [phone] Not Available [facility] ([facility]) [address] , [place], [address], 03/30/2024 17:11:44 03/28/20 24 03/30/2024 PROTE IN ELECT ROPHO RESIS SERUM total protein, serum 7.5 g/dL 6.0-8. 5 Not Available [facility] ([facility]) [address] [facility], [place], [address], 03/30/2024 17:11:45 03/28/20 24 03/30/2024 PROTE IN ELECT ROPHO RESIS SERUM albumin 3.6 g/dL 2.9-4. 4 Not Available [facility] ([facility]) [address] , [place], [address], 03/30/2024 17:11:45 03/28/20 24 03/30/2024 PROTE IN ELECT ROPHO RESIS SERUM alpha-1 globulin 0.3 g/dL 0.0-0. 4 Not Available [facility] ([facility]) [address] [facility], [place], [address], 03/30/2024 17:11:45 03/28/20 24 03/30/2024 PROTE IN ELECT ROPHO RESIS SERUM qobea-1-xrfz ulin 1.0 g/dL 0.4-1. 0 Not Available [facility] ([facility]) [address] [place], [address], 03/30/2024 17:11:45 03/28/20 24 03/30/2024 PROTE IN ELECT ROPHO RESIS SERUM beta globulin 1.1 g/dL 0.7-1. 3 Not Available [facility] ([facility]) [address] , [place], [address], 03/30/2024 17:11:45 03/28/20 24 03/30/2024 PROTE IN ELECT ROPHO RESIS SERUM gamma globulin 1.5 g/dL 0.4-1. 8 Not Available [facility] ([facility]) [address], [place], [address], 03/30/2024 17:11:45 03/28/20 24 03/30/2024 PROTE IN ELECT ROPHO RESIS SERUM M-spike 1.1 g/dL not observ ed high Not Available [facility] ([facility]) [address], [place], [address], 03/30/2024 17:11:45 03/28/20 24 03/30/2024 PROTE IN ELECT ROPHO RESIS SERUM total globulin 3.9 g/dL 2.2-3. 9 Not Available [facility] ([facility]) [address] [facility], [place], [address], 03/30/2024 17:11:45 03/28/20 24 03/30/2024 PROTE IN ELECT ROPHO RESIS SERUM A/G ratio 0.9 0.7-1. 7 Not Available [facility] ([facility]) [address] [facility], [place], [address], 03/30/2024 17:11:45 03/28/20 24 03/30/2024 PROTE IN ELECT ROPHO RESIS SERUM pdf . Perfo [facility]med at: [facility] [address] Lab Direc tor: Rei mckenzie PhD, Phone : [phone] Not Available [facility] ([facility]) [address] [facility], [place], [address], 03/30/2024 17:11:45 03/28/20 24 03/30/2024 PROTE IN ELECT ROPHO RESIS SERUM please note Commen t . Prote in elect ropho resis scan will follo w via compu ter, mail, or couri er deliv sierra. Not Available [facility] ([facility]) [address], [place], [address], 03/30/2024 17:11:45 09/26/2009/26/2024 CBC AUTO W DIFF WBC 6.4 K/uL 4.0-10 .5 Not Available [facility] ([facility]) [address], [place], [address], 09/26/2024 16:43:42 09/26/2009/26/2024 CBC AUTO W DIFF RBC 4.1 M/mm3 4.2-6. 4 low Not Available [facility] ([facility]) [address], [place], [address], 09/26/2024 16:43:42 09/26/2009/26/2024 CBC AUTO W DIFF HGB 11.6 gm/dL 12.5-1 6.0 low Not Available [facility] ([facility]) [address] , [place], [address], 09/26/2024 16:43:42 09/26/2009/26/2024 CBC AUTO W DIFF HCT 36.1 % 37.0-4 7.0 low Not Available [facility] ([facility]) [address] , [place], [address], 09/26/2024 16:43:42 09/26/2009/26/2024 CBC AUTO W DIFF MCV 88.3 fL 78-100 Not Available [facility] ([facility]) [address] , [place], [address], 09/26/2024 16:43:42 09/26/2009/26/2024 CBC AUTO W DIFF MCH 28.4 pg 27-31 Not Available [facility] ([facility]) [address] , [place], [address], 09/26/2024 16:43:42 09/26/2023 0909/26/2024 CBC AUTO W DIFF MCHC 32.1 g/dL 32-36 Not Available [facility] ([facility]) [address], [place], [address], 09/26/2024 16:43:42 09/26/20 24 09/26/2024 CBC AUTO W DIFF RDW 13.2 % 11.5-1 4.0 Not Available [facility] ([facility]) [address], [place], [address], 09/26/2024 16:43:42 09/26/20 24 09/26/2024 CBC AUTO W DIFF platelet count 207 K/uL 150-45 0 Not Available [facility] ([facility]) [address], [place], [address], 09/26/2024 16:43:42 09/26/20 24 09/26/2024 CBC AUTO W DIFF MPV 10.6 fL 6-9.5 high Not Available [facility] ([facility]) [address], [place], [address], 09/26/2024 16:43:42 09/26/20 24 09/26/2024 CBC AUTO W DIFF neutrophil% 56.5 % 43-65 Not Available [facility] ([facility]) [address], [place], [address], 09/26/2024 16:43:42 09/26/20 24 09/26/2024 CBC AUTO W DIFF lymphocyte% 33.1 % 20.5-4 5.5 Not Available [facility] ([facility]) [address] [place], [address], 09/26/2024 16:43:42 09/26/20 24 09/26/2024 CBC AUTO W DIFF monocyte% 8.8 % 5.5-11 .7 Not Available [facility] ([facility]) [address] [place], [address], 09/26/2024 16:43:42 09/26/20 24 09/26/2024 CBC AUTO W DIFF eosinophil% 1.1 % 0.9-2. 9 Not Available [facility] ([facility]) [address], [place], [address], 09/26/2024 16:43:42 09/26/20 24 09/26/2024 CBC AUTO W DIFF basophil% 0.3 % 0.2-1. 0 Not Available [facility] ([facility]) [address] [place], [address], 09/26/2024 16:43:42 09/26/20 24 09/26/2024 CBC AUTO W DIFF immature granulocytes % 0.2 % 0.0-0. 8 Not Available [facility] ([facility]) [address] [place], [address], 09/26/2024 16:43:42 09/26/20 24 09/26/2024 CBC AUTO W DIFF nucleated red blood cells % 0.0 % Not Available [facility] ([facility]) [address] [place], [address], 09/26/2024 16:43:42 09/26/20 24 09/26/2024 CBC AUTO W DIFF neutrophil# 3.6 K/uL 2.2-4. 8 Not Available [facility] ([facility]) [address] [place], [address], 09/26/2024 16:43:42 09/26/20 24 09/26/2024 CBC AUTO W DIFF lymphocyte# 2.1 cell/ mcL 1.3-2. 9 Not Available [facility] ([facility]) [address] [place], [address], 09/26/2024 16:43:42 09/26/20 24 09/26/2024 CBC AUTO W DIFF monocyte# 0.6 cell/ mcL 0.3-0. 8 Not Available [facility] ([facility]) [address] , [place], [address], 09/26/2024 16:43:42 09/26/20 24 09/26/2024 CBC AUTO W DIFF eosinophil# 0.1 cell/ mcL 0-0.2 Not Available [facility] ([facility]) [address], [place], [address], 09/26/2024 16:43:42 09/26/20 24 09/26/2024 CBC AUTO W DIFF basophil# 0.0 cell/ mcL 0.0-1. 0 Not Available [facility] ([facility]) [address], [place], [address], 09/26/2024 16:43:42 09/26/20 24 09/26/2024 CBC AUTO W DIFF immature gramulocytes # 0.01 K/uL Not Available [facility] ([facility]) [address], [place], [address], 09/26/2024 16:43:42 09/26/20 24 09/26/2024 CBC AUTO W DIFF nucleated red blood cells # 0.00 K/uL Not Available [facility] ([facility]) [address], [place], [address], 09/26/2024 16:43:42 09/26/20 24 09/26/2024 CBC AUTO W DIFF manual differential NO Not Available [facility] ([facility]) [address] [place], [address], 09/26/2024 16:43:42 09/26/20 24 09/26/2024 IRON STUDY (IRON /TIBC /%SAT ) iron 35 mcg/m L 40-180 low Not Available [facility] ([facility]) [address] [place], [address], 09/26/2024 17:09:19 09/26/20 24 09/26/2024 IRON STUDY (IRON /TIBC /%SAT ) TIBC 343 mcg/d L 250-45 0 Not Available [facility] ([facility]) [address] , [place], [address], 09/26/2024 17:09:19 09/26/20 24 09/26/2024 IRON STUDY (IRON /TIBC /%SAT ) %sat 10 15-55 low Not Available [facility] ([facility]) [address] , [place], [address], 09/26/2024 17:09:19 09/26/20 24 09/26/2024 COMP METAB OLIC PANEL sodium 141 mmol/ L 136-14 5 Not Available [facility] ([facility]) [address], [place], [address], 09/26/2024 17:20:57 09/26/20 24 09/26/2024 COMP METAB OLIC PANEL potassium 3.0 mmol/ L 3.6-5. 0 low Not Available [facility] ([facility]) [address], [place], [address], 09/26/2024 17:20:57 09/26/20 24 09/26/2024 COMP METAB OLIC PANEL chloride 105 mmol/ L 98-107 Not Available [facility] ([facility]) [address] , [place], [address], 09/26/2024 17:20:57 09/26/20 24 09/26/2024 COMP METAB OLIC PANEL carbon dioxide 27.9 mmol/ L 21.0-3 2.0 Not Available [facility] ([facility]) [address], [place], [address], 09/26/2024 17:20:57 09/26/20 24 09/26/2024 COMP METAB OLIC PANEL anion gap 11.1 Not Available [facility] ([facility]) [address], [place], [address], 09/26/2024 17:20:57 09/26/20 24 09/26/2024 COMP METAB OLIC PANEL glucose 101 mg/dL 70-120 Not Available [facility] ([facility]) [address], [place], [address], 09/26/2024 17:20:57 09/26/20 24 09/26/2024 COMP METAB OLIC PANEL BUN 6 mg/dL 7-18 low Not Available [facility] ([facility]) [address] , [place], [address], 09/26/2024 17:20:57 09/26/20 24 09/26/2024 COMP METAB OLIC PANEL creatinine 0.8 mg/dL 0.6-1. 3 Not Available [facility] ([facility]) [address] , [place], [address], 09/26/2024 17:20:57 09/26/20 24 09/26/2024 COMP METAB OLIC PANEL glomerular filtration rate 82 mlper min 60- GFR LIMIT ATION : The eGFR equat ion CKD-E PI 2020 is not appli cable for pedia tric patie nts or great er than 90 years of age. The follo wing condi tions may alter the GFR resul t: extre mes in body size, malnu triti on or obesi ty, skele isra muscl e disea se, parap legia or quadr ipleg ia, veget serafin diet or rapid ly javier ing kiney funct ion. Not Available [facility] ([facility]) [address] , [place], [address], 09/26/2024 17:20:57 09/26/20 24 09/26/2024 COMP METAB OLIC PANEL total protein 7.7 g/dL 6.4-8. 2 Not Available [facility] ([facility]) [address], [place], [address], 09/26/2024 17:20:57 09/26/20 24 09/26/2024 COMP METAB OLIC PANEL albumin 3.5 g/dL 3.4-5. 0 Not Available [facility] ([facility]) [address], [place], [address], 09/26/2024 17:20:57 09/26/20 24 09/26/2024 COMP METAB OLIC PANEL globulin 4.2 Not Available [facility] ([facility]) [address], [place], [address], 09/26/2024 17:20:57 09/26/20 24 09/26/2024 COMP METAB OLIC PANEL alb/glob ratio 0.8 0.7-2 Not Available [facility] ([facility]) [address], [place], [address], 09/26/2024 17:20:57 09/26/20 24 09/26/2024 COMP METAB OLIC PANEL calcium 8.5 mg/dL 8.5-10 .5 Not Available [facility] ([facility]) [address], [place], [address], 09/26/2024 17:20:57 09/26/20 24 09/26/2024 COMP METAB OLIC PANEL bilirubin total 0.60 mg/dL 0.10-1 .00 Not Available [facility] ([facility]) [address], [place], [address], 09/26/2024 17:20:57 09/26/20 24 09/26/2024 COMP METAB OLIC PANEL AST (SGOT) 21 U/L 0-37 Not Available [facility] ([facility]) [address] , [place], [address], 09/26/2024 17:20:57 09/26/20 24 09/26/2024 COMP METAB OLIC PANEL ALT (SGPT) 24 U/L 0-65 Not Available [facility] ([facility]) [address] , [place], [address], 09/26/2024 17:20:57 09/26/20 24 09/26/2024 COMP METAB OLIC PANEL alk phosphatase 93 U/L 46-116 Not Available [facility] ([facility]) [address], [place], [address], 09/26/2024 17:20:57 09/26/20 24 09/26/2024 LDH (LD) LDH 192 U/L 0-190 high Not Available [facility] ([facility]) [address], [place], [address], 09/26/2024 17:27:12 09/26/20 24 09/26/2024 ALLAN TIN ferritin, serum 47 NG/mL 3-244 Not Available [facility] ([facility]) [address], [place], [address], 09/26/2024 17:27:14 09/26/20 24 10/01/2024 PROTE IN ELECT [facility] RESIS SERUM total protein, serum 6.8 g/dL 6.0-8. 5 Not Available [facility] ([facility]) [address] [facility], [place], [address], 10/01/2024 15:10:08 09/26/20 24 10/01/2024 PROTE IN ELECT ROPHO RESIS SERUM albumin 3.1 g/dL 2.9-4. 4 Not Available [facility] ([facility]) [address] [place], [address], 10/01/2024 15:10:08 09/26/20 24 10/01/2024 PROTE IN ELECT ROP RESIS SERUM alpha-1 globulin 0.3 g/dL 0.0-0. 4 Not Available [facility] ([facility]) [address] [place], [address], 10/01/2024 15:10:08 09/26/20 24 10/01/2024 PROTE IN ELECT ROPHO RESIS SERUM oqnng-1-abds ulin 1.0 g/dL 0.4-1. 0 Not Available [facility] ([facility]) [address] , [place], [address], 10/01/2024 15:10:08 09/26/20 24 10/01/2024 PROTE IN ELECT ROPHO RESIS SERUM beta globulin 0.9 g/dL 0.7-1. 3 Not Available [facility] ([facility]) [address] , [place], [address], 10/01/2024 15:10:08 09/26/20 24 10/01/2024 PROTE IN ELECT ROPHO RESIS SERUM gamma globulin 1.4 g/dL 0.4-1. 8 Not Available [facility] ([facility]) [address] , [place], [address], 10/01/2024 15:10:08 09/26/20 24 10/01/2024 PROTE IN ELECT ROPHO RESIS SERUM M-spike 1.1 g/dL not observ ed high Not Available [facility] ([facility]) [address] , [place], [address], 10/01/2024 15:10:08 09/26/20 24 10/01/2024 PROTE IN ELECT ROPHO RESIS SERUM total globulin 3.7 g/dL 2.2-3. 9 Not Available [facility] ([facility]) [address] , [place], [address], 10/01/2024 15:10:08 09/26/20 24 10/01/2024 PROTE IN ELECT ROPHO RESIS SERUM A/G ratio 0.8 0.7-1. 7 Not Available [facility] ([facility]) [address] , [place], [address], 10/01/2024 15:10:08 09/26/20 24 10/01/2024 PROTE IN ELECT ROPHO RESIS SERUM pdf . Perfo rmed at: [facility] n [address] [place] [address] Lab Direc tor: Rei cmkenzie PhD, Phone : [phone] Not Available [facility] ([facility]) [address] [facility], [place], [address], 10/01/2024 15:10:08 09/26/20 24 10/01/2024 PROTE IN ELECT ROPHO RESIS SERUM please note Commen t . Prote in elect ropho resis scan will follo w via compu ter, mail, or couri er cecil esquivel. Not Available [facility] ([facility]) [address] [facility], [place], [address], 10/01/2024 15:10:08 09/26/20 24 10/02/2024 IMMUN OFIXA TION, SERUM (ELAINA) IgA 102 mg/dL 87-352 Not Available [facility] ([facility]) [address] [facility], [place], [address], 10/02/2024 15:12:05 09/26/20 24 10/02/2024 IMMUN OFIXA TION, SERUM (ELAINA) IgM 1152 mg/dL 26-217 high Resul ts confi rmed on dilut ion. Perfo rmed at: [facility] [address] [place] [address] Lab Direc tor: Rei mckenzie PhD, Phone : [phone] Not Available [facility] ([facility]) [address] [facility], [place], [address], 10/02/2024 15:12:05 09/26/20 24 10/02/2024 IMMUN OFIXA TION, SERUM (ELAINA) IgG 593 mg/dL 586-16 02 Not Available [facility] ([facility]) [address] [facility], [place], [address], 10/02/2024 15:12:05 09/26/20 24 10/02/2024 IMMUN OFIXA TION, SERUM (ELAINA) immunofixati on, serum (elaina) Commen t delta Immun ofixa tion shows IgM monoc lonal prote in with kappa light chain speci ficit y. Not Available [facility] ([facility]) [address], [place], [address], 10/02/2024 15:12:05 09/26/20 24 10/02/2024 FREE K+L LT CHAIN S, SERUM free kappa lt chain, serum 22.3 mg/L 3.3-19 .4 high Not Available [facility] ([facility]) [address] [facility], [place], [address], 10/02/2024 15:12:06 09/26/20 24 10/02/2024 FREE K+L LT CHAIN S, SERUM free lambda lt chain, serum 12.9 mg/L 5.7-26 .3 Not Available [facility] ([facility]) [address] [facility], [place], [address], 10/02/2024 15:12:06 09/26/20 24 10/02/2024 FREE K+L LT CHAIN S, SERUM kappa/lambda ratio, serum 1.73 0.26-1 .65 high Perfo [place]med at: [place] [address] Lab Direc tor: Rei mckenzie PhD, Phone : [phone] Not Available [facility] ([facility]) [address] [place], [address], 10/02/2024 15:12:06 01/31/20 25 01/30/2025 CBC AUTO W DIFF WBC 9.5 K/uL 4.0-10 .5 Not Available [facility] ([facility]) [address] [place], [address], 01/30/2025 12:56:42 01/31/20 25 01/30/2025 CBC AUTO W DIFF RBC 4.7 M/mm3 4.2-6. 4 Not Available [facility] ([facility]) [address] , [place], [address], 01/30/2025 12:56:42 01/31/20 25 01/30/2025 CBC AUTO W DIFF HGB 13.6 gm/dL 12.5-1 6.0 Not Available [facility] ([facility]) [address], [place], [address], 01/30/2025 12:56:42 01/31/20 25 01/30/2025 CBC AUTO W DIFF HCT 41.5 % 37.0-4 7.0 Not Available [facility] ([facility]) [address], [place], [address], 01/30/2025 12:56:42 01/31/20 25 01/30/2025 CBC AUTO W DIFF MCV 89.1 fL 78-100 Not Available [facility] ([facility]) [address], [place], [address], 01/30/2025 12:56:42 01/31/20 25 01/30/2025 CBC AUTO W DIFF MCH 29.2 pg 27-31 Not Available [facility] ([facility]) [address] , [place], [address], 01/30/2025 12:56:42 01/31/20 25 01/30/2025 CBC AUTO W DIFF MCHC 32.8 g/dL 32-36 Not Available [facility] ([facility]) [address] [place], [address], 01/30/2025 12:56:42 01/31/20 25 01/30/2025 CBC AUTO W DIFF RDW 13.7 % 11.5-1 4.0 Not Available [facility] ([facility]) [address] , [place], [address], 01/30/2025 12:56:42 01/31/20 25 01/30/2025 CBC AUTO W DIFF platelet count 252 K/uL 150-45 0 Not Available [facility] ([facility]) [address], [place], [address], 01/30/2025 12:56:42 01/31/20 25 01/30/2025 CBC AUTO W DIFF MPV 10.0 fL 6-9.5 high Not Available [facility] ([facility]) [address], [place], [address], 01/30/2025 12:56:42 01/31/20 25 01/30/2025 CBC AUTO W DIFF neutrophil% 58.5 % 43-65 Not Available [facility] ([facility]) [address], [place], [address], 01/30/2025 12:56:42 01/31/20 25 01/30/2025 CBC AUTO W DIFF lymphocyte% 30.4 % 20.5-4 5.5 Not Available [facility] ([facility]) [address] , [place], [address], 01/30/2025 12:56:42 01/31/20 25 01/30/2025 CBC AUTO W DIFF monocyte% 8.3 % 5.5-11 .7 Not Available [facility] ([facility]) [address] , [place], [address], 01/30/2025 12:56:42 01/31/20 25 01/30/2025 CBC AUTO W DIFF eosinophil% 2.1 % 0.9-2. 9 Not Available [facility] ([facility]) [address] [place], [address], 01/30/2025 12:56:42 01/31/20 25 01/30/2025 CBC AUTO W DIFF basophil% 0.4 % 0.2-1. 0 Not Available [facility] ([facility]) [address] [place], [address], 01/30/2025 12:56:42 01/31/20 25 01/30/2025 CBC AUTO W DIFF immature granulocytes % 0.3 % 0.0-0. 8 Not Available [facility] ([facility]) [address] [place], [address], 01/30/2025 12:56:42 01/31/20 25 01/30/2025 CBC AUTO W DIFF nucleated red blood cells % 0.0 % Not Available [facility] ([facility]) [address] [facility], [place], [address], 01/30/2025 12:56:42 01/31/20 25 01/30/2025 CBC AUTO W DIFF neutrophil# 5.6 K/uL 2.2-4. 8 high Not Available [facility] ([facility]) [address] [place], [address], 01/30/2025 12:56:42 01/31/20 25 01/30/2025 CBC AUTO W DIFF lymphocyte# 2.9 cell/ mcL 1.3-2. 9 Not Available [facility] ([facility]) [address] [place], [address], 01/30/2025 12:56:42 01/31/20 25 01/30/2025 CBC AUTO W DIFF monocyte# 0.8 cell/ mcL 0.3-0. 8 Not Available [facility] ([facility]) [address] [place], [address], 01/30/2025 12:56:42 01/31/20 25 01/30/2025 CBC AUTO W DIFF eosinophil# 0.2 cell/ mcL 0-0.2 Not Available [facility] ([facility]) [address] [facility] [place], [address], 01/30/2025 12:56:42 01/31/20 25 01/30/2025 CBC AUTO W DIFF basophil# 0.0 cell/ mcL 0.0-1. 0 Not Available [facility] ([facility]) [address] , [place], [address], 01/30/2025 12:56:42 01/31/20 25 01/30/2025 CBC AUTO W DIFF immature gramulocytes # 0.03 K/uL Not Available [facility] ([facility]) [address] , [place], [address], 01/30/2025 12:56:42 01/31/20 25 01/30/2025 CBC AUTO W DIFF nucleated red blood cells # 0.00 K/uL Not Available [facility] ([facility]) [address] , [place], [address], 01/30/2025 12:56:42 01/31/20 25 01/30/2025 CBC AUTO W DIFF manual differential NO Not Available [facility] ([facility]) [address] , [place], [address], 01/30/2025 12:56:42 01/31/20 25 01/30/2025 IRON STUDY (IRON /TIBC /%SAT ) iron 71 mcg/m L 40-180 Not Available [facility] ([facility]) [address] , [place], [address], 01/30/2025 14:21:34 01/31/20 25 01/30/2025 IRON STUDY (IRON /TIBC /%SAT ) TIBC 319 mcg/d L 250-45 0 Not Available [facility] ([facility]) [address] , [place], [address], 01/30/2025 14:21:34 01/31/20 25 01/30/2025 IRON STUDY (IRON /TIBC /%SAT ) %sat 22 15-55 Not Available [facility] ([facility]) [address] , [place], [address], 01/30/2025 14:21:34 01/31/20 25 01/30/2025 COMP METAB OLIC PANEL sodium 142 mmol/ L 136-14 5 Not Available [facility] ([facility]) [address], [place], [address], 01/30/2025 15:23:14 01/31/20 25 01/30/2025 COMP METAB OLIC PANEL potassium 4.2 mmol/ L 3.6-5. 0 Not Available [facility] ([facility]) [address], [place], [address], 01/30/2025 15:23:14 01/31/20 25 01/30/2025 COMP METAB OLIC PANEL chloride 105 mmol/ L 98-107 Not Available [facility] ([facility]) [address], [place], [address], 01/30/2025 15:23:14 01/31/20 25 01/30/2025 COMP METAB OLIC PANEL carbon dioxide 29.4 mmol/ L 21.0-3 2.0 Not Available [facility] ([facility]) [address] [place], [address], 01/30/2025 15:23:14 01/31/20 25 01/30/2025 COMP METAB OLIC PANEL anion gap 11.8 Not Available [facility] ([facility]) [address] [place], [address], 01/30/2025 15:23:14 01/31/20 25 01/30/2025 COMP METAB OLIC PANEL glucose 115 mg/dL 70-120 Not Available [facility] ([facility]) [address] [place], [address], 01/30/2025 15:23:14 01/31/20 25 01/30/2025 COMP METAB OLIC PANEL BUN 9 mg/dL 7-18 Not Available [facility] ([facility]) [address], [place], [address], 01/30/2025 15:23:14 01/31/20 25 01/30/2025 COMP METAB OLIC PANEL creatinine 0.9 mg/dL 0.6-1. 3 Not Available [facility] ([facility]) [address], [place], [address], 01/30/2025 15:23:14 01/31/20 25 01/30/2025 COMP METAB OLIC PANEL glomerular filtration rate 71 mlper min 60- GFR LIMIT ATION : The eGFR equat ion CKD-E PI 2020 is not appli cable for pedia tric patie nts or great er than 90 years of age. The follo wing condi tions may alter the GFR resul t: extre mes in body size, malnu triti on or obesi ty, skele isra muscl e disea se, parap legia or quadr ipleg ia, veget serafin diet or rapid ly javier ing kiney funct ion. Not Available [facility] ([facility]) [address], [place], [address], 01/30/2025 15:23:14 01/31/20 25 01/30/2025 COMP METAB OLIC PANEL osmolality (calculated) 295 mOsm/ kg 275-30 1 OSMOL ALITY IS A CALCU LATIO N UTILI ZING THE SERUM /PLAS MA SODIU M, GLUCO SE AND UREA NITRO GEN (BUN) LEVEL S. FOR THE MOST ACCUR ATE RESUL T A MEASU RED SERUM OSMOL ALITY IS SUGGE STED. Not Available [facility] ([facility]) [address], [place], [address], 01/30/2025 15:23:14 01/31/20 25 01/30/2025 COMP METAB OLIC PANEL total protein 7.8 g/dL 6.4-8. 2 Not Available [facility] ([facility]) [address] , [place], [address], 01/30/2025 15:23:14 01/31/20 25 01/30/2025 COMP METAB OLIC PANEL albumin 3.5 g/dL 3.4-5. 0 Not Available [facility] ([facility]) [address] , [place], [address], 01/30/2025 15:23:14 01/31/20 25 01/30/2025 COMP METAB OLIC PANEL globulin 4.3 Not Available [facility] ([facility]) [address] , [place], [address], 01/30/2025 15:23:14 01/31/20 25 01/30/2025 COMP METAB OLIC PANEL alb/glob ratio 0.8 0.7-2 Not Available [facility] ([facility]) [address] , [place], [address], 01/30/2025 15:23:14 01/31/20 25 01/30/2025 COMP METAB OLIC PANEL calcium 9.3 mg/dL 8.5-10 .5 Not Available [facility] ([facility]) [address] , [place], [address], 01/30/2025 15:23:14 01/31/20 25 01/30/2025 COMP METAB OLIC PANEL bilirubin total 0.70 mg/dL 0.10-1 .00 Not Available [facility] ([facility]) [address], [place], [address], 01/30/2025 15:23:14 01/31/20 25 01/30/2025 COMP METAB OLIC PANEL AST (SGOT) 24 U/L 0-37 Not Available [facility] ([facility]) [address], [place], [address], 01/30/2025 15:23:14 01/31/20 25 01/30/2025 COMP METAB OLIC PANEL ALT (SGPT) 37 U/L 0-65 Not Available [facility] ([facility]) [address] , [place], [address], 01/30/2025 15:23:14 01/31/20 25 01/30/2025 COMP METAB OLIC PANEL alk phosphatase 90 U/L 46-116 Not Available [facility] ([facility]) [address] , [place], [address], 01/30/2025 15:23:14 01/31/20 25 01/30/2025 LDH (LD) LDH 180 U/L 0-190 Not Available [facility] ([facility]) [address], [place], [address], 01/30/2025 15:24:17 01/31/20 25 01/30/2025 ALLAN TIN ferritin, serum 236 NG/mL 3-244 Not Available [facility] ([facility]) [address], [place], [address], 01/30/2025 15:24:19 01/31/20 25 02/01/2025 PROTE IN ELECT ROP RESIS SERUM total protein, serum 7.2 g/dL 6.0-8. 5 Not Available [facility] ([facility]) [address], [place], [address], 02/01/2025 15:11:16 01/31/20 25 02/01/2025 PROTE IN ELECT ROPHO RESIS SERUM albumin 3.8 g/dL 2.9-4. 4 Not Available [facility] ([facility]) [address], [place], [address], 02/01/2025 15:11:16 01/31/20 25 02/01/2025 PROTE IN ELECT ROPHO RESIS SERUM alpha-1 globulin 0.2 g/dL 0.0-0. 4 Not Available [facility] ([facility]) [address], [place], [address], 02/01/2025 15:11:16 01/31/20 25 02/01/2025 PROTE IN ELECT ROPHO RESIS SERUM ddycb-7-eagl ulin 0.9 g/dL 0.4-1. 0 Not Available [facility] ([facility]) [address], [place], [address], 02/01/2025 15:11:16 01/31/20 25 02/01/2025 PROTE IN ELECT ROPHO RESIS SERUM beta globulin 0.9 g/dL 0.7-1. 3 Not Available [facility] ([facility]) [address], [place], [address], 02/01/2025 15:11:16 01/31/20 25 02/01/2025 PROTE IN ELECT ROPHO RESIS SERUM gamma globulin 1.4 g/dL 0.4-1. 8 Not Available [facility] ([facility]) [address] [facility], [place], [address], 02/01/2025 15:11:16 01/31/20 25 02/01/2025 PROTE IN ELECT ROPHO RESIS SERUM M-spike 0.9 g/dL not observ ed high Not Available [facility] ([facility]) [address] , [place], [address], 02/01/2025 15:11:16 01/31/20 25 02/01/2025 PROTE IN ELECT ROPHO RESIS SERUM total globulin 3.4 g/dL 2.2-3. 9 Not Available [facility] ([facility]) [address] [facility], [place], [address], 02/01/2025 15:11:16 01/31/20 25 02/01/2025 PROTE IN ELECT ROPHO RESIS SERUM A/G ratio 1.1 0.7-1. 7 Not Available [facility] ([facility]) [address] [facility], [place], [address], 02/01/2025 15:11:16 01/31/20 25 02/01/2025 PROTE IN ELECT ROPHO RESIS SERUM pdf . Perfo rmed at: [facility] [address] [place] [address] Lab Direc tor: Rei mckenzie PhD, Phone : [phone] Not Available [facility] ([facility]) [address] [facility], [place], [address], 02/01/2025 15:11:16 01/31/20 25 02/01/2025 PROTE IN ELECT ROPHO RESIS SERUM please note Dannie t . Prote in elect ropho resis scan will follo w via compu ter, mail, or couri er cecil esquivel. Not Available [facility] ([facility]) [address] [facility], [place], [address], 02/01/2025 15:11:16 01/31/20 25 02/01/2025 IMMUN OFIXA TION, SERUM (ELAINA) IgA 130 mg/dL 87-352 Not Available [facility] ([facility]) [address] [facility], [place], [address], 02/01/2025 15:12:29 01/31/20 25 02/01/2025 IMMUN OFIXA TION, SERUM (ELAINA) IgM 1236 mg/dL 26-217 high Resul ts confi rmed on dilut ion. Perfo rmed at: - [facility] [address] [place] [address] Lab Direc tor: Rei mckenzie PhD, Phone : [phone] Not Available [facility] ([facility]) [address] [facility], [place], [address], 02/01/2025 15:12:29 01/31/20 25 02/01/2025 IMMUN OFIXA TION, SERUM (ELAINA) IgG 650 mg/dL 586-16 02 Not Available [facility] ([facility]) [address] , [place], [address], 02/01/2025 15:12:29 01/31/20 25 02/01/2025 IMMUN OFIXA TION, SERUM (ELAINA) immunofixati on, serum (elaina) Commen t delta Immun ofixa tion shows IgM monoc lonal prote in with kappa light chain speci ficit y. Not Available [facility] ([facility]) [address], [place], [address], 02/01/2025 15:12:29 01/31/20 25 02/01/2025 FREE K+L LT CHAIN S, SERUM free kappa lt chain, serum 21.5 mg/L 3.3-19 .4 high Not Available [facility] ([facility]) [address], [place], [address], 02/01/2025 15:12:30 01/31/20 25 02/01/2025 FREE K+L LT CHAIN S, SERUM free lambda lt chain, serum 12.8 mg/L 5.7-26 .3 Not Available [facility] ([facility]) [address], [place], [address], 02/01/2025 15:12:30 01/31/20 25 02/01/2025 FREE K+L LT CHAIN S, SERUM kappa/lambda ratio, serum 1.68 0.26-1 .65 high Perfo rmed at: [facility] [address] [facility], [place] [address] Lab Direc tor: Rei mckenzie PhD, Phone : [phone] Not Available [facility] ([facility]) [address] , [place], [address], 02/01/2025 15:12:30 03/27/20 25 03/27/2025 CBC AUTO W DIFF WBC 9.5 K/uL 4.0-10 .5 Not Available [facility] ([facility]) [address], [place], [address], 03/27/2025 14:21:11 03/27/20 25 03/27/2025 CBC AUTO W DIFF RBC 4.5 M/mm3 4.2-6. 4 Not Available [facility] ([facility]) [address] , [place], [address], 03/27/2025 14:21:11 03/27/20 25 03/27/2025 CBC AUTO W DIFF HGB 13.3 gm/dL 12.5-1 6.0 Not Available [facility] ([facility]) [address] , [place], [address], 03/27/2025 14:21:11 03/27/20 25 03/27/2025 CBC AUTO W DIFF HCT 40.0 % 37.0-4 7.0 Not Available [facility] ([facility]) [address] , [place], [address], 03/27/2025 14:21:11 03/27/20 25 03/27/2025 CBC AUTO W DIFF MCV 88.3 fL 78-100 Not Available [facility] ([facility]) [address] , [place], [address], 03/27/2025 14:21:11 03/27/20 25 03/27/2025 CBC AUTO W DIFF MCH 29.4 pg 27-31 Not Available [facility] ([facility]) [address] , [place], [address], 03/27/2025 14:21:11 03/27/20 25 03/27/2025 CBC AUTO W DIFF MCHC 33.3 g/dL 32-36 Not Available [facility] ([facility]) [address] , [place], [address], 03/27/2025 14:21:11 03/27/20 25 03/27/2025 CBC AUTO W DIFF RDW 12.9 % 11.5-1 4.0 Not Available [facility] ([facility]) [address], [place], [address], 03/27/2025 14:21:11 03/27/20 25 03/27/2025 CBC AUTO W DIFF platelet count 278 K/uL 150-45 0 Not Available [facility] ([facility]) [address], [place], [address], 03/27/2025 14:21:11 03/27/20 25 03/27/2025 CBC AUTO W DIFF MPV 10.2 fL 6-9.5 high Not Available [facility] ([facility]) [address], [place], [address], 03/27/2025 14:21:11 03/27/20 25 03/27/2025 CBC AUTO W DIFF neutrophil% 50.2 % 43-65 Not Available [facility] ([facility]) [address] [facility], [place], [address], 03/27/2025 14:21:11 03/27/20 25 03/27/2025 CBC AUTO W DIFF lymphocyte% 38.2 % 20.5-4 5.5 Not Available [facility] ([facility]) [address] [place], [address], 03/27/2025 14:21:11 03/27/20 25 03/27/2025 CBC AUTO W DIFF monocyte% 9.1 % 5.5-11 .7 Not Available [facility] ([facility]) [address] [place], [address], 03/27/2025 14:21:11 03/27/20 25 03/27/2025 CBC AUTO W DIFF eosinophil% 1.8 % 0.9-2. 9 Not Available [facility] ([facility]) [address] [place], [address], 03/27/2025 14:21:11 03/27/20 25 03/27/2025 CBC AUTO W DIFF basophil% 0.4 % 0.2-1. 0 Not Available [facility] ([facility]) [address] [facility], [place], [address], 03/27/2025 14:21:11 03/27/20 25 03/27/2025 CBC AUTO W DIFF immature granulocytes % 0.3 % 0.0-0. 8 Not Available [facility] ([facility]) [address] [facility], [place], [address], 03/27/2025 14:21:11 03/27/20 25 03/27/2025 CBC AUTO W DIFF nucleated red blood cells % 0.0 % Not Available [facility] ([facility]) [address] [facility], [place], [address], 03/27/2025 14:21:11 03/27/20 25 03/27/2025 CBC AUTO W DIFF neutrophil# 4.8 K/uL 2.2-4. 8 Not Available [facility] ([facility]) [address] [facility], [place], [address], 03/27/2025 14:21:11 03/27/20 25 03/27/2025 CBC AUTO W DIFF lymphocyte# 3.6 cell/ mcL 1.3-2. 9 high Not Available [facility] ([facility]) [address] [place], [address], 03/27/2025 14:21:11 03/27/20 25 03/27/2025 CBC AUTO W DIFF monocyte# 0.9 cell/ mcL 0.3-0. 8 high Not Available [facility] ([facility]) [address] [facility], [place], [address], 03/27/2025 14:21:11 03/27/20 25 03/27/2025 CBC AUTO W DIFF eosinophil# 0.2 cell/ mcL 0-0.2 Not Available [facility] ([facility]) [address], [place], [address], 03/27/2025 14:21:11 03/27/20 25 03/27/2025 CBC AUTO W DIFF basophil# 0.0 cell/ mcL 0.0-1. 0 Not Available [facility] ([facility]) [address], [place], [address], 03/27/2025 14:21:11 03/27/20 25 03/27/2025 CBC AUTO W DIFF immature gramulocytes # 0.03 K/uL Not Available [facility] ([facility]) [address], [place], [address], 03/27/2025 14:21:11 03/27/20 25 03/27/2025 CBC AUTO W DIFF nucleated red blood cells # 0.00 K/uL Not Available [facility] ([facility]) [address], [place], [address], 03/27/2025 14:21:11 03/27/20 25 03/27/2025 CBC AUTO W DIFF manual differential NO Not Available [facility] ([facility]) [address], [place], [address], 03/27/2025 14:21:11 03/27/20 25 03/27/2025 IRON STUDY (IRON /TIBC /%SAT ) iron 81 mcg/m L 40-180 Not Available [facility] ([facility]) [address] [place], [address], 03/27/2025 14:51:09 03/27/20 25 03/27/2025 IRON STUDY (IRON /TIBC /%SAT ) TIBC 327 mcg/d L 250-45 0 Not Available [facility] ([facility]) [address] , [place], [address], 03/27/2025 14:51:09 03/27/20 25 03/27/2025 IRON STUDY (IRON /TIBC /%SAT ) %sat 25 15-55 Not Available [facility] ([facility]) [address] , [place], [address], 03/27/2025 14:51:09 03/27/20 25 03/27/2025 COMP METAB OLIC PANEL sodium 138 mmol/ L 136-14 5 Not Available [facility] ([facility]) [address] , [place], [address], 03/27/2025 15:09:00 03/27/20 25 03/27/2025 COMP METAB OLIC PANEL potassium 3.7 mmol/ L 3.6-5. 0 Not Available [facility] ([facility]) [address] , [place], [address], 03/27/2025 15:09:00 03/27/20 25 03/27/2025 COMP METAB OLIC PANEL chloride 101 mmol/ L 98-107 Not Available [facility] ([facility]) [address] , [place], [address], 03/27/2025 15:09:00 03/27/20 25 03/27/2025 COMP METAB OLIC PANEL carbon dioxide 30.2 mmol/ L 21.0-3 2.0 Not Available [facility] ([facility]) [address] , [place], [address], 03/27/2025 15:09:00 03/27/20 25 03/27/2025 COMP METAB OLIC PANEL anion gap 10.5 Not Available [facility] ([facility]) [address] , [place], [address], 03/27/2025 15:09:00 03/27/20 25 03/27/2025 COMP METAB OLIC PANEL glucose 112 mg/dL 70-120 Not Available [facility] ([facility]) [address], [place], [address], 03/27/2025 15:09:00 03/27/20 25 03/27/2025 COMP METAB OLIC PANEL BUN 9 mg/dL 7-18 Not Available [facility] ([facility]) [address], [place], [address], 03/27/2025 15:09:00 03/27/20 25 03/27/2025 COMP METAB OLIC PANEL creatinine 0.9 mg/dL 0.6-1. 3 Not Available [facility] ([facility]) [address], [place], [address], 03/27/2025 15:09:00 03/27/20 25 03/27/2025 COMP METAB OLIC PANEL glomerular filtration rate 71 mlper min 60- GFR LIMIT ATION : The eGFR equat ion CKD-E PI 2020 is not appli cable for pedia tric patie nts or great er than 90 years of age. The follo wing condi tions may alter the GFR resul t: extre mes in body size, malnu triti on or obesi ty, skele isra muscl e disea se, parap legia or quadr ipleg ia, veget serafin diet or rapid ly javier ing kiney funct ion. Not Available [facility] ([facility]) [address], [place], [address], 03/27/2025 15:09:00 03/27/20 25 03/27/2025 COMP METAB OLIC PANEL osmolality (calculated) 287 mOsm/ kg 275-30 1 OSMOL ALITY IS A CALCU LATIO N UTILI ZING THE SERUM /PLAS MA SODIU M, GLUCO SE AND UREA NITRO GEN (BUN) LEVEL S. FOR THE MOST ACCUR ATE RESUL T A MEASU RED SERUM OSMOL ALITY IS SUGGE STED. Not Available [facility] ([facility]) [address], [place], [address], 03/27/2025 15:09:00 03/27/20 25 03/27/2025 COMP METAB OLIC PANEL total protein 7.9 g/dL 6.4-8. 2 Not Available [facility] ([facility]) [address] , [place], [address], 03/27/2025 15:09:00 03/27/20 25 03/27/2025 COMP METAB OLIC PANEL albumin 3.7 g/dL 3.4-5. 0 Not Available [facility] ([facility]) [address] , [place], [address], 03/27/2025 15:09:00 03/27/20 25 03/27/2025 COMP METAB OLIC PANEL globulin 4.2 Not Available [facility] ([facility]) [address] , [place], [address], 03/27/2025 15:09:00 03/27/20 25 03/27/2025 COMP METAB OLIC PANEL alb/glob ratio 0.9 0.7-2 Not Available [facility] ([facility]) [address] , [place], [address], 03/27/2025 15:09:00 03/27/20 25 03/27/2025 COMP METAB OLIC PANEL calcium 9.2 mg/dL 8.5-10 .5 Not Available [facility] ([facility]) [address] [place], [address], 03/27/2025 15:09:00 03/27/20 25 03/27/2025 COMP METAB OLIC PANEL bilirubin total 0.70 mg/dL 0.10-1 .00 Not Available [facility] ([facility]) [address] , [place], [address], 03/27/2025 15:09:00 03/27/20 25 03/27/2025 COMP METAB OLIC PANEL AST (SGOT) 21 U/L 0-37 Not Available [facility] ([facility]) [address], [place], [address], 03/27/2025 15:09:00 03/27/20 25 03/27/2025 COMP METAB OLIC PANEL ALT (SGPT) 36 U/L 0-65 Not Available [facility] ([facility]) [address] [address], [place], [address], 03/27/2025 15:09:00 03/27/20 25 03/27/2025 COMP METAB OLIC PANEL alk phosphatase 86 U/L 46-116 Not Available [facility] ([facility]) [address], [place], [address], 03/27/2025 15:09:00 03/27/20 25 03/27/2025 ALLAN TIN ferritin, serum 183 NG/mL 3-244 Not Available [facility] ([facility]) [address], [place], [address], 03/27/2025 15:09:02 03/27/20 25 03/27/2025 VITAM IN B12 vitamin B12 243 pg/mL 193-98 6 *Note : Refer chucho Jewell. New Test Metho d in use. Not Available [facility] ([facility]) [address] [facility], [place], [address], 03/27/2025 15:21:10 03/27/20 25 03/27/2025 VITAM IN B12 folate (folic acid), serum 5.8 NG/mL 8.6-58 .9 low *Note : Refer chucho Jewell. New Test Metho d in use. Not Available [facility] ([facility]) [address], [place], [address], 03/27/2025 15:21:10 10/07/20 23 10/06/2023 XR, osseo us surve y, compl ete [facility] Hospit al [address] [place] [address] Phone: Fax: Name: REECE GREEN Exam Date: : [birth year] Age 63 Gender : F Access ion: [id number] Physic marlene: JAIRON SALEH Facili ty: [facility] Facili ty HSV: Outpat ient Exam: BONE SURVEY COMPLE TE COMPLE TE BONE SURVEY . HISTOR Y: Monocl onal gammop athy of uncert ain signif icance , histor y of lympho ma. FINDIN GS: 2 views of the skull, 2 views of the cervic al spine, 4 views of the thorac ic spine, 2 views of the lumbar spine, 2 views of the right humeru s, 2 views of the left humeru s, single view of the pelvis , 2 views of the right femur, and 3 views of the left femur were perfor med. There are no lytic lesion s identi fied in the skull. No lytic lesion s are identi fied in the cervic al spine. There is slight levocu rvatur e of the thorac ic spine. No lytic lesion s are identi fied in the thorac ic spine. There are no lytic lesion s in the bilate ral humeri . Degene rative change s are identi fied in the lumbar spine. No lytic lesion s are identi fied in the lumbar spine. There is mild degene rative change in the pelvis . No lytic lesion s are identi fied in the pelvis . In the left femur, there are questi onable lucent lesion s in the proxim al diaphy sis. Assess ment with MR may be of benefi t. Right femur is unrema rkable . IMPRES NAHID: Questi onable lucent lesion s in the left proxim al femur. Consid er MR. The films were review ed, interp reted, and dictat ed by Dr. Colleen Ball Transc ribed by Javier Castro PA-C Dictat ed By: COLLEEN BALL Transc ribed By: Colleen Ball Transc ribed On: 10:24 AM Electr onical ly signed by: COLLEEN BALL Thank you for referr ing REECE GREEN to [facility]. Legall y authen ticate d by POPE COLLEEN Britton 2022-10 10:24: 31 CC'ed Logic: Orderi ng Provid er: DELFINO FUNG Attend ing Provid er: DELFINO FUNG Referr ing Provid er: DELFINO FUNG Admitt ing Provid er: DELFINO FUNG [facility] - Physical Therapy [address] [facility], [place], [address], 10/10/2023 11:21:11 10/14/20 23 10/14/2023 CT biops y bone marro w [facility] [address] [facility] [place] [address] Phone: Fax: Name: REECE GREEN Exam Date: 2022 : [birth year] Age 63 Gender : F Access ion: [id number] Physic marlene: JAIRON SALEH Facili ty: [facility] Facili ty HSV: Outpat ient Exam: CT BIOPSY BONE MARROW CT-MIGUEL DED BONEMA RROW BIOPSY HISTOR Y: Lympho ma CONSCI OUS SEDATI ON: 1 mg of IV Versed and 0.25 mcg of fentan yl were admini stered . Contin uous vital sign monito ring was used. Nursin g staff was presen t during the sedati on proces s. Overal l sedati on time was 30 minute s. TECHNI QUE: The skin was preppe d in a routin e steril e fashio n and locall y anesth etized with 1% lidoca ine. Using CT guidan ce a 15 mL bone marrow aspira te was obtain ed. A 0.5 cm core was also obtain ed. Proced ure was well tolera rishabh . CONCLU NAHID: 1. Techni dago succes sful CT guided bone marrow biopsy . The films were review ed, interp reted, and dictat ed by Dr. Marcella Nino Transc ribed by Miladys Escamilla se, PA-C. Dictat ed By: Marcella Moore Transc ribed By: Mangeb , Ivo Transc ribed On: 2022 11:03 AM Electr onical ly signed by: Marcella Moore 2022 [facility] Legall y authen ticate d by SANCHO Avelar IVO 2022-10 11:03: 55 CC'ed Logic: Orderi ng Provid er: DELFINO FUNG Attend ing Provid er: DELFINO FUNG Referr ing Provid er: DELFINO FUNG Admitt ing Provid er: DELFINO FUNG [id number] [facility] - Physical Therapy [address] [facility], [place], [address], 10/14/2023 13:04:50 08/13/20 24 08/13/2024 CT ABD pel w/ (IV [facility] [address] [facility] [facility] [place] [address] Phone: Fax: Name: REECE GREEN Exam Date: 2023 : [birth year] Age 64 years Gender : F Access ion: [id number] Physic marlene: JAIRON SALEH Facili ty: [facility] Facili ty HSV: Outpat ient Exam: CT ABD PEL W/ (IV ^ ORAL) PROCED URE: CT CHEST WITH IV CONTRA ST, CT ABDOME N PELVIS WITH IV CONTRA ST CLINIC AL INDICA TION:s mall cell b-call . COMPAR YVONNE: 2022 and 022. TECHNI QUE: Helica l CT acquis ition perfor med of the chest, abdome n and pelvis with davenport l and sagitt al reform ats. IV Contra st: 98 ml Isovue 300. PO Contra st: 30 ml Gastro view mixed with water. . . Compli cation s: None. FINDIN GS: Medias tinum: No signif icant lympha denopa thy.. Imaged airway s patent .Image d thyroi d gland normal . Heart and great vessel s: Heart normal size,. No signif icant perica rdial effusi on.. Aorta normal calibe r. No eviden ce for dissec tion. Visual ized proxim al great vessel s normal .Few scatte red davenport ry artery calcif icatio ns. Lungs: Clear withou t focal consol idatio n. No nodule s or masses . No pleura l effusi ons.No pneumo thorax . Free abdomi nal air: None Hepato biliar y system : Approx imatel y 1 cm relati vely hypode nse struct ure in the superi or right hepati c lobe simila r to prior, probab ly a cyst. Attenu ation normal . No intra- or extrah epatic biliar y ductal dilata tion.M ultipl e up to approx imatel y 1 cm rim calcif ied struct ures in the left lower anteri or abdome n simila r to prior, possib ly treate d lymph nodes. Gallbl adder: Surgic ally absent . Spleen : Normal size. Pancre as: No focal masses . No pancre atic ductal dilata tion. No signif icant peripa ncreat ic inflam matory change s. Adrena l glands : No focal mass Kidney s and collec ting system : Normal morpho logy.N o hydron ephros is or nephro lithia sis. Gastro intest inal: No eviden ce for obstru ction. No defini te wall thicke garland. No defini te inflam matory fat strand ing. Normal duoden al sweep. Append ix: Not reliab ly identi fied. No defini te second dwight signs of append icitis . Vascul ature: Portal and spleni c veins patent . Aorta normal calibe r. Nodes: No signif icant lympha denopa thy. Pelvic organs : Pelvic organs not visual ized. Urinar y bladde r: Poorly disten ded. No signif icant wall thicke garland. Free fluid: None. Legall y authen ticate d by BLANCA RUSSELL 2023-10 0-14 10:47: 16 Soft tissue s: No signif icant inflam matory change s.No eviden ce for body wall hernia .Scatt ered subcut aneous inject ion granul omas. Bones: Minima l depres nahid of the superi or endpla te of L3 simila r to prior. No acute fractu re. No suspic ious bone lesion . IMPRES NAHID: No acute findin gs. No eviden ce for metast atic diseas e in the chest, abdome n or pelvis . Total Exam CT Dose Index: 4.78, 6.81 mGy Total Exam Dose Length Produc t:563. 99 mGy-cm CT Dose reduct ion techni ques were utiliz ed for this examin ation with 1 or more of the follow ing: Automa rishabh exposu re contro l and/or adjust ment of the mA or kV accord ing to patien t size, and/or use of iterat jeovany recons tructi on techni que. This dictat ion was perfor med using voice recogn ition softwa re and some phonet ic and gramma tical errors may have been missed in proofr eading . Electr onical ly signed by:Erik Reynoso i, MD07/31 01:43 PM EDT RP Workst ation: [id number] Dictat ed By: Osiel Reynoso i Transc ribed By: Transc ribed On: 2023 10:47 AM Electr onical ly signed by: Osiel Reynoso i 2023 [facility] you [facility] Legall y authen ticate d by BLANCA RUSSELL 2023-10 10:47: 16 CC'ed Logic: Orderi ng Provid er: DELFINO FUNG Attend ing Provid er: DELFINO FUNG Referr ing Provid er: DELFINO FUNG Admitt ing Provid er: DELFINO [address] - Physical Therapy [address] [facility], [place], [address], 08/16/2024 10:26:36 08/13/20 24 08/13/2024 CT, chest , w/ contr ast [facility] [address] [place] [address] Phone: Fax: Name: REECE GREEN Exam Date: 2023 : [birth year] Age 64 years Gender : F Access ion: [id number] Physic marlene: JAIRON SALEH Facili ty: [facility] Facili ty HSV: Outpat ient Exam: CT CHEST W PROCED URE: CT CHEST WITH IV CONTRA ST, CT ABDOME N PELVIS WITH IV CONTRA ST CLINIC AL INDICA TION:s mall cell b-call . COMPAR YVONNE: 2022 and 022. TECHNI QUE: Helica l CT acquis ition perfor med of the chest, abdome n and pelvis with davenport l and sagitt al reform ats. IV Contra st: 98 ml Isovue 300. PO Contra st: 30 ml Gastro view mixed with water. . . Compli cation s: None. FINDIN GS: Medias tinum: No signif icant lympha denopa thy.. Imaged airway s patent .Image d thyroi d gland normal . Heart and great vessel s: Heart normal size,. No signif icant perica rdial effusi on.. Aorta normal calibe r. No eviden ce for dissec tion. Visual ized proxim al great vessel s normal .Few scatte red davenport ry artery calcif icatio ns. Lungs: Clear withou t focal consol idatio n. No nodule s or masses . No pleura l effusi ons.No pneumo thorax . Free abdomi nal air: None Hepato biliar y system : Approx imatel y 1 cm relati vely hypode nse struct ure in the superi or right hepati c lobe simila r to prior, probab ly a cyst. Attenu ation normal . No intra- or extrah epatic biliar y ductal dilata tion.M ultipl e up to approx imatel y 1 cm rim calcif ied struct ures in the left lower anteri or abdome n simila r to prior, possib ly treate d lymph nodes. Gallbl adder: Surgic ally absent . Spleen : Normal size. Pancre as: No focal masses . No pancre atic ductal dilata tion. No signif icant peripa ncreat ic inflam matory change s. Adrena l glands : No focal mass Kidney s and collec ting system : Normal morpho logy.N o hydron ephros is or nephro lithia sis. Gastro intest inal: No eviden ce for obstru ction. No defini te wall thicke garland. No defini te inflam matory fat strand ing. Normal duoden al sweep. Append ix: Not reliab ly identi fied. No defini te second dwight signs of append icitis . Vascul ature: Portal and spleni c veins patent . Aorta normal calibe r. Nodes: No signif icant lympha denopa thy. Pelvic organs : Pelvic organs not visual ized. Urinar y bladde r: Poorly disten ded. No signif icant wall thicke garland. Free fluid: None. Legall y authen ticate d by BLANCA RUSSELL 2023-10 0-14 10:46: 57 Soft tissue s: No signif icant inflam matory change s.No eviden ce for body wall hernia .Scatt ered subcut aneous inject ion granul omas. Bones: Minima l depres nahid of the superi or endpla te of L3 simila r to prior. No acute fractu re. No suspic ious bone lesion . IMPRES NAHID: No acute findin gs. No eviden ce for metast atic diseas e in the chest, abdome n or pelvis . Total Exam CT Dose Index: 4.78, 6.81 mGy Total Exam Dose Length Produc t:563. 99 mGy-cm CT Dose reduct ion techni ques were utiliz ed for this examin ation with 1 or more of the follow ing: Automa rishabh exposu re contro l and/or adjust ment of the mA or kV accord ing to patien t size, and/or use of iterat jeovany recons tructi on techni que. This dictat ion was perfor med using voice recogn ition softwa re and some phonet ic and gramma tical errors may have been missed in proofr eading . Electr onical ly signed by:Erik Reynoso i, MD07/31 01:43 PM EDT RP Workst ation: [id number] Dictat ed By: Osiel Reynoso i Transc ribed By: Transc ribed On: 2023 10:46 AM Electr onical ly signed by: Osiel Reynoso i 2023 [facility] Legall y authen ticate d by BLANCA RUSSELL 2023-10 0-14 10:46: 57 CC'ed Logic: Orderi ng Provid er: DELFINO FUNG Attend ing Provid er: DELFINO FUNG Referr ing Provid er: DELFINO FUNG Admitt ing Provid er: DELFINO JAIRON [id number] [facility] - [facility] Therapy [address] [facility], [place], [address], 08/16/2024 10:26:47 02/05/20 25 01/30/2025 XR, osseo us surve y, compl [facility] [address] [place] [address] Phone: Fax: Name: REECE CHICAS Exam Date: 01/31/20 : [birth year] Age 64 years Gender : F Access ion: [id number] Physic marlene: HIRA MERINO Facili ty: [facility] Facili ty HSV: Outpat ient Exam: BONE SURVEY COMPLE TE X-ray bone survey comple te January 30, 2025 CLINIC AL HISTOR Y: monocl onal gammop athy of uncert ain signif icance . TECHNI QUE: Whole- body comple te bone scan perfor med. 14 images which includ e AP and latera l cervic al thorac ic and lumbar spine, AP and latera l skull, right and left upper extrem ity humeri , right and left femur. FINDIN GS: Bones are slight ly demine ralize d. Mild scolio sis. Mild concav ity to the superi or endpla marybel L2-L5, chroni c appear ing althou gh may be slight ly progre ssed compar ed to Decemb er 2022. Athero sclero tic diseas e aorta. On the AP view of the proxim al left femur, there is a questi onable lucent focus in the left femora l neck but I believ e may be artifa ctual, there is a skin fold overla pping this and this is not seen on the AP view of the pelvis . Multip le inject ion granul mariela presen t. Otherw ise no convin cing lytic or sclero tic osseou s lesion s seen. No osseou s destru ctive change or perios teal reacti on. IMPRES NAHID: No digita l x-ray eviden ce of lytic or sclero tic osseou s lesion s. Lucent focus in the left femur neck on one view only may be artifa ctual. If there are sympto ms pain, coned- down 2 view left hip repeat imagin g could be perfor med. Electr onical ly signed by: Odalys cox MD 2024 01:20 PM EDT RP Workst ation: [id number] Dictat ed By: ODALYS CHOW Transc ribed By: Transc ribed On: 01/31/20 12:22 PM Electr onical ly signed by: ODALYS CHOW 01/31/20 [facility] Legall y authen ticate d by GEN KRISHNAN 0 01-30 12:22: 35 CC'ed Logic: Orderi ng Provid er: SHELDON INIGUEZ Attend ing Provid er: SHELDON Valerio ing Provid er: SHELDON [address] [place] [address] - Physical Therapy [address] [place] [address], [address], 02/08/2025 13:30:45 Result Notes Documentation Provider Name and Address Organization Details Recorded Time Xr, Osseous Survey, Complete : [facility] [address] [place] [address] Name: REECE GREEN Exam Date: 10/06/2023 : 1960 Age 63 Gender: F Physician: JAIRON SALEH Facility: [facility] Facility HSV: Outpatient Exam: BONE SURVEY COMPLETE COMPLETE BONE SURVEY. HISTORY: Monoclonal gammopathy of uncertain significance, history of lymphoma. FINDINGS: 2 views of the skull, 2 views of the cervical spine, 4 views of the thoracic spine, 2 views of the lumbar spine, 2 views of the right humerus, 2 views of the left humerus, single view of the pelvis, 2 views of the right femur, and 3 views of the left femur were performed. There are no lytic lesions identified in the skull. No lytic lesions are identified in the cervical spine. There is slight levocurvature of the thoracic spine. No lytic lesions are identified in the thoracic spine. There are no lytic lesions in the bilateral humeri. Degenerative changes are identified in the lumbar spine. No lytic lesions are identified in the lumbar spine. There is mild degenerative change in the pelvis. No lytic lesions are identified in the pelvis. In the left femur, there are questionable lucent lesions in the proximal diaphysis. Assessment with MR may be of benefit. Right femur is unremarkable. IMPRESSION: Questionable lucent lesions in the left proximal femur. Consider MR. The films were reviewed, interpreted, and dictated by Dr. Colleen Ball Transcribed by Mary Castro PA-C Dictated By: COLLEEN BALL Transcribed By: Colleen Ball Transcribed On: 10/07/2023 10:24 AM Electronically signed by: COLLEEN BALL 10/07/2023 Thank you for referring REECE GREEN to [facility]. Legally authenticated by POPE COLLEEN Britton 2023-10-07 10:24:31 CC'ed Logic: Ordering Provider: DELFINO FUNG Attending Provider: DELFINO FUNG Referring Provider: DELFINO FUNG Admitting Provider: DELFINO Noriega [facility] 10/10/2023 11:21:11 Ct, Chest, W/ Contrast : [place] [address] Name: REECE GREEN Exam Date: 08/13/2024 : 1960 Age 64 years Gender: F Physician: JAIRON SALEH Facility: [facility] Facility HSV: Outpatient Exam: CT CHEST W PROCEDURE: CT CHEST WITH IV CONTRAST, CT ABDOMEN PELVIS WITH IV CONTRAST CLINICAL INDICATION:small cell b-call. COMPARISON: 08/11/2023 and 08/06/2022. TECHNIQUE: Helical CT acquisition performed of the chest, abdomen and pelvis with coronal and sagittal reformats. IV Contrast: 98 ml Isovue 300. PO Contrast: 30 ml Gastroview mixed with water.. . Complications: None. FINDINGS: Mediastinum: No significant lymphadenopathy.. Imaged airways patent.Imaged thyroid gland normal. Heart and great vessels: Heart normal size,. No significant pericardial effusion.. Aorta normal caliber. No evidence for dissection. Visualized proximal great vessels normal.Few scattered coronary artery calcifications. Lungs: Clear without focal consolidation. No nodules or masses. No pleural effusions.No pneumothorax. Free abdominal air: None Hepatobiliary system: Approximately 1 cm relatively hypodense structure in the superior right hepatic lobe similar to prior, probably a cyst. Attenuation normal. No intra- or extrahepatic biliary ductal dilatation.Multiple up to approximately 1 cm rim calcified structures in the left lower anterior abdomen similar to prior, possibly treated lymph nodes. Gallbladder: Surgically absent. Spleen: Normal size. Pancreas: No focal masses. No pancreatic ductal dilatation. No significant peripancreatic inflammatory changes. Adrenal glands: No focal mass Kidneys and collecting system: Normal morphology.No hydronephrosis or nephrolithiasis. Gastrointestinal: No evidence for obstruction. No definite wall thickening. No definite inflammatory fat stranding. Normal duodenal sweep. Appendix: Not reliably identified. No definite secondary signs of appendicitis. Vasculature: Portal and splenic veins patent. Aorta normal caliber. Nodes: No significant lymphadenopathy. Pelvic organs: Pelvic organs not visualized. Urinary bladder: Poorly distended. No significant wall thickening. Free fluid: None. Legally authenticated by TIFFANY RUSSELL 2024-08-13 10:46:57 Soft tissues: No significant inflammatory changes.No evidence for body wall hernia.Scattered subcutaneous injection granulomas. Bones: Minimal depression of the superior endplate of L3 similar to prior. No acute fracture. No suspicious bone lesion. IMPRESSION: No acute findings. No evidence for metastatic disease in the chest, abdomen or pelvis. Total Exam CT Dose Index:4.78, 6.81 mGy Total Exam Dose Length Product:563.99 mGy-cm CT Dose reduction techniques were utilized for this examination with 1 or more of the following: Automated exposure control and/or adjustment of the mA or kV according to patient size, and/or use of iterative reconstruction technique. This dictation was performed using voice recognition software and some phonetic and grammatical errors may have been missed in proofreading. Electronically signed by:Osiel Whitt MD08/13/2024 01:43 PM EDT Dictated By: Osiel Whitt Transcribed By: Transcribed On: 08/13/2024 10:46 AM Electronically signed by: Osiel Whitt 08/13/2024 Thank you for referring REECE GREEN to [facility]. Legally authenticated by TIFFANY RUSSELL 2024-08-13 10:46:57 CC'ed Logic: Ordering Provider: DELFINO FUNG Attending Provider: DELFINO FUNG Referring Provider: DELFINO FUNG Admitting Provider: DELFINO Noriega [facility] 08/16/2024 10:26:47 Xr, Osseous Survey, Complete : [address] [address] Name: REECE BARBA Exam Date: 01/30/2025 : 1960 Age 64 years Gender: F Physician: HIRA NIX Facility: [facility] Facility HSV: Outpatient Exam: BONE SURVEY COMPLETE X-ray bone survey complete January 30, 2025 CLINICAL HISTORY: monoclonal gammopathy of uncertain significance. TECHNIQUE: Whole-body complete bone scan performed. 14 images which include AP and lateral cervical thoracic and lumbar spine, AP and lateral skull, right and left upper extremity humeri, right and left femur. FINDINGS: Bones are slightly demineralized. Mild scoliosis. Mild concavity to the superior endplates L2-L5, chronic appearing although may be slightly progressed compared to October 06, 2023. Atherosclerotic disease aorta. On the AP view of the proximal left femur, there is a questionable lucent focus in the left femoral neck but I believe may be artifactual, there is a skin fold overlapping this and this is not seen on the AP view of the pelvis. Multiple injection granuloma present. Otherwise no convincing lytic or sclerotic osseous lesions seen. No osseous destructive change or periosteal reaction. IMPRESSION: No digital x-ray evidence of lytic or sclerotic osseous lesions. Lucent focus in the left femur neck on one view only may be artifactual. If there are symptoms pain, coned-down 2 view left hip repeat imaging could be performed. Electronically signed by: Odalys Sheth MD 02/04/2025 01:20 PM EDT RP Dictated By: ODALYS SHETH Transcribed By: Transcribed On: 01/30/2025 12:22 PM Electronically signed by: ODALYS SHETH 01/30/2025 Thank you for referring REECE BARBA to [facility]. 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 Hadley [place] null, [place] [facility] [place] [facility] [place] 2 09:58:00 Splenomegaly 80854487 Active 2021 Hadley [place], [place] [facility] [place] [facility] [place] 2 09:58:08 Monoclonal gammopathy (clinical) 050576725 Active 2021 Hadley [place] null, [place] [facility] [place] [facility] [place] 2 09:58:23 Iron deficiency anemia 84239732 Active 2021 Hadley [place] null, [place] [facility] [place] [facility] [place] 2 09:58:30 Anxiety 53650864 Active 2021 Hadley [place] null, [place] [facility] [place] [facility] [place] 2 09:58:36 Hyperlipidemia 05876022 Active 2021 Hadley [place] null, [place] - [facility] [place] [facility] [place] 2 09:58:42 Chronic constipation 191386999 Active 2021 Hadley [place] null, [place] - [facility] [place] [facility] [place] 2 09:58:56 Pulmonary emphysema 47783998 Active 2021 Hadley chavez, [place] - [facility] - [place] [facility] [place] 2 09:59:17 Coronary arterioscleros is 29693221 Active 2021 Hadley chavez, [place] - [facility] [place] [facility] [place] 2 09:59:37 Problem Notes None recorded. Procedures Surgical History Date Name Laterality Status Provider Name and Address Organization Details Recorded Time 03/27/20 25 Venipuncture completed Maria D [place] - [facility] [place] [facility] [place] 03/27/2025 13:50:10 01/31/20 25 Venipuncture completed Lin Sanderser [place] - [facility] - [place] [facility] [place] 01/30/2025 10:54:44 10/31/19 25 colonoscopy completed Lin [place] - [facility] [place] [facility] [place] 03/27/2025 13:27:03 09/28/20 23 Venipuncture completed Hira Nix PA-C [address] [facility], [place], [address], [place] - [facility] - [place] 09/13/2023 08:38:43 06/29/20 23 Venipuncture completed Lin Sanderser [place] - [facility] - [place] 06/29/2023 13:31:21 ENT Surgery completed Maria D GALLOWAY - [facility] - [place] [facility] [place] 01/25/2023 13:07:11 Colonoscopy completed Maria D GALLOWAY - [facility] - [place] 01/25/2023 13:07:11 hysterectomy completed Hadley GALLOWAY - [facility] - [place] 07/27/2022 10:01:21 cholecystectomy completed Hadley GALLOWAY - [facility] - [place] 07/27/2022 10:01:28 section completed Hadley Sims Y - [facility] - [place] 07/27/2022 10:01:36 Imaging Results None recorded. Procedure Notes None recorded. Medical Equipment None Reported. Allergies Allergen ID Allergen Name Allergen Category Reaction Reaction Severity Criticality Documentation Date Start Date Code Code System Note Provider Name and Address Organization Details Recorded Time 47460 acetamino phen / oxycodone medicatio n Not available Not available Not available 07/27/2022 76796 3 RxNorm LAVERNE Rivas [facility] [place] [facility] [place] 2 09:38:31 36196 Substance with sulfonami de structure and antibacte rial mechanism of action (substanc e) medicatio n Not available Not available Not available 07/27/2022 19420 8003 SNOMED LAVERNE Rivas [facility] [place] & [place] 2 09:38:36 95307 tizanidin e medicatio n Not available Not available Not available 07/27/2022 09863 RxNorm LAVERNE Rivas [facility] [place] & [place] 2 09:38:42 Medications Name Sig Start Date Stop Date Status Note LastModified by Organization Details LastModified Time cyclobenzap rine 10 mg tablet TAKE 1 TABLET BY MOUTH THREE TIMES DAILY NEEDED active Not Available Not Available No t Available furosemide 40 mg tablet TAKE 1 TABLET BY MOUTH ONCE DAILY active Not Available Not Available No t Available atorvastati n 40 mg tablet TAKE 1 TABLET BY MOUTH AT BEDTIME FOR CHOLESTER OL 03/28 completed Not Available Not Available Not Available alendronate 10 mg tablet TAKE 1 TABLET BY MOUTH ONCE DAILY active Not Available Not Available No t Available promethazin e-DM 6.25 mg-15 mg/5 mL oral syrup TAKE 5 ML BY MOUTH EVERY 6 HOURS FOR 7 DAYS 09/26 completed Not Available Not Available Not Available atorvastati n 80 mg tablet TAKE 1 TABLET BY MOUTH ONCE DAILY active Not Available Not Available No t Available nystatin 100,000 unit/mL oral suspension SWISH AND SWALLOW 5 ML BY MOUTH 4 TIMES DAILY OR ORAL CANDIDIAS IS (THRUSH, FOR 14 DAYS) 01/30 completed Not Available Not Available Not Available doxycycline hyclate 100 mg capsule TAKE 1 CAPSULE BY MOUTH TWICE DAILY FOR 5 DAYS 09/26 completed Not Available Not Available Not Available paroxetine 10 mg tablet TAKE 1 TABLET BY MOUTH ONCE DAILY active Not Available Not Available No t Available ipratropium 0.5 mg-albutero l 3 mg (2.5 mg base)/3 mL nebulizatio n soln USE 1 VIAL IN NEBULIZER 4 TIMES DAILY NEEDED FOR SHORTNESS OF BREATH FOR WHEEZING active Not Available Not Available No t Available clindamycin HCl 300 mg capsule TAKE 1 CAPSULE BY MOUTH THREE TIMES DAILY 09/28 completed Not Available Not Available Not Available cetirizine 10 mg tablet Take 1 tablet every day by oral route. 07/28 completed Not Available Not Available Not Available azithromyci n 250 mg tablet TAKE 2 TABLETS BY MOUTH ON DAY 1, AND THEN TAKE 1 TABLET BY MOUTH ONCE A DAY ON DAY 2 THROUGH DAY 5 01/30 completed Not Available Not Available Not Available ofloxacin 0.3 % eye drops INSTILL 1 DROP INTO OPERATIVE EYE 4 TIMES DAILY FOR 7 DAYS active Not Available Not Available No t Available nitroglycer in ER 2.5 mg capsule,ext ended release Take 1 capsule 3 times a day by oral route. 09/28 completed Not Available Not Available Not Available ondansetron HCl 8 mg tablet Take 1 tablet every 8 hours by oral route as needed. 01/30 completed Not Available Not Available Not Available promethazin e 12.5 mg tablet Take 1 tablet every 6 hours by oral route as needed. 06/29 completed Not Available Not Available Not Available ondansetron HCl 4 mg tablet TAKE 1 TABLET BY MOUTH EVERY 8 HOURS NEEDED FOR NAUSEA OR VOMITING 06/29 completed Not Available Not Available Not Available prednisone 20 mg tablet TAKE 2 TABLETS BY MOUTH ONCE DAILY FOR 6 DAYS 01/30 completed Not Available Not Available Not Available clonazepam 0.5 mg tablet TAKE 1 TABLET BY MOUTH THREE TIMES DAILY 09/28 completed Not Available Not Available Not Available metronidazo le 500 mg tablet TAKE 1 TABLET BY MOUTH EVERY 12 HOURS FOR 7 DAYS 09/26 completed Not Available Not Available Not Available phentermine 37.5 mg tablet TAKE 1 TABLET BY MOUTH ONCE DAILY 30 MINUTES BEFORE OR 1-2 HOURS AFTER BREAKFAST 09/28 completed Not Available Not Available Not Available clopidogrel 75 mg tablet TAKE 1 TABLET BY MOUTH ONCE DAILY FOR HEART DISEASE active Not Available Not Available No t Available aspirin 81 mg tablet,christopher yed release TAKE 1 TABLET BY MOUTH ONCE DAILY active Not Available Not Available No t Available spironolact one 25 mg tablet TAKE 1 TABLET BY MOUTH ONCE DAILY active Not Available Not Available No t Available levothyroxi ne 75 mcg tablet TAKE 1 TABLET BY MOUTH ONCE DAILY ON AN EMPTY STOMACH active Not Available Not Available No t Available ketorolac 0.5 % eye drops STARTING 3 DAYS BEFORE SURGERY USE 1 DROP IN THE OPERATIVE EYE FOUR TIMES A DAY FOR 10 DAYS THEN DECREASE TO TWICE A DAY FOR 14 DAYS active Not Available Not Available No t Available bisoprolol fumarate 5 mg tablet TAKE 1 TABLET BY MOUTH ONCE DAILY FOR HEART DISEASE active Not Available Not Available No t Available ofloxacin 0.3 % ear drops INSTILL 5 DROPS INTO AFFECTED EAR(S) TWICE DAILY DIRECTED 09/28 completed Not Available Not Available Not Available famotidine 20 mg tablet Take 1 tablet every day by oral route. 09/28 completed Not Available Not Available Not Available prednisolon e acetate 1 % eye drops,suspe nsion INSTILL ONE DROP INTO OPERATIVE EYE FOUR TIMES A DAY FOR 7 DAYS, THEN DECREASE TO TWICE DAILY FOR 14 DAYS active Not Available Not Available No t Available cephalexin 500 mg capsule TAKE 1 CAPSULE BY MOUTH THREE TIMES DAILY 09/28 completed Not Available Not Available Not Available pantoprazol e 40 mg tablet,christopher yed release TAKE 1 TABLET BY MOUTH ONCE DAILY FOR 30 DAYS active Not Available Not Available No t Available cyanocobala min (vit B-12) 1,000 mcg/mL injection solution INJECT 1 ML ONCE EVERY MONTH SUBCUTANE OUSLY active Not Available Not Available No t Available oseltamivir 75 mg capsule TAKE 1 CAPSULE BY MOUTH TWICE DAILY FOR 5 DAYS 06/29 completed Not Available Not Available Not Available buspirone 10 mg tablet TAKE 1 TABLET BY MOUTH TWICE DAILY 01/30 completed Not Available Not Available Not Available promethazin e 25 mg tablet TAKE 1 TABLET BY MOUTH THREE TIMES DAILY NEEDED FOR NAUSEA AND VOMITING 06/29 completed Not Available Not Available Not Available nitroglycer in 0.4 mg sublingual tablet DISSOLVE ONE TABLET UNDER THE TONGUE EVERY 5 MINUTES NEEDED FOR CHEST PAIN. DO NOT EXCEED A TOTAL OF 3 DOSES IN 15 MINUTES active Not Available Not Available No t Available gabapentin 300 mg capsule Take 1 capsule twice a day by oral route. 07/28 completed Not Available Not Available Not Available folic acid 1 mg tablet TAKE 1 TABLET BY MOUTH ONCE DAILY active Not Available Not Available No t Available montelukast 10 mg tablet TAKE 1 TABLET BY MOUTH ONCE DAILY active Not Available Not Available No t Available furosemide 20 mg tablet Take 1 tablet every day by oral route. 06/29 completed Not Available Not Available Not Available ergocalcife rol (vitamin D2) 1,250 mcg (50,000 unit) capsule TAKE 1 CAPSULE BY MOUTH ONCE A WEEK 06/29 completed Not Available Not Available Not Available methylpredn isolone 4 mg tablets in a dose pack TAKE BY MOUTH DIRECTED ON INSIDE OF PACKAGE 03/28 completed Not Available Not Available Not Available albuterol sulfate HFA 90 mcg/actuati on aerosol inhaler INHALE 2 PUFFS BY MOUTH 4 TIMES DAILY active Not Available Not Available No t Available [place] 5 mg-325 mg tablet Take 1 tablet every 6 hours by oral route. 06/29 completed Not Available Not Available Not Available diazepam 5 mg tablet TAKE 1 TABLET BY MOUTH TWICE DAILY active Not Available Not Available No t Available Spiriva with HandiHaler 18 mcg and inhalation capsules INHALE 1 PUFF BY MOUTH ONCE DAILY. PUNCTURE 1 CAP USING DEVICE. ONE DOSE = 2 INHALATIO NS active Not Available Not Available No t Available eszopiclone 3 mg tablet TAKE 1 TABLET BY MOUTH ONCE DAILY IMMEDIATE LY BEFORE BEDTIME active Not Available Not Available No t Available atorvastati n 06/29 completed Not Available Not Available Not Available clopidogrel 06/29 completed Not Available Not Available Not Available isosorbide mononitrate 09/28 completed Not Available Not Available Not Available spironolact one 06/29 completed Not Available Not Available Not Available azelastine 09/28 completed Not Available Not Available Not Available bisoprolol fumarate 06/29 completed Not Available Not Available Not Available ranolazine ER 500 mg tablet,exte nded release,12 hr TAKE 1 TABLET BY MOUTH TWICE DAILY 09/28 completed Not Available Not Available Not Available Symbicort 160 mcg-4.5 mcg/actuati on HFA aerosol inhaler INHALE 2 PUFFS BY MOUTH TWICE DAILY 09/28 completed Not Available Not Available Not Available Caltrate 600-D Plus Minerals 06/29 completed Not Available Not Available Not Available ramipril 2.5 mg tablet Take 1 tablet every day by oral route. 06/29 completed Not Available Not Available Not Available Prolia 60 mg/mL subcutaneou s syringe INJECT 60 MG SUBCUTANE OUSLY EVERY 6 MONTHS active Not Available Not Available No t Available sodium,pota ssium,mag sulfates 17.5 gram-3.13 gram-1.6 gram oral soln Take 6 ounces twice a day by oral route as directed for 1 day, for colonosco py prep. 03/27 completed Not Available Not Available Not Available ipratropium 0.5 mg-albutero l 2.5 mg/2.5 mL solution for nebulizatio n 09/28 completed Not Available Not Available Not Available Linzess 145 mcg capsule TAKE ONE CAPSULE BY MOUTH ON AN EMPTY STOMACH AT LEAST 30 MINUTES BEFORE THE FIRST MEAL OF THE DAY active Not Available Not Available No t Available Linzess 06/29 completed Not Available Not Available Not Available potassium chloride ER 20 mEq tablet,exte nded release Take 1 tablet every day by oral route for 5 days. 03/27 completed Not Available Not Available Not Available Spiriva Respimat 2.5 mcg/actuati on solution for inhalation Inhale 2 puffs every day by inhalatio n route. 06/29 completed Not Available Not Available Not Available tiotropium bromide 1.25 mcg/actuati on mist for inhalation Inhale 2 puffs every day by inhalatio n route. 06/29 completed Not Available Not Available Not Available aspirin 81 mg capsule 03/28 completed Not Available Not Available Not Available Lagevrio 200 mg capsule (EUA) TAKE 4 CAPSULES BY MOUTH EVERY 12 HOURS FOR 5 DAYS 09/28 completed Not Available Not Available Not Available Vitals Date Recorded Body height Body mass index (BMI) Body weight Body temperature Oxygen saturation Oxygen saturation in Arterial blood by Pulse oximetry Heart rate Systolic blood pressure Diastolic blood pressure Provider Name and Address Organization Details Last Updated DateTime 5 154.94 cm 27.8 kg/m2 14163.4 4 g 97.8 [degF] 96 % 96 % 75 /min 117 mm[Hg] 72 mm[Hg] Lin GALLOWAY - [facility] - [place] [facility] [place] 5 10:50:39 Date Recorded Body height Body mass index (BMI) Body weight Oxygen saturation Oxygen saturation in Arterial blood by Pulse oximetry Heart rate Systolic blood pressure Diastolic blood pressure Provider Name and Address Organization Details Last Updated DateTime 5 154.94 cm 28.8 kg/m2 74447.8 4 g 95 % 95 % 72 /min 111 mm[Hg] 58 mm[Hg] Lin [facility]RE[facility] [place] [facility] [place] 5 13:24:12 Date Recorded Body height Body mass index (BMI) Body weight Body temperature Oxygen saturation Oxygen saturation in Arterial blood by Pulse oximetry Systolic blood pressure Diastolic blood pressure Provider Name and Address Organization Details Last Updated DateTime 4 154.94 cm 28.2 kg/m2 53666.7 g 97.8 [degF] 98 % 98 % 124 mm[Hg] 65 mm[Hg] Maria D [facility]RELL [facility] [place] [facility] [place] 4 13:16:21 Date Recorded Body height Body mass index (BMI) Body weight Body temperature Oxygen saturation Oxygen saturation in Arterial blood by Pulse oximetry Heart rate Systolic blood pressure Diastolic blood pressure Provider Name and Address Organization Details Last Updated DateTime 4 154.94 cm 28.1 kg/m2 48705.1 9 g 97.6 [degF] 97 % 97 % 74 /min 98 mm[Hg] 63 mm[Hg] Maria D [facility]RELL [facility] [place] [facility] [place] 4 13:09:08 Date Recorded Body height Body mass index (BMI) Body weight Body temperature Oxygen saturation Oxygen saturation in Arterial blood by Pulse oximetry Heart rate Systolic blood pressure Diastolic blood pressure Provider Name and Address Organization Details Last Updated DateTime 3 154.94 cm 28.9 kg/m2 78202.6 3 g 98.3 [degF] 97 % 97 % 70 /min 121 mm[Hg] 67 mm[Hg] Lin [facility] [place] [facility] [place] 3 13:28:27 Social History Question Answer Notes LastModified by Organizat ion Details LastModified Time Tobacco Smoking Status Former Smoker Hadley chavez LAVERNE [facility] [place] [facility] [place] 07/27/2022 10:01:13 What Is Your Level Of Caffeine Consumption? Moderate [email or web address] Information not available 09/28/2023 When Did You Quit Smoking? 16+yearssinc elastcigaret te [email or web address] Information not available 06/29/2023 What Was The Date Of Your Most Recent Tobacco Screening? 01/30/2025 [email or web address] Information not available 01/30/2025 At What Age Did You Start Smoking Tobacco? 14 Information not available 01/30/2025 How Much Tobacco Do You Smoke? 1 PPW At TIME OF QUIT [email or web address] Information not available 03/27/2025 Has Tobacco Cessation Counseling Been Provided? No [email or web address] Information not available 09/28/2023 Sex: Unknown Functional Status Question Answer Note LastModified by Organizat ion Details LastModified Time Do you use any illicit or recreational drugs? No [email or web address] Information not available 01/25/2023 Do you or have you ever used any other forms of tobacco or nicotine? No [email or web address] Information not available 09/28/2023 What is your level of alcohol consumption? None [email or web address] Information not available 01/25/2023 Mental Status None recorded. Family History Relationship Description Onset Age of this Age Resolved Age Notes LastModified by Organization Details LastModified Time Sister Anemia pt. added direct ly (07/16) [email or web address] Not available 07/16/2022 13:36:58 Father Hypertensive disorder [email or web address] Not available 03/27 13:24:49 Father Cerebrovascu lar accident [email or web address] Not available 13:25:12 Mother Multi vessel coronary artery disease [email or web address] Not available 03/27 13:25:39 Mother Diabetes mellitus Not available 03/27 13:25:46 Medical History Condition Response Autoimmune disease Y Gout Y Vision or Eye Problems Y Arthritis Y Ear or Hearing Problems Y Back Problems Y Thyroid Problems Y Kidney or Bladder Problems Y GI Problems Y Lung Disease Y COPD Y Anemia Y Reflux/GERD Y High Cholesterol Y Heart Disease Y Spine Problems Y Headaches Y Gynecological History Statement/Question Response Menses Monthly N Obstetrics History GPAL:G 0 P 0 0 0 0 Immunizations Vaccine Type Date Status Note Provider Nam e and Address Organization Details Recorded Time Influenza, split virus, quadrivalent, preservative 5 completed Lin Rascon [facility], [place] - [facility] - [place] [facility] [place] 06/29/2023 13:07:28 Influenza, split virus, quadrivalent, preservative 8 completed Lin Abiodun null, [place] [facility] [place] 06/29/2023 13:07:28 Influenza, split virus, quadrivalent, preservative 7 completed Lin Abiodun [place] [facility] [place] 06/29/2023 13:07:28 Influenza, recombinant, quadrivalent, PF 0 completed Lin Abiodun [place] [facility] [place] 06/29/2023 13:07:28 COVID-19, mRNA, LNP-S, PF, 100 mcg/0.5mL dose or 50 mcg/0.25mL dose 1 completed Lin Abiodun [place] [facility] [place] 06/29/2023 13:07:28 COVID-19, mRNA, LNP-S, PF, 100 mcg/0.5mL dose or 50 mcg/0.25mL dose 1 completed Lin Abiodun [place] [facility] [place] 06/29/2023 13:07:28 pneumococcal polysaccharide PPV23 4 completed Lin Abiodun [place] [facility] [place] 06/29/2023 13:07:28 pneumococcal polysaccharide PPV23 0 completed Lin Abiodun [place] [facility] [place] 06/29/2023 13:07:28 Tdap 4 completed Lin Abiodun [place] [facility] [place] 06/29/2023 13:07:28 Influenza, split virus, quadrivalent, PF 9 completed Lin Abiodun [place] [facility] [place] 06/29/2023 13:07:28 Influenza, split virus, quadrivalent, PF 1 completed Lin Abiodun [place] [facility] [place] 06/29/2023 13:07:28 Past Encounters Encounter ID Performer Location Encounter Start Date Encounter Closed Date Diagnosis/Indication Diagnosis SNOMED-CT Code Diagnosis ICD10 Code Diagnosis Note [id number] Hira Nix PA-C [facility] [address] [place] [address] 07/28/2022 12:58:13 07/28/2022 13:19:36 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 No evidence of lymphadeno christie. Spleen is normal in size. No enlarged lymph nodes.CT scan of the abdomen pelvis on April 13, 2021 with stable exam and no evidence of lymphadeno christie. Fatty infiltrati on of the liver. Spleen is normal in size. Will follow-up with labs today.Silvia ent returned on October 09, 2021 for cycle 8 of maintenanc e rituximab. Patient completed 2 years of maintenanc e therapy.CT scan of the abdomen and pelvis on November 18, 2021 with comparison made to imaging from April 13, 2021. Lung bases are clear. No focal consolidat ion. No evidence of effusion. Adrenal glands unremarkab le. No retroperit salgado or mesenteric adenopathy . Spleen is unremarkab le and normal in size.Patie nt returned for clinic evaluation on January 18, 2022. Discussed repeat evaluation in 6 months. Recommend observatio n only. Would repeat imaging if symptoms develop.Sp coretta size at time of initial evaluation 2018 at 14.9 cm. Patient returns for follow-up on July 28, 2022. Patient's last CT of abdomen pelvis was October 2021. Will schedule CT of neck chest abdomen pelvis. Will follow-up labs today. Splenomegaly [id number] R1 6.1 Patient with splenomega ly on last imaging in August 2018. In spleen at that time was 14.7 cm. Previous measuremen t in mid 2018 was 13.[address] scan of the chest, abdomen, pelvis performed on January 07, 2020. CT of chest normal. CT scan of the abdomen pelvis with no signs of lymphadeno christie which is an improvemen t over prior PET scan. Spleen is borderline enlarged and measures 12 cm. Improved from prior exam.PET scan performed on March 05, 2019 with no evidence of increased lynette uptake however the patient had a enlarged spleen at 14.9 cm and heterogene ous mild uptake of the spleen.Res olved with rituximab therapy. Monoclonal gammopathy of uncertain significance [id number] D47.2 Labs from September 17, 2018 with presence of IgM kappa monoclonal immunoglob ulin. Presents also an IgG lambda monoclonal immunoglob ulin. Patient has history of splenic marginal zone lymphoma and not uncommon to have monoclonal gammopathy secondary to lymphoma.L abs obtained on February 26, 2019 demonstrat e Protein electropho resis with monoclonal spike seen at 0.9 grams/deci liter. Normal serum free light chains with kappa light chain 19.4, lambda light chain of 14.1, and kappa lambda ratio 1.38. Immunofixa tion demonstrat es an increase in IgM with total level at 589. Upper end of normal is 217.Bone marrow findings without increase in plasma cells 2018. Also the bone marrow sample was favored to be splenic marginal zone lymphoma and not lymphoplas macytic lymphoma. Iron defic iency anemia [id number] D50.9 Labs obtained on February 26, 2019 demonstrat e Serum iron studies with low serum iron at 29 and TIBC of 334. Low iron saturation 9%. Dizziness [id number] R42 Patient complains of intermitte nt dizziness over the past 2 years. She said this has increased slightly. She states she has seen multiple physicians including ophthalmol ogy, ENT, cardiology , and neurology recently. She states she also had normal imaging of the brain within the past month. Her primary care provider has attributed the dizziness to medication s. She recently tapered off gabapentin . Patient denies any other symptoms. [id number] Hira Nix PA-C [facility] [address] [place] [address] 01/25/2023 13:00:43 01/25/2023 13:22:20 Splenic marginal zone B-cell lymphoma [id number] C83.07 PET scan on October 27, 2020 with comparison to imaging from March 05, 2019. No evidence of lymphadeno christie. Spleen is normal in size. No enlarged lymph nodes.CT scan of the abdomen pelvis on April 13, 2021 with stable exam and no evidence of lymphadeno christie. Fatty infiltrati on of the liver. Spleen is normal in size. Will follow-up with labs today.Silvia ent returned on October 09, 2021 for cycle 8 of maintenanc e rituximab. Patient completed 2 years of maintenanc e therapy.CT scan of the abdomen and pelvis on November 18, 2021 with comparison made to imaging from April 13, 2021. Lung bases are clear. No focal consolidat ion. No evidence of effusion. Adrenal glands unremarkab le. No retroperit salgado or mesenteric adenopathy . Spleen is unremarkab le and normal in size.Rajeev nt returned for clinic evaluation on January 18, 2022. Discussed repeat evaluation in 6 months. Recommend observatio n only. Would repeat imaging if symptoms develop.Sp coretta size at time of initial evaluation 2018 at 14.9 cm. Patient returned for clinic evaluation on July 28, 2022. Discussed repeat evaluation in 6 months. Recommend observatio n only. Would repeat imaging if symptoms develop.Marty childress returned for follow-up on July 28, 2022. Patient complains of intermitte nt dizziness over the past 2 years. She said this has increased slightly. She states she has seen multiple physicians including ophthalmol ogy, ENT, cardiology , and neurology recently. She states she also had normal imaging of the brain within the past month. Her primary care provider has attributed the dizziness to medication s. She recently tapered off gabapentin . Patient denies any other symptoms. Patient's last CT of abdomen pelvis was October 2021. Stable CT of neck chest abdomen pelvis performed on JulyAugust 06, 2022. No evidence of recurrence . Patient returns for follow-up on January 25, 2023. She states she has had intermitte nt chest pain and is following with cardiology for this. She had a stress test and echo yesterday. She follows up tomorrow for the results. Discussed repeat evaluation in 6 months. Recommend observatio n only. Would repeat imaging if symptoms develop. Splenomegaly [id number] R1 6.1 Patient with splenomega ly on last imaging in August 2018. In spleen at that time was 14.7 cm. Previous measuremen t in mid 2018 was 13.[address] scan of the chest, abdomen, pelvis performed on January 07, 2020. CT of chest normal. CT scan of the abdomen pelvis with no signs of lymphadeno christie which is an improvemen t over prior PET scan. Spleen is borderline enlarged and measures 12 cm. Improved from prior exam.PET scan performed on March 05, 2019 with no evidence of increased lynette uptake however the patient had a enlarged spleen at 14.9 cm and heterogene ous mild uptake of the spleen.Res olved with rituximab therapy. Monoclonal gammopathy of uncertain significance [id number] D47.2 Labs from September 17, 2018 with presence of IgM kappa monoclonal immunoglob ulin. Presents also an IgG lambda monoclonal immunoglob ulin. Patient has history of splenic marginal zone lymphoma and not uncommon to have monoclonal gammopathy secondary to lymphoma.L abs obtained on February 26, 2019 demonstrat e Protein electropho resis with monoclonal spike seen at 0.9 grams/deci liter. Normal serum free light chains with kappa light chain 19.4, lambda light chain of 14.1, and kappa lambda ratio 1.38. Immunofixa tion demonstrat es an increase in IgM with total level at 589. Upper end of normal is 217.Bone marrow findings without increase in plasma cells 2018. Also the bone marrow sample was favored to be splenic marginal zone lymphoma and not lymphoplas macytic lymphoma. Iron defic iency anemia [id number] D50.9 Labs obtained on February 26, 2019 demonstrat e Serum iron studies with low serum iron at 29 and TIBC of 334. Low iron saturation 9%. Dizziness [id number] R42 Patient complains of intermitte nt dizziness over the past 2 years. She said this has increased slightly. She states she has seen multiple physicians including ophthalmol ogy, ENT, cardiology , and neurology recently. She states she also had normal imaging of the brain within the past month. Her primary care provider has attributed the dizziness to medication s. She recently tapered off gabapentin . Patient denies any other symptoms. [id number] Jairon Saleh MD [facility] [address] [place] [address] 06/29/2023 12:58:17 06/29/2023 13:42:34 Splenic marginal zone B-cell lymphoma [id number] C83.07 PET scan on October 27, 2020 with comparison to imaging from March 05, 2019. No evidence of lymphadeno christie. Spleen is normal in size. No enlarged lymph nodes.CT scan of the abdomen pelvis on April 13, 2021 with stable exam and no evidence of lymphadeno chritsie. Fatty infiltrati on of the liver. Spleen is normal in size.Patie nt returned on October 09, 2021 for cycle 8 of maintenanc e rituximab. Patient completed 2 years of maintenanc e therapy.CT scan of the abdomen and pelvis on November 18, 2021 with comparison made to imaging from April 13, 2021. Lung bases are clear. No focal consolidat ion. No evidence of effusion. Adrenal glands unremarkab le. No retroperit salgado or mesenteric adenopathy . Spleen is unremarkab le and normal in size.Splee n size at time of initial evaluation [address] at [address] of neck chest abdomen pelvis performed on JulyAugust 06, 2022. No evidence of recurrence . Labs on January 25, 2023 with immunofixa tion demonstrat ing an IgM monoclonal protein. IgM level 275. IgM kappa monoclonal protein. Patient returns on June 29, 2023. Discussed repeat labs today. Discussed repeat imaging in the next month or so. Will follow-up since last visit patient reports increase in left upper quadrant pain. Will plan to repeat imaging. No marked adenopathy on exam. Spleen not markedly enlarged on exam. Splenomegaly [id number] R1 6.1 Patient with splenomega ly on last imaging in August 2018. In spleen at that time was 14.7 cm. Previous measuremen t in mid 2018 was 13.[address] scan of the chest, abdomen, pelvis performed on January 07, 2020. CT of chest normal. CT scan of the abdomen pelvis with no signs of lymphadeno christie which is an improvemen t over prior PET scan. Spleen is borderline enlarged and measures 12 cm. Improved from prior exam.PET scan performed on March 05, 2019 with no evidence of increased lynette uptake however the patient had a enlarged spleen at 14.9 cm and heterogene ous mild uptake of the spleen.Res olved with rituximab therapy. Monoclonal gammopathy of uncertain significance [id number] D47.2 Labs from September 17, 2018 with presence of IgM kappa monoclonal immunoglob ulin. Presents also an IgG lambda monoclonal immunoglob ulin. Patient has history of splenic marginal zone lymphoma and not uncommon to have monoclonal gammopathy secondary to lymphoma.L abs obtained on February 26, 2019 demonstrat e Protein electropho resis with monoclonal spike seen at 0.9 grams/deci liter. Normal serum free light chains with kappa light chain 19.4, lambda light chain of 14.1, and kappa lambda ratio 1.38. Immunofixa tion demonstrat es an increase in IgM with total level at 589. Upper end of normal is 217.Bone marrow findings without increase in plasma cells 2018. Also the bone marrow sample was favored to be splenic marginal zone lymphoma and not lymphoplas macytic lymphoma. Iron defic iency anemia [id number] D50.9 Labs obtained on February 26, 2019 demonstrat e Serum iron studies with low serum iron at 29 and TIBC of 334. Low iron saturation 9%. [id number] Jairon Saleh MD [facility] [address] [place] [address] 09/28/2023 13:02:11 09/28/2023 14:00:20 Splenic marginal zone B-cell lymphoma [id number] C83.07 PET scan on October 27, 2020 with comparison to imaging from March 05, 2019. No evidence of lymphadeno christie. Spleen is normal in size. No enlarged lymph nodes.CT scan of the abdomen pelvis on April 13, 2021 with stable exam and no evidence of lymphadeno christie. Fatty infiltrati on of the liver. Spleen is normal in size.Patie nt returned on October 09, 2021 for cycle 8 of maintenanc e rituximab. Patient completed 2 years of maintenanc e therapy.CT scan of the abdomen and pelvis on November 18, 2021 with comparison made to imaging from April 13, 2021. Lung bases are clear. No focal consolidat ion. No evidence of effusion. Adrenal glands unremarkab le. No retroperit salgado or mesenteric adenopathy . Spleen is unremarkab le and normal in size.Splee n size at time of initial evaluation [address] scan of the chest abdomen pelvis on September 11, 2023. Imaging compared to CT scan on January 07, 2020. No evidence of axillary adenopathy . No hilar mediastina l adenopathy . No pericardia l or pleural effusion. Stable cyst in the dome of the liver 1 cm. Gallbladde r surgically absent. Spleen is unremarkab le and normal in size. No acute osseous abnormalit y. No evidence of acute abdominal process. Patient returns on September 28, 2023. Discussed repeat labs today. Will follow-up labs make further recommenda tions. Splenomegaly [id number] R1 6.1 Patient with splenomega ly on last imaging in August 2018. In spleen at that time was 14.7 cm. Previous measuremen t in mid 2018 was 13.[address] scan of the chest, abdomen, pelvis performed on January 07, 2020. CT of chest normal. CT scan of the abdomen pelvis with no signs of lymphadeno christie which is an improvemen t over prior PET scan. Spleen is borderline enlarged and measures 12 cm. Improved from prior exam.PET scan performed on March 05, 2019 with no evidence of increased lynette uptake however the patient had a enlarged spleen at 14.9 cm and heterogene ous mild uptake of the spleen.Res olved with rituximab therapy. Monoclonal gammopathy of uncertain significance [id number] D47.2 Labs from September 17, 2018 with presence of IgM kappa monoclonal immunoglob ulin. Presents also an IgG lambda monoclonal immunoglob ulin. Patient has history of splenic marginal zone lymphoma and not uncommon to have monoclonal gammopathy secondary to lymphoma.L abs obtained on February 26, 2019 demonstrat e Protein electropho resis with monoclonal spike seen at 0.9 grams/deci liter. Normal serum free light chains with kappa light chain 19.4, lambda light chain of 14.1, and kappa lambda ratio 1.38. Immunofixa tion demonstrat es an increase in IgM with total level at 589. Upper end of normal is 217.Bone marrow findings without increase in plasma cells 2018. Also the bone marrow sample was favored to be splenic marginal zone lymphoma and not lymphoplas macytic lymphoma. Labs on June 29, 2023 with increase in IgM at 758. Repeating labs on September 28, 2023. Will follow-up. If major change would consider repeat bone marrow biopsy. Iron defic iency anemia [id number] D50.9 Labs obtained on February 26, 2019 demonstrat e Serum iron studies with low serum iron at 29 and TIBC of 334. Low iron saturation 9%. Nonulcer dyspepsia 17245 [id number] K30 Patient reports symptoms of dyspepsia. Will try PPI therapy. [id number] Jairon Saleh MD [facility] [address] [place] [address] 03/28/2024 13:02:22 03/28/2024 13:50:09 Splenic marginal zone B-cell lymphoma [id number] C83.07 PET scan on October 27, 2020 with comparison to imaging from March 05, 2019. No evidence of lymphadeno christie. Spleen is normal in size. No enlarged lymph nodes.CT scan of the abdomen pelvis on April 13, 2021 with stable exam and no evidence of lymphadeno christie. Fatty infiltrati on of the liver. Spleen is normal in size.Patie nt returned on October 09, 2021 for cycle 8 of maintenanc e rituximab. Patient completed 2 years of maintenanc e therapy.CT scan of the abdomen and pelvis on November 18, 2021 with comparison made to imaging from April 13, 2021. Lung bases are clear. No focal consolidat ion. No evidence of effusion. Adrenal glands unremarkab le. No retroperit salgado or mesenteric adenopathy . Spleen is unremarkab le and normal in size.Splee n size at time of initial evaluation [address] scan of the chest abdomen pelvis on September 11, 2023. Imaging compared to CT scan on January 07, 2020. No evidence of axillary adenopathy . No hilar mediastina l adenopathy . No pericardia l or pleural effusion. Stable cyst in the dome of the liver 1 cm. Gallbladde r surgically absent. Spleen is unremarkab le and normal in size. No acute osseous abnormalit y. No evidence of acute abdominal process. Bone marrow biopsy performed on October 19, 2023 with no evidence of trauma or abnormal cell population . No evidence of fibrosis or dysplasia. Flow cytometry normal. No evidence of plasma cell population . Patient returns on March 28, 2024. Discussed repeat labs today. Will follow-up labs make further recommenda tions.Plan [place] to repeat imaging in July 2024. Splenomegaly [id number] R1 6.1 Patient with splenomega ly on last imaging in August 2018. In spleen at that time was 14.7 cm. Previous measuremen t in mid 2018 was 13.[address] scan of the chest, abdomen, pelvis performed on January 07, 2020. CT of chest normal. CT scan of the abdomen pelvis with no signs of lymphadeno christie which is an improvemen t over prior PET scan. Spleen is borderline enlarged and measures 12 cm. Improved from prior exam.PET scan performed on March 05, 2019 with no evidence of increased lynette uptake however the patient had a enlarged spleen at 14.9 cm and heterogene ous mild uptake of the spleen.Res olved with rituximab therapy. Monoclonal gammopathy of uncertain significance [id number] D47.2 Labs from September 17, 2018 with presence of IgM kappa monoclonal immunoglob ulin. Presents also an IgG lambda monoclonal immunoglob ulin. Patient has history of splenic marginal zone lymphoma and not uncommon to have monoclonal gammopathy secondary to lymphoma.L abs obtained on February 26, 2019 demonstrat e Protein electropho resis with monoclonal spike seen at 0.9 grams/deci liter. Normal serum free light chains with kappa light chain 19.4, lambda light chain of 14.1, and kappa lambda ratio 1.38. Immunofixa tion demonstrat es an increase in IgM with total level at 589. Upper end of normal is 217.Bone marrow findings without increase in plasma cells 2018. Also the bone marrow sample was favored to be splenic marginal zone lymphoma and not lymphoplas macytic lymphoma. Labs on June 29, 2023 with increase in IgM at 758. Labs on September 28, 2023 with kappa light chain 20.8. Normal kappa lambda ratio at 1.42. IgM level elevated at 958. Monoclonal spike 0.9 grams/deci liter. Immunofixa tion with IgM monoclonal protein with kappa light chain specificit y. Normal CBC. Normal differenti al. Bone marrow biopsy performed on October 19, 2023 with no evidence of trauma or abnormal cell population . No evidence of fibrosis or dysplasia. Flow cytometry normal. No evidence of plasma cell population . Patient returns March 28, 2024. Discussed repeat labs today. Will send peripheral blood flow cytometry as well. Follow-up repeat imaging in labs. Hopefully continue with observatio n only. Iron defic iency anemia [id number] D50.9 Labs obtained on February 26, 2019 demonstrat e Serum iron studies with low serum iron at 29 and TIBC of 334. Low iron saturation 9%. Nonulcer dyspepsia 31899 07 K30 Patient reports symptoms of dyspepsia. continues on PPI. Chronic id iopathic constipation [id number] K59.04 Patient currently on Linzess. Concern that left upper quadrant discomfort could be related to constipati on. Not uncommon to have pain at the splenic flexure. [id number] Hira Nix PA-C [facility] [address] [place] [address] 09/26/2024 13:01:22 09/26/2024 13:32:04 Splenic marginal zone B-cell lymphoma [id number] C83.07 PET scan on October 27, 2020 with comparison to imaging from March 05, 2019. No evidence of lymphadeno christie. Spleen is normal in size. No enlarged lymph nodes.CT scan of the abdomen pelvis on April 13, 2021 with stable exam and no evidence of lymphadeno christie. Fatty infiltrati on of the liver. Spleen is normal in size.Patie nt returned on October 09, 2021 for cycle 8 of maintenanc e rituximab. Patient completed 2 years of maintenanc e therapy.CT scan of the abdomen and pelvis on November 18, 2021 with comparison made to imaging from April 13, 2021. Lung bases are clear. No focal consolidat ion. No evidence of effusion. Adrenal glands unremarkab le. No retroperit salgado or mesenteric adenopathy . Spleen is unremarkab le and normal in size.Splee n size at time of initial evaluation [address] scan of the chest abdomen pelvis on September 11, 2023. Imaging compared to CT scan on January 07, 2020. No evidence of axillary adenopathy . No hilar mediastina l adenopathy . No pericardia l or pleural effusion. Stable cyst in the dome of the liver 1 cm. Gallbladde r surgically absent. Spleen is unremarkab le and normal in size. No acute osseous abnormalit y. No evidence of acute abdominal process. Bone marrow biopsy performed on October 19, 2023 with no evidence of trauma or abnormal cell population . No evidence of fibrosis or dysplasia. Flow cytometry normal. No evidence of plasma cell population . CT scan August 13, 2024 with no acute findings. No evidence of lymphadeno christie. No splenomega ly. Recommend observatio n only. Stable findings with IgM monoclonal protein. Would favor observatio n only. CT scan August 13, 2024 with no acute findings. No evidence of lymphadeno christie. No splenomega ly. Recommend observatio n only. Stable findings with IgM monoclonal protein. Would favor observatio n only. Patient returns September 26, 2024. No acute changes. Discussed repeat labs today. Hopefully continue with observatio n only. Splenomegaly [id number] R1 6.1 Patient with splenomega ly on last imaging in August 2018. In spleen at that time was 14.7 cm. Previous measuremen t in mid 2018 was 13.[address] scan of the chest, abdomen, pelvis performed on January 07, 2020. CT of chest normal. CT scan of the abdomen pelvis with no signs of lymphadeno christie which is an improvemen t over prior PET scan. Spleen is borderline enlarged and measures 12 cm. Improved from prior exam.PET scan performed on March 05, 2019 with no evidence of increased lynette uptake however the patient had a enlarged spleen at 14.9 cm and heterogene ous mild uptake of the spleen.Res olved with rituximab therapy. Monoclonal gammopathy of uncertain significance [id number] D47.2 Labs from September 17, 2018 with presence of IgM kappa monoclonal immunoglob ulin. Presents also an IgG lambda monoclonal immunoglob ulin. Patient has history of splenic marginal zone lymphoma and not uncommon to have monoclonal gammopathy secondary to lymphoma.L abs obtained on February 26, 2019 demonstrat e Protein electropho resis with monoclonal spike seen at 0.9 grams/deci liter. Normal serum free light chains with kappa light chain 19.4, lambda light chain of 14.1, and kappa lambda ratio 1.38. Immunofixa tion demonstrat es an increase in IgM with total level at 589. Upper end of normal is 217.Bone marrow findings without increase in plasma cells 2018. Also the bone marrow sample was favored to be splenic marginal zone lymphoma and not lymphoplas macytic lymphoma. Labs on June 29, 2023 with increase in IgM at 758. Labs on September 28, 2023 with kappa light chain 20.8. Normal kappa lambda ratio at 1.42. IgM level elevated at 958. Monoclonal spike 0.9 grams/deci liter. Immunofixa tion with IgM monoclonal protein with kappa light chain specificit y. Normal CBC. Normal differenti al. Bone marrow biopsy performed on October 19, 2023 with no evidence of trauma or abnormal cell population . No evidence of fibrosis or dysplasia. Flow cytometry normal. No evidence of plasma cell population . CT scan August 13, 2024 with no acute findings. No evidence of lymphadeno christie. No splenomega ly. Recommend observatio n only. Stable findings with IgM monoclonal protein. Would favor observatio n only. Patient returns September 26, 2024. Discussed repeat labs today. Hopefully continue with observatio n only. Iron defic iency anemia 65603384 D50.9 Labs obtained on February 26, 2019 demonstrat e Serum iron studies with low serum iron at 29 and TIBC of 334. Low iron saturation 9%. Nonulcer dyspepsia 77555 07 K30 Patient reports symptoms of dyspepsia. continues on PPI. Chronic id iopathic constipation [id number] K59.04 Patient currently on Linzess. Concern that left upper quadrant discomfort could be related to constipati on. Not uncommon to have pain at the splenic flexure. [id number] Hira Nix PA-C [facility] [address] [place] [address] 01/30/2025 10:34:08 01/30/2025 11:16:07 Splenic marginal zone B-cell lymphoma [id number] C83.07 PET scan on October 27, 2020 with comparison to imaging from March 05, 2019. No evidence of lymphadeno christie. Spleen is normal in size. No enlarged lymph nodes.CT scan of the abdomen pelvis on April 13, 2021 with stable exam and no evidence of lymphadeno christie. Fatty infiltrati on of the liver. Spleen is normal in size.Patie nt returned on October 09, 2021 for cycle 8 of maintenanc e rituximab. Patient completed 2 years of maintenanc e therapy.CT scan of the abdomen and pelvis on November 18, 2021 with comparison made to imaging from April 13, 2021. Lung bases are clear. No focal consolidat ion. No evidence of effusion. Adrenal glands unremarkab le. No retroperit salgado or mesenteric adenopathy . Spleen is unremarkab le and normal in size.Splee n size at time of initial evaluation [address] scan of the chest abdomen pelvis on September 11, 2023. Imaging compared to CT scan on January 07, 2020. No evidence of axillary adenopathy . No hilar mediastina l adenopathy . No pericardia l or pleural effusion. Stable cyst in the dome of the liver 1 cm. Gallbladde r surgically absent. Spleen is unremarkab le and normal in size. No acute osseous abnormalit y. No evidence of acute abdominal process. Bone marrow biopsy performed on October 19, 2023 with no evidence of trauma or abnormal cell population . No evidence of fibrosis or dysplasia. Flow cytometry normal. No evidence of plasma cell population . CT scan August 13, 2024 with no acute findings. No evidence of lymphadeno christie. No splenomega ly. Recommend observatio n only. Stable findings with IgM monoclonal protein. Would favor observatio n only. CT scan August 13, 2024 with no acute findings. No evidence of lymphadeno christie. No splenomega ly. Recommend observatio n only. Stable findings with IgM monoclonal protein. Would favor observatio n only. Following up labs today. Monoclonal gammopathy of uncertain significance [id number] D47.2 Labs from September 17, 2018 with presence of IgM kappa monoclonal immunoglob ulin. Presents also an IgG lambda monoclonal immunoglob ulin. Patient has history of splenic marginal zone lymphoma and not uncommon to have monoclonal gammopathy secondary to lymphoma.L abs obtained on February 26, 2019 demonstrat e Protein electropho resis with monoclonal spike seen at 0.9 grams/deci liter. Normal serum free light chains with kappa light chain 19.4, lambda light chain of 14.1, and kappa lambda ratio 1.38. Immunofixa tion demonstrat es an increase in IgM with total level at 589. Upper end of normal is 217.Bone marrow findings without increase in plasma cells 2018. Also the bone marrow sample was favored to be splenic marginal zone lymphoma and not lymphoplas macytic lymphoma. Labs on June 29, 2023 with increase in IgM at 758. Labs on September 28, 2023 with kappa light chain 20.8. Normal kappa lambda ratio at 1.42. IgM level elevated at 958. Monoclonal spike 0.9 grams/deci liter. Immunofixa tion with IgM monoclonal protein with kappa light chain specificit y. Normal CBC. Normal differenti al. Bone marrow biopsy performed on October 19, 2023 with no evidence of trauma or abnormal cell population . No evidence of fibrosis or dysplasia. Flow cytometry normal. No evidence of plasma cell population . CT scan August 13, 2024. Stable findings with IgM monoclonal protein. Would favor observatio n only. Labs on September 26, 2024. Stable monoclonal protein at 1.1. g/dL. Patient has chronic pain due to arthritis and fibromyalg ia. She states she has followed up with the pain clinic in the past but they recommende d injections and patient does not want to have injections done. She mentions she has had more all over bone pain. Her last bone survey was September 2023. Will follow up bone survey. Discussed repeat labs today. Iron defic iency anemia 12814789 D50.9 Labs obtained on February 26, 2019 demonstrat e Serum iron studies with low serum iron at 29 and TIBC of 334. Low iron saturation 9%. Labs on September 26, 2024 with iron deficiency anemia. Hemoglobin 11.6. Serum iron low at 35 and iron saturation 10%. Ferritin 47. Patient received infusional iron. EGD and colonoscop y on October 17, 2024 with no evidence of blood loss. Patient denies any bleeding. Discussed repeat labs today. Nonulcer dyspepsia 07042 07 K30 Patient reports intermitte nt symptoms of dyspepsia. Continues on PPI. Chronic id iopathic constipation 11785669 K59.04 Patient currently on Linzess. Concern that left upper quadrant discomfort could be related to constipati on. Not uncommon to have pain at the splenic flexure. Hypokalemia [id number] E87 .6 Labs on September 26, 2024 with a potassium low at 3. Will follow up potassium level today. History of splenomegaly [id number] Z87.898 Splenomega ly on imaging in August 2018. In spleen at that time was 14.7 cm. Previous measuremen t in mid 2017 was 13.[address] scan of the chest, abdomen, pelvis performed on January 07, 2020. CT of chest normal. CT scan of the abdomen pelvis with no signs of lymphadeno christie which is an improvemen t over prior PET scan. Spleen is borderline enlarged and measures 12 cm. Improved from prior exam.PET scan performed on March 05, 2019 with no evidence of increased lynette uptake however the patient had a enlarged spleen at 14.9 cm and heterogene ous mild uptake of the spleen.Res olved with rituximab therapy. CT scan August 13, 2024 with no acute findings. No evidence of lymphadeno christie. No splenomega ly. Cannabis dependence [id number] [id number] F12.20 She has started using THC vape for her chronic pain and to help her sleep. Patient has chronic pain due to arthritis and fibromyalg ia. She states she has followed up with the pain clinic in the past but they recommende d injections and patient does not want to have injections done. [id number] Jairon Saleh MD [facility] [address] [place] [address] 03/27/2025 13:04:24 03/27/2025 13:46:35 Splenic marginal zone B-cell lymphoma [id number] C83.07 PET scan on October 27, 2020 with comparison to imaging from March 05, 2019. No evidence of lymphadeno christie. Spleen is normal in size. No enlarged lymph nodes.CT scan of the abdomen pelvis on April 13, 2021 with stable exam and no evidence of lymphadeno christie. Fatty infiltrati on of the liver. Spleen is normal in size.Patie nt returned on October 09, 2021 for cycle 8 of maintenanc e rituximab. Patient completed 2 years of maintenanc e therapy.CT scan of the abdomen and pelvis on November 18, 2021 with comparison made to imaging from April 13, 2021. Lung bases are clear. No focal consolidat ion. No evidence of effusion. Adrenal glands unremarkab le. No retroperit salgado or mesenteric adenopathy . Spleen is unremarkab le and normal in size.Splee n size at time of initial evaluation [address] scan of the chest abdomen pelvis on September 11, 2023. Imaging compared to CT scan on January 07, 2020. No evidence of axillary adenopathy . No hilar mediastina l adenopathy . No pericardia l or pleural effusion. Stable cyst in the dome of the liver 1 cm. Gallbladde r surgically absent. Spleen is unremarkab le and normal in size. No acute osseous abnormalit y. No evidence of acute abdominal process. Bone marrow biopsy performed on October 19, 2023 with no evidence of trauma or abnormal cell population . No evidence of fibrosis or dysplasia. Flow cytometry normal. No evidence of plasma cell population . CT scan August 13, 2024 with no acute findings. No evidence of lymphadeno christie. No splenomega ly. Recommend observatio n only. Stable findings with IgM monoclonal protein. Would favor observatio n only. Bone survey performed January 30, 2025 with no evidence sclerotic or bone lesions. Labs on January 30, 2025 with monoclonal spike of 0.9 grams/deci liter. IgM kappa monoclonal protein. IgM level 1236. Nipomo light chain 21.5. Nipomo lambda ratio 1.68. White blood cell count 9.5. Red blood cell count 4.7. Hemoglobin 13.6 and hematocrit 41.5. Platelet count [id number]. Patient returns on March 27, 2025. Status post iron infusions. Will follow-up repeat iron studies today. Stable monoclonal protein. Most recent CT scan in July 2024 without lynette adenopathy . Will follow-up labs today. History of splenomegaly [id number] Z87.898 Splenomega ly on imaging in August 2018. In spleen at that time was 14.7 cm. Previous measuremen t in mid 2017 was 13.[address] scan of the chest, abdomen, pelvis performed on January 07, 2020. CT of chest normal. CT scan of the abdomen pelvis with no signs of lymphadeno christie which is an improvemen t over prior PET scan. Spleen is borderline enlarged and measures 12 cm. Improved from prior exam.PET scan performed on March 05, 2019 with no evidence of increased lynette uptake however the patient had a enlarged spleen at 14.9 cm and heterogene ous mild uptake of the spleen.Res olved with rituximab therapy. CT scan August 13, 2024 with no acute findings. No evidence of lymphadeno christie. No splenomega ly. Monoclonal gammopathy of uncertain significance [id number] D47.2 Labs from September 17, 2018 with presence of IgM kappa monoclonal immunoglob ulin. Presents also an IgG lambda monoclonal immunoglob ulin. Patient has history of splenic marginal zone lymphoma and not uncommon to have monoclonal gammopathy secondary to lymphoma.L abs obtained on February 26, 2019 demonstrat e Protein electropho resis with monoclonal spike seen at 0.9 grams/deci liter. Normal serum free light chains with kappa light chain 19.4, lambda light chain of 14.1, and kappa lambda ratio 1.38. Immunofixa tion demonstrat es an increase in IgM with total level at 589. Upper end of normal is 217.Bone marrow findings without increase in plasma cells 2018. Also the bone marrow sample was favored to be splenic marginal zone lymphoma and not lymphoplas macytic lymphoma. Labs on June 29, 2023 with increase in IgM at 758. Labs on September 28, 2023 with kappa light chain 20.8. Normal kappa lambda ratio at 1.42. IgM level elevated at 958. Monoclonal spike 0.9 grams/deci liter. Immunofixa tion with IgM monoclonal protein with kappa light chain specificit y. Normal CBC. Normal differenti al. Bone marrow biopsy performed on October 19, 2023 with no evidence of trauma or abnormal cell population . No evidence of fibrosis or dysplasia. Flow cytometry normal. No evidence of plasma cell population . Bone survey performed January 30, 2025 with no evidence sclerotic or bone lesions. Labs on January 30, 2025 with monoclonal spike of 0.9 grams/deci liter. IgM kappa monoclonal protein. IgM level 1236. Nipomo light chain 21.5. Nipomo lambda ratio 1.68. White blood cell count 9.5. Red blood cell count 4.7. Hemoglobin 13.6 and hematocrit 41.5. Platelet count [id number]. Patient returns on March 27, 2025. Status post iron infusions. Will follow-up repeat iron studies today. Stable monoclonal protein. Most recent CT scan in July 2024 without lynette adenopathy . Will follow-up labs today. Iron defic iency anemia [id number] D50.9 Labs obtained on February 26, 2019 demonstrat e Serum iron studies with low serum iron at 29 and TIBC of 334. Low iron saturation 9%. Labs on September 26, 2024 with iron deficiency anemia. Hemoglobin 11.6. Serum iron low at 35 and iron saturation 10%. Ferritin 47. Patient received infusional iron. EGD and colonoscop y on October 17, 2024 with no evidence of blood loss. Nonulcer dyspepsia 77200 [id number] K30 Patient reports intermitte nt symptoms of dyspepsia. Continues on PPI. Chronic id iopathic constipation [id number] K59.04 Patient currently on Linzess. Concern that left upper quadrant discomfort could be related to constipati on. Not uncommon to have pain at the splenic flexure. Health Concerns Section Related Observation LastModified by Organization Detai ls LastModified Time None Recorded Concern Status LastModified by Organization Details LastModified Time None Recorded Advance Directives Directive None Recorded Payers Insurance Date Sequence Insurance Name Policy Number Policy Ramos Covered Member ID Ramos Member ID Guarantor Name 04/01/2025 1 [facility] (MEDICARE REPLACEMENT/A DVANTAGE - HMO) [id number] Reece Green [id number] Reece Barba 04/01/2025 2 MEDICAID-[facility] [employer] CHOICES - FFS/TRADITION AL Reece Green [id number] Reece Barba 04/01/2025 1 [facility] (MEDICARE REPLACEMENT/A DVANTAGE - O) [id number] Reece Green [id number] Reece Barba 04/01/2025 1 MEDICA[facility] [employer] CHOICES - FFS/TRADITION AL Reece Green [id number] Reece Barba 04/01/2025 1 [place]ARE[place] Reece Green [id number] Reece Barba 04/01/2025 2 [employer] (MEDICARE REPLACEMENT/A DVANTAGE - HMO) Reece Green [id number] Reece Barba 04/01/2025 1 [employer] (MEDICARE REPLACEMENT/A DVANTAGE - HMO) Reece Barba [id number] Reece Barba 04/01/2025 1 [facility] (MEDICARE REPLACEMENT/A DVANTAGE - HMO) CHAVA Barba [id number] Reece Barba 04/01/2025 1 [employer] (MEDICARE REPLACEMENT/A DVANTAGE - PPO) Reece Green [id number] Reece Barba Notes Date Note Type Note Provider Name and Address Organization Details Recorded Time 3 text/html 63 yo F with history of splenic marginal zone lymphoma returns for evaluation. 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 The patient had at that time presented to the local hospital with a 1 month history of nausea and vomiting and had an abnormal CBC with atypical lymphocytes. Peripheral flow cytometry that was obtained at that time showed 40% of circulating lymphocytes her kappa clonal B-cell population. There is no CD5 or CD 23 expression. Partial FMC 7 expression. Nonspecific phenotype and could be seen in small lymphocytic lymphoma, chronic lymphocytic leukemia, or hairy cell leukemia. Review of peripheral smear at that time with some cells having hairy cell leukemia like projections but scant.Patient was followed by local oncologist Dr. Magallanes and had gradually rising white blood cell count. Labs from March 15, 2018 with white blood count of 11.8, hemoglobin 12.2, platelet count [id number], and absolute neutrophil count at 2.8. Patient had never had bone marrow biopsy or CT scan imaging. Patient was seen at the [facility] for a 2nd opinion and saw Dr. Blanchard in consultation.Bone marrow biopsy and PET scan were performed.Bone marrow biopsy performed on April 14, 2018 with bone marrow aspirate of the left posterior iliac crest. Findings demonstrated a normal cellular bone marrow involved by small B-cell lymphoproliferative disorder. Flow cytometry shows a kappa clonal B-cell population expressing CD 19 and CD 20 with CD 25 and partial FMC 7 expression. CD5, CD10, CD 22, CD 23, CD 11 C, and CD10 3 are negative. Flow cytometry is not characteristic of hairy cell leukemia. Phenotype also excludes chronic lymphocytic leukemia, follicular lymphoma and mantle cell lymphoma. Absence of associated plasma cells argues against lymphoplasmacytic lymphoma. 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 Cytogenetics demonstrate karyotype of 46 XX.PET scan performed on September 11, 2018. Findings demonstrate multiple scattered [id number] hypermetabolic right axillary and bilateral cervical nodes. Stable on measurement. Mild splenomegaly with diffuse metabolic activity similar to liver parenchymal level but without hypermetabolic focal lesions. Grossly stable and remains concerning for disease involvement. No suspicious metabolically active extranodal her new lynette disease. This PET scan was compared to a previous PET scan from May 04, 2018. Largest lynette area is a level 2 a cervical lymph node that measured 1.4 x 1.0 cm. Maximum SUV of 5.4. There is a left level 2 B 7 mm nodule with an SUV of 2.2. The right axillary exam demonstrates a 1.2 cm lymph node with a maximum SUV of 2.4. The spleen measures 14.7 cm.Following evaluations splenectomy was not recommended. Patient was last seen in April 2019 at the [facility] and at that time the patient did not have B symptoms or symptomatic splenomegaly. Patient also did not meet criteria for initiation of treatment such as cytopenias for progressive lynette disease or B symptoms.Discussed NCCN recommendations for observation in the absence of symptoms or progressive cytopenias.Patient reports since last year she has had increasing night sweats. The patient also reports pain in her left upper quadrant as well as early satiety.Labs obtained on February 26, 2019 demonstrate a negative acute hepatitis panel. Negative HIV screen. Protein electrophoresis with monoclonal spike seen at 0.9 grams/deciliter. Normal serum free light chains with kappa light chain 19.4, lambda light chain of 14.1, and kappa lambda ratio 1.38. Immunofixation demonstrates an increase in IgM with total level at 589. Upper end of normal is 217. LDH elevated at 213. CBC demonstrates total white blood cell count 22.3 with red blood cell count 4.9. Hemoglobin 12.4 and macro 40.0. MCV 82.3. Platelet count [id number]. On differential the patient is 54% lymphocytes and absolute lymphocyte count is elevated at 12.0. Serum iron studies with low serum iron at 29 and TIBC of 334. Low iron saturation 9%.PET scan performed on March 05, 2019 with no evidence of increased lynette uptake however the patient had a enlarged spleen at 14.9 cm and heterogeneous mild uptake of the spleen.Labs performed on February 26, 2019 demonstrated white blood cell count 22.3, red blood count 4.9, hemoglobin 12.4, hematocrit 40.0. Platelet count 335595 and on differential lymphocytes of 54% which is an absolute lymphocyte count 12.0.At the time of last evaluation patient wished to continue with observation although she is having mild B symptoms of night sweats and occasional fever.Labs on June 11, 2019 with white blood count 11.5 and red blood count 4.8 with hemoglobin 12.7 and hematocrit 40.1. MCV 83.5. Platelet count 611261. On differential 61% lymphocytes. Absolute lymphocyte count at 7.0.Stable white blood cell count on last visit however with increasing night sweats as well as early satiety. Patient is having pain in her left side and has an enlarged spleen. Discussed rituximab weekly therapy based on NCCN guidelines.Patient started rituximab weekly therapy with week 1 on November 07, 2019. Plan for 4 weeks of therapy.Week 4 injectable rituximab on November 28, 2019.CT scan of the chest, abdomen, pelvis performed on January 07, 2020. CT of chest normal. CT scan of the abdomen pelvis with no signs of lymphadenopathy which is an improvement over prior PET scan. Spleen is borderline enlarged and measures 12 cm. Improved from prior exam.PET scan performed on March 05, 2019 with no evidence of increased lynette uptake however the patient had a enlarged spleen at 14.9 cm and heterogeneous mild uptake of the spleen.Overall spleen has decreased in size by 3 cm following rituximab therapy for splenic marginal zone lymphoma. Would continue with every 3 months rituximab dosing.First dose of rituximab maintenance on February 29, 2020.PET scan on October 27, 2020 with comparison to imaging from March 05, 2019. No evidence of lymphadenopathy. Spleen is normal in size. No enlarged lymph nodes.CT scan of the abdomen pelvis on April 13, 2021 with stable exam and no evidence of lymphadenopathy. Fatty infiltration of the liver. Spleen is normal in size.Cycle 5 of injectable rituximab on January 30, 2021.Cycle 6 of injectable rituximab on April 24, 2021.Cycle 7 of injectable rituximab on July 17, 2021.Patient returned on October 09, 2021 for cycle 8 of maintenance rituximab. Patient completed 2 years of maintenance therapy.CT scan of the abdomen and pelvis on November 18, 2021 with comparison made to imaging from April 13, 2021. Lung bases are clear. No focal consolidation. No evidence of effusion. Adrenal glands unremarkable. No retroperitoneal or mesenteric adenopathy. Spleen is unremarkable and normal in size.Patient returned for clinic evaluation on January 18, 2022. Discussed repeat evaluation in 6 months. Recommend observation only. Would repeat imaging if symptoms develop.Spleen size at time of initial evaluation 2018 at 14.[address] of neck chest abdomen pelvis performed on JulyAugust 06, 2022. No evidence of recurrence. Labs on January 25, 2023 with immunofixation demonstrating an IgM monoclonal protein. IgM level 275. IgM kappa monoclonal protein. CT scan of the chest abdomen pelvis on September 11, 2023. Imaging compared to CT scan on January 07, 2020. No evidence of axillary adenopathy. No hilar mediastinal adenopathy. No pericardial or pleural effusion. Stable cyst in the dome of the liver 1 cm. Gallbladder surgically absent. Spleen is unremarkable and normal in size. No acute osseous abnormality. No evidence of acute abdominal process. Patient returns on September 28, 2023. Discussed repeat labs today. Will follow-up labs make further recommendations. Jairon Saleh MD [address] [facility], [place], [address], [place] - [facility] - [place] & [place] 09/28/2023 14:11:09 4 text/html 64 yo F with history of splenic marginal zone lymphoma returns for evaluation. 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 The patient had at that time presented to the local hospital with a 1 month history of nausea and vomiting and had an abnormal CBC with atypical lymphocytes. Peripheral flow cytometry that was obtained at that time showed 40% of circulating lymphocytes her kappa clonal B-cell population. There is no CD5 or CD 23 expression. Partial FMC 7 expression. Nonspecific phenotype and could be seen in small lymphocytic lymphoma, chronic lymphocytic leukemia, or hairy cell leukemia. Review of peripheral smear at that time with some cells having hairy cell leukemia like projections but scant.Patient was followed by local oncologist Dr. Magallanes and had gradually rising white blood cell count. Labs from March 15, 2018 with white blood count of 11.8, hemoglobin 12.2, platelet count 634434, and absolute neutrophil count at 2.8. Patient had never had bone marrow biopsy or CT scan imaging. Patient was seen at the [facility] for a 2nd opinion and saw Dr. Blanchard in consultation.Bone marrow biopsy and PET scan were performed.Bone marrow biopsy performed on April 14, 2018 with bone marrow aspirate of the left posterior iliac crest. Findings demonstrated a normal cellular bone marrow involved by small B-cell lymphoproliferative disorder. Flow cytometry shows a kappa clonal B-cell population expressing CD 19 and CD 20 with CD 25 and partial FMC 7 expression. CD5, CD10, CD 22, CD 23, CD 11 C, and CD10 3 are negative. Flow cytometry is not characteristic of hairy cell leukemia. Phenotype also excludes chronic lymphocytic leukemia, follicular lymphoma and mantle cell lymphoma. Absence of associated plasma cells argues against lymphoplasmacytic lymphoma. 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 Cytogenetics demonstrate karyotype of 46 XX.PET scan performed on September 11, 2018. Findings demonstrate multiple scattered [id number] hypermetabolic right axillary and bilateral cervical nodes. Stable on measurement. Mild splenomegaly with diffuse metabolic activity similar to liver parenchymal level but without hypermetabolic focal lesions. Grossly stable and remains concerning for disease involvement. No suspicious metabolically active extranodal her new lynette disease. This PET scan was compared to a previous PET scan from May 04, 2018. Largest lynette area is a level 2 a cervical lymph node that measured 1.4 x 1.0 cm. Maximum SUV of 5.4. There is a left level 2 B 7 mm nodule with an SUV of 2.2. The right axillary exam demonstrates a 1.2 cm lymph node with a maximum SUV of 2.4. The spleen measures 14.7 cm.Following evaluations splenectomy was not recommended. Patient was last seen in April 2019 at the [facility] and at that time the patient did not have B symptoms or symptomatic splenomegaly. Patient also did not meet criteria for initiation of treatment such as cytopenias for progressive lynette disease or B symptoms.Discussed NCCN recommendations for observation in the absence of symptoms or progressive cytopenias.Patient reports since last year she has had increasing night sweats. The patient also reports pain in her left upper quadrant as well as early satiety.Labs obtained on February 26, 2019 demonstrate a negative acute hepatitis panel. Negative HIV screen. Protein electrophoresis with monoclonal spike seen at 0.9 grams/deciliter. Normal serum free light chains with kappa light chain 19.4, lambda light chain of 14.1, and kappa lambda ratio 1.38. Immunofixation demonstrates an increase in IgM with total level at 589. Upper end of normal is 217. LDH elevated at 213. CBC demonstrates total white blood cell count 22.3 with red blood cell count 4.9. Hemoglobin 12.4 and macro 40.0. MCV 82.3. Platelet count [id number]. On differential the patient is 54% lymphocytes and absolute lymphocyte count is elevated at 12.0. Serum iron studies with low serum iron at 29 and TIBC of 334. Low iron saturation 9%.PET scan performed on March 05, 2019 with no evidence of increased lynette uptake however the patient had a enlarged spleen at 14.9 cm and heterogeneous mild uptake of the spleen.Labs performed on February 26, 2019 demonstrated white blood cell count 22.3, red blood count 4.9, hemoglobin 12.4, hematocrit 40.0. Platelet count 801248 and on differential lymphocytes of 54% which is an absolute lymphocyte count 12.0.At the time of last evaluation patient wished to continue with observation although she is having mild B symptoms of night sweats and occasional fever.Labs on June 11, 2019 with white blood count 11.5 and red blood count 4.8 with hemoglobin 12.7 and hematocrit 40.1. MCV 83.5. Platelet count 280020. On differential 61% lymphocytes. Absolute lymphocyte count at 7.0.Stable white blood cell count on last visit however with increasing night sweats as well as early satiety. Patient is having pain in her left side and has an enlarged spleen. Discussed rituximab weekly therapy based on NCCN guidelines.Patient started rituximab weekly therapy with week 1 on November 07, 2019. Plan for 4 weeks of therapy.Week 4 injectable rituximab on November 28, 2019.CT scan of the chest, abdomen, pelvis performed on January 07, 2020. CT of chest normal. CT scan of the abdomen pelvis with no signs of lymphadenopathy which is an improvement over prior PET scan. Spleen is borderline enlarged and measures 12 cm. Improved from prior exam.PET scan performed on March 05, 2019 with no evidence of increased lynette uptake however the patient had a enlarged spleen at 14.9 cm and heterogeneous mild uptake of the spleen.Overall spleen has decreased in size by 3 cm following rituximab therapy for splenic marginal zone lymphoma. Would continue with every 3 months rituximab dosing.First dose of rituximab maintenance on February 29, 2020.PET scan on October 27, 2020 with comparison to imaging from March 05, 2019. No evidence of lymphadenopathy. Spleen is normal in size. No enlarged lymph nodes.CT scan of the abdomen pelvis on April 13, 2021 with stable exam and no evidence of lymphadenopathy. Fatty infiltration of the liver. Spleen is normal in size.Cycle 5 of injectable rituximab on January 30, 2021.Cycle 6 of injectable rituximab on April 24, 2021.Cycle 7 of injectable rituximab on July 17, 2021.Patient returned on October 09, 2021 for cycle 8 of maintenance rituximab. Patient completed 2 years of maintenance therapy.CT scan of the abdomen and pelvis on November 18, 2021 with comparison made to imaging from April 13, 2021. Lung bases are clear. No focal consolidation. No evidence of effusion. Adrenal glands unremarkable. No retroperitoneal or mesenteric adenopathy. Spleen is unremarkable and normal in size.Patient returned for clinic evaluation on January 18, 2022. Discussed repeat evaluation in 6 months. Recommend observation only. Would repeat imaging if symptoms develop.Spleen size at time of initial evaluation 2018 at 14.[address] of neck chest abdomen pelvis performed on JulyAugust 06, 2022. No evidence of recurrence. Labs on January 25, 2023 with immunofixation demonstrating an IgM monoclonal protein. IgM level 275. IgM kappa monoclonal protein. CT scan of the chest abdomen pelvis on September 11, 2023. Imaging compared to CT scan on January 07, 2020. No evidence of axillary adenopathy. No hilar mediastinal adenopathy. No pericardial or pleural effusion. Stable cyst in the dome of the liver 1 cm. Gallbladder surgically absent. Spleen is unremarkable and normal in size. No acute osseous abnormality. No evidence of acute abdominal process. Labs on September 28, 2023 with kappa light chain 20.8. Normal kappa lambda ratio at 1.42. IgM level elevated at 958. Monoclonal spike 0.9 grams/deciliter. Immunofixation with IgM monoclonal protein with kappa light chain specificity. Normal CBC. Normal differential. Patient returns March 28, 2024. Discussed repeat labs today. Will send peripheral blood flow cytometry as well. Follow-up repeat imaging in labs. Hopefully continue with observation only. 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 The patient had at that time presented to the local hospital with a 1 month history of nausea and vomiting and had an abnormal CBC with atypical lymphocytes. Peripheral flow cytometry that was obtained at that time showed 40% of circulating lymphocytes her kappa clonal B-cell population. There is no CD5 or CD 23 expression. Partial FMC 7 expression. Nonspecific phenotype and could be seen in small lymphocytic lymphoma, chronic lymphocytic leukemia, or hairy cell leukemia. Review of peripheral smear at that time with some cells having hairy cell leukemia like projections but scant.Patient was followed by local oncologist Dr. Magallanes and had gradually rising white blood cell count. Labs from March 15, 2018 with white blood count of 11.8, hemoglobin 12.2, platelet count [id number], and absolute neutrophil count at 2.8. Patient had never had bone marrow biopsy or CT scan imaging. Patient was seen at the [facility] for a 2nd opinion and saw Dr. Blanchard in consultation.Bone marrow biopsy and PET scan were performed.Bone marrow biopsy performed on April 14, 2018 with bone marrow aspirate of the left posterior iliac crest. Findings demonstrated a normal cellular bone marrow involved by small B-cell lymphoproliferative disorder. Flow cytometry shows a kappa clonal B-cell population expressing CD 19 and CD 20 with CD 25 and partial FMC 7 expression. CD5, CD10, CD 22, CD 23, CD 11 C, and CD10 3 are negative. Flow cytometry is not characteristic of hairy cell leukemia. Phenotype also excludes chronic lymphocytic leukemia, follicular lymphoma and mantle cell lymphoma. Absence of associated plasma cells argues against lymphoplasmacytic lymphoma. 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 Cytogenetics demonstrate karyotype of 46 XX.PET scan performed on September 11, 2018. Findings demonstrate multiple scattered wtha-rs-sfztgfri hypermetabolic right axillary and bilateral cervical nodes. Stable on measurement. Mild splenomegaly with diffuse metabolic activity similar to liver parenchymal level but without hypermetabolic focal lesions. Grossly stable and remains concerning for disease involvement. No suspicious metabolically active extranodal her new lynette disease. This PET scan was compared to a previous PET scan from May 04, 2018. Largest lynette area is a level 2 a cervical lymph node that measured 1.4 x 1.0 cm. Maximum SUV of 5.4. There is a left level 2 B 7 mm nodule with an SUV of 2.2. The right axillary exam demonstrates a 1.2 cm lymph node with a maximum SUV of 2.4. The spleen measures 14.7 cm.Following evaluations splenectomy was not recommended. Patient was last seen in April 2019 at the [facility] and at that time the patient did not have B symptoms or symptomatic splenomegaly. Patient also did not meet criteria for initiation of treatment such as cytopenias for progressive lynette disease or B symptoms.Discussed NCCN recommendations for observation in the absence of symptoms or progressive cytopenias.Patient reports since last year she has had increasing night sweats. The patient also reports pain in her left upper quadrant as well as early satiety.Labs obtained on February 26, 2019 demonstrate a negative acute hepatitis panel. Negative HIV screen. Protein electrophoresis with monoclonal spike seen at 0.9 grams/deciliter. Normal serum free light chains with kappa light chain 19.4, lambda light chain of 14.1, and kappa lambda ratio 1.38. Immunofixation demonstrates an increase in IgM with total level at 589. Upper end of normal is 217. LDH elevated at 213. CBC demonstrates total white blood cell count 22.3 with red blood cell count 4.9. Hemoglobin 12.4 and macro 40.0. MCV 82.3. Platelet count [id number]. On differential the patient is 54% lymphocytes and absolute lymphocyte count is elevated at 12.0. Serum iron studies with low serum iron at 29 and TIBC of 334. Low iron saturation 9%.PET scan performed on March 05, 2019 with no evidence of increased lynette uptake however the patient had a enlarged spleen at 14.9 cm and heterogeneous mild uptake of the spleen.Labs performed on February 26, 2019 demonstrated white blood cell count 22.3, red blood count 4.9, hemoglobin 12.4, hematocrit 40.0. Platelet count [id number] and on differential lymphocytes of 54% which is an absolute lymphocyte count 12.0.At the time of last evaluation patient wished to continue with observation although she is having mild B symptoms of night sweats and occasional fever.Labs on June 11, 2019 with white blood count 11.5 and red blood count 4.8 with hemoglobin 12.7 and hematocrit 40.1. MCV 83.5. Platelet count [id number]. On differential 61% lymphocytes. Absolute lymphocyte count at 7.0.Stable white blood cell count on last visit however with increasing night sweats as well as early satiety. Patient is having pain in her left side and has an enlarged spleen. Discussed rituximab weekly therapy based on NCCN guidelines.Patient started rituximab weekly therapy with week 1 on November 07, 2019. Plan for 4 weeks of therapy.Week 4 injectable rituximab on November 28, 2019.CT scan of the chest, abdomen, pelvis performed on January 07, 2020. CT of chest normal. CT scan of the abdomen pelvis with no signs of lymphadenopathy which is an improvement over prior PET scan. Spleen is borderline enlarged and measures 12 cm. Improved from prior exam.PET scan performed on March 05, 2019 with no evidence of increased lynette uptake however the patient had a enlarged spleen at 14.9 cm and heterogeneous mild uptake of the spleen.Overall spleen has decreased in size by 3 cm following rituximab therapy for splenic marginal zone lymphoma. Would continue with every 3 months rituximab dosing.First dose of rituximab maintenance on February 29, 2020.PET scan on October 27, 2020 with comparison to imaging from March 05, 2019. No evidence of lymphadenopathy. Spleen is normal in size. No enlarged lymph nodes.CT scan of the abdomen pelvis on April 13, 2021 with stable exam and no evidence of lymphadenopathy. Fatty infiltration of the liver. Spleen is normal in size.Cycle 5 of injectable rituximab on January 30, 2021.Cycle 6 of injectable rituximab on April 24, 2021.Cycle 7 of injectable rituximab on July 17, 2021.Patient returned on October 09, 2021 for cycle 8 of maintenance rituximab. Patient completed 2 years of maintenance therapy.CT scan of the abdomen and pelvis on November 18, 2021 with comparison made to imaging from April 13, 2021. Lung bases are clear. No focal consolidation. No evidence of effusion. Adrenal glands unremarkable. No retroperitoneal or mesenteric adenopathy. Spleen is unremarkable and normal in size.Patient returned for clinic evaluation on January 18, 2022. Discussed repeat evaluation in 6 months. Recommend observation only. Would repeat imaging if symptoms develop.Spleen size at time of initial evaluation [address] at [address] of neck chest abdomen pelvis performed on August 06, 2022. No evidence of recurrence. Labs on January 25, 2023 with immunofixation demonstrating an IgM monoclonal protein. IgM level 275. IgM kappa monoclonal protein. CT scan of the chest abdomen pelvis on September 11, 2023. Imaging compared to CT scan on January 07, 2020. No evidence of axillary adenopathy. No hilar mediastinal adenopathy. No pericardial or pleural effusion. Stable cyst in the dome of the liver 1 cm. Gallbladder surgically absent. Spleen is unremarkable and normal in size. No acute osseous abnormality. No evidence of acute abdominal process. Labs on September 28, 2023 with kappa light chain 20.8. Normal kappa lambda ratio at 1.42. IgM level elevated at 958. Monoclonal spike 0.9 grams/deciliter. Immunofixation with IgM monoclonal protein with kappa light chain specificity. Normal CBC. Normal differential. CT scan August 13, 2024 with no acute findings. No evidence of lymphadenopathy. No splenomegaly. Recommend observation only. Stable findings with IgM monoclonal protein. Would favor observation only. Patient returns September 26, 2024. No acute changes. Discussed repeat labs today. Hopefully continue with observation only. 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 The patient had at that time presented to the local hospital with a 1 month history of nausea and vomiting and had an abnormal CBC with atypical lymphocytes. Peripheral flow cytometry that was obtained at that time showed 40% of circulating lymphocytes her kappa clonal B-cell population. There is no CD5 or CD 23 expression. Partial FMC 7 expression. Nonspecific phenotype and could be seen in small lymphocytic lymphoma, chronic lymphocytic leukemia, or hairy cell leukemia. Review of peripheral smear at that time with some cells having hairy cell leukemia like projections but scant.Patient was followed by local oncologist Dr. Magallanes and had gradually rising white blood cell count. Labs from March 15, 2018 with white blood count of 11.8, hemoglobin 12.2, platelet count [id number], and absolute neutrophil count at 2.8. Patient had never had bone marrow biopsy or CT scan imaging. Patient was seen at the [facility] for a 2nd opinion and saw Dr. Blanchard in consultation.Bone marrow biopsy and PET scan were performed.Bone marrow biopsy performed on April 14, 2018 with bone marrow aspirate of the left posterior iliac crest. Findings demonstrated a normal cellular bone marrow involved by small B-cell lymphoproliferative disorder. Flow cytometry shows a kappa clonal B-cell population expressing CD 19 and CD 20 with CD 25 and partial FMC 7 expression. CD5, CD10, CD 22, CD 23, CD 11 C, and CD10 3 are negative. Flow cytometry is not characteristic of hairy cell leukemia. Phenotype also excludes chronic lymphocytic leukemia, follicular lymphoma and mantle cell lymphoma. Absence of associated plasma cells argues against lymphoplasmacytic lymphoma. 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 Cytogenetics demonstrate karyotype of 46 XX.PET scan performed on September 11, 2018. Findings demonstrate multiple scattered niml-oa-sacttmgu hypermetabolic right axillary and bilateral cervical nodes. Stable on measurement. Mild splenomegaly with diffuse metabolic activity similar to liver parenchymal level but without hypermetabolic focal lesions. Grossly stable and remains concerning for disease involvement. No suspicious metabolically active extranodal her new lynette disease. This PET scan was compared to a previous PET scan from May 04, 2018. Largest lynette area is a level 2 a cervical lymph node that measured 1.4 x 1.0 cm. Maximum SUV of 5.4. There is a left level 2 B 7 mm nodule with an SUV of 2.2. The right axillary exam demonstrates a 1.2 cm lymph node with a maximum SUV of 2.4. The spleen measures 14.7 cm.Following evaluations splenectomy was not recommended. Patient was last seen in April 2019 at the [facility] and at that time the patient did not have B symptoms or symptomatic splenomegaly. Patient also did not meet criteria for initiation of treatment such as cytopenias for progressive lynette disease or B symptoms.Discussed NCCN recommendations for observation in the absence of symptoms or progressive cytopenias.Patient reports since last year she has had increasing night sweats. The patient also reports pain in her left upper quadrant as well as early satiety.Labs obtained on February 26, 2019 demonstrate a negative acute hepatitis panel. Negative HIV screen. Protein electrophoresis with monoclonal spike seen at 0.9 grams/deciliter. Normal serum free light chains with kappa light chain 19.4, lambda light chain of 14.1, and kappa lambda ratio 1.38. Immunofixation demonstrates an increase in IgM with total level at 589. Upper end of normal is 217. LDH elevated at 213. CBC demonstrates total white blood cell count 22.3 with red blood cell count 4.9. Hemoglobin 12.4 and macro 40.0. MCV 82.3. Platelet count [id number]. On differential the patient is 54% lymphocytes and absolute lymphocyte count is elevated at 12.0. Serum iron studies with low serum iron at 29 and TIBC of 334. Low iron saturation 9%.PET scan performed on March 05, 2019 with no evidence of increased lynette uptake however the patient had a enlarged spleen at 14.9 cm and heterogeneous mild uptake of the spleen.Labs performed on February 26, 2019 demonstrated white blood cell count 22.3, red blood count 4.9, hemoglobin 12.4, hematocrit 40.0. Platelet count [id number] and on differential lymphocytes of 54% which is an absolute lymphocyte count 12.0.At the time of last evaluation patient wished to continue with observation although she is having mild B symptoms of night sweats and occasional fever.Labs on June 11, 2019 with white blood count 11.5 and red blood count 4.8 with hemoglobin 12.7 and hematocrit 40.1. MCV 83.5. Platelet count [id number]. On differential 61% lymphocytes. Absolute lymphocyte count at 7.0.Stable white blood cell count on last visit however with increasing night sweats as well as early satiety. Patient is having pain in her left side and has an enlarged spleen. Discussed rituximab weekly therapy based on NCCN guidelines.Patient started rituximab weekly therapy with week 1 on November 07, 2019. Plan for 4 weeks of therapy.Week 4 injectable rituximab on November 28, 2019.CT scan of the chest, abdomen, pelvis performed on January 07, 2020. CT of chest normal. CT scan of the abdomen pelvis with no signs of lymphadenopathy which is an improvement over prior PET scan. Spleen is borderline enlarged and measures 12 cm. Improved from prior exam.PET scan performed on March 05, 2019 with no evidence of increased lynette uptake however the patient had a enlarged spleen at 14.9 cm and heterogeneous mild uptake of the spleen.Overall spleen has decreased in size by 3 cm following rituximab therapy for splenic marginal zone lymphoma. Would continue with every 3 months rituximab dosing.First dose of rituximab maintenance on February 29, 2020.PET scan on October 27, 2020 with comparison to imaging from March 05, 2019. No evidence of lymphadenopathy. Spleen is normal in size. No enlarged lymph nodes.CT scan of the abdomen pelvis on April 13, 2021 with stable exam and no evidence of lymphadenopathy. Fatty infiltration of the liver. Spleen is normal in size.Cycle 5 of injectable rituximab on January 30, 2021.Cycle 6 of injectable rituximab on April 24, 2021.Cycle 7 of injectable rituximab on July 17, 2021.Patient returned on October 09, 2021 for cycle 8 of maintenance rituximab. Patient completed 2 years of maintenance therapy.CT scan of the abdomen and pelvis on November 18, 2021 with comparison made to imaging from April 13, 2021. Lung bases are clear. No focal consolidation. No evidence of effusion. Adrenal glands unremarkable. No retroperitoneal or mesenteric adenopathy. Spleen is unremarkable and normal in size.Patient returned for clinic evaluation on January 18, 2022. Discussed repeat evaluation in 6 months. Recommend observation only. Would repeat imaging if symptoms develop.Spleen size at time of initial evaluation 2018 at 14.[address] of neck chest abdomen pelvis performed on August 06, 2022. No evidence of recurrence. Labs on January 25, 2023 with immunofixation demonstrating an IgM monoclonal protein. IgM level 275. IgM kappa monoclonal protein. CT scan of the chest abdomen pelvis on September 11, 2023. Imaging compared to CT scan on January 07, 2020. No evidence of axillary adenopathy. No hilar mediastinal adenopathy. No pericardial or pleural effusion. Stable cyst in the dome of the liver 1 cm. Gallbladder surgically absent. Spleen is unremarkable and normal in size. No acute osseous abnormality. No evidence of acute abdominal process. Labs on September 28, 2023 with kappa light chain 20.8. Normal kappa lambda ratio at 1.42. IgM level elevated at 958. Monoclonal spike 0.9 grams/deciliter. Immunofixation with IgM monoclonal protein with kappa light chain specificity. Normal CBC. Normal differential. CT scan August 13, 2024 with no acute findings. No evidence of lymphadenopathy. No splenomegaly. Recommend observation only. Stable findings with IgM monoclonal protein. Would favor observation only. Patient returns January 30, 2025. Labs on September 26, 2024 with iron deficiency anemia. Hemoglobin 11.6. Serum iron low at 35 and iron saturation 10%. Ferritin 47. Stable monoclonal protein at 1.1. g/dL. Patient received infusional iron. EGD and colonoscopy on October 17, 2024 with no evidence of blood loss. Patient denies any bleeding. She has chronic constipation and is taking Linzess. She has occasional left upper quadrant pain when she has had intermittently for a long time. Discussed possible pain due to flatulence. Discussed trying simethicone. She states she recently had COPD exacerbation and completed a course of antibiotics and steroids. She is feeling now. Patient has chronic pain due to arthritis and fibromyalgia. She states she has followed up with the pain clinic in the past but they recommended injections and patient does not want to have injections done. She has started using THC vape for her pain and to help her sleep. She mentions she has had more all over bone pain. Her last bone survey was September 2023. Will follow up bone survey. Discussed repeat labs today. 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 The patient had at that time presented to the local hospital with a 1 month history of nausea and vomiting and had an abnormal CBC with atypical lymphocytes. Peripheral flow cytometry that was obtained at that time showed 40% of circulating lymphocytes her kappa clonal B-cell population. There is no CD5 or CD 23 expression. Partial FMC 7 expression. Nonspecific phenotype and could be seen in small lymphocytic lymphoma, chronic lymphocytic leukemia, or hairy cell leukemia. Review of peripheral smear at that time with some cells having hairy cell leukemia like projections but scant.Patient was followed by local oncologist Dr. Magallanes and had gradually rising white blood cell count. Labs from March 15, 2018 with white blood count of 11.8, hemoglobin 12.2, platelet count [id number], and absolute neutrophil count at 2.8. Patient had never had bone marrow biopsy or CT scan imaging. Patient was seen at the [facility] for a 2nd opinion and saw Dr. Blanchard in consultation.Bone marrow biopsy and PET scan were performed.Bone marrow biopsy performed on April 14, 2018 with bone marrow aspirate of the left posterior iliac crest. Findings demonstrated a normal cellular bone marrow involved by small B-cell lymphoproliferative disorder. Flow cytometry shows a kappa clonal B-cell population expressing CD 19 and CD 20 with CD 25 and partial FMC 7 expression. CD5, CD10, CD 22, CD 23, CD 11 C, and CD10 3 are negative. Flow cytometry is not characteristic of hairy cell leukemia. Phenotype also excludes chronic lymphocytic leukemia, follicular lymphoma and mantle cell lymphoma. Absence of associated plasma cells argues against lymphoplasmacytic lymphoma. 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 Cytogenetics demonstrate karyotype of 46 XX.PET scan performed on September 11, 2018. Findings demonstrate multiple scattered ecgh-ol-yfhpfvqf hypermetabolic right axillary and bilateral cervical nodes. Stable on measurement. Mild splenomegaly with diffuse metabolic activity similar to liver parenchymal level but without hypermetabolic focal lesions. Grossly stable and remains concerning for disease involvement. No suspicious metabolically active extranodal her new lynette disease. This PET scan was compared to a previous PET scan from May 04, 2018. Largest lynette area is a level 2 a cervical lymph node that measured 1.4 x 1.0 cm. Maximum SUV of 5.4. There is a left level 2 B 7 mm nodule with an SUV of 2.2. The right axillary exam demonstrates a 1.2 cm lymph node with a maximum SUV of 2.4. The spleen measures 14.7 cm.Following evaluations splenectomy was not recommended. Patient was last seen in April 2019 at the [facility] and at that time the patient did not have B symptoms or symptomatic splenomegaly. Patient also did not meet criteria for initiation of treatment such as cytopenias for progressive lynette disease or B symptoms.Discussed NCCN recommendations for observation in the absence of symptoms or progressive cytopenias.Patient reports since last year she has had increasing night sweats. The patient also reports pain in her left upper quadrant as well as early satiety.Labs obtained on February 26, 2019 demonstrate a negative acute hepatitis panel. Negative HIV screen. Protein electrophoresis with monoclonal spike seen at 0.9 grams/deciliter. Normal serum free light chains with kappa light chain 19.4, lambda light chain of 14.1, and kappa lambda ratio 1.38. Immunofixation demonstrates an increase in IgM with total level at 589. Upper end of normal is 217. LDH elevated at 213. CBC demonstrates total white blood cell count 22.3 with red blood cell count 4.9. Hemoglobin 12.4 and macro 40.0. MCV 82.3. Platelet count [id number]. On differential the patient is 54% lymphocytes and absolute lymphocyte count is elevated at 12.0. Serum iron studies with low serum iron at 29 and TIBC of 334. Low iron saturation 9%.PET scan performed on March 05, 2019 with no evidence of increased lynette uptake however the patient had a enlarged spleen at 14.9 cm and heterogeneous mild uptake of the spleen.Labs performed on February 26, 2019 demonstrated white blood cell count 22.3, red blood count 4.9, hemoglobin 12.4, hematocrit 40.0. Platelet count [id number] and on differential lymphocytes of 54% which is an absolute lymphocyte count 12.0.At the time of last evaluation patient wished to continue with observation although she is having mild B symptoms of night sweats and occasional fever.Labs on June 11, 2019 with white blood count 11.5 and red blood count 4.8 with hemoglobin 12.7 and hematocrit 40.1. MCV 83.5. Platelet count [id number]. On differential 61% lymphocytes. Absolute lymphocyte count at 7.0.Stable white blood cell count on last visit however with increasing night sweats as well as early satiety. Patient is having pain in her left side and has an enlarged spleen. Discussed rituximab weekly therapy based on NCCN guidelines.Patient started rituximab weekly therapy with week 1 on November 07, 2019. Plan for 4 weeks of therapy.Week 4 injectable rituximab on November 28, 2019.CT scan of the chest, abdomen, pelvis performed on January 07, 2020. CT of chest normal. CT scan of the abdomen pelvis with no signs of lymphadenopathy which is an improvement over prior PET scan. Spleen is borderline enlarged and measures 12 cm. Improved from prior exam.PET scan performed on March 05, 2019 with no evidence of increased lynette uptake however the patient had a enlarged spleen at 14.9 cm and heterogeneous mild uptake of the spleen.Overall spleen has decreased in size by 3 cm following rituximab therapy for splenic marginal zone lymphoma. Would continue with every 3 months rituximab dosing.First dose of rituximab maintenance on February 29, 2020.PET scan on October 27, 2020 with comparison to imaging from March 05, 2019. No evidence of lymphadenopathy. Spleen is normal in size. No enlarged lymph nodes.CT scan of the abdomen pelvis on April 13, 2021 with stable exam and no evidence of lymphadenopathy. Fatty infiltration of the liver. Spleen is normal in size.Cycle 5 of injectable rituximab on January 30, 2021.Cycle 6 of injectable rituximab on April 24, 2021.Cycle 7 of injectable rituximab on July 17, 2021.Patient returned on October 09, 2021 for cycle 8 of maintenance rituximab. Patient completed 2 years of maintenance therapy.CT scan of the abdomen and pelvis on November 18, 2021 with comparison made to imaging from April 13, 2021. Lung bases are clear. No focal consolidation. No evidence of effusion. Adrenal glands unremarkable. No retroperitoneal or mesenteric adenopathy. Spleen is unremarkable and normal in size.Patient returned for clinic evaluation on January 18, 2022. Discussed repeat evaluation in 6 months. Recommend observation only. Would repeat imaging if symptoms develop.Spleen size at time of initial evaluation [address] of neck chest abdomen pelvis performed on August 06, 2022. No evidence of recurrence. Labs on January 25, 2023 with immunofixation demonstrating an IgM monoclonal protein. IgM level 275. IgM kappa monoclonal protein. CT scan of the chest abdomen pelvis on September 11, 2023. Imaging compared to CT scan on January 07, 2020. No evidence of axillary adenopathy. No hilar mediastinal adenopathy. No pericardial or pleural effusion. Stable cyst in the dome of the liver 1 cm. Gallbladder surgically absent. Spleen is unremarkable and normal in size. No acute osseous abnormality. No evidence of acute abdominal process. Labs on September 28, 2023 with kappa light chain 20.8. Normal kappa lambda ratio at 1.42. IgM level elevated at 958. Monoclonal spike 0.9 grams/deciliter. Immunofixation with IgM monoclonal protein with kappa light chain specificity. Normal CBC. Normal differential. CT scan August 13, 2024 with no acute findings. No evidence of lymphadenopathy. No splenomegaly. Recommend observation only. Stable findings with IgM monoclonal protein. Would favor observation only. Patient returns January 30, 2025. Labs on September 26, 2024 with iron deficiency anemia. Hemoglobin 11.6. Serum iron low at 35 and iron saturation 10%. Ferritin 47. Stable monoclonal protein at 1.1. g/dL. Patient received infusional iron. EGD and colonoscopy on October 17, 2024 with no evidence of blood loss. Bone survey performed January 30, 2025 with no evidence sclerotic or bone lesions. Labs on January 30, 2025 with monoclonal spike of 0.9 grams/deciliter. IgM kappa monoclonal protein. IgM level 1236. Nipomo light chain 21.5. Nipomo lambda ratio 1.68. White blood cell count 9.5. Red blood cell count 4.7. Hemoglobin 13.6 and hematocrit 41.5. Platelet count 980677. Patient returns on March 27, 2025. Status post iron infusions. Will follow-up repeat iron studies today. Stable monoclonal protein. Most recent CT scan in July 2024 without lynette adenopathy. Will follow-up labs today. Jairon Saleh MD [address], [place], [address], [place] [facility] [place] & [place] 03/27/2025 13:56:41 OBGyn Episode No OBEpisode recorded.
--- OUTSIDE RECORDS SUMMARY | 2025-04-29 14:04 | XMS_ITS | Continuity of Care Document ---
Author Organization [facility] Address [address] [place] [address] Care Team Providers Care Physician Interventional Cardiologist Name Role Phone KELIN BLAIR Primary Care Provider [phone] Assessment No assessment recorded. Plan of Treatment Reminders Order Date Submit Date Provider Last Modified By Organization Details Last Modified Time Details Appointments OV EST 30 2024 03:30P M Tracey Roberts PA-C Not available Not available Not available OV EST 30 2024 10:30A M Tracey Roberts PA-C Not available Not available Not available Lab CBC w/ auto diff 2024 025 [facility], [address] [place], [address], 03/27/2025 14:21:11 CMP, serum or plasma 2024 025 [facility], [address] [place], [address], 03/27/2025 15:09:00 iron + TIBC + ferritin , serum 2024 025 [email or web address] [facility], [address] [place], [address], 04/03/2025 09:15:45 iron saturati on, serum 2024 025 [email or web address] [facility], [address] [place], [address], 04/03/2025 09:15:45 vitamin B12 + folate, serum or blood 2024 025 [email or web address] [facility], [address] [facility], [place], [address], 04/03/2025 09:15:45 Referral None recorded . Procedures None recorded . Surgeries None recorded . Imaging None recorded . Medication Orders None recorded . Patient TargetsNo targets recorded. Patient InstructionsNo instructions recorded. Reason for Referral None Reported. Problems Name Problem SNOMED Code Status Onset Date Resolution Date Notes Provider Name and Address Organization Details Recorded Time Splenic marginal zone B-cell lymphoma 140726238 Active 2021 Hadley [place] null, [place] - [facility] - [place] & [place] 2 09:58:00 Splenomegaly 63881498 Active 2021 Hadley [place] null, [place] [facility] & [place] 2 09:58:08 Monoclonal gammopathy (clinical) 944910538 Active 2021 Hadley [place] null, [place] [facility] & [place] 2 09:58:23 Iron deficiency anemia 94151152 Active 2021 Hadley [place] null, [place] [facility] & [place] 2 09:58:30 Anxiety 29048889 Active 2021 Hadley [place] null[place] [facility] [place] [facility] & [place] 2 09:58:36 Hyperlipidemia 87833043 Active 2021 Hadley [place] null[place] [facility] & [place] 2 09:58:42 Chronic constipation 274741421 Active 2021 Hadley [place] null, [place] [facility] & [place] 2 09:58:56 Pulmonary emphysema 91231157 Active 2021 Hadley [place] null, [place] [facility] & [place] 2 09:59:17 Coronary arterioscleros is 92263628 Active 2021 Hadley [place] null, [place] [facility] & [place] 09:59:37 Problem Notes None recorded. Procedures Surgical History Date Name Laterality Status Provider Name and Address Organization Details Recorded Time 03/27/20 25 Venipuncture completed Maria D G[place] - [facility] - [place] & [place] 03/27/2025 13:50:10 01/31/20 25 Venipuncture completed Lin GALLOWAY - [facility] - [place] & [place] 01/30/2025 10:54:44 10/31/19 25 colonoscopy completed Lin GALLOWAY - [facility] - [place] & [place] 03/27/2025 13:27:03 09/28/20 23 Venipuncture completed Tracey Roberts PA-C [address] , [place], [address], [place] [facility] [place] & [place] 09/13/2023 08:38:43 06/29/20 23 Venipuncture completed Lin Sanderser [place] - [facility] - [place] & [place] 06/29/2023 13:31:21 ENT Surgery completed Maria D GALLOWAY - [facility] - [place] & [place] 01/25/2023 13:07:11 Colonoscopy completed Maria D GALLOWAY - [facility] - [place] & [place] 01/25/2023 13:07:11 hysterectomy completed Hadley Rosa Elena [place] - [facility] - [place] & [place] 07/27/2022 10:01:21 cholecystectomy completed Hadley GALLOWAY - [facility] - [place] & [place] 07/27/2022 10:01:28 section completed Hadley Sims Y - [facility] - [place] & [place] 07/27/2022 10:01:36 Imaging Results None recorded. Procedure Notes None recorded. Medical Equipment None Reported. Allergies Allergen ID Allergen Name Allergen Category Reaction Reaction Severity Criticality Documentation Date Start Date Code Code System Note Provider Name and Address Organization Details Recorded Time 09854 acetamino phen / oxycodone medicatio n Not available Not available Not available 07/27/2022 16513 3 RxNorm Hadley chavez [place] - [facility] - [place] & [place] 09:38:31 43199 Substance with sulfonami de structure and antibacte rial mechanism of action (substanc e) medicatio n Not available Not available Not available 07/27/2022 53999 8003 SNOMED Hadley chavez, [place] [facility] & [place] 2 09:38:36 53393 tizanidin e medicatio n Not available Not available Not available 07/27/2022 74178 RxNorm Hadley chavez, [place] - [facility] - [place] & [place] 2 09:38:42 Medications Name Sig Start Date [...] Not Available Not Available No t Available [place] 5 mg-325 mg tablet Take 1 tablet [...] Updated DateTime 5 154.94 cm 28.8 kg/m2 09801.8 4 g 95 % 95 % 72 /min 111 mm[Hg] 58 mm[Hg] Lin HARRELL [facility] & [place] 5 13:24:12 Social History Question Answer Notes LastModified by Organizat ion Details LastModified Time Tobacco Smoking Status Former Smoker [place] Rivas [facility] & [place] 07/27/2022 10:01:13 What Is Your Level Of Caffeine Consumption? Moderate [email or web address] Information not available 09/28/2023 When Did You Quit Smoking? 16+yearssinc elastcigaret te [email or web address] Information not available 06/29/2023 What Was The Date Of Your Most Recent Tobacco Screening? 01/30/2025 [email or web address] Information not available 01/30/2025 At What Age Did You Start Smoking Tobacco? 14 [email or web address] Information not available 01/30/2025 How Much Tobacco Do You Smoke? 1 PPW At TIME OF QUIT [email or web address] Information not available 03/27/2025 Has Tobacco Cessation Counseling Been Provided? No [email or web address] Information not available 09/28/2023 Sex: Unknown Functional Status Question Answer Note LastModified by Organizat ion Details LastModified Time Do you use any illicit or recreational drugs? No [email or web address] Information not available 01/25/2023 Do you or have you ever used any other forms of tobacco or nicotine? No [email or web address] Information not available 09/28/2023 What is your level of alcohol consumption? None [email or web address] Information not available 01/25/2023 Mental Status None recorded. Family History Relationship Description Onset Age of this Age Resolved Age Notes LastModified by Organization Details LastModified Time Sister Anemia pt. added direct ly (07/16) [email or web address]-13 Not available 07/16/2022 13:36:58 Father Hypertensive disorder Not available 03/27 13:24:49 Father Cerebrovascu lar accident [email or web address] Not available 13:25:12 Mother Multi vessel coronary artery disease [email or web address] Not available 03/27 13:25:39 Mother Diabetes mellitus [email or web address] Not available 03/27 13:25:46 Medical History Condition Response Autoimmune disease Y Gout Y Vision or Eye Problems Y Arthritis Y Ear or Hearing Problems Y Back Problems Y Kidney or Bladder Problems Y Thyroid Problems Y COPD Y Lung Disease Y GI Problems Y Anemia Y Reflux/GERD Y High Cholesterol Y Heart Disease Y Spine Problems Y Headaches Y Gynecological History Statement/Question Response Menses Monthly N Obstetrics History GPAL:G 0 P 0 0 0 0 Immunizations Vaccine Type Date Status Note Provider Nam e and Address Organization Details Recorded Time Influenza, split virus, quadrivalent, preservative 5 completed LAVERNE Brock LPMATTIE [facility] & [place] 06/29/2023 13:07:28 Influenza, split virus, quadrivalent, preservative 8 completed [place]NE Brock LPMATTIE [facility] & [place] 06/29/2023 13:07:28 Influenza, split virus, quadrivalent, preservative 7 completed Lin Abiodun null, [place] [facility] [place] & [place] 06/29/2023 13:07:28 Influenza, recombinant, quadrivalent, PF 0 completed Lin Abiod[place] [facility] [place] 06/29/2023 13:07:28 COVID-19, mRNA, LNP-S, PF, 100 mcg/0.5mL dose or 50 mcg/0.25mL dose 1 completed Lin Abiod[place] [facility] [place] & [place] 06/29/2023 13:07:28 COVID-19, mRNA, LNP-S, PF, 100 mcg/0.5mL dose or 50 mcg/0.25mL dose 1 completed Lin Abiodun [place] [facility] [place] & [place] 06/29/2023 13:07:28 pneumococcal polysaccharide PPV23 4 completed Lin Abiod[place] [place] 06/29/2023 13:07:28 pneumococcal polysaccharide PPV23 0 completed Lin Abiod[place] 06/29/2023 13:07:28 Tdap 4 completed Lin Abiod[place] [facility] [place] 06/29/2023 13:07:28 Influenza, split virus, quadrivalent, PF 9 completed Lin [place] [facility] 06/29/2023 13:07:28 Influenza, split virus, quadrivalent, PF 1 completed Lin Abiod[place] [facility] [place] 06/29/2023 13:07:28 Past Encounters Encounter ID Performer Location Encounter Start Date Encounter Closed Date Diagnosis/Indication Diagnosis SNOMED-CT Code Diagnosis ICD10 Code Diagnosis Note [id number] Jairon Mercado MD [facility] [address] [facility] [address] [place] [address] 03/27/2025 13:04:24 03/27/2025 13:46:35 Splenic marginal zone B-cell lymphoma 757683504 C83.07 PET scan on October 27, 2020 [...] IgM kappa monoclonal protein. IgM level 1236. Wilmot light chain 21.5. Wilmot lambda ratio 1.68. White blood cell count 9.5. Red blood cell count 4.7. Hemoglobin 13.6 and hematocrit 41.5. Platelet count 290263. Patient returns on March 27, 2025. Status post iron infusions. Will follow-up repeat iron studies today. Stable monoclonal protein. Most recent CT scan in July 2024 without lynette adenopathy . Will follow-up labs today. History of splenomegaly 108060318 Z87.898 Splenomega ly on imaging in August [...] splenomega ly. Monoclonal gammopathy of uncertain significance 933550942 D47.2 Labs from September 17, 2018 with [...] IgM kappa monoclonal protein. IgM level 1236. Wilmot light chain 21.5. Wilmot lambda ratio 1.68. White blood cell count 9.5. Red blood cell count 4.7. Hemoglobin 13.6 and hematocrit 41.5. Platelet count 701760. Patient returns on March 27, 2025. Status post iron infusions. Will follow-up repeat iron studies today. Stable monoclonal protein. Most recent CT scan in July 2024 without lynette adenopathy . Will follow-up labs today. Iron defic iency anemia 43804423 D50.9 Labs obtained on February 26, 2019 [...] no evidence of blood loss. Nonulcer dyspepsia 87346 07 K30 Patient reports intermitte nt symptoms of dyspepsia. Continues on PPI. Chronic id iopathic constipation 60381673 K59.04 Patient currently on Linzess. Concern that left upper quadrant discomfort could be related to constipati on. Not uncommon to have pain at the splenic flexure. Health Concerns Section Related Observation LastModified by Organization Detai ls LastModified Time None Recorded Concern Status LastModified by Organization Details LastModified Time None Recorded Payers Encounter Date Sequence Insurance Name Policy Number Policy Ramos Covered Member ID Ramos Member ID Guarantor Name 03/27/2025 2 [facility]-PR [facility]/TRADITION MIKKI Green [id number] Anabell Barba 03/27/2025 1 [facility] (MEDICARE REPLACEMENT/A DVANTAGE - HMO) CHAVA Barba [id number] Anabell Barba Notes Date Note Type Note Provider Name and Address Organization Details Recorded Time 5 text/html 65 yo F with history [...] count of 11.8, hemoglobin 12.2, platelet count 186204, and absolute neutrophil count at 2.8. Patient had never had bone marrow biopsy or CT scan imaging. Patient was seen at the [facility] for a 2nd opinion and saw Dr. [...] September 11, 2018. Findings demonstrate multiple scattered [id number]-pn-[id number] hypermetabolic right axillary and bilateral cervical nodes. [...] last seen in April 2019 at the [facility] and at that time the patient did [...] and macro 40.0. MCV 82.3. Platelet count 932824. On differential the patient is 54% lymphocytes [...] 4.9, hemoglobin 12.4, hematocrit 40.0. Platelet count 915027 and on differential lymphocytes of 54% which is an absolute lymphocyte count 12.0.At the time of last evaluation patient wished to continue with observation although she is having mild B symptoms of night sweats and occasional fever.Labs on June 11, 2019 with white blood count 11.5 and red blood count 4.8 with hemoglobin 12.7 and hematocrit 40.1. MCV 83.5. Platelet count 548344. On differential 61% lymphocytes. Absolute lymphocyte count [...] IgM kappa monoclonal protein. IgM level 1236. Wilmot light chain 21.5. Wilmot lambda ratio 1.68. White blood cell count 9.5. Red blood cell count 4.7. Hemoglobin 13.6 and hematocrit 41.5. Platelet count 542065. Patient returns on March 27, 2025. Status post iron infusions. Will follow-up repeat iron studies today. Stable monoclonal protein. Most recent CT scan in July 2024 without lynette adenopathy. Will follow-up labs today. Jairon Mercado MD [address], [place], [address], [place] [facility] [place] & [place] 03/27/2025 13:56:41 OBGyn Episode No OBEpisode recorded.
--- OUTSIDE RECORDS SUMMARY | 2025-04-29 14:04 | XMS_ITS | Clinical Summary ---
Author Organization Healthcare Address 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) from Last 3 Months Social History Tobacco Use Types Packs/Day Years Used Date Smoking Tobacco: Never Assessed Comments Unknown Sex and Gender Information Value Date Recorded Sex Assigned at Not on file Legal Sex Female 8:29 PM EDT Gender Identity Not on file Sexual Orientation Not on file Plan of Treatment Health Maintenance Due Date Last Done Comments [facility]-Bone Density Scan 1960 [facility]-Depression Screening 1960 [facility]-/Child/Adol SDOH Screenings 1960 [facility]- SDOH Screenings 02/13/1978 [facility]-Adult SDOH Screenings 02/13/1978 [facility]-DTaP,Tdap,and Td Vaccine s (1 - Tdap) 02/13/1979 [facility]-Pap Smear 02/13/1981 [facility]-Cervical Cancer Screening 02/13/1990 [facility]-HPV/Cotest 02/13/1990 CT Colonography 02/13/2005 Colonoscopy 02/13/2005 FIT-DNA 02/13/2005 FIT 02/13/2005 FOBT 02/13/2005 Sigmoidoscopy 02/13/2005 [facility]-Colorectal Cancer Screening 02/13/2005 [facility]-Breast Cancer Screening 02/13/2010 [facility]-Pneumococcal Vaccine: 50 + Years (1 of 1 - PCV) 02/13/2010 [id number] Vaccine (1 - 20 24-25 season) 2024 [facility]-Zoster Vaccines (2 of 2) 03/11/2025 01/14/2025 [facility]-Influenza Vaccine (Seaso n Ended) 2025 [facility]-RSV Vaccine: 60+ Years o r (1 - 1-dose 75+ series) 02/13/2035 HPV Vaccines Aged Out No longer eligi ble based on patient's age to complete this topic [facility]-HIB Vaccines Aged Out No longer e ligible based on patient's age to complete this topic [facility]-Hepatitis A Vaccines Aged Out No longer eligible based on patient's age to complete this topic [facility]-IPV Vaccines Aged Out No longer e ligible based on patient's age to complete this topic [facility]-Rotavirus Vaccines Aged Out No lo nger eligible based on patient's age to complete this topic Insurance [facility] [place] [id number] [facility] MEDICARE Care Teams Domestic Violence Advocate Relationship Specialty Start Date End Date Jean Pierre Johnston MD [address] [place] [address] [place] [address] PCP - General 03/13/21
--- OUTSIDE RECORDS SUMMARY | 2025-04-29 14:04 | XMS_ITS | Patient Health Record ---
Author Organization [facility] Address [address] [place] [address] Care Team Providers Care Contact Lens Blocker Name Role Phone LAQUITA BEARD Unavailable [phone] Allergies Allergen (clinical drug ingredient) Drug/Non Drug Allergy documented on EMR Reaction Allergy Type Onset Date Status metolazone Metolazone Unknown Drug Allergy Activ e oxycodone Oxycodone Unknown Drug Allergy Active Substance with sulfonamide structure and antibacterial mechanism of action (substance) Sulfa Antibiotics Unknown Drug Allergy Active Reason For Referral No Information Medications Medication SIG (Take, Route, Frequency, Duration) Notes Start Date End Date Status Ranolazine ER 1000 MG 1 tablet Orally Tw ice a day Active Cetirizine HCl 10 MG 1 tablet Orally Onc e a day Active Spironolactone 25 MG 1 tablet Orally Active Clopidogrel Bisulfate 75 MG 1 tablet Ora lly Once a day Active Spiriva Respimat 1.25 MCG/ACT 2 puffs In halation Once a day Active Cyclobenzaprine HCl Active Famotidine 40 MG 1 tablet at bedtime Orally Once a day Active diazePAM 5 MG 1 tablet as needed Orally every 12 hrs Active Levothyroxine Sodium 75 MCG 1 tablet in the morning on an empty stomach Orally Once a day Active Atorvastatin Calcium 40 MG 1 tablet Oral ly Once a day Active linaCLOtide 145 MCG 1 capsule at least 3 0 minutes before the first meal of the day on an empty stomach Orally Once a day Active Bisoprolol Fumarate 5 MG 1 tablet Orally Once a day Active Montelukast Sodium 10 MG 1 tablet Orally Once a day Active Budesonide-Formoterol Fumarate 160-4.5 MCG/ACT 2 puffs Inhalation Twice a day Active Calcium + D3 600-800 MG-UNIT 1 tablet wi th a meal Orally Once a day Active Furosemide 40 MG 1 tablet Orally Once a day Active Albuterol Sulfate HFA 108 (9 0 Base) MCG/ACT 2 puffs as needed Inhalation every 6 hrs Active HYDROcodone-Acetaminophen 5-325 MG 1 tablet as needed Orally every 6 hrs Active Symbicort 80-4.5 MCG/ACT 2 puffs Inhalat ion Once a day Active Gabapentin 300 MG 1 capsule Orally twi ce a day Active Ergocalciferol 1.25 MG (5000 0 UT) 1 capsule Orally once a week for 30 day(s) 02/11/2022 Active Linzess 145 MCG 1 capsule at least 3 0 minutes before the first meal of the day on an empty stomach Orally Once a day Active Ipratropium-Albuterol 0.5-2. 5 (3) MG/3ML 3 ml as needed Inhalation every 6 hrs Active Aspirin 81 MG 1 tablet Orally Once a day Active Social History Tobacco Use: Social History Observation Description Date Details (start date - stop date) Former Smoker NA - NA Tobacco Use/Smoking Question Answer Notes Are you a former smoker Alcohol Screen (Audit-C) Question Answer Notes Did you have a drink containing alcohol in the p ast year? No Points 0 Interpretation Negative Tobacco use other than smoking: Question Answer Notes Are you an other tobacco user? No Problems Problem Type SNOMED Code ICD Code Onset Dates Problem Status W/U Status Risk Notes Problem Vitamin D deficiency (47372179) Vitamin D deficiency (E55.9) Active confirmed Problem Acquired hypothyroidism (425789797) Acquired hypothyroidism (E03.9) Active confirmed Problem Benign essential hypertension (4413226) Benign essential hypertension (I10) Active confirmed Problem Gastroesophageal reflux disease (756093471) Chronic gastroesophageal reflux disease (K21.9) Active confirmed Problem Mixed hyperlipidemia (179830190) Hyperlipemia, mixed (E78.2) Active confirmed Problem Coronary arteriosclerosis (49333979) Coronary arteriosclerosis (I25.10) Active confirmed Problem Chronic obstructive lung disease (73954703) COPD without exacerbation (J44.9) Active confirmed Plan Of Treatment No Information Insurance Providers Payer Name Payer Address Payer Phone Subscriber Number Group Number Insured Name Patient Relationship to Insured Coverage Start Date Coverage End Date [facility] [address] [address] [place] [address] ADD ID REECE SANTILLAN Self - patient is the insured Medical (General) History Medical History History ICD Code heart copd fybromialygia bone disease dizziness osteoarthritis ibs cancer thryroid upper gi issues Surgical History Surgery Date(Month/Year) c section, completehysterectomy broken wrist gallbladder nodules off voice box and tonsils and ba se of tongue cyst heart cath kidney stone COLONOSCOPY Hospitalization History Reason Date(Month/Year) [facility] last year
--- NOTE | 2025-04-29 14:15 | CA_ITS ---
FINAL REPORT TECHNIQUE: Gleason scale, color and spectral doppler images of the bilateral carotid arteries were obtained. CLINICAL HISTORY: CAD COMPARISON: 04/02/2022 FINDINGS: Peak systolic velocity in the right internal carotid artery is 64 cm/sec. The internal carotid to common carotid artery ratio is 1.15. There is no significant carotid artery stenosis and mild plaque formation. The right vertebral artery is normal in direction. Peak systolic velocity in the left internal carotid artery is 71 cm/sec. The internal carotid to common carotid artery ratio is 1.1. There is no significant carotid artery stenosis and mild formation. The left vertebral artery is normal in direction. IMPRESSION: No ultrasound evidence of hemodynamically significant carotid artery stenosis. Normal peak systolic velocities and normal internal to common carotid artery ratios bilaterally. Reviewed, Interpreted and Dictated by Jake Burris MD Transcribed by Manju Tony Authenticated and [facility]
--- NOTE | 2025-04-29 15:00 | CA_ITS ---
FINAL REPORT CLINICAL HISTORY: Decreased right radial pulse FINDINGS: Spectral and Doppler waveform evaluations of the right wrist was performed. Spectral analysis was performed. There is no evidence of pseudoaneurysm, fistula, or thrombus. IMPRESSION: No evidence of pseudoaneurysm or fistula. Reviewed, Interpreted and Dictated by Jake Burris MD Transcribed by Kina Davis Authenticated and [facility]
== END 2025-04-29 23:59 | disposition home or self-care (01) ==
LOC: RT 14:00
PROVIDERS: PCP Family Medicine; Visit Provider Physician Assistant
DX: I25.10 Atherosclerotic heart disease of native coronary artery without angina pectoris (principal); E78.2 Mixed hyperlipidemia; R94.31 Abnormal electrocardiogram [ECG] [EKG]; I11.9 Hypertensive heart disease without heart failure; R09.89 Other specified symptoms and signs involving the circulatory and respiratory systems
CPT/HCPCS: 93880; 93931

== ENCOUNTER → 2025-07-24 20:15 | Outpatient (CLI) | payer MEDICARE, MEDICAID, SELFPAY ==
--- OUTSIDE RECORDS SUMMARY | 2025-02-02 17:30 | XMS_ITS ---
Author Organization [facility] Address [address] [place] [address] Care Team Providers Care Ruby On Rails Developer Name Role Phone Jean Pierre Johnston Primary Care Provider Migration, Provider Unavailable Unavailable Allergies Allergen (clinical drug ingredient) Drug/Non Drug Allergy documented on EMR Reaction Allergy Type Onset Date Status SULFA (uncoded) Unknown Allergy Acti ve acetaminophen / oxycodone Percocet n/v Drug Allergy Active tizanidine tiZANidine tongue swelling and trouble swallowing Drug Allergy Active REASON FOR VISIT [facility] To [facility] Conversion Encounter Medications Medication SIG (Take, Route, [...] 01/07/2021 Active Vitamin D (Ergocalciferol) 1.25 MG (46782 UT) 1 cap(s) orally twice weekly; Duration: [...] Active Encounters Encounter Location Date Provider Diagnosis [facility] [address] [facility] [address] [place], [place] [address] 02/02/2025 Provider Migration Idiopathic peripheral neuropathy G60.9 [...] Notes * Anabell GREENDOB:1960 (65 yo F)Acc No.[id number]:02/02/2025 Patient: Anabell ROBLES Provider: Fernando Velasco :1960 A ge:64 Y S ex:Female Date:02/02/2025 Address:[facility] [address] , [facility] [id number] Pcp:Jean Pierre Johnston Subjective: * Chief Complaints: * [facility] * Medical History: * Medications: [...] , Taking Vitamin D (Ergocalciferol) 1.25 MG (86968 UT) Capsule 1 cap(s) orally twice weekly [...] Electronic signature of Prov ider Migration on 07/24/2025 at 08:19 PM EDT Sign off status: Pending * Provider: Fernando wood Migration Date: 0 02/02/2025 Generated for Hung mckinney/Omero/eTransmitting on: 0 07/24/2025 08:19 PM EDT
--- OUTSIDE RECORDS SUMMARY | 2025-07-15 10:40 | XMS_ITS | Encounter Summary ---
Author Organization [facility] Address [address] [place] [address] Care Team Providers Care Hvac Mechanic Name Role Phone Montez Solano MD Primary Care Provider [phone] Reason for Referral * Consultation (Routine) - Authorized Specialty Diagnoses / Procedures Referred By Contac t Referred To Contact Diagnoses Post-operative hypothyroidism Enrico Godoy MD [address] [address] Phone: tel: fax: Referral ID Status Reason Start Date Expiration Date V isits Requested Visits Authorized [id number] Authorized 07/15/2025 01/14/2027 1 1 * Imaging (Routine) - Pending Review Specialty Diagnoses / Procedures Referred By Contac t Referred To Contact Radiology Diagnoses Post-operative hypothyroidism Procedures US Thyroid [facility] [address] Phone: tel: fax: Referral ID Status Reason Start Date Expiration Date V isits Requested Visits Authorized [id number] Pending Review 07/15/2025 01/14/2027 1 1 Reason for Visit * Reason Comments Consult * Consultation (Routine) - Closed Specialty Diagnoses / Procedures Referred By Contac t Referred To Contact Endocrinology Diagnoses Other thyrotoxicosis without thyrotoxic crisis or storm Lin Hidalgo MD [address] [place] [address] Phone: tel: fax: [facility] [address] [place] [address] Phone: tel: fax: Referral ID Status Reason Start Date Expiration Date V isits Requested Visits Authorized [id number] Closed Specialty Services Required 02/12/2025 08/14/2026 1 1 Encounter Details Date Type Department Care Team (Late st Contact Info) Description 07/15/2025 10:40 AM EDT Office Visit [email or web address] [address], [address] [place] [address] Enrico Godoy MD [address] [place] [address] Post-operative hypothyroidism (Primary Dx) Social [...] in 6 months * Progress Notes - Ernico Godoy MD - 07/15/2025 10:40 AM EDT [...] 2.5 x 2.0 cm (inked blue). A home office representative section from this nodule is taken [...] Diagnosis Date Chronic obstructive pulmonary disease, unspecified ([facility]) COPD (chronic obstructive pulmonary disease) [...] by mouth daily., Disp: , Rfl: HYDROcodone-acetaminophen ([place]) 5-325 MG tablet, every 6 hours., Disp: [...] 01/13/2026 10:20 AM EDT Office Visit [facility] [address], [address] [place] [address] Enrico Godoy MD [address] [place] [address] [address] [place] [address] Scheduled Orders Name Type Priority Associated Diagnoses Orde r Schedule US Thyroid Imaging Routine Post-operative hypothyroidism Expected: 07/15/2025 (Approximate), Expires: 01/12/2027 Scheduled Referrals Name Type Priority Associated Diagnoses Orde r Schedule Follow Up [facility] Outpatient Referral Routine Post-operative hypothyroidism [...] ORDERABLES Final R esult Performing Organization Address City/[facility] Co de Phone Number HEALTHCARE LAB [address] [place] [address] * Thyroid Stimulating Hormone, Plasma (07/15/2025 11:50 AM EDT) Thyroid Stimulating Hormone, Plasma 1.38 0.40 - 4.20 uIU/mL 07/15/2025 2:59 PM EDT [facility]ARE [facility] Blood Venous blood specimen / Unknown Venipuncture / Unknown 07/15/2025 11:50 AM EDT 07/15/2025 11:51 AM EDT Enrico Godoy MD LAB BLOOD ORDERABLES Final R esult Performing Organization Address City/[facility] de Phone Number HEALTHCARE LAB [address] [place] [address] documented in this encounter Visit Diagnoses Diagnosis Post-operative hypothyroidism- Primary Postsurgical hypothyroidism documented in this encounter Additional Health Concerns Assessment Noted Time A fall risk assessment has been complete d for the patient 07/15/2025 10:35 AM EDT A Body Mass Index follow-up plan has been documented for the patient 07/15/2025 6:14 PM EDT documented as of this encounter Care Teams Hvac Mechanic Relationship Specialty Start Date End Date Montez Solano MD [address] [place] [address] PCP - General 04/30/25 documented as of this encounter
--- OUTSIDE RECORDS SUMMARY | 2025-07-24 20:19 | XMS_ITS | Encounter Summary ---
Author Organization [facility] Address [address] [place] [address] Care Team Providers Care Mechanical System Technician Name Role Phone Jean Pierre Johnston MD Primary Care Provider [phone] Montez Solano MD Primary Care Provider [phone] Reason for Referral * Consultation (Routine) - Closed Specialty Diagnoses / Procedures Referred By Contac t Referred To Contact Endocrinology Diagnoses Other thyrotoxicosis without thyrotoxic crisis or storm Lin Hidalgo MD [address] [place] [address] Phone: tel: fax: [facility] Endocrinology [address] [place] [address] Phone: tel: fax: Referral ID Status Reason Start Date Expiration Date V isits Requested Visits Authorized [id number] Closed Specialty Services Required 02/12/2025 08/14/2026 1 1 Encounter Details Date Type Department Care Team (Late st Contact Info) Description 02/12/2025 Community [facility] Community Practice [address] [place] [address] Lin Hidalgo MD [address] [place], [place] [id number] 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) Social History Tobacco Use Types Packs/Day Years Used Date Smoking Tobacco: Never Assessed Comments Unknown Sex and Gender Information Value Date Recorded Sex Assigned at Not on file Legal Sex Female 8:29 PM EDT Gender Identity Not on file Sexual Orientation Not on file documented as of this encounter Plan of Treatment Upcoming Encounters Date Type Department Care Team (Late st Contact Info) Description 01/13/2026 10:20 AM EDT Office Visit [facility] [address], [address] [place] [id number] Enrico Godoy MD [address] [facility] [address] [place] [address] Scheduled Referrals Name Type Priority Associated Diagnoses Orde r Schedule Ambulatory referral to Endocrinology Outpatient Referral Routine Other thyrotoxicosis without thyrotoxic crisis or storm Expected: 02/12/2025 (Approximate), Expires: 08/14/2026 documented as of this encounter Visit Diagnoses Diagnosis Other thyrotoxicosis without thyrotoxic crisis or storm- Primary documented in this encounter Care Teams Mechanical System Technician Relationship Specialty Start Date End Date Jean Pierre Johnston MD [address] [facility] [address] [facility] [address] [place] [address] PCP - General 03/13/21 04/29/25 Montez Solano MD [address] [place] [address] [address] [place] [address] PCP - General 04/30/25 documented as of this encounter
--- OUTSIDE RECORDS SUMMARY | 2025-07-24 20:19 | XMS_ITS | Encounter Summary ---
Author Organization [facility] Address [address] [place] [address] Care Team Providers Care Yarn Washer Name Role Phone Montez Solano MD Primary Care Provider [phone] Encounter Details Date Type Department Care Team (Latest Contact Info) Description 07/15/2025 Travel Social History Tobacco Use Types Packs/Day Years [...] 01/13/2026 10:20 AM EDT Office Visit Professional [facility] [address] [place] [address] Enrico Godoy MD [address] [facility] [address] [place] [address] documented as of this encounter Visit Diagnoses Not on filedocumented in this encounter Additional Health Concerns Assessment Noted Time A fall risk assessment has been complete d for the patient 07/15/2025 10:35 AM EDT A Body Mass Index follow-up plan has been documented for the patient 07/15/2025 6:14 PM EDT documented as of this encounter Care Teams Yarn Washer Relationship Specialty Start Date End Date Montez Solano MD [address] [place] [address] [address] [place] [address] PCP - General 04/30/25 documented as of this encounter
--- OUTSIDE RECORDS SUMMARY | 2025-07-24 20:19 | XMS_ITS | Clinical Summary ---
Author Organization [facility] Address [address] [place] [address] Care Team Providers Care Correctional Program Officer Name Role Phone Montez Solano MD Primary Care Provider [phone] Allergies Active Allergy Reactions Criticality Noted Date Comments Isosorbide Dizziness Low 04/08/2025 Metaxalone Other - please docum ent in the comment field Low 04/08/2025 Metolazone Unknown - Patient st ates they do not know rxn details Low 07/15/2025 Oxycodone Itching,Unknown - Pa tient states they do not know rxn details Medium 04/08/2025 Sulfa Drugs Other - please docum ent in the comment field,Unknown - Patient states they do not know rxn details Low 04/21/2018 Tizanidine Anaphylaxis,Other - please document in the comment field High 06/01/2018 tongue swelling Medications HYDROcodone-aceta minophen (Williamson) 5-325 MG tablet every 6 hours. Active albuterol (Proventil) (2.5 MG/3ML) 0.083% nebulizer solution 3 mL inhaled every 6 hours prn Active atorvastatin (Lipitor) 40 MG tablet Take 1 tablet by mouth. Active budesonide-formot usman (Symbicort) 160-4.5 MCG/ACT inhaler every 12 hours. Active clopidogrel (Plavix) 75 MG tablet TAKE 1 TABLET BY MOUTH ONCE DAILY FOR HEART DISEASE Active cyclobenzaprine (Flexeril) 10 MG tablet Take 1 tablet by mouth 2 times a day. Active diazePAM (Valium) 5 MG tablet Take 1 tablet by mouth 2 times a day. Active furosemide (Lasix) 20 MG tablet Take 1 tablet by mouth daily. Active ipratropium-albut usman (Duo-Neb) 0.5-2.5 mg/3 mL nebulizer solution every 6 hours. Active Linzess 145 MCG capsule 1 (one) time each day at the same time. Active pantoprazole (Protonix) 40 MG EC tablet every 12 hours. Active montelukast (Singulair) 10 MG tablet Take 1 tablet by mouth daily. Active spironolactone (Aldactone) 25 MG tablet Take 1 tablet by mouth daily. Active nitroglycerin (Nitrostat) 0.[address] 1 tablet under the tongue every 5 minutes as needed for chest pain. Active PARoxetine (Paxil) 10 MG tablet Take 1 tablet by mouth every morning. Active phentermine 37.5 MG capsule Take 1 capsule by mouth daily before breakfast. Active levothyroxine (Synthroid, Levoxyl) 75 MCG tabletIndications :Post-operative hypothyroidism Take 1 tablet by mouth daily. 90 tablet 1 07/15/20 25 Active bisoprolol (Zebeta) 5 MG tablet daily. 02/16/20 25 025 Discontinued levothyroxine (Synthroid, Levoxyl) 75 MCG tablet 1 (one) time each day at the same time. 025 Discontinued(Re order) Encounters Date Type Department Care Team Description 07/16/2025 Results Follow-Up [facility] Endocrinology [address] [place] [phone] Enrico Godoy MD 07/15/2025 10:40 AM EDT Office Visit Professional [facility] [address], [address] [place] [address] Enrico Godoy MD Post-operative hypothyroidism (Primary Dx) 07/15/2025 Travel from Last 3 Months Immunizations Immunization Administration Dates Next Due Moderna COVID-19 Vaccine (Revival Clerk) 12+ years 10/2020,01/01/2021 Pneumococcal Polysaccharide PPV23 09/09/2020,07/2014 Tdap 08/07/2014 Zoster, Recombinant 01/14/2025 Social History Tobacco Use Types Packs/Day Years Used Date Smoking Tobacco: Never Assessed Comments Unknown Sex and Gender Information Value Date Recorded Sex Assigned at Not on file Legal Sex Female 8:29 PM EDT Gender Identity Not on file Sexual Orientation Not on file Last Filed Vital Signs Vital Sign Reading [...] Mass Index 29.53 07/15/2025 10:36 AM EDT Plan of Treatment Upcoming Encounters Date Type Department Care Team (Late st Contact Info) Description 01/13/2026 10:20 AM EDT Office Visit [facility] [address], [address] [place] [address] Enrico Godoy MD [address] [facility] [address] [place] [address] Health Maintenance Due Date Last Done Comments [facility]-Bone Density Scan 1960 [facility]-Depression Screening 1960 [facility]-Medicare Annual Wellness (AWV) 1960 [facility]-/Child/Adol SDOH Screenings 1960 [facility]- SDOH Screenings 02/13/1978 [facility]-Adult SDOH Screenings 02/13/1978 [facility]-Pap Smear 02/13/1981 [facility]-Cervical Cancer Screening 02/13/1990 [facility]-HPV/Cotest 02/13/1990 CT Colonography 02/13/2005 Colonoscopy 02/13/2005 FIT-DNA 02/13/2005 FIT 02/13/2005 FOBT 02/13/2005 Sigmoidoscopy 02/13/2005 [facility]-Colorectal Cancer Screening 02/13/2005 [facility]-Breast Cancer Screening 02/13/2010 [facility]-RSV Vaccine: 60+ Years o r (1 - Risk 60-74 years 1-dose series) 2020 [id number]-14 Vaccine (3 - Moderna risk series) 02/26/2021 01/29/2021, 01/01/2021 [facility]-Pneumococcal Vaccine: 50 + Years (3 of 3 - PCV) 09/09/2021 09/09/2020, 07/09/2014 [facility]-DTaP,Tdap,and Td Vaccine s (2 - Td or Tdap) 08/07/2024 08/07/2014 [facility]-Zoster Vaccines (2 of 2) 03/11/2025 01/14/2025 [facility]-Influenza Vaccine (#1) 2025 [facility]-Hepatitis C Screening Completed 04/07/2018 [facility]-Obesity Intervention Completed 07/15/2025 HPV Vaccines Aged Out No longer eligi [...] on patient's age to complete this topic Procedures Procedure Name Priority Date/Time Associated Diagnosis Comments TSH Routine 07/15/2025 11:50 AM EDT Post-operative hypothyroidism FREE T4, PLASMA Routine 07/15/2025 11:50 AM EDT Post-operative hypothyroidism HEPATITIS C ANTIBODY W/REFLEX TO HCV QUANT PCR Routine 04/07/2018 11:03 AM EDT from Last 3 Months or Most Recently Relevant to Health Maintenance Results * Thyroid Stimulating Hormone, Plasma (07/15/2025 11:50 AM EDT) Thyroid Stimulating Hormone, Plasma 1.38 0.40 - 4.20 uIU/mL 07/15/2025 2:59 PM EDT [facility] Blood Venous blood specimen / Unknown Venipuncture / Unknown 07/15/2025 11:50 AM EDT 07/15/2025 11:51 AM EDT Enrico Godoy MD LAB BLOOD ORDERABLES Final R esult Performing Organization Address City/[facility] Co de Phone Number [facility] [address] [place] [address] * Free T4, Plasma (07/15/2025 11:50 AM EDT) Free T4, Plasma 1.6 0.8 - 1.7 ng/dL 07/15/2025 2:59 PM EDT [facility] Blood Venous blood specimen / Unknown Venipuncture / Unknown 07/15/2025 11:50 AM EDT 07/15/2025 11:51 AM EDT Enrico Godoy MD LAB BLOOD ORDERABLES Final R esult Performing Organization Address [facility] Co de Phone Number [facility]ALTH[facility]ARE [facility] [address] [place] [address] * Hepatitis C Antibody (04/07/2018 11:03 AM EDT) Pathologist [facility] Hepatitis C Antibody NEGATIVE Reference Range: Negative SUNQUEST 04/07/2018 11:0 3 AM EDT 04/07/2018 11:42 AM EDT Yuki Blanchard MD LAB BLOOD ORDERABLES Final Resu lt Performing Organization Address [facility] Co de Phone Number SUNQUEST from Last 3 Months or Most Recently Relevant to Health Maintenance Insurance [employer] Care Teams Correctional Program Officer Relationship Specialty Start Date End Date Montez Solano MD [address] [place] [address] [address] [place] [address] PCP - General 04/30/25
--- OUTSIDE RECORDS SUMMARY | 2025-07-24 20:19 | XMS_ITS | Patient Health Record ---
Author Organization [facility] Address [address] [place] [address] [place] [address] Care Team Providers Care Apple Packing Header Name Role Phone Jean Pierre Johnston Primary Care Provider [phone] Migration, Provider Unavailable Unavailable Allergies Allergen (clinical [...] 03/19/2016 Active Vitamin D (Ergocalciferol) 1.25 MG (73912 UT) 1 cap(s) orally twice weekly; Duration: 90 days 12/11/2020 Active Symbicort 160-4.5 MCG/ACT 2 puff(s) inhaled 2 times a day; Duration: 90 Active Famotidine 20 MG 1 tab(s) orally 2 times a day; Duration: 30 day(s) 10/02/2019 Active Immunizations Vaccine Route Administration Date Status Comme nts Pneumovax-23 (pneumococccal vaccine polyvalent)2 years or older IM Intramuscular 07/09/2014 Administered Pneumovax 23 IM Intramuscular 09/09/2020 Administered Influenza-Fluzone 3+years (NON-MEDICARE) IM Intramuscular 08/07/2015 Administered Influenza (Fluzone)--Medicare only IM Intramuscular 08/07/2014 Administered Influenza (Fluzone)--Medicare only IM Intramuscular 10/06/2016 Administered Influenza (Fluzone)--Medicare only IM Intramuscular 08/30/2017 Administered Influenza (Fluzone)--Medicare only IM Intramuscular 08/22/2018 Administered FLUZONE 6MO - OLDER IM Intramuscular 08/21/2019 Administer ed Flublok IM Intramuscular 09/09/2020 Administered Adacel (Tdap) IM Intramuscular 08/07/2014 Administered Problems Problem Type SNOMED Code ICD Code Onset Dates Problem Status W/U Status Risk Notes Problem Generalized anxiety disorder (30360512) Generalized anxiety disorder (F41.1) Active confirmed Problem Chronic serous otitis media (38592423) Chronic serous otitis media, right ear (H65.21) Active confirmed Problem Panlobular emphysema (6346033) Panlobular emphysema (J43.1) Active confirmed Problem Vitamin D deficiency (08255779) Vitamin D deficiency (E55.9) Active confirmed Problem Osteoporosis (53484619) Osteoporosis (M81.0) Active confirmed Problem Hyperlipidemia (88460463) Hyperlipemia, idiopathic familial (E78.5) Active confirmed Problem Rupture of right rotator cuff (71245750815535616) Rotator cuff syndrome of right shoulder (M75.101) Active confirmed Problem Acute exacerbation of chronic obstructive airways disease (446994500) COPD exacerbation (J44.1) Active confirmed Problem Idiopathic peripheral neuropathy (14622292) Idiopathic peripheral neuropathy (G60.9) Active confirmed Problem Nephrolithiasis (82766640) Nephrolithiasis (N20.0) Active confirmed Problem Gastroesophageal reflux disease with esophagitis (disorder) (361963589) GERD with esophagitis (K21.0) Active confirmed Problem Body mass index 30+ - obesity (013299725) BMI 30.0-30.9,adult (Z68.30) Active confirmed Problem Mood disorder (71695957) Mood disorder (F39) Active confirmed Problem Chronic diastolic heart failure (842453856) Chronic diastolic congestive heart failure (I50.32) Active confirmed Problem Hairy cell leukemia (28650255) 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) Active confirmed Problem Chronic constipation (540579903) Chronic constipation (K59.09) Active confirmed Problem Menopausal syndrome (disorder) (654820268) Menopausal disorder (N95.9) Active confirmed Problem Thyromegaly (8808830) Thyromegaly (E01.0) Active confirmed Problem Sciatica (47535285) Acute right- sided back pain with sciatica (M54.41) Active confirmed Problem B-cell lymphoma (disorder) (314618330) B-cell lymphoma, unspecified B-cell lymphoma type, unspecified body region (C85.10) Active confirmed Problem Right hemiplegia (850954755) Right hemiplegia (G81.91) Active confirmed Problem Cricopharyngeal dysphagia (84544591) Cricopharyngeal dysphagia (R13.13) Active confirmed Encounters Encounter Location Date Provider Diagnosis [facility] [address] [place] [address] [facility] [address] [place] [address] 02/02/2025 Provider Migration Idiopathic peripheral neuropathy G60.9 [...] End Date [employer] [address] [address] [place] [address] [id number] Anabell Green Self - patient is the insured MEDICAID EDS [address] [place] [address] [id number] Anabell Green Self - patient is the [...]
--- OUTSIDE RECORDS SUMMARY | 2025-07-24 20:19 | XMS_ITS | Encounter Summary ---
Author Organization [facility] Address [address] [place] [address] Care Team Providers Care Monomer Recovery Supervisor Name Role Phone Montez Solano MD Primary Care Provider [phone] Encounter Details Date Type Department Care Team (Late st Contact Info) Description 07/16/2025 Results Follow-Up [facility] Endocrinology [address] [place] [address] Enrico Godoy MD [address] [facility] [place] [address] [place] [address] Social History Tobacco Use Types Packs/Day Years Used Date Smoking Tobacco: Never Assessed Comments Unknown Sex and Gender Information Value Date Recorded Sex Assigned at Not on file Legal Sex Female 8:29 PM EDT Gender Identity Not on file Sexual Orientation Not on file documented as of this encounter Miscellaneous Notes * Telephone Encounter - Enrico Godoy MD - 07/16/2025 6:16 PM EDT 07/16/25 Called patient with no answer. Left VM. Sent Letter with normal results. Enrico Godoy MD Field Map Technician of Endocrinology, Diabetes and Metabolism [facility] documented in this encounter Plan of Treatment Upcoming Encounters Date Type Department Care Team (Late st Contact Info) Description 01/13/2026 10:20 AM EDT Office Visit [facility] [address] [place] [address] Enrico Godoy MD 2[address] [facility] [address] [place] [address] documented as of this encounter Visit Diagnoses Not on filedocumented in this encounter Additional Health Concerns Assessment Noted Time A fall risk assessment has been complete d for the patient 07/15/2025 10:35 AM EDT A Body Mass Index follow-up plan has been documented for the patient 07/15/2025 6:14 PM EDT documented as of this encounter Care Teams Monomer Recovery Supervisor Relationship Specialty Start Date End Date Montez Solano MD [address] [place] [address] PCP - General 04/30/25 documented as of this encounter
--- OUTSIDE RECORDS SUMMARY | 2025-07-24 20:19 | XMS_ITS | Patient Health Record ---
Author Organization [facility] Address [address] [place] [address] Care Team Providers Care Critical Care Unit Manager Name Role Phone LAQUITA BEARD Unavailable [phone] Allergies Allergen (clinical drug ingredient) Drug/Non Drug [...] 0 UT) 1 capsule Orally once a week; Duration: 30 day(s) 02/11/2022 Active Linzess 145 MCG [...] Status Risk Notes Problem Vitamin D deficiency (97005352) Vitamin D deficiency (E55.9) Active confirmed Problem Acquired hypothyroidism (540097120) Acquired hypothyroidism (E03.9) Active confirmed Problem Benign essential hypertension (8273959) Benign essential hypertension (I10) Active confirmed Problem Gastroesophageal reflux disease (883141602) Chronic gastroesophageal reflux disease (K21.9) Active confirmed Problem Mixed hyperlipidemia (362142473) Hyperlipemia, mixed (E78.2) Active confirmed Problem Coronary arteriosclerosis (92538497) Coronary arteriosclerosis (I25.10) Active confirmed Problem Chronic obstructive lung disease (00486785) COPD without exacerbation (J44.9) Active confirmed Plan Of Treatment No Information Insurance Providers Payer Name Payer Address Payer Phone Subscriber Number Group Number Insured Name Patient Relationship to Insured Coverage Start Date Coverage End Date [facility] [address] [address] [place] [address] ADD ID REECE SANTILLAN Self - patient is the insured Medical (General) History Medical History History ICD Code heart copd fybromialygia bone disease dizziness osteoarthritis ibs cancer thryroid upper gi issues Surgical History Surgery Date(Month/Year) c section, completehysterectomy broken wrist gallbladder nodules off voice box and tonsils and ba se of tongue cyst heart cath kidney stone COLONOSCOPY Hospitalization History Reason Date(Month/Year) [facility] last year
== END ==
LOC: SL 20:17
PROVIDERS: PCP Family Medicine; Visit Provider Internal Medicine Pulmonary Disease
DX: G47.30 Sleep apnea, unspecified (principal)
CPT/HCPCS: 95810

== ENCOUNTER 2025-07-31 11:25 | Emergency (ER) | payer MEDICARE, MEDICAID, SELFPAY ==
--- OUTSIDE RECORDS SUMMARY | 2025-02-02 17:30 | XMS_ITS ---
Author Organization [facility] Address [address] [place] [address] Care Team Providers Care Industrial Diamond Polisher Name Role Phone Jean Pierre Johnston Primary Care Provider Migration, Provider Unavailable Unavailable Allergies Allergen (clinical drug ingredient) Drug/Non Drug Allergy documented on EMR Reaction Allergy Type Onset Date Status SULFA (uncoded) Unknown Allergy Acti ve acetaminophen / oxycodone Percocet n/v Drug Allergy Active tizanidine tiZANidine tongue swelling and trouble swallowing Drug Allergy Active REASON FOR VISIT [facility] To [facility] Conversion Encounter Medications Medication SIG (Take, [...] 01/07/2021 Active Vitamin D (Ergocalciferol) 1.25 MG (55646 UT) 1 cap(s) orally twice weekly; Duration: [...] Active Encounters Encounter Location Date Provider Diagnosis [facility] [address] [facility] [address] [place], [place] [address] 02/02/2025 Provider Migration Idiopathic peripheral neuropathy G60.9 [...] Notes * Anabell GREENDOB:1960 (65 yo F)Acc No.[id number]:02/02/2025 Patient: Anabell ROBLES Provider: Fernando Velasco :1960 A ge:64 Y S ex:Female Date:02/02/2025 Address:[facility] [address] , [facility] [id number] Pcp:Jean Pierre Johnston Subjective: * Chief Complaints: * 1 . [facility] Encounter. * Medical History: * [...] , Taking Vitamin D (Ergocalciferol) 1.25 MG (58452 UT) Capsule 1 cap(s) orally twice weekly [...] Electronic signature of Prov ider Migration on 07/31/2025 at 12:35 PM EDT Sign off status: Pending * Provider: Fernando wood Migration Date: 0 02/02/2025 Generated for Hung mckinney/Omero/eTransmitting on: 1 12:35 PM EDT
--- OUTSIDE RECORDS SUMMARY | 2025-07-15 10:40 | XMS_ITS | Encounter Summary ---
Author Organization [facility] Address [address] [place] [address] Care Team Providers Care Gameroom Technician Name Role Phone Montez Solano MD Primary Care Provider [phone] Reason for Referral * Consultation (Routine) - Authorized Specialty Diagnoses / Procedures Referred By Contac t Referred To Contact Diagnoses Post-operative hypothyroidism Enrico Godoy MD [address] [address] Phone: tel: fax: Referral ID Status Reason Start Date Expiration Date V isits Requested Visits Authorized [id number] Authorized 07/15/2025 01/14/2027 1 1 * Imaging (Routine) - Pending Review Specialty Diagnoses / Procedures Referred By Contac t Referred To Contact Radiology Diagnoses Post-operative hypothyroidism Procedures US Thyroid Enrico Godoy MD [address] [address] Phone: tel: fax: Referral ID Status Reason Start Date Expiration Date V isits Requested Visits Authorized [id number] Pending Review 07/15/2025 01/14/2027 1 1 Reason for Visit * Reason Comments Consult * Consultation (Routine) - Closed Specialty Diagnoses / Procedures Referred By Contac t Referred To Contact Endocrinology Diagnoses Other thyrotoxicosis without thyrotoxic crisis or storm Lin Hidalgo MD [address] [place] [address] Phone: tel: fax: [facility] [address] [place] [address] Phone: tel: fax: Referral ID Status Reason Start Date Expiration Date V isits Requested Visits Authorized [id number] Closed Specialty Services Required 02/12/2025 08/14/2026 1 1 Encounter Details Date Type Department Care Team (Late st Contact Info) Description 07/15/2025 10:40 AM EDT Office Visit [facility] [address], [address] [place] [address] Enrico Godoy MD [address] [place] [address] Post-operative hypothyroidism (Primary Dx) Social [...] 2.5 x 2.0 cm (inked blue). A authorization representative section from this nodule is taken [...] Diagnosis Date Chronic obstructive pulmonary disease, unspecified ([facility]) COPD (chronic obstructive pulmonary disease) Fibromyalgia Fibromyalgia [...] by mouth daily., Disp: , Rfl: HYDROcodone-acetaminophen ([place]) 5-325 MG tablet, every 6 hours., Disp: [...] Description 01/13/2026 10:20 AM EDT Office Visit [facility] [address], [address] [place] [address] Enrico Godoy MD [address] [place] [address] [address] [place] [address] Scheduled Orders Name Type Priority Associated Diagnoses Orde r Schedule US Thyroid Imaging Routine Post-operative hypothyroidism Expected: 07/15/2025 (Approximate), Expires: 01/12/2027 Scheduled Referrals Name Type Priority Associated Diagnoses Orde r Schedule Follow Up [facility] Outpatient Referral Routine Post-operative hypothyroidism Expected: 01/12/2026, Expires: 01/16/2027 documented as of this encounter Results * Free T4, Plasma (07/15/2025 11:50 AM EDT) Free T4, Plasma 1.6 0.8 - 1.7 ng/dL 07/15/2025 2:59 PM EDT HEALTHCARE [facility] Blood Venous blood specimen / Unknown Venipuncture / Unknown 07/15/2025 11:50 AM EDT 07/15/2025 11:51 AM EDT Enrico Godoy MD LAB BLOOD ORDERABLES Final R esult Performing Organization Address City/[facility] Co de Phone Number HEALTHCARE LAB [address] [place] [address] * Thyroid Stimulating Hormone, Plasma (07/15/2025 11:50 AM EDT) Thyroid Stimulating Hormone, Plasma 1.38 0.40 - 4.20 uIU/mL 07/15/2025 2:59 PM EDT HEALTH[facility]ARE [facility] Blood Venous blood specimen / Unknown Venipuncture / Unknown 07/15/2025 11:50 AM EDT 07/15/2025 11:51 AM EDT Enrico Godoy MD LAB BLOOD ORDERABLES Final R esult Performing Organization Address City/[facility] de Phone Number HEALTHCARE LAB [address] [place] [address] documented in this encounter Visit Diagnoses Diagnosis Post-operative hypothyroidism- Primary Postsurgical hypothyroidism documented in this encounter Additional Health Concerns Assessment Noted Time A fall risk assessment has been complete d for the patient 07/15/2025 10:35 AM EDT A Body Mass Index follow-up plan has been documented for the patient 07/15/2025 6:14 PM EDT documented as of this encounter Care Teams Gameroom Technician Relationship Specialty Start Date End Date Montez Solano MD [address] [place] [address] PCP - General 04/30/25 documented as of this encounter
[2025-07-31] VITALS (7 sets, daily range): BP systolic 101–120; BP diastolic 61–75; PULSE 77–107; RESP 14–18; TEMP 36.6–36.8; O2SAT 94–97; BMI 30.4
--- NOTE | 2025-07-31 11:46 | CT_ITS ---
FINAL REPORT TECHNIQUE: Axial images were obtained of the cervical spine by computed tomography. Coronal and sagittal reconstruction process performed. This study was performed with techniques to keep radiation doses as low as reasonably achievable (ALARA). Individualized dose reduction techniques using automated exposure control or adjustment of mA and/or kV according to the patient''s size were employed. CLINICAL HISTORY: Fall, head trauma COMPARISON: None FINDINGS: Mild disc space narrowing at C4-5. Vertebrae are normal in height. There is no malalignment. Mild endplate hypertrophy is noted at C4-5 and C5-6. There is mild bilateral neural foraminal narrowing at C4-5 and C5-6. No evidence of fracture. The facets are properly aligned. IMPRESSION: Degenerative/chronic changes without acute bony abnormality. Reviewed, Interpreted and Dictated by Jake Burris MD Transcribed by Kina Davis Authenticated and . [facility]
--- NOTE | 2025-07-31 11:46 | CT_ITS ---
FINAL REPORT TECHNIQUE: Axial CT images were performed through the head. Coronal reformatted images were submitted. This study was performed with techniques to keep radiation doses as low as reasonably achievable (ALARA). Individualized dose reduction techniques using automated exposure control or adjustment of mA and/or kV according to the patient's size were employed. CLINICAL HISTORY: Fall, R frontotemporal head trauma COMPARISON: 12/21/2022 FINDINGS: The ventricles are normal in size. There is no evidence of hemorrhage. There is no mass or edema identified. There is no abnormal extra-axial fluid seen. The sinuses are well aerated. IMPRESSION: No acute intracranial process. Reviewed, Interpreted and Dictated by aJke Burris MD Transcribed by Melissa Flores Authenticated and [facility]
--- NOTE | 2025-07-31 11:49 | HMH.EDGENADL ---
Discharge Plan Disposition Patient Disposition: Home, Self-Care Condition: Good Prescriptions Prescriptions: No Action nitroglycerin 0.4 mg tablet, sublingual 0.4 mg sublingual Q5M PRN (Reason: chest pain) Qty: 25 0RF Rx Instructions: do not exceed 3 doses per episode cyclobenzaprine 10 mg tablet 10 mg PO TID PRN (Reason: Pain) ipratropium-albuterol 0.5 mg-3 mg(2.5 mg base)/3 mL solution for nebulization 3 ml INHALATION QID PRN (Reason: shortness of breath or wheezing) Qty: 180 12RF budesonide-formoterol [Symbicort] 160-4.5 mcg/actuation HFA aerosol inhaler 2 puff inhalation BID 90 Days Qty: 10.2 3RF albuterol sulfate 90 mcg/actuation HFA aerosol inhaler 2 inh inhalation QID Qty: 8.5 3RF tiotropium bromide [Spiriva with HandiHaler] 18 mcg capsule, w/inhalation device 1 cap inhalation DAILY 90 Days Qty: 90 3RF Rx Instructions: puncture 1 cap using device; one dose = 2 inhalations buspirone 10 mg tablet 10 mg PO BID Qty: 60 1RF diazepam 5 mg tablet 5 mg PO BID Qty: 60 2RF folic acid 1 mg tablet 1 mg PO DAILY mecobalamin (vitamin B12) 10,000 mcg recon soln 10,000 mcg IM MONTHLY Allergy Relief (cetirizine) 10 mg capsule 10 mg PO DAILY PRN (Reason: allergy symptoms) Qty: 30 1RF levothyroxine 75 mcg tablet 75 mcg PO DAILY Qty: 90 3RF aspirin [Adult Aspirin Regimen] 81 mg tablet,delayed release (DR/EC) 81 mg PO DAILY Qty: 30 2RF denosumab 60 mg/mL syringe 60 mg SQ [id number] Qty: 1 2RF linaclotide 145 mcg capsule 145 mcg PO DAILY Qty: 90 3RF atorvastatin 80 mg tablet 80 mg PO DAILY Qty: 30 2RF spironolactone 25 mg tablet See Rx Instructions .ROUTE .COMPLEX Qty: 90 3RF Dose Instruction: Take 1 tablet by mouth once daily Rx Instructions: Take 1 tablet by mouth once daily furosemide 40 mg tablet See Rx Instructions .ROUTE .COMPLEX Qty: 90 3RF Dose Instruction: Take 1 tablet by mouth once daily Rx Instructions: Take 1 tablet by mouth once daily montelukast 10 mg tablet See Rx Instructions .ROUTE .COMPLEX Qty: 90 0RF Dose Instruction: Take 1 tablet by mouth once daily Rx Instructions: Take 1 tablet by mouth once daily pantoprazole 40 mg tablet,delayed release (DR/EC) 40 mg PO DAILY Referrals Follow up/Referrals: Fiorella Solano MD [Primary Care Provider, Medical] - See instructions Activity Restrictions/Add. Instructions Additional Instructions/Restrictions: Please return if any new or worsening symptoms. STitches will fall out in 7-10 days. Clinical Impressions Clinical Impression: Fall Qualifiers: Encounter type: initial encounter Qualified Code(s): W19.XXXA - Unspecified fall, initial encounter Forehead laceration Qualifiers: Encounter type: initial encounter Qualified Code(s): S01.81XA - Laceration without foreign body of other part of head, initial encounter Laceration of elbow, right Qualifiers: Encounter type: initial encounter Qualified Code(s): S51.011A - Laceration without foreign body of right elbow, initial encounter Instructions Patient Instructions: DI for Laceration Repair Print Language Print Language: Ukrainian Discharge ED Provider: See [facility] Adult HPI General Chief complaint: Wound/Laceration Stated complaint: AO-1100- Fall, Cut to Forehead Time Seen by Provider: 07/31/25 11:27 Mode of Arrival: Ambulatory Source of Information: Patient Description of Symptoms (Recalled from ER Triage Doc. by RN): Pt presents to the ED following a fall in the bathtub. Pt complains of a headache with no loss of conciousness. Pt does have a lac on the right side of her forehead as well as on her right elbow History of Present Illness HPI narrative: This is a 65-year-old female patient, with past medical history of hypertension, hyperlipidemia, COPD, and CAD, who is presenting to the emergency department today for evaluation of a fall. Patient states that she was in her bathroom and she fell and struck her head against the side of the tub. She did not lose consciousness. She has been able to ambulate since the accident. She has no persistent headaches. No numbness and tingling her extremities. She does have some stiffness in her neck but is not experiencing any back pain, pelvic pain, or pain in her extremities. She notes that she has a small laceration over her right elbow as well as a laceration over her right lateral forehead. Related Data Home Medications ?Medication ?Instructions ?Recorded ?Confirmed pantoprazole 40 mg tablet,delayed 40 mg PO DAILY . 12/21/22 07/05/25 release cyclobenzaprine 10 mg tablet 10 mg PO TID PRN Pain 12/27/22 07/05/25 folic acid 1 mg tablet 1 mg PO DAILY 04/03/25 07/05/25 mecobalamin (vitamin B12) 10,000 10,000 mcg IM MONTHLY 04/03/25 07/05/25 mcg solution for injection Previous Rx's ?Medication ?Instructions ?Recorded nitroglycerin 0.4 mg sublingual 0.4 mg sublingual Q5M PRN chest 12/31/22 tablet pain #25 tabs levothyroxine 75 mcg tablet 75 mcg PO DAILY thyroid disorder 04/05/23 #90 tabs albuterol sulfate 90 mcg/actuation 2 inh inhalation QID #8.5 grams 09/19/23 aerosol inhaler budesonide-formoterol HFA 160 2 puff inhalation BID 90 days 09/19/23 mcg-4.5 mcg/actuation aerosol #10.2 grams inhaler (Symbicort) ipratropium 0.5 mg-albuterol 3 mg 3 ml inhalation QID PRN shortness 09/19/23 (2.5 mg base)/3 mL nebulization of breath or wheezing #180 mL soln tiotropium bromide 18 mcg capsule 1 cap inhalation DAILY 90 days #90 09/19/23 with inhalation device (Spiriva puffs with HandiHaler) aspirin 81 mg tablet,delayed 81 mg PO DAILY #30 tabs 02/17/24 release (Adult Aspirin Regimen) denosumab 60 mg/mL subcutaneous 60 mg SQ [id number] #1 mL 02/17/24 syringe linaclotide 145 mcg capsule 145 mcg PO DAILY IBS #90 caps 03/16/24 diazepam 5 mg tablet 5 mg PO BID . #60 tabs 03/19/24 atorvastatin 80 mg tablet 80 mg PO DAILY #30 tabs 03/22/24 buspirone 10 mg tablet 10 mg PO BID #60 tabs 04/09/24 furosemide 40 mg tablet See Rx Instructions .Route 04/09/25 .COMPLEX #90 tabs spironolactone 25 mg tablet See Rx Instructions .Route 04/09/25 .COMPLEX #90 tabs montelukast 10 mg tablet See Rx Instructions .Route 06/06/25 .COMPLEX #90 tabs cetirizine 10 mg capsule (Allergy 10 mg PO DAILY PRN allergy 07/05/25 Relief (cetirizine)) symptoms #30 caps Allergies Allergy/AdvReac Type Severity Reaction Status Date / Time oxycodone Allergy Unknown I-ITCHING Verified 07/05/25 10:34 Sulfa (Sulfonamide Allergy Unknown EYE Verified 07/05/25 10:34 Antibiotics) DROPS-EYES SWELL isosorbide AdvReac Mild dizziness Verified 07/05/25 10:34 metaxalone AdvReac felt like Verified 07/05/25 10:34 i was dying [facility] Disclaimer: The information contained in this section may have been updated after the patient was seen, as this information can be updated by other users. Medical History Mixed hyperlipidemia Cataract CAD (coronary artery disease) COPD (chronic obstructive pulmonary disease) Other chest pain Abnormal nuclear cardiac imaging test SOB (shortness of breath) Nocturnal hypoxia Patient states she is stopped the oxygen at night. Will make sure that she has an appointment with pulmonary in the very near future. Multiple pulmonary nodules Allergic rhinitis, unspecified Elevated hemidiaphragm Moderate persistent asthma Allergy, unspecified, subsequent encounter Dyspnea on exertion Diastolic dysfunction Typical angina Dyspnea Chest pain Elevated left ventricular end-diastolic pressure (LVEDP) HTN (hypertension) Blood pressure today is 120/70. Her last blood pressure in December of this year was 108/82. Patient is currently taking bisoprolol, furosemide and spironolactone. She does follow with cardiology. HLD (hyperlipidemia) Last lipid panel was obtained August 2021. It revealed triglyceride 114, total cholesterol 112, LDL of 75 and HDL 48. This is an excellent panel. She is on atorvastatin and I would like to do a fasting lipid panel in the near future. Surgical History History of coronary artery stent placement H/O thyroidectomy H/O tubal ligation History of History of hysterectomy History of esophagogastroduodenoscopy (EGD) Family History Other Anemia Cancer Coronary artery disease Diabetes Heart attack Hyperlipidemia Hypertension Kidney disease Stroke Social History Smoking Status: Current some day smoker tobacco type: e-cigarettes second hand exposure: No (she does THC vapes; not nicotine) alcohol intake: never counseling given: No substance use type: marijuana counseling given: No (does THC vapes) current occupational status: disabled Travel in the last 8 weeks?: None adopted: No caregiver/support person: No foster care: No household members: significant other housing: house lives independently: No marital status: life partner number of children: 1 education level: other details: she went to 11th grade; hated it; got and current occupational exposures/hazards: No caffeine: Yes physical activity: none working smoke detector in home: No fire extinguisher in home: Yes carbon monox detector in home: No firearms in home: Yes firearms unloaded and locked: Yes do you feel safe at home: Yes victim of physical abuse: No victim of emotional abuse: No victim of sexual abuse: No would you like helpful sources: No Have you lived/traveled outside [place] in past 30 days?: No Contact w/someone who lives/traveled outside US past 30 days?: No Exposure to someone with infectious disease in past 14 days?: No Do you have a fever (greater than 100.4 F or 38 C)?: No Have you tested positive for COVID-19?: No Exposed to someone with COVID-19 in past 14 days?: No Do you have a sore throat?: No Do you have a cough?: No Do you have any weakness?: No Do you have any diarrhea?: No Are you experiencing any unusual bleeding?: No Do you have any muscle aches/pain?: No Do you have any abdominal pain?: No Are you experiencing loss of taste or smell?: No Other Medical History Have you received the Flu Vaccine for this season: Yes Have you received the Pneumonia Vaccine: Yes ROS Obtained: Yes Systems reviewed as appropriate & no additional complaints except as documented Physical Exam General General appearance: other (See MDM) Respiratory Respiratory exam: Present other (See MDM) Cardiovascular Cardiovascular exam: Present other (See MDM) Neurological Exam Neurological exam: Present other (See MDM) Medical Decision Making Medical Records Medical records reviewed: Yes I reviewed the patient's medical records. Screening: Per USPSTF and CDC recommendations, given the prevalence of disease in our region, it is our hospital?s policy to screen for HIV and viral Hepatitis for all patients aged 18 and over and those with ongoing risk factors. Say Inquiry Pt receiving controlled substance: No Say was queried for this patient: No Vital Signs: 07/31/25 11:31 07/31/25 11:35 07/31/25 12:30 Temperature 98.2 F 98.2 F Temperature Source Oral Oral Pulse Rate 107 H 84 Pulse Rate [Right] 107 H Respiratory Rate 18 18 Blood Pressure 117/61 102/65 L Blood Pressure [Right Arm] 117/61 Blood Pressure Mean 81 Blood Pressure Mean [Right Arm] 79 Blood Pressure Source Automatic Cuff Blood Pressure Source [Right Arm] Automatic Cuff Blood Pressure Position Sitting Blood Pressure Position [Right Arm] Sitting 02 Sat by Pulse Oximetry 97 97 95 Oxygen Delivery Method Room Air Room Air 07/31/25 13:00 07/31/25 13:30 07/31/25 14:00 Temperature Temperature Source Pulse Rate 86 90 77 Pulse Rate [Right] Respiratory Rate Blood Pressure 118/69 101/61 L 101/75 L Blood Pressure [Right Arm] Blood Pressure Mean 91 75 84 Blood Pressure Mean [Right Arm] Blood Pressure Source Blood Pressure Source [Right Arm] Blood Pressure Position Blood Pressure Position [Right Arm] 02 Sat by Pulse Oximetry 96 94 L 96 Oxygen Delivery Method Lab Data Lab results reviewed: Yes I reviewed the patient's lab results. Orders (Tests/Meds): ED MEDICATIONS Discontinued Medications Generic Name Dose Route Start Last Admin Trade Name Freq PRN Reason Stop Dose Admin Lidocaine/Epinephrine 0 ml 07/31/25 14:26 07/31/25 14:32 Lidocaine 1% W/Epi 1:100,000 20ml Vial SQ 07/31/25 14:27 10 ml ONCE ONE Administration ORDERS Category Date Time Status CT cervical spine wo con Stat Cat Scan 07/31/25 11:[address] head/brain wo con Stat Cat Scan 07/31/25 11:46 Completed Medical Decision Narrative: In summary, this is a 65-year-old female patient who is presenting to the emergency department today for evaluation of head trauma after a fall at home. Patient states that she was in her bathroom and fell and struck her head against the time. She did not lose conscious. She has no resultant symptoms. She notes that she has a laceration on her forehead as well as her right elbow. Patient's comorbidities include a past medical history of hypertension, hyperlipidemia, COPD, and CAD. On physical examination she is appropriately alert and interactive with a GCS of 15. She has no scalp lacerations, hematomas, or abrasions. No midface instability or jaw malocclusion. She does have a jagged approximate 4 cm laceration over the right lateral forehead, near the temporal region. She has no intraoral lacerations or lesions. She has no midline cervical spine tenderness, thoracic spine tenderness, or lumbar spine tenderness. No anterior chest wall tenderness. No anterior abdominal wall tenderness. Pelvis is stable. No deformities of the extremities. She does have a small 0.5 cm laceration over the right elbow. This laceration is very superficial and is not deep enough to warrant a workup for traumatic arthrotomy. She has no bony tenderness about the right elbow. Differential diagnosis includes intracranial hemorrhage, cervical spine fracture, forehead laceration, forehead contusion, concussion, right elbow laceration, among others. Workup was initiated with CT scans of the head and cervical spine. CT scans were personally interpreted by me and demonstrate no large intracranial hemorrhages or bony fracture/malalignment of the cervical spine. Official radiology read is in agreement and states there is no acute abnormality. We have repaired the patient's forehead laceration as well as a laceration over the elbow. The elbow laceration was repaired with Dermabond given how superficial it is and how well-approximated the borders are currently. Patient tolerated these procedures well. Please see procedure note for details Patient remains at her baseline mental status and is stable for discharge home. Return precautions have been given. At this time all questions been answered and all parties are agreeable with this plan Procedures Laceration Laceration 1: Site: face (Right lateral forehead) Side (If applicable): right Size (cm): 4 Description: stellate Depth: simple, single layer Local Anesthetic: lidocaine 1% Amount of anesthesia used (mL): 5 Pre-repair: wound explored and irrigated extensively Skin layer closed with: other (Fast gut) Size (cm): 5-0 Number of sutures: 8 Technique: simple, interrupted Laceration 2: Site: upper extremity (Right elbow) Side (If applicable): right Size (cm): 0.5 Description: linear Depth: simple, single layer Pre-repair: wound explored and irrigated extensively Skin layer closed with: Dermabond Critical Care Critical Care Time Critical Care Time: No
--- OUTSIDE RECORDS SUMMARY | 2025-07-31 12:36 | XMS_ITS | Patient Health Record ---
Author Organization [facility] Address [address] [place] [address] Care Team Providers Care Living Supervisor Name Role Phone Jean Pierre Johnston Primary [...] 03/19/2016 Active Vitamin D (Ergocalciferol) 1.25 MG (63938 UT) 1 cap(s) orally twice weekly; Duration: [...] Status Risk Notes Problem Generalized anxiety disorder (74629559) Generalized anxiety disorder (F41.1) Active confirmed Problem Chronic serous otitis media (85984259) Chronic serous otitis media, right ear (H65.21) Active confirmed Problem Panlobular emphysema (6854065) Panlobular emphysema (J43.1) Active confirmed Problem Vitamin D deficiency (18208242) Vitamin D deficiency (E55.9) Active confirmed Problem Osteoporosis (53423016) Osteoporosis (M81.0) Active confirmed Problem Hyperlipidemia (42706908) Hyperlipemia, idiopathic familial (E78.5) Active confirmed Problem Rupture of right rotator cuff (51945197428481604) Rotator cuff syndrome of right shoulder (M75.101) Active confirmed Problem Acute exacerbation of chronic obstructive airways disease (251613747) COPD exacerbation (J44.1) Active confirmed Problem Idiopathic peripheral neuropathy (64161558) Idiopathic peripheral neuropathy (G60.9) Active confirmed Problem Nephrolithiasis (52350868) Nephrolithiasis (N20.0) Active confirmed Problem Gastroesophageal reflux disease with esophagitis (disorder) (765290342) GERD with esophagitis (K21.0) Active confirmed Problem Body mass index 30+ - obesity (402474034) BMI 30.0-30.9,adult (Z68.30) Active confirmed Problem Mood disorder (80614465) Mood disorder (F39) Active confirmed Problem Chronic diastolic heart failure (627960290) Chronic diastolic congestive heart failure (I50.32) Active confirmed Problem Hairy cell leukemia (47854870) 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) Active confirmed Problem Chronic constipation (049551106) Chronic constipation (K59.09) Active confirmed Problem Menopausal syndrome (disorder) (796382215) Menopausal disorder (N95.9) Active confirmed Problem Thyromegaly (8805402) Thyromegaly (E01.0) Active confirmed Problem Sciatica (64411732) Acute right- sided back pain with sciatica (M54.41) Active confirmed Problem B-cell lymphoma (disorder) (335889800) B-cell lymphoma, unspecified B-cell lymphoma type, unspecified body region (C85.10) Active confirmed Problem Right hemiplegia (221241729) Right hemiplegia (G81.91) Active confirmed Problem Cricopharyngeal dysphagia (58567273) Cricopharyngeal dysphagia (R13.13) Active confirmed Encounters Encounter Location Date Provider Diagnosis [facility] [address] [facility] [address] [place] [address] 02/02/2025 Provider Migration Idiopathic peripheral neuropathy G60.9 [...] End Date [employer] [address] [address] [place] [address] [id number] Anabell Green Self - patient is the insured MEDICAID EDS [address] [place] [address] [phone] [id number] Anabell Green Self - patient is the [...]
--- OUTSIDE RECORDS SUMMARY | 2025-07-31 12:36 | XMS_ITS | Encounter Summary ---
Author Organization [facility] Address [address] [place] [address] Care Team Providers Care Beam Worker Name Role Phone Jean Pierre Johnston MD Primary Care Provider [phone] Montez Solano MD Primary Care Provider [phone] Reason for Referral * Consultation (Routine) - Closed Specialty Diagnoses / Procedures Referred By Contac t Referred To Contact Endocrinology Diagnoses Other thyrotoxicosis without thyrotoxic crisis or storm Lin Hidalgo MD [address] [place] [address] Phone: tel: fax: [facility] [address] [place] [address] Phone: tel: fax: Referral ID Status Reason Start Date Expiration Date V isits Requested Visits Authorized [id number] Closed Specialty Services Required 02/12/2025 08/14/2026 1 1 Encounter Details Date Type Department Care Team (Late st Contact Info) Description 02/12/2025 Community [facility] [address] [place] [address] Lin Hidalgo MD [address] [place], [place] [id number] Other thyrotoxicosis without thyrotoxic crisis or storm [...] 01/13/2026 10:20 AM EDT Office Visit [facility] [address], [address] [place] [id number] Enrico Godoy MD [address] [facility] [address] [place] [address] Scheduled Referrals Name Type Priority Associated Diagnoses Orde r Schedule Ambulatory referral to Endocrinology Outpatient Referral Routine Other thyrotoxicosis without thyrotoxic crisis or storm Expected: 02/12/2025 (Approximate), Expires: 08/14/2026 documented as of this encounter Visit Diagnoses Diagnosis Other thyrotoxicosis without thyrotoxic crisis or storm- Primary documented in this encounter Care Teams Beam Worker Relationship Specialty Start Date End Date Jean Pierre Johnston MD [address] [facility] [address] [facility] [address] [place] [address] PCP - General 03/13/21 04/29/25 Montez Solano MD [address] [place] [address] [address] [place] [address] PCP - General 04/30/25 documented as of this encounter
--- OUTSIDE RECORDS SUMMARY | 2025-07-31 12:36 | XMS_ITS | Encounter Summary ---
Author Organization [facility] Address [address] [place] [address] Care Team Providers Care Solution Developer Name Role Phone Montez Solano MD Primary Care Provider [phone] Encounter Details Date Type Department Care Team (Late st Contact Info) Description 07/16/2025 Results Follow-Up [facility] End[facility]ology [address] [place] [address] Enrico Godoy MD [address] [facility] [place] [address] [place] [address] Social History Tobacco Use Types [...] Letter with normal results. Enrico Godoy MD Fur Mixer of Endocrinology, Diabetes and Metabolism [facility] documented in this encounter Plan of Treatment Upcoming Encounters Date Type Department Care Team (Late st Contact Info) Description 01/13/2026 10:20 AM EDT Office Visit [facility] [address] [place] [address] Enrico Godoy MD [address] [facility] [address] [place] [address] documented as of this encounter Visit Diagnoses Not on filedocumented in this encounter Additional Health Concerns Assessment Noted Time A fall risk assessment has been complete d for the patient 07/15/2025 10:35 AM EDT A Body Mass Index follow-up plan has been documented for the patient 07/15/2025 6:14 PM EDT documented as of this encounter Care Teams Solution Developer Relationship Specialty Start Date End Date Montez Solano MD [address] [place] [address] PCP - General 04/30/25 documented as of this encounter
--- OUTSIDE RECORDS SUMMARY | 2025-07-31 12:36 | XMS_ITS | Encounter Summary ---
Author Organization [facility] Address [address] [place] [address] Care Team Providers Care Wire Coiler Machine Operator Name Role Phone Montez Solano MD Primary Care Provider [phone] Encounter Details Date Type Department Care Team [...] Description 01/13/2026 10:20 AM EDT Office Visit [facility] [address] [place] [address] Enrico Godoy MD [address] [facility] [place] [address] [place] [address] documented as of this encounter Visit Diagnoses Not on filedocumented in this encounter Additional Health Concerns Assessment Noted Time A fall risk assessment has been complete d for the patient 07/15/2025 10:35 AM EDT A Body Mass Index follow-up plan has been documented for the patient 07/15/2025 6:14 PM EDT documented as of this encounter Care Teams Wire Coiler Machine Operator Relationship Specialty Start Date End Date Montez Solano MD [address] [place] [address] [address] [place] [address] PCP - General 04/30/25 documented as of this encounter
--- OUTSIDE RECORDS SUMMARY | 2025-07-31 12:37 | XMS_ITS | Clinical Summary ---
Author Organization [facility] Address [address] [place] [address] Care Team Providers Care Groundsman Name Role Phone Montez Solano MD Primary Care Provider [phone] Allergies Active Allergy Reactions Criticality Noted Date [...] High 06/01/2018 tongue swelling Medications HYDROcodone-aceta minophen (Cromwell) 5-325 MG tablet every 6 hours. Active [...] Department Care Team Description 07/16/2025 Results Follow-Up [facility] Endocrinology [address] [address] Enrico Godoy MD 07/15/2025 10:40 AM EDT Office Visit Professional [facility] [address], [address] [place] [address] Enrico Godoy MD Post-operative hypothyroidism (Primary Dx) 07/15/2025 Travel from Last 3 Months Immunizations Immunization Administration Dates Next Due Moderna COVID-19 Vaccine (Senior Research Associate) 12+ years 10/2020,01/01/2021 Pneumococcal Polysaccharide PPV23 09/09/2020,07/2014 [...] Description 01/13/2026 10:20 AM EDT Office Visit [facility] [address], [address] [place] [address] Enrico Godoy MD [address] [facility] [address] [place] [address] Health Maintenance Due Date Last Done Comments [facility]-Bone Density Scan 1960 [facility]-Depression Screening 1960 [facility]-Medicare Annual Wellness (AWV) 1960 [facility]-Infant/Child/Adol SDOH Screenings 1960 [facility]- SDOH Screenings 02/13/1978 [facility]-Adult SDOH Screenings 02/13/1978 [facility]-Pap Smear 02/13/1981 [facility]-Cervical Cancer Screening 02/13/1990 [facility]-HPV/Cotest 02/13/1990 CT Colonography 02/13/2005 Colonoscopy 02/13/2005 FIT-DNA 02/13/2005 FIT 02/13/2005 FOBT 02/13/2005 Sigmoidoscopy 02/13/2005 [facility]-Colorectal Cancer Screening 02/13/2005 [facility]-Breast Cancer Screening 02/13/2010 [facility]-RSV Vaccine: 60+ Years o r (1 - Risk 60-74 years 1-dose series) 2020 [id number] Vaccine (3 - Moderna risk series) 02/26/2021 [...] - 4.20 uIU/mL 07/15/2025 2:59 PM EDT [facility] Blood Venous blood specimen / Unknown Venipuncture / Unknown 07/15/2025 11:50 AM EDT 07/15/2025 11:51 AM EDT Enrico Godoy MD LAB BLOOD ORDERABLES Final R esult Performing Organization Address City/[facility] Co de Phone Number HEALTHCARE LAB [address] [place] [address] * Free T4, Plasma (07/15/2025 11:50 AM EDT) Free T4, Plasma 1.6 0.8 - 1.7 ng/dL 07/15/2025 2:59 PM EDT [facility]ALTH[facility]ARE [facility] Blood Venous blood specimen / Unknown Venipuncture / Unknown 07/15/2025 11:50 AM EDT 07/15/2025 11:51 AM EDT Enrico Godoy MD LAB BLOOD ORDERABLES Final R esult Performing Organization Address [facility] Co de Phone Number HEALTHCARE LAB [address] [place] [address] * Hepatitis C Antibody (04/07/2018 11:03 AM EDT) Pathologist [facility] Hepatitis C Antibody NEGATIVE Reference Range: Negative SUNQUEST 04/07/2018 11:0 3 AM EDT 04/07/2018 11:42 AM EDT Yuki Blanchard MD LAB BLOOD ORDERABLES Final Resu lt Performing Organization Address [facility] Co de Phone Number SUNQUEST from Last 3 Months or Most Recently Relevant to Health Maintenance Insurance [address] [place] [id number] [facility] MEDICARE Care Teams Groundsman Relationship Specialty Start Date End Date Montez Solano MD [address] [place] [address] [address] [place] [address] PCP - General 04/30/25
--- OUTSIDE RECORDS SUMMARY | 2025-07-31 12:37 | XMS_ITS | Patient Health Record ---
Author Organization [facility] Address [address] [place] [address] Care Team Providers Care Perianesthesia Nurse Name Role Phone LAQUITA BEARD Unavailable [phone] Allergies Allergen (clinical drug ingredient) Drug/Non Drug [...] Status Risk Notes Problem Vitamin D deficiency (21860061) Vitamin D deficiency (E55.9) Active confirmed Problem Acquired hypothyroidism (128636630) Acquired hypothyroidism (E03.9) Active confirmed Problem Benign essential hypertension (7618038) Benign essential hypertension (I10) Active confirmed Problem Gastroesophageal reflux disease (904309092) Chronic gastroesophageal reflux disease (K21.9) Active confirmed Problem Mixed hyperlipidemia (506978414) Hyperlipemia, mixed (E78.2) Active confirmed Problem Coronary arteriosclerosis (76151404) Coronary arteriosclerosis (I25.10) Active confirmed Problem Chronic obstructive lung disease (57867044) COPD without exacerbation (J44.9) Active confirmed Plan Of Treatment No Information Insurance Providers Payer Name Payer Address Payer Phone Subscriber Number Group Number Insured Name Patient Relationship to Insured Coverage Start Date Coverage End Date [facility] [address] [address] [place] [address] ADD ID [id number] SANTILLAN Self - patient [...] COLONOSCOPY Hospitalization History Reason Date(Month/Year) [facility] last year
[2025-07-31] MEDS: LIDOCAINE 1% W/EPI 1:100,000 20ML VIAL SQ (14:32)
--- NOTE | 2025-07-31 14:34 | HMH.EDGENADL ---
Discharge Plan Disposition Patient Disposition: Home, Self-Care Condition: Good Prescriptions Prescriptions: No Action nitroglycerin 0.4 mg tablet, sublingual 0.4 mg sublingual Q5M PRN (Reason: chest pain) Qty: 25 0RF Rx Instructions: do not exceed 3 doses per episode cyclobenzaprine 10 mg tablet 10 mg PO TID PRN (Reason: Pain) ipratropium-albuterol 0.5 mg-3 mg(2.5 mg base)/3 mL solution for nebulization 3 ml INHALATION QID PRN (Reason: shortness of breath or wheezing) Qty: 180 12RF budesonide-formoterol [Symbicort] 160-4.5 mcg/actuation HFA aerosol inhaler 2 puff inhalation BID 90 Days Qty: 10.2 3RF albuterol sulfate 90 mcg/actuation HFA aerosol inhaler 2 inh inhalation QID Qty: 8.5 3RF tiotropium bromide [Spiriva with HandiHaler] 18 mcg capsule, w/inhalation device 1 cap inhalation DAILY 90 Days Qty: 90 3RF Rx Instructions: puncture 1 cap using device; one dose = 2 inhalations buspirone 10 mg tablet 10 mg PO BID Qty: 60 1RF diazepam 5 mg tablet 5 mg PO BID Qty: 60 2RF folic acid 1 mg tablet 1 mg PO DAILY mecobalamin (vitamin B12) 10,000 mcg recon soln 10,000 mcg IM MONTHLY Allergy Relief (cetirizine) 10 mg capsule 10 mg PO DAILY PRN (Reason: allergy symptoms) Qty: 30 1RF levothyroxine 75 mcg tablet 75 mcg PO DAILY Qty: 90 3RF aspirin [Adult Aspirin Regimen] 81 mg tablet,delayed release (DR/EC) 81 mg PO DAILY Qty: 30 2RF denosumab 60 mg/mL syringe 60 mg SQ [id number] Qty: 1 2RF linaclotide 145 mcg capsule 145 mcg PO DAILY Qty: 90 3RF atorvastatin 80 mg tablet 80 mg PO DAILY Qty: 30 2RF spironolactone 25 mg tablet See Rx Instructions .ROUTE .COMPLEX Qty: 90 3RF Dose Instruction: Take 1 tablet by mouth once daily Rx Instructions: Take 1 tablet by mouth once daily furosemide 40 mg tablet See Rx Instructions .ROUTE .COMPLEX Qty: 90 3RF Dose Instruction: Take 1 tablet by mouth once daily Rx Instructions: Take 1 tablet by mouth once daily montelukast 10 mg tablet See Rx Instructions .ROUTE .COMPLEX Qty: 90 0RF Dose Instruction: Take 1 tablet by mouth once daily Rx Instructions: Take 1 tablet by mouth once daily pantoprazole 40 mg tablet,delayed release (DR/EC) 40 mg PO DAILY Referrals Follow up/Referrals: Fiorella Solano MD [Primary Care Provider, Medical] - See instructions Activity Restrictions/Add. Instructions Additional Instructions/Restrictions: Please return if any new or worsening symptoms. STitches will fall out in 7-10 days. Clinical Impressions Clinical Impression: Fall Qualifiers: Encounter type: initial encounter Qualified Code(s): W19.XXXA - Unspecified fall, initial encounter Forehead laceration Qualifiers: Encounter type: initial encounter Qualified Code(s): S01.81XA - Laceration without foreign body of other part of head, initial encounter Laceration of elbow, right Qualifiers: Encounter type: initial encounter Qualified Code(s): S51.011A - Laceration without foreign body of right elbow, initial encounter Instructions Patient Instructions: DI for Laceration Repair Print Language Print Language: Yakut Discharge ED Provider: See [facility] Adult HPI General Chief complaint: Wound/Laceration Stated complaint: AO-1100- Fall, Cut to Forehead Time Seen by Provider: 07/31/25 11:27 Mode of Arrival: Ambulatory Source of Information: Patient Description of Symptoms (Recalled from ER Triage Doc. by RN): Pt presents to the ED following a fall in the bathtub. Pt complains of a headache with no loss of conciousness. Pt does have a lac on the right side of her forehead as well as on her right elbow Related Data Home Medications ?Medication ?Instructions ?Recorded ?Confirmed pantoprazole 40 mg tablet,delayed 40 mg PO DAILY . 12/21/22 07/05/25 release cyclobenzaprine 10 mg tablet 10 mg PO TID PRN Pain 12/27/22 07/05/25 folic acid 1 mg tablet 1 mg PO DAILY 04/03/25 07/05/25 mecobalamin (vitamin B12) 10,000 10,000 mcg IM MONTHLY 04/03/25 07/05/25 mcg solution for injection Previous Rx's ?Medication ?Instructions ?Recorded nitroglycerin 0.4 mg sublingual 0.4 mg sublingual Q5M PRN chest 12/31/22 tablet pain #25 tabs levothyroxine 75 mcg tablet 75 mcg PO DAILY thyroid disorder 04/05/23 #90 tabs albuterol sulfate 90 mcg/actuation 2 inh inhalation QID #8.5 grams 09/19/23 aerosol inhaler budesonide-formoterol HFA 160 2 puff inhalation BID 90 days 09/19/23 mcg-4.5 mcg/actuation aerosol #10.2 grams inhaler (Symbicort) ipratropium 0.5 mg-albuterol 3 mg 3 ml inhalation QID PRN shortness 09/19/23 (2.5 mg base)/3 mL nebulization of breath or wheezing #180 mL soln tiotropium bromide 18 mcg capsule 1 cap inhalation DAILY 90 days #90 09/19/23 with inhalation device (Spiriva puffs with HandiHaler) aspirin 81 mg tablet,delayed 81 mg PO DAILY #30 tabs 02/17/24 release (Adult Aspirin Regimen) denosumab 60 mg/mL subcutaneous 60 mg SQ [id number] #1 mL 02/17/24 syringe linaclotide 145 mcg capsule 145 mcg PO DAILY IBS #90 caps 03/16/24 diazepam 5 mg tablet 5 mg PO BID . #60 tabs 03/19/24 atorvastatin 80 mg tablet 80 mg PO DAILY #30 tabs 03/22/24 buspirone 10 mg tablet 10 mg PO BID #60 tabs 04/09/24 furosemide 40 mg tablet See Rx Instructions .Route 04/09/25 .COMPLEX #90 tabs spironolactone 25 mg tablet See Rx Instructions .Route 04/09/25 .COMPLEX #90 tabs montelukast 10 mg tablet See Rx Instructions .Route 06/06/25 .COMPLEX #90 tabs cetirizine 10 mg capsule (Allergy 10 mg PO DAILY PRN allergy 07/05/25 Relief (cetirizine)) symptoms #30 caps Allergies Allergy/AdvReac Type Severity Reaction Status Date / Time oxycodone Allergy Unknown I-ITCHING Verified 07/05/25 10:34 Sulfa (Sulfonamide Allergy Unknown EYE Verified 07/05/25 10:34 Antibiotics) DROPS-EYES SWELL isosorbide AdvReac Mild dizziness Verified 07/05/25 10:34 metaxalone AdvReac felt like Verified 07/05/25 10:34 i was dying [facility] Disclaimer: The information contained in this section may have been updated after the patient was seen, as this information can be updated by other users. Medical History Mixed hyperlipidemia Cataract CAD (coronary artery disease) COPD (chronic obstructive pulmonary disease) Other chest pain Abnormal nuclear cardiac imaging test SOB (shortness of breath) Nocturnal hypoxia Patient states she is stopped the oxygen at night. Will make sure that she has an appointment with pulmonary in the very near future. Multiple pulmonary nodules Allergic rhinitis, unspecified Elevated hemidiaphragm Moderate persistent asthma Allergy, unspecified, subsequent encounter Dyspnea on exertion Diastolic dysfunction Typical angina Dyspnea Chest pain Elevated left ventricular end-diastolic pressure (LVEDP) HTN (hypertension) Blood pressure today is 120/70. Her last blood pressure in December of this year was 108/82. Patient is currently taking bisoprolol, furosemide and spironolactone. She does follow with cardiology. HLD (hyperlipidemia) Last lipid panel was obtained August 2021. It revealed triglyceride 114, total cholesterol 112, LDL of 75 and HDL 48. This is an excellent panel. She is on atorvastatin and I would like to do a fasting lipid panel in the near future. Surgical History History of coronary artery stent placement H/O thyroidectomy H/O tubal ligation History of History of hysterectomy History of esophagogastroduodenoscopy (EGD) Family History Other Anemia Cancer Coronary artery disease Diabetes Heart attack Hyperlipidemia Hypertension Kidney disease Stroke Social History Smoking Status: Current some day smoker tobacco type: e-cigarettes second hand exposure: No (she does THC vapes; not nicotine) alcohol intake: never counseling given: No substance use type: marijuana counseling given: No (does THC vapes) current occupational status: disabled Travel in the last 8 weeks?: None adopted: No caregiver/support person: No foster care: No household members: significant other housing: house lives independently: No marital status: life partner number of children: 1 education level: other details: she went to 11th grade; hated it; got and current occupational exposures/hazards: No caffeine: Yes physical activity: none working smoke detector in home: No fire extinguisher in home: Yes carbon monox detector in home: No firearms in home: Yes firearms unloaded and locked: Yes do you feel safe at home: Yes victim of physical abuse: No victim of emotional abuse: No victim of sexual abuse: No would you like helpful sources: No Have you lived/traveled outside US in past 30 days?: No Contact w/someone who lives/traveled outside US past 30 days?: No Exposure to someone with infectious disease in past 14 days?: No Do you have a fever (greater than 100.4 F or 38 C)?: No Have you tested positive for COVID-19?: No Exposed to someone with COVID-19 in past 14 days?: No Do you have a sore throat?: No Do you have a cough?: No Do you have any weakness?: No Do you have any diarrhea?: No Are you experiencing any unusual bleeding?: No Do you have any muscle aches/pain?: No Do you have any abdominal pain?: No Are you experiencing loss of taste or smell?: No Other Medical History Have you received the Flu Vaccine for this season: Yes Have you received the Pneumonia Vaccine: Yes ROS Obtained: Yes Systems reviewed as appropriate & no additional complaints except as documented Physical Exam General General appearance: alert Respiratory Respiratory exam: Present normal lung sounds bilaterally Cardiovascular Cardiovascular exam: Present regular rate Neurological Exam Neurological exam: Present alert and oriented X3 Medical Decision Making Medical Records Screening: Per USPSTF and CDC recommendations, given the prevalence of disease in our region, it is our hospital?s policy to screen for HIV and viral Hepatitis for all patients aged 18 and over and those with ongoing risk factors. Say Inquiry Pt receiving controlled substance: No Vital Signs: 07/31/25 11:31 07/31/25 11:35 07/31/25 12:30 Temperature 98.2 F 98.2 F Temperature Source Oral Oral Pulse Rate 107 H 84 Pulse Rate [Right] 107 H Respiratory Rate 18 18 Blood Pressure 117/61 102/65 L Blood Pressure [Right Arm] 117/61 Blood Pressure Mean 81 Blood Pressure Mean [Right Arm] 79 Blood Pressure Source Automatic Cuff Blood Pressure Source [Right Arm] Automatic Cuff Blood Pressure Position Sitting Blood Pressure Position [Right Arm] Sitting 02 Sat by Pulse Oximetry 97 97 95 Oxygen Delivery Method Room Air Room Air 07/31/25 13:00 07/31/25 13:30 07/31/25 14:00 Temperature Temperature Source Pulse Rate 86 90 77 Pulse Rate [Right] Respiratory Rate Blood Pressure 118/69 101/61 L 101/75 L Blood Pressure [Right Arm] Blood Pressure Mean 91 75 84 Blood Pressure Mean [Right Arm] Blood Pressure Source Blood Pressure Source [Right Arm] Blood Pressure Position Blood Pressure Position [Right Arm] 02 Sat by Pulse Oximetry 96 94 L 96 Oxygen Delivery Method 07/31/25 15:24 Temperature 98 F Temperature Source Pulse Rate 83 Pulse Rate [Right] Respiratory Rate 14 Blood Pressure 120/70 Blood Pressure [Right Arm] Blood Pressure Mean Blood Pressure Mean [Right Arm] Blood Pressure Source Blood Pressure Source [Right Arm] Blood Pressure Position Blood Pressure Position [Right Arm] 02 Sat by Pulse Oximetry Oxygen Delivery Method Orders (Tests/Meds): ED MEDICATIONS Discontinued Medications Generic Name Dose Route Start Last Admin Trade Name Freq PRN Reason Stop Dose Admin Lidocaine/Epinephrine 0 ml 07/31/25 14:26 07/31/25 14:32 Lidocaine 1% W/Epi 1:100,000 20ml Vial SQ 07/31/25 14:27 10 ml ONCE ONE Administration ORDERS Category Date Time Status CT cervical spine wo con Stat Cat Scan 07/31/25 11:[address] head/brain wo con Stat Cat Scan 07/31/25 11:46 Completed Critical Care Critical Care Time Critical Care Time: No
== END 2025-07-31 15:26 | disposition home or self-care (01) ==
PROVIDERS: Emergency Provider Student in an Organized Health Care Education/Training Program; PCP Family Medicine
DX: S01.81XA Laceration without foreign body of other part of head, initial encounter (principal); R51.9 Headache, unspecified; S51.011A Laceration without foreign body of right elbow, initial encounter; W18.2XXA Fall in (into) shower or empty bathtub, initial encounter
CPT/HCPCS: 12001; 12013; 70450; 72125; 99284; J2004

== ENCOUNTER 2025-08-12 11:44 | Outpatient (CLI) | payer MEDICARE, MEDICAID, SELFPAY ==
--- OUTSIDE RECORDS SUMMARY | 2025-02-02 17:30 | XMS_ITS ---
Author Organization [facility] Address [address] [place] [address] Care Team Providers Care Butter Maker Name Role Phone Jean Pierre Johnston Primary Care Provider [phone] Migration, Provider Unavailable Unavailable Allergies Allergen (clinical drug ingredient) Drug/Non Drug Allergy documented on EMR Reaction Allergy Type Onset Date Status SULFA (uncoded) Unknown Allergy Acti ve acetaminophen / oxycodone Percocet n/v Drug Allergy Active tizanidine tiZANidine tongue swelling and trouble swallowing Drug Allergy Active REASON FOR VISIT [facility] To [facility] Conversion Encounter Medications Medication SIG (Take, Route, Frequency, Duration) Notes Start Date End Date Status DUONEB 2.5 MG-0.5 MG/3 ML 3 ML INHALED 4 TIMES A DAY PRN; Duration: 90 DAYS *Please review for potential replacement for e-prescription and drug interaction check* Active Furosemide 20 MG TAKE 1 TABLET EVERY DAY Active HYDROcodone-Acetaminoph en 5-325 MG 1 tab(s) orally every 6 hours; Duration: 3 days 01/07/2021 Active Vitamin D (Ergocalciferol) 1.25 MG (98977 UT) 1 cap(s) orally twice weekly; Duration: 90 days 12/11/2020 Active Famotidine 20 MG 1 tab(s) orally 2 times a day; Duration: 30 day(s) 10/02/2019 Active Cyclobenzaprine HCl 10 MG TAKE 1 TABLET TWICE DAILY Active Loratadine 10 MG 1 tab(s) orally once a day; Duration: 30 day(s) 06/18/2016 Active Ventolin HFA 108 (90 Base) MCG/ACT INHALE 2 PUFFS 4 TIMES A DAY NEEDED Active valACYclovir HCl 500 MG 1 tab(s) orally three times a day prn 11/29/2018 Active NEBULIZER KIT NEEDS ADULT TUBING ONLY *Please review for potential replacement for e-prescription and drug interaction check* 03/19/2016 Active CHEMOTHERAPY every 3 months *Please review for potential replacement for e-prescription and drug interaction check* Active CALTRATE 600 WITH D (OBSOLETE) 600 MG-400 INTL UNITS 1 TAB(S) ORALLY QD; Duration: 30 DAY(S) *Please review for potential replacement for e-prescription and drug interaction check* Active Levothyroxine Sodium 75 MCG 1 tab(s) orally once a day; Duration: 30 day(s) Active Aspirin 81 MG 1 tab(s) orally once a day Active Albuterol Sulfate (2.5 MG/3ML) 0.083% 3 mL inhaled every 6 hours prn Active Prolia 60 MG/ML USE DIRECTED EVERY 6 MONTHS SUBCUTANEOUSLY; Duration: 90 Active Gabapentin 300 MG 1 tab(s) orally twice a day; Duration: 30 days 08/21/2019 Active Linzess 145 MCG 1 cap(s) orally once a day; Duration: 90 Active Pantoprazole Sodium 40 MG 1 tab(s) orally twice a day; Duration: 30 Active Symbicort 160-4.5 MCG/ACT 2 puff(s) inhaled 2 times a day; Duration: 90 Active diazePAM 5 MG 1 tab(s) orally 2 times a day; Duration: 30 day(s) 10/25/2013 Active Encounters Encounter Location Date Provider Diagnosis [facility] [address] [facility] [address] [place], [place] [address] 02/02/2025 Provider Migration Idiopathic peripheral neuropathy G60.9 Assessments Encounter Date Diagnosis (ICD Code) Assessment Notes Treatment Notes Treatment Clinical Notes Section Notes 02/02/2025 Idiopathic peripheral neuropathy (ICD-10 - G60.9) Plan Of Treatment Medication Medication Name Sig Start Date Stop Date Notes DUONEB 2.5 MG-0.5 MG/3 ML 3 ML INHALED 4 TIMES A DAY PRN; Duration: 90 DAYS *Please review for potential replacement for e-prescription and drug interaction check* Cyclobenzaprine HCl 10 MG TAKE 1 TABLET TWICE DAILY Ventolin HFA 108 (90 Base) MCG/ACT INHALE 2 PUFFS 4 TIMES A DAY NEEDED Prolia 60 MG/ML USE DIRECTED EVERY 6 MONTHS SUBCUTANEOUSLY; Duration: 90 Gabapentin 300 MG 1 tab(s) orally twice a day; Duration: 30 days 08/21/2019 Linzess 145 MCG 1 cap(s) orally once a day; Duration: 90 Pantoprazole Sodium 40 MG 1 tab(s) orall y twice a day; Duration: 30 Symbicort 160-4.5 MCG/ACT 2 puff(s) inha led 2 times a day; Duration: 90 diazePAM 5 MG 1 tab(s) orally 2 times a day; Duration: 30 day(s) 10/25/2013 Progress Notes * Anabell GREENDOB:1960 (65 yo F)Acc No.[id number]:02/02/2025 Patient: Anabell ROBLES Provider: Fernando Velasco :1960 A ge:64 Y S ex:Female Date:02/02/2025 Address:[facility] [address] , [facility] [id number] Pcp:Jean Pierre Johnston Subjective: * Chief [facility]s: * [facility] * Medical History: * Medications: T aking Albuterol Sulfate (2.5 MG/3ML) 0.083% Nebulization Solution 3 mL inhaled every 6 hours prn , Taking Aspirin 81 MG Tablet Delayed Release 1 tab(s) orally once a day , Taking CALTRATE 600 WITH D (OBSOLETE) 600 MG-400 INTL UNITS TABLET 1 TAB(S) ORALLY QD , Notes to Pharmacist: *Please review for potential replacement for e- prescription and drug interaction check*, Taking CHEMOTHERAPY , Notes to Pharmacist: every 3 months *Please review for potential replacement for e-prescription and drug interaction check*, Taking Levothyroxine Sodium 75 MCG Tablet 1 tab(s) orally once a day , Taking Loratadine 10 MG Tablet 1 tab(s) orally once a day , Taking NEBULIZER KIT NEEDS ADULT TUBING ONLY , Notes to Pharmacist: *Please review for potential replacement for e-prescription and drug interaction check*, Taking valACYclovir HCl 500 MG Tablet 1 tab(s) orally three times a day prn , Taking Famotidine 20 MG Tablet 1 tab(s) orally 2 times a day , Taking Vitamin D (Ergocalciferol) 1.25 MG (31771 UT) Capsule 1 cap(s) orally twice weekly , Taking Furosemide 20 MG Tablet TAKE 1 TABLET EVERY DAY , Taking HYDROcodone-Acetaminophen 5-325 MG Tablet 1 tab(s) orally every 6 hours * Allergies: S ULFA, Percocet: n/v, tiZANidine: tongue swelling and trouble swallowing. Objective: * Vitals: Assessment: * Assessment: 1. I diopathic peripheral neuropathy - G60.9 Plan: * Treatment: 2. O thers Refill Symbicort Aerosol, 160-4.5 MCG/ACT, 2 puff(s), inhaled, 2 times a day, 90, 33, Refills 0;?Refill Cyclobenzaprine HCl Tablet, 10 MG, TAKE 1 TABLET TWICE DAILY, 180, Refills 0; R efill diazePAM Tablet, 5 MG, 1 tab(s), orally, 2 times a day, 30 day(s), 60 Tablet, Refills 2; R efill Pantoprazole Sodium Tablet Delayed Release, 40 MG, 1 tab(s), orally, twice a day, 30, 60, Refills 2; R efill Linzess Capsule, 145 MCG, 1 cap(s), orally, once a day, 90, 90, Refills 2; S tart DUONEB SOLUTION, 2.5 MG-0.5 MG/3 ML, 3 ML, INHALED, 4 TIMES A DAY PRN, 90 DAYS, 360 VIAL, Refills 3, Notes to Pharmacist: *Please review for potential replacement for e-prescription and drug interaction check*; S tart Ventolin HFA Aerosol Solution, 108 (90 Base) MCG/ACT, INHALE 2 PUFFS 4 TIMES A DAY NEEDED, 54, Refills 1; S tart Prolia Solution Prefilled Syringe, 60 MG/ML, USE DIRECTED EVERY 6 MONTHS SUBCUTANEOUSLY, 90, 1 Milliliter, Refills 1. * * Electronic signature of Prov ider Migration on 08/12/2025 at 11:48 AM EDT Sign off status: Pending * Provider: Fernando wood Migration Date: 0 02/02/2025 Generated for Hung mckinney/Omero/eTransmitting on: 1 11:48 AM EDT
--- OUTSIDE RECORDS SUMMARY | 2025-07-15 10:40 | XMS_ITS | Encounter Summary ---
Author Organization [facility] Address [address] [place] [address] Care Team Providers Care Biscuit Factory Worker Name Role Phone Montez Solano MD Primary Care Provider [phone] Reason for Referral * Consultation (Routine) - Authorized Specialty Diagnoses / Procedures Referred By Contac t Referred To Contact Diagnoses Post-operative hypothyroidism Enrico Godoy MD [address] [address] Phone: tel: fax: Referral ID Status Reason Start Date Expiration Date V isits Requested Visits Authorized [id number] Authorized 07/15/2025 01/14/2027 1 1 * Imaging (Routine) - Closed Specialty Diagnoses / Procedures Referred By Contac t Referred To Contact Radiology Diagnoses Post-operative hypothyroidism Procedures US Thyroid Enrico [facility] MD [facility] [address] [address] Phone: tel: fax: Referral ID Status Reason Start Date Expiration Date Visits Re quested Visits Authorized [id number] Closed 07/15/2025 01/14/2027 1 1 Reason for Visit * Reason Comments Consult * Consultation (Routine) - Closed Specialty Diagnoses / Procedures Referred By Contac t Referred To Contact Endocrinology Diagnoses Other thyrotoxicosis without thyrotoxic crisis or storm Lin Hidalgo MD [facility] [place] [address] Phone: tel: fax: Keren Clark [facility] Endocrinology [address] [place] [address] Phone: tel: fax: Referral ID Status Reason Start Date Expiration Date V isits Requested Visits Authorized [id number] Closed Specialty Services Required 02/12/2025 08/14/2026 1 1 Encounter Details Date Type Department Care Team (Late st Contact Info) Description 07/15/2025 10:40 AM EDT Office Visit [facility] [address], [address] [place] [address] Enrico Godoy MD [address] [place] [address] Post-operative hypothyroidism (Primary Dx) Social History Tobacco Use Types Packs/Day Years Used Date Smoking Tobacco: Never Assessed Comments Unknown Sex and Gender Information Value Date Recorded Sex Assigned at Not on file Legal Sex Female 8:29 PM EDT Gender Identity Not on file Sexual Orientation Not on file documented as of this encounter Last Filed Vital Signs Vital Sign Reading Time Taken Comments Blood Pressure 103/69 07/15/2025 11:35 AM EDT Pulse 91 07/15/2025 11:35 AM EDT Temperature - - Respiratory Rate - - Oxygen Saturation 94% 07/15/2025 10:36 AM EDT Inhaled Oxygen Concentration - - Weight 70.9 kg (156 lb 4.9 oz) 07/15/2025 10:36 AM EDT Height 154.9 cm (5' 1 ) 07/15/2025 10:36 AM EDT Body Mass Index 29.53 07/15/2025 10:36 AM EDT documented in this encounter Miscellaneous Notes * Patient Instructions - Enrico Godoy MD - 07/15/2025 10:40 AM EDT It was a pleasure meeting you today! I will check thyroid levels and the thyroid ultrasound They will call you to schedule the ultrasound Please return to the clinic in 6 months * Progress Notes - Enrico Godoy MD - 07/15/2025 10:40 AM EDT Subjective Anabell Barba is a 65 y.o., female about whom I am asked to consult by Lin Hidalgo MD for hypothyroidism She is accompanied by her friend Kely who provided additional history. HYPOTHYROIDISM HPI: Patient s/p right lobectomy and subtotal left lobectomy in by Dr. Omid Arenas. She had thyroid US done with PCP x 2 years ago---reports that there was possible nodule. She is currently on LT4 75mcg daily; she has been on this dose for several years. Takes LT4 in AM, waits and 1 hour before meals Takes B12 shots and folic acid --- she will go back with oncology Dr. Jairon Mercado to retest levels. Denied MVI, iron or calcium supplements She reports does not feel well She has been dealing with sinusitis and b/l ear perforations States she is going to get a sleep study on 07.24.2025. She is on 2L on O2 at night. She is also on Prolia q6 months (last dose 02.08.25) for osteoporosis She has CHF and is followed by cardiology KIA Fry who stopped bisoprolol due to BP She reports that BP stays low and making her tired States she has chronic HOTN She is on Lasix and spironolactone. States she had no specific concerns at this time. MENSTRUAL HISTORY: She had SHAUNA w/ BSO at age 28 - states did not tolerate HRT FAMILY HISTORY No family history of thyroid issues. Past Medical History[1] Surgical History[2] Current Medications[3] Allergies[4] Family History[5] Review of Systems: .Review of Systems Constitutional: Negative for chills and fever. Respiratory: Negative for shortness of breath. Gastrointestinal: Negative for diarrhea, nausea and vomiting. A complete ROS demonstrated all other systems negative in detail Objective Physical Exam: BP 103/69 Pulse 91 Ht 1.549 m (5' 1 ) Wt 70.9 kg (156 lb 4.9 oz) BMI 29.53 kg/m?? GEN:Sitting up comfortably, well appearing, non-Cushingoid EYES: sclera anicteric, extraocular motion grossly intact HENT: OP clear Neck: no palpable abnormalities in the thyroid bed; surgical scar in place, non- tender submandibular and parotid salivary glands; no supraclavicular fat pads Lymphatic: normal anterior, posterior and supraclavicular cervical lymph nodes PULM: No increased work of breathing, completing full sentences, symmetric chest rise CV: Normal rate, regular rhythm EXT: Warm well perfused NEURO: A&Ox4. No dysarthria. Moving all extremities voluntarily SKIN: normal temperature/texture, no ecchymoses; normal pigmentation, PSYCH: normal mood and affect Date TSH FT4 TT3 TSI TRAb TPO Ab Old New 3.18.24 0.39 (0.36-3.74) 1.53 (0.76-1.46) IMAGING N/A PATHOLOGY THYROID, RIGHT TOTAL AND LEFT SUBTOTAL, THYROIDECTOMY (15.4 G) Received is a 15.4 g grossly disfigured and nodular right thyroid lobe with attached partial left lobe. The specimen is entirely measures 4.3 x 4.0 x 1.6 cm.The right lobe appears to be entirely replaced by a red-hagen, semisolid and gelatinous nodules measuring 2.5 x 2.5 x 2.0 cm (inked blue). A loss prevention representative section from this nodule is taken and submitted for frozen as FSB. The left lobe measures 4 x 1.5 x 0.6 cm serially sectioning the left lobe shows a grossly unremarkable, solid dark brown parenchyma. There are no other obvious gross abnormalities. I have reviewed prior records. Assessment/Plan Assessment & Plan Post-operative hypothyroidism Patient s/p subtotal thyroidectomy in 2018 Current regimen: LT4 75mcg daily Check TSH and FT4 now to assess dose adequacy Check thyroid US as patient reports h/o thyroid nodules Orders: Thyroid Stimulating Hormone, Plasma; Future Free T4, Plasma; Future US Thyroid; Future Follow Up [facility]; Future levothyroxine (Synthroid, Levoxyl) 75 MCG tablet; Take 1 tablet by mouth daily. I have answered all of my patient's questions to the best of my ability. RTC in 6 months. I have answered my patient's questions to the best of my ability and have encouraged her to call orsend a message through with any additional questions. I would like to thank Lin Hidalgo MD for the opportunity to participate in the care of Ms. Anabell Barba. Enrico Godoy MD Time Spent: I personally spent a total of 52 minutes on this encounter. This time includes face to face with patient, counseling and discussion and/or coordination of care. [1] Past Medical History: Diagnosis Date Chronic obstructive pulmonary disease, unspecified ([facility]) COPD (chronic obstructive pulmonary disease) Fibromyalgia Fibromyalgia Gout, unspecified Gout Unspecified osteoarthritis, unspecified site DJD (degenerative joint disease) [2] History reviewed. No pertinent surgical history. [3] Current Outpatient Medications: albuterol (Proventil) (2.5 MG/3ML) 0.083% nebulizer solution, 3 mL inhaled every 6 hours prn, Disp:, Rfl: atorvastatin (Lipitor) 40 MG tablet, Take 1 tablet by mouth., Disp: , Rfl: budesonide-formoterol (Symbicort) 160-4.5 MCG/ACT inhaler, every 12 hours., Disp: , Rfl: clopidogrel (Plavix) 75 MG tablet, TAKE 1 TABLET BY MOUTH ONCE DAILY FOR HEART DISEASE, Disp: , Rfl: cyclobenzaprine (Flexeril) 10 MG tablet, Take 1 tablet by mouth 2 times a day., Disp: , Rfl: diazePAM (Valium) 5 MG tablet, Take 1 tablet by mouth 2 times a day., Disp: , Rfl: furosemide (Lasix) 20 MG tablet, Take 1 tablet by mouth daily., Disp: , Rfl: HYDROcodone-acetaminophen ([place]) 5-325 MG tablet, every 6 hours., Disp: , Rfl: ipratropium-albuterol (Duo-Neb) 0.5-2.5 mg/3 mL nebulizer solution, every 6 hours., Disp: , Rfl: levothyroxine (Synthroid, Levoxyl) 75 MCG tablet, Take 1 tablet by mouth daily., Disp: 90 tablet, Rfl: 1 Linzess 145 MCG capsule, 1 (one) time each day at the same time., Disp: , Rfl: montelukast (Singulair) 10 MG tablet, Take 1 tablet by mouth daily., Disp: , Rfl: nitroglycerin (Nitrostat) 0.4 MG SL tablet, Place 1 tablet under the tongue every 5 minutes as needed for chest pain., Disp: , Rfl: pantoprazole (Protonix) 40 MG EC tablet, every 12 hours., Disp: , Rfl: PARoxetine (Paxil) 10 MG tablet, Take 1 tablet by mouth every morning., Disp: , Rfl: phentermine 37.5 MG capsule, Take 1 capsule by mouth daily before breakfast., Disp: , Rfl: spironolactone (Aldactone) 25 MG tablet, Take 1 tablet by mouth daily., Disp: , Rfl: [4] Allergies Allergen Reactions Tizanidine Anaphylaxis and Other - please document in the comment field tongue swelling Oxycodone Itching and Unknown - Patient states they do not know rxn details Isosorbide Dizziness Metaxalone Other - please document in the comment field Metolazone Unknown - Patient states they do not know rxn details Sulfa Drugs Other - please document in the comment field and Unknown - Patient states they do not know rxn details [5] History reviewed. No pertinent family history. documented in this encounter Plan of Treatment Upcoming Encounters Date Type Department Care Team (Late st Contact Info) Description 01/13/2026 10:20 AM EDT Office Visit [facility] [address], [address] [place] [address] Enrico Godoy MD [address] [place] [address] Scheduled Referrals Name Type Priority Associated Diagnoses Orde r Schedule Follow Up [facility] Outpatient Referral Routine Post-operative hypothyroidism Expected: 01/12/2026, Expires: 01/16/2027 documented as of this encounter Results * US Thyroid (08/09/2025 2:15 PM EDT) Anatomical Region Laterality Modality Thyroid, Neck Ultrasound Impressions 08/09/2025 3:40 PM EDT No evidence of disease recurrence or suspicious nodule. CRITICAL RESULT: No. COMMUNICATION: Per this written report. By electronically signing this report, I, the attending physician, attest that I have personally reviewed the images/data for the above examination(s) and agree with the final edited report. Drafted by Leon Xiao MD on 08/09/2025 2:39 PM Final report signed by Demetrius Bush MD on 08/09/2025 3:40 PM Narrative 08/09/2025 3:40 PM EDT CLINICAL INDICATION: s/p subtotal thyroidectomy in 2018; patient reports nodules TECHNIQUE: Multiplanar, bilateral chen scale ultrasound of the thyroid bed and neck, with limited Doppler vascular ultrasound. COMPARISON: None. FINDINGS: Right Thyroid Bed: No suspicious nodule or lesion in the right thyroid bed. Midline and left thyroid: Isthmus measures 0.1 cm. The residual left lobe measures 2.4 x 1.1 x 0.6 cm. Anechoic 0.4 cm cystic focus in the left thyroid gland. Lymph Nodes: No morphologically suspicious lymph nodes identified within the [id number]. Procedure Note Demetrius Bush MD - 08/09/2025 CLINICAL INDICATION: s/p subtotal thyroidectomy in 2018; patient reports nodules TECHNIQUE: Multiplanar, bilateral chen scale ultrasound of the thyroid bed and neck,with limited Doppler vascular ultrasound. COMPARISON: None. FINDINGS: Right Thyroid Bed: No suspicious nodule or lesion in the right thyroidbed. Midline and left thyroid: Isthmus measures 0.1 cm. The residual left lobemeasures 2.4 x 1.1 x 0.6 cm. Anechoic 0.4 cm cystic focus in the leftthyroid gland. Lymph Nodes: No morphologically suspicious lymph nodes identified withinthe [id number]. IMPRESSION: No evidence of disease recurrence or suspicious nodule. CRITICAL RESULT: No. COMMUNICATION: Per this written report. By electronically signing this report, I, the attending physician, attestthat I have personally reviewed the images/data for the aboveexamination(s) and agree with the final edited report. Drafted by Leon Xiao MD on 08/09/2025 2:39 PM Final report signed by Demetrius Bush MD on 08/09/2025 3:40 PM us Enrico Godoy MD IMG US PROCEDURES Final Resu lt * Free T4, Plasma (07/15/2025 11:50 AM EDT) Free T4, Plasma 1.6 0.8 - 1.7 ng/dL 07/15/2025 2:59 PM EDT [facility]ALTH[facility]ARE [facility] Blood Venous blood specimen / Unknown Venipuncture / Unknown 07/15/2025 11:50 AM EDT 07/15/2025 11:51 AM EDT Enrico Godoy MD LAB BLOOD ORDERABLES Final R esult Performing Organization Address [facility] de Phone Number HEALTHCARE LAB [address] [place] [address] * Thyroid Stimulating Hormone, Plasma (07/15/2025 11:50 AM EDT) Thyroid Stimulating Hormone, Plasma 1.38 0.40 - 4.20 uIU/mL 07/15/2025 2:59 PM EDT HEALTHCARE [facility] Blood Venous blood specimen / Unknown Venipuncture / Unknown 07/15/2025 11:50 AM EDT 07/15/2025 11:51 AM EDT Enrico Godoy MD LAB BLOOD ORDERABLES Final R esult Performing Organization Address City/[facility] Co de Phone Number HEALTHCARE LAB [address] [place] [address] documented in this encounter Visit Diagnoses Diagnosis Post-operative hypothyroidism- Primary Postsurgical hypothyroidism Post-operative hypothyroidism Postsurgical hypothyroidism documented in this encounter Additional Health Concerns Assessment Noted Time A fall risk assessment has been complete d for the patient 07/15/2025 10:35 AM EDT A Body Mass Index follow-up plan has been documented for the patient 07/15/2025 6:14 PM EDT documented as of this encounter Care Teams 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
--- OUTSIDE RECORDS SUMMARY | 2025-08-09 13:39 | XMS_ITS | Encounter Summary ---
Author Organization [facility] Address [address] [place] [address] Care Team Providers Care Boat Outboard Engine Mechanic Name Role Phone Montez Solano MD Primary Care Provider [phone] Reason for Referral * Imaging (Routine) - Closed Specialty Diagnoses / Procedures Referred By Contac t Referred To Contact Radiology Diagnoses Post-operative hypothyroidism Procedures US Thyroid Enrico Godoy MD [address] [address] Phone: tel: fax: Referral ID Status Reason Start Date Expiration Date Visits Re quested Visits Authorized [id number] Closed 07/15/2025 01/14/2027 1 1 Reason for Visit * Imaging (Routine) - Closed Specialty Diagnoses / Procedures Referred By Norma roldan Referred To Contact Radiology Diagnoses Post-operative hypothyroidism Procedures US Thyroid Enrico Godoy MD [address] [address] Phone: tel: fax: Referral ID Status Reason Start Date Expiration Date Visits Re quested Visits Authorized [id number] Closed 07/15/2025 01/14/2027 1 1 Encounter Details Date Type Department Care Team (Latest Contact Info) Description 08/09/2025 1:39 PM EDT - 08/09/2025 11:59 PM EDT Hospital Encounter [facility] Ultrasound [address] [place] [address] Post-operative hypothyroidism Discharge Disposition: Home or Self Care Social History Tobacco Use Types Packs/Day Years Used Date Smoking Tobacco: Never Assessed Comments Unknown Sex and Gender Information Value Date Recorded Sex Assigned at Not on file Legal Sex Female 8:29 PM EDT Gender Identity Not on file Sexual Orientation Not on file documented as of this encounter Medications at Time of Discharge albuterol (Proventil) (2.5 MG/3ML) 0.083% nebulizer solution 3 mL inhaled every 6 hours prn atorvastatin (Lipitor) 40 MG tablet Take 1 tablet by mouth. budesonide-formotero l (Symbicort) 160-4.5 MCG/ACT inhaler every 12 hours. clopidogrel (Plavix) 75 MG tablet TAKE 1 TABLET BY MOUTH ONCE DAILY FOR HEART DISEASE cyclobenzaprine (Flexeril) 10 MG tablet Take 1 tablet by mouth 2 times a day. diazePAM (Valium) 5 MG tablet Take 1 tablet by mouth 2 times a day. furosemide (Lasix) 20 MG tablet Take 1 tablet by mouth daily. HYDROcodone-acetamin ophen ([place]) 5-325 MG tablet every 6 hours. ipratropium-albutero l (Duo-Neb) 0.5-2.5 mg/3 mL nebulizer solution every 6 hours. levothyroxine (Synthroid, Levoxyl) 75 MCG tabletIndications:Po st-operative hypothyroidism Take 1 tablet by mouth daily. 90 tablet 1 07/15/2025 Linzess 145 MCG capsule 1 (one) time each day at the same time. montelukast (Singulair) 10 MG tablet Take 1 tablet by mouth daily. nitroglycerin (Nitrostat) 0.[address] 1 tablet under the tongue every 5 minutes as needed for chest pain. pantoprazole (Protonix) 40 MG EC tablet every 12 hours. PARoxetine (Paxil) 10 MG tablet Take 1 tablet by mouth every morning. phentermine 37.5 MG capsule Take 1 capsule by mouth daily before breakfast. spironolactone (Aldactone) 25 MG tablet Take 1 tablet by mouth daily. documented as of this encounter Plan of Treatment Upcoming Encounters Date Type Department Care Team (Late st Contact Info) Description 01/13/2026 10:20 AM EDT Office Visit [facility] [address] [place] [address] Enrico Godoy MD [address] [facility] [address] [place] [address] documented as of this encounter Procedures Procedure Name Priority Date/Time Associated Diagnosis Comments US THYROID Routine 08/09/2025 2:15 PM EDT Post-operative hypothyroidism documented in this encounter Results * US Thyroid (08/09/2025 [...] morphologically suspicious lymph nodes identified within the [id number]. Procedure Note Demetrius Bush MD - 08/09/2025 [...] No morphologically suspicious lymph nodes identified withinthe [id number]. IMPRESSION: No evidence of disease recurrence or suspicious nodule. CRITICAL RESULT: No. COMMUNICATION: Per this written report. By electronically signing this report, I, the attending physician, diana I have personally reviewed the images/data for the aboveexamination(s) and agree with the final edited report. Drafted by Leon Xiao MD on 08/09/2025 2:39 PM Final report signed by Demetrius Bush MD on 08/09/2025 3:40 PM us Enrico Godoy MD IMG US PROCEDURES Final Resu lt documented in this encounter Visit Diagnoses Diagnosis Post-operative hypothyroidism Postsurgical hypothyroidism documented in this encounter Additional Health Concerns Assessment Noted Time A fall risk assessment has been complete d for the patient 07/15/2025 10:35 AM EDT A Body Mass Index follow-up plan has been documented for the patient 07/15/2025 6:14 PM EDT documented as of this encounter Care Teams Boat Outboard Engine Mechanic Relationship Specialty Start Date End Date Montez Solano MD [address] [place] [address] PCP - General 04/30/25 documented as of this encounter
--- NOTE | 2025-08-12 11:49 | XR_ITS ---
FINAL REPORT CLINICAL HISTORY: INJURY AND PAIN FINDINGS: AP, oblique, and lateral views of the right ankle were obtained. There is no prior exam for comparison. There is a tiny avulsion fracture of the tip of the lateral malleolus. No other acute osseous abnormality identified of the ankle. Mild degenerative joint disease is noted. No acute soft tissue abnormality. IMPRESSION: Tiny avulsion fracture tip of the lateral malleolus. Reviewed, Interpreted and Dictated by Katherine Hartmann MD Transcribed by Kina Davis Authenticated and [facility]
--- NOTE | 2025-08-12 11:49 | XR_ITS ---
FINAL REPORT CLINICAL HISTORY: injury and pain FINDINGS: AP, oblique and lateral views of the right foot were obtained. There is no prior exam for comparison. There is no acute fracture or dislocation. The joint spaces are preserved. Soft tissues are unremarkable. IMPRESSION: No acute osseous abnormality of the right foot. Reviewed, Interpreted and Dictated by Katherine Hartmann MD Transcribed by Kina Davis Authenticated and [facility]
--- OUTSIDE RECORDS SUMMARY | 2025-08-12 11:49 | XMS_ITS | Encounter Summary ---
Author Organization [facility] Address [address] [place] [address] Care Team Providers Care Inspector Outside Steam Distribution Name Role Phone Montez Solano MD Primary Care Provider [phone] Encounter Details Date Type Department Care Team (Latest Contact Info) Description 08/09/2025 Travel Social History Tobacco Use Types Packs/Day [...] [facility] [address] [place] [address] Enrico Godoy MD [address] [facility] [address] [place] [address] documented as of this encounter Visit Diagnoses Not on filedocumented in this encounter Additional Health Concerns Assessment Noted Time A fall risk assessment has been complete d for the patient 07/15/2025 10:35 AM EDT A Body Mass Index follow-up plan has been documented for the patient 07/15/2025 6:14 PM EDT documented as of this encounter Care Teams Inspector Outside Steam Distribution Relationship Specialty Start Date End Date Montez Solano MD [address] [place] [address] [address] [place] [address] PCP - General 04/30/25 documented as of this encounter
--- OUTSIDE RECORDS SUMMARY | 2025-08-12 11:49 | XMS_ITS | Encounter Summary ---
Author Organization [facility] Address [address] [place] [address] Care Team Providers Care Research Assistant Professor Name Role Phone Jean Pierre Johnston MD Primary Care Provider [phone] Montez Solano MD Primary Care Provider [phone] Reason for Referral * Consultation (Routine) - Closed Specialty Diagnoses / Procedures Referred By Contac t Referred To Contact Endocrinology Diagnoses Other thyrotoxicosis without thyrotoxic crisis or storm Lin Hidalgo MD [address] [place] [address] Phone: tel: fax: [facility] [address] [place] [address] Phone: tel: fax: Referral ID Status Reason Start Date Expiration Date V isits Requested Visits Authorized [id number] Closed Specialty Services Required 02/12/2025 08/14/2026 1 1 Encounter Details Date Type Department Care Team (Late st Contact Info) Description 02/12/2025 Community [facility] [address] [place] [address] Lin Hidalgo MD [address] [place], [place] [id number] Other thyrotoxicosis without thyrotoxic crisis or storm [...] 01/13/2026 10:20 AM EDT Office Visit Professional [facility] [address], [address] [place] [address] Enrico Godoy MD 2195 [facility] [address] [place] [address] Scheduled Referrals Name Type Priority Associated Diagnoses Orde r Schedule Ambulatory referral to Endocrinology Outpatient Referral Routine Other thyrotoxicosis without thyrotoxic crisis or storm Expected: 02/12/2025 (Approximate), Expires: 08/14/2026 documented as of this encounter Visit Diagnoses Diagnosis 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 [address] [place] [address] PCP - General 03/13/21 04/29/25 Montez Solano MD [address] [place] [address] [address] [place] [address] PCP - General 04/30/25 documented as of this encounter
--- OUTSIDE RECORDS SUMMARY | 2025-08-12 11:49 | XMS_ITS | Encounter Summary ---
Author Organization [facility] Address [address] [place] [address] Care Team Providers Care Motion Picture Critic Name Role Phone Montez Solano MD Primary Care Provider [phone] Encounter Details Date Type Department Care Team (Late st Contact Info) Description 07/16/2025 Results Follow-Up [facility] Endocrinology [address] [place] [address] Enrico Godoy MD 2195 [facility] [place] [address] [place] [address] Social History Tobacco Use Types [...] Letter with normal results. Enrico Godoy MD Occupational Therapy Supervisor of Endocrinology, Diabetes and Metabolism [facility] documented in this encounter Plan of Treatment Upcoming Encounters Date Type Department Care Team (Late st Contact Info) Description 01/13/2026 10:20 AM EDT Office Visit [facility] [address] [place] [address] Enrico Godoy MD 2195 [facility] [address] [place] [address] documented as of this encounter Visit Diagnoses Not on filedocumented in this encounter Additional Health Concerns Assessment Noted Time A fall risk assessment has been complete d for the patient 07/15/2025 10:35 AM EDT A Body Mass Index follow-up plan has been documented for the patient 07/15/2025 6:14 PM EDT documented as of this encounter Care Teams Motion Picture Critic Relationship Specialty Start Date End Date Montez Solano MD [address] [place] [address] PCP - General 04/30/25 documented as of this encounter
--- OUTSIDE RECORDS SUMMARY | 2025-08-12 11:49 | XMS_ITS | Encounter Summary ---
Author Organization [facility] Address [address] [place] [address] Care Team Providers Care Senior It Security Analyst Name Role Phone Montez Solano MD Primary Care Provider [phone] Encounter Details Date Type Department Care Team [...] 01/13/2026 10:20 AM EDT Office Visit Professional [facility] [address] [place] [address] Enrico Godoy MD 2[address] [facility] [place] [address] [place] [address] documented as of this encounter Visit Diagnoses Not on filedocumented in this encounter Additional Health Concerns Assessment Noted Time A fall risk assessment has been complete d for the patient 07/15/2025 10:35 AM EDT A Body Mass Index follow-up plan has been documented for the patient 07/15/2025 6:14 PM EDT documented as of this encounter Care Teams Senior It Security Analyst Relationship Specialty Start Date End Date Montez Solano MD [address] [place] [address] [address] [place] [address] PCP - General 04/30/25 documented as of this encounter
--- OUTSIDE RECORDS SUMMARY | 2025-08-12 11:49 | XMS_ITS | Patient Health Record ---
Author Organization [facility] Address [address] [place] [address] Care Team Providers Care High Energy Forming Equipment Operator Name Role Phone Jean Pierre Johnston Primary [...] 03/19/2016 Active Vitamin D (Ergocalciferol) 1.25 MG (61998 UT) 1 cap(s) orally twice weekly; Duration: [...] Status Risk Notes Problem Generalized anxiety disorder (35598771) Generalized anxiety disorder (F41.1) Active confirmed Problem Chronic serous otitis media (58935945) Chronic serous otitis media, right ear (H65.21) Active confirmed Problem Panlobular emphysema (9677073) Panlobular emphysema (J43.1) Active confirmed Problem Vitamin D deficiency (90884057) Vitamin D deficiency (E55.9) Active confirmed Problem Osteoporosis (64149778) Osteoporosis (M81.0) Active confirmed Problem Hyperlipidemia (00392319) Hyperlipemia, idiopathic familial (E78.5) Active confirmed Problem Rupture of right rotator cuff (79721616555623327) Rotator cuff syndrome of right shoulder (M75.101) Active confirmed Problem Acute exacerbation of chronic obstructive airways disease (167647879) COPD exacerbation (J44.1) Active confirmed Problem Idiopathic peripheral neuropathy (95104081) Idiopathic peripheral neuropathy (G60.9) Active confirmed Problem Nephrolithiasis (20372676) Nephrolithiasis (N20.0) Active confirmed Problem Gastroesophageal reflux disease with esophagitis (disorder) (138891169) GERD with esophagitis (K21.0) Active confirmed Problem Body mass index 30+ - obesity (166125381) BMI 30.0-30.9,adult (Z68.30) Active confirmed Problem Mood disorder (08924441) Mood disorder (F39) Active confirmed Problem Chronic diastolic heart failure (237224843) Chronic diastolic congestive heart failure (I50.32) Active confirmed Problem Hairy cell leukemia (70182235) 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) Active confirmed Problem Chronic constipation (325942585) Chronic constipation (K59.09) Active confirmed Problem Menopausal syndrome (disorder) (184886420) Menopausal disorder (N95.9) Active confirmed Problem Thyromegaly (9983486) Thyromegaly (E01.0) Active confirmed Problem Sciatica (90065801) Acute right- sided back pain with sciatica (M54.41) Active confirmed Problem B-cell lymphoma (disorder) (080242439) B-cell lymphoma, unspecified B-cell lymphoma type, unspecified body region (C85.10) Active confirmed Problem Right hemiplegia (731323844) Right hemiplegia (G81.91) Active confirmed Problem Cricopharyngeal dysphagia (57568006) Cricopharyngeal dysphagia (R13.13) Active confirmed Encounters Encounter Location Date Provider Diagnosis [facility] [place] [facility] [address] [place] [address] [facility] [address] [place] [address] 02/02/2025 Provider Migration Idiopathic peripheral neuropathy G60.9 [...] End Date [employer]ARE [address] [address] [place] [address] [id number] Anabell Green Self - patient is the insured MEDICAID EDS [address] [place] [id number] Anabell Green Self - patient is the [...]
--- OUTSIDE RECORDS SUMMARY | 2025-08-12 11:50 | XMS_ITS | Patient Health Record ---
Author Organization [facility] Address [address] [address] Care Team Providers Care Reservoir Caretaker Name Role Phone LAQUITA BEARD Unavailable [phone] Allergies Allergen (clinical drug ingredient) Drug/Non Drug [...] Status Risk Notes Problem Vitamin D deficiency (89375501) Vitamin D deficiency (E55.9) Active confirmed Problem Acquired hypothyroidism (669865742) Acquired hypothyroidism (E03.9) Active confirmed Problem Benign essential hypertension (5724983) Benign essential hypertension (I10) Active confirmed Problem Gastroesophageal reflux disease (556548447) Chronic gastroesophageal reflux disease (K21.9) Active confirmed Problem Mixed hyperlipidemia (517344481) Hyperlipemia, mixed (E78.2) Active confirmed Problem Coronary arteriosclerosis (00379868) Coronary arteriosclerosis (I25.10) Active confirmed Problem Chronic obstructive lung disease (61616109) COPD without exacerbation (J44.9) Active confirmed Plan Of Treatment No Information Insurance Providers Payer Name Payer Address Payer Phone Subscriber Number Group Number Insured Name Patient Relationship to Insured Coverage Start Date Coverage End Date [facility] [address] [address] [place] [address] ADD ID REECE SANTILLAN Self - patient is the insured Medical (General) History Medical History History ICD Code heart copd fybromialygia bone disease dizziness osteoarthritis ibs cancer thryroid upper gi issues Surgical History Surgery Date(Month/Year) c section, completehysterectomy broken wrist gallbladder nodules off voice box and tonsils and ba se of tongue cyst heart cath kidney stone COLONOSCOPY Hospitalization History Reason Date(Month/Year) [facility] last year
--- OUTSIDE RECORDS SUMMARY | 2025-08-12 11:50 | XMS_ITS | Clinical Summary ---
Author Organization [facility] Address [address] [place] [address] Care Team Providers Care Power Generation Plant Operator Name Role Phone Montez Solano MD Primary Care Provider [phone] Allergies Active Allergy Reactions Criticality Noted Date [...] High 06/01/2018 tongue swelling Medications HYDROcodone-aceta minophen ([place]) 5-325 MG tablet every 6 hours. Active [...] Encounters Date Type Department Care Team Description 08/09/2025 1:39 PM EDT - 08/09/2025 11:59 PM EDT Hospital Encounter [facility] Ultrasound [address] [place] [address] Post-operative hypothyroidism Discharge Disposition: Home or Self Care 08/09/2025 Travel 07/16/2025 Results Follow-Up [facility] Endocrinology [address] [place] [address] Enrico Godoy MD 07/15/2025 10:40 AM EDT Office Visit Professional [facility] [address], [address] [place] [address] Enrico Godoy MD Post-operative hypothyroidism (Primary Dx) 07/15/2025 Travel from Last 3 Months Immunizations Immunization Administration Dates Next Due Moderna COVID-19 Vaccine (Visual C Developer) 12+ years 10/2020,01/01/2021 Pneumococcal Polysaccharide PPV23 09/09/2020,07/2014 [...] 01/13/2026 10:20 AM EDT Office Visit Professional [facility] [address], [address] [place] [address] Enrico Godoy MD 2193 [facility] 125 [place] [address] Health Maintenance Due Date Last Done Comments [facility]-Bone Density Scan 1960 [facility]-Depression Screening 1960 [facility]-Medicare Annual Wellness (AWV) 1960 [facility]-Infant/Child/Adol SDOH Screenings 1960 [facility]- SDOH Screenings 02/13/1978 [facility]-Adult SDOH Screenings 02/13/1978 [facility]-Pap Smear 02/13/1981 [facility]-Cervical Cancer Screening 02/13/1990 [facility]-HPV/Cotest 02/13/1990 CT Colonography 02/13/2005 Colonoscopy 02/13/2005 FIT-DNA 02/13/2005 FIT 02/13/2005 FOBT 02/13/2005 Sigmoidoscopy 02/13/2005 [facility]-Colorectal Cancer Screening 02/13/2005 [facility]-Breast Cancer Screening 02/13/2010 [facility]-RSV Vaccine: 60+ Years o r (1 - Risk 60-74 years 1-dose series) 2020 [id number] Vaccine (3 - Moderna risk series) 02/26/2021 [...] Routine 08/09/2025 2:15 PM EDT Post-operative hypothyroidism TSH Routine 07/15/2025 11:50 AM EDT Post-operative hypothyroidism FREE T4, PLASMA Routine 07/15/2025 11:50 AM EDT Post-operative hypothyroidism HEPATITIS C ANTIBODY W/REFLEX TO HCV QUANT PCR Routine 04/07/2018 11:03 AM EDT from Last 3 Months or Most Recently Relevant to Health Maintenance Results * US Thyroid (08/09/2025 2:15 PM [...] morphologically suspicious lymph nodes identified within the [id number]-[id number]. Procedure Note Demetrius Bush MD - 08/09/2025 [...] No morphologically suspicious lymph nodes identified withinthe [id number]. IMPRESSION: No evidence of disease recurrence or suspicious nodule. CRITICAL RESULT: No. COMMUNICATION: Per this written report. By electronically signing this report, I, the attending physician, attestthat I have personally reviewed the images/data for the aboveexamination(s) and agree with the final edited report. Drafted by Leon Xiao MD on 08/09/2025 2:39 PM Final report signed by Demetrius Bush MD on 08/09/2025 3:40 PM Enrico Godoy MD IMG US PROCEDURES Final Resu lt * Thyroid Stimulating Hormone, Plasma (07/15/2025 11:50 AM EDT) Thyroid Stimulating Hormone, Plasma 1.38 0.40 - 4.20 uIU/mL 07/15/2025 2:59 PM EDT [facility]ARE [facility] Blood Venous blood specimen / Unknown Venipuncture / Unknown 07/15/2025 11:50 AM EDT 07/15/2025 11:51 AM EDT Enrico Godoy MD LAB BLOOD ORDERABLES Final R esult Performing Organization Address [facility] de Phone Number HEALTHCARE LAB [address] [place] [address] * Free T4, Plasma (07/15/2025 11:50 AM EDT) Free T4, Plasma 1.6 0.8 - 1.7 ng/dL 07/15/2025 2:59 PM EDT HEALTHCARE LAB Blood Venous blood specimen / Unknown Venipuncture / Unknown 07/15/2025 11:50 AM EDT 07/15/2025 11:51 AM EDT Enrico Godoy MD LAB BLOOD ORDERABLES Final R esult Performing Organization Address City/[facility] de Phone Number HEALTHCARE LAB [address] [place] [address] * Hepatitis C Antibody (04/07/2018 11:03 AM EDT) Hepatitis C Antibody NEGATIVE Reference Range: Negative SUNQUEST 04/07/2018 11:0 3 AM EDT 04/07/2018 11:42 AM EDT Yuki Blanchard MD LAB BLOOD ORDERABLES Final Resu lt Performing Organization Address City/[facility] Co de Phone Number SUNQUEST from Last 3 Months or Most Recently Relevant to Health Maintenance Insurance [facility] MEDICARE Care Teams Power Generation Plant Operator Relationship Specialty Start Date End Date Montez Solano MD [address] [place] [address] [place] [address] PCP - General 04/30/25
== END 2025-08-12 23:59 | disposition home or self-care (01) ==
LOC: RAD 11:46
PROVIDERS: PCP Nurse Practitioner; Visit Provider Nurse Practitioner
DX: S82.61XA Displaced fracture of lateral malleolus of right fibula, initial encounter for closed fracture (principal)
CPT/HCPCS: 73610; 73630

== ENCOUNTER 2025-10-17 09:58 | Outpatient (CLI) | payer MEDICARE, MEDICAID, SELFPAY ==
--- OUTSIDE RECORDS SUMMARY | 2025-10-17 10:37 | XMS_ITS | Encounter Summary ---
Author Organization [facility] Address [address] [place] [address] Care Team Providers Care Lead Manufacturing Technician Name Role Phone Montez Solano MD Primary Care Provider [phone] Reason for Visit * Reason Onset Date Comments Results 07/16/2025 Encounter Details Date Type Department Care Team (Late st Contact Info) Description 07/16/2025 Results Follow-Up [facility] Endocrinology [address] [place] [address] Enrico Godoy MD 2195 [facility] [address] [place] [address] Results Social History Tobacco Use Types Packs/Day Years [...] Left VM. Sent Letter with normal results. ADDENDUM 08/12/25 Letter sent with normal thyroid US results. Enrico Godoy MD Devops of Endocrinology, Diabetes and Metabolism [facility] documented in this encounter Plan of Treatment Upcoming Encounters Date Type Department Care Team (Late st Contact Info) Description 01/13/2026 10:20 AM EDT Office Visit [facility] [address], [address] [place] [address] Enrico Godoy MD 2195 [facility] [place] [address] [place] [address] documented as of this encounter Visit Diagnoses Not on filedocumented in this encounter Additional Health Concerns Assessment Noted Time A fall risk assessment has been complete d for the patient 07/15/2025 10:35 AM EDT A Body Mass Index follow-up plan has been documented for the patient 07/15/2025 6:14 PM EDT documented as of this encounter Care Teams Lead Manufacturing Technician Relationship Specialty Start Date End Date Montez Solano MD [address] [place] [address] [address] [place] [address] PCP - General 04/30/25 documented as of this encounter
--- OUTSIDE RECORDS SUMMARY | 2025-10-17 10:37 | XMS_ITS | Encounter Summary ---
Author Organization [facility] Address [address] [place] [address] Care Team Providers Care Facility Environmental Technician Name Role Phone Jean Pierre Johnston MD Primary Care Provider [phone] Montez Solano MD Primary Care Provider [phone] Reason for Referral * Consultation (Routine) - Closed Specialty Diagnoses / Procedures Referred By Contac t Referred To Contact Endocrinology Diagnoses Other thyrotoxicosis without thyrotoxic crisis or storm Lin Hidalgo MD [address] [place] [address] Phone: tel: fax: [facility] Endocrinology [address] [place] [address] Phone: tel: fax: Referral ID Status Reason Start Date Expiration Date V isits Requested Visits Authorized [id number] Closed Specialty Services Required 02/12/2025 08/14/2026 1 1 Encounter Details Date Type Department Care Team (Late st Contact Info) Description 02/12/2025 Community [facility] [address] [place] [address] Lin Hidalgo MD [address] [place], [place] [id number] Other thyrotoxicosis without thyrotoxic crisis or storm [...] 01/13/2026 10:20 AM EDT Office Visit [facility] [address], [address] [place] [address] Enrico Godoy MD [address] [facility] [address] [place] [address] Scheduled Referrals Name Type Priority Associated Diagnoses Orde r Schedule Ambulatory referral to Endocrinology Outpatient Referral Routine Other thyrotoxicosis without thyrotoxic crisis or storm Expected: 02/12/2025 (Approximate), Expires: 08/14/2026 documented as of this encounter Visit Diagnoses Diagnosis 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 [address] [place] [address] PCP - General 03/13/21 04/29/25 Montez Solano MD [address] [place] [address] [address] [place] [address] PCP - General 04/30/25 documented as of this encounter
--- OUTSIDE RECORDS SUMMARY | 2025-10-17 10:38 | XMS_ITS | Clinical Summary ---
Author Organization [facility] Address [address] [place] [address] Care Team Providers Care Senior Wind Energy Consultant Name Role Phone Montez Solano MD Primary Care Provider [phone] Allergies Active Allergy Reactions Criticality Noted Date [...] comment field High 06/01/2018 tongue swelling Medications HYDROcodone-acetami nophen ([place]) 5-325 MG tablet every 6 hours. Active albuterol (Proventil) (2.5 MG/3ML) 0.083% nebulizer solution 3 mL inhaled every 6 hours prn Active atorvastatin (Lipitor) 40 MG tablet Take 1 tablet by mouth. Active budesonide-formoter ol (Symbicort) 160-4.5 MCG/ACT inhaler every 12 hours. [...] Take 1 tablet by mouth daily. Active ipratropium-albuter ol (Duo-Neb) 0.5-2.5 mg/3 mL nebulizer solution every [...] breakfast. Active levothyroxine (Synthroid, Levoxyl) 75 MCG tabletIndications:P ost-operative hypothyroidism Take 1 tablet by mouth daily. 90 tablet 1 Active Encounters Date Type Department Care Team Description 08/09/2025 1:39 PM EDT - 08/09/2025 11:59 PM EDT Hospital Encounter [facility] Ultrasound [address] [place] [address] Post-operative hypothyroidism Discharge Disposition: Home or Self Care 08/09/2025 Travel from Last 3 Months Immunizations Immunization Administration Dates Next Due Moderna COVID-19 Vaccine (Support Services Rep) 12+ years 10/2020,01/01/2021 Pneumococcal Polysaccharide PPV23 09/09/2020,07/2014 [...] Description 01/13/2026 10:20 AM EDT Office Visit [facility] [address], [address] [place] [address] Enrico Godoy MD [address] [place] [address] [place] [address] Health Maintenance Due Date Last Done Comments [facility]-Bone Density Scan 1960 [facility]-Depression Screening 1960 [facility]-Medicare Annual Wellness (AWV) 1960 [facility]-/Child/Adol SDOH Screenings 1960 [facility]- SDOH Screenings 02/13/1978 [facility]-Adult SDOH Screenings 02/13/1978 [facility]-Pap Smear 02/13/1981 [facility]-Cervical Cancer Screening 02/13/1990 [facility]-HPV/Cotest 02/13/1990 CT Colonography 02/13/2005 Colonoscopy 02/13/2005 FIT-DNA 02/13/2005 FIT 02/13/2005 FOBT 02/13/2005 Sigmoidoscopy 02/13/2005 [facility]-Colorectal Cancer Screening 02/13/2005 [facility]-Breast Cancer Screening 02/13/2010 [facility]-RSV Vaccine: 60+ Years o r (1 - Risk 50-74 years 1-dose series) 02/13/2010 [id number] Vaccine (3 - Moderna risk series) 02/26/2021 01/29/2021, 01/01/2021 [facility]-Pneumococcal Vaccine: 50 + Years (3 of 3 - PCV) 09/09/2021 09/09/2020, 07/09/2014 [facility]-DTaP,Tdap,and Td Vaccine s (2 - Td or Tdap) 08/07/2024 08/07/2014 [facility]-Zoster Vaccines (2 of 2) 03/11/2025 01/14/2025 [facility]-Influenza Vaccine (#1) 2025 [facility]-Hepatitis C Screening Completed 04/07/2018 [facility]-Obesity Intervention Completed 07/15/2025 HPV Vaccines (No Doses Required) Completed [facility]-HIB Vaccines Aged Out No longer e [...] Routine 08/09/2025 2:15 PM EDT Post-operative hypothyroidism HEPATITIS C ANTIBODY W/REFLEX [...] morphologically suspicious lymph nodes identified within the oiods-gq-efad. Procedure Note Demetrius Bush MD - 08/09/2025 [...] No morphologically suspicious lymph nodes identified withinthe goaxs-pg-ceaj. IMPRESSION: No evidence of disease recurrence or [...] 08/09/2025 3:40 PM us Enrico Godoy MD IM US PROCEDURES Final Resu lt * Hepatitis C Antibody (04/07/2018 11:03 AM EDT) Hepatitis C Antibody NEGATIVE Reference Range: Negative SUNQUEST 04/07/2018 11:0 3 AM EDT 04/07/2018 11:42 AM EDT us Yuki Blanchard MD LAB BLOOD ORDERABLES Final Resu lt SUNQUEST from Last 3 Months or Most Recently Relevant to Health Maintenance Insurance [facility] MEDICARE Care Teams Senior Wind Energy Consultant Relationship Specialty Start Date End Date Montez Solano MD [address] [place] [address] PCP - General 04/30/25
== END 2025-10-17 23:59 | disposition home or self-care (01) ==
LOC: RT 09:59
PROVIDERS: PCP Nurse Practitioner; Visit Provider Physician Assistant
DX: I48.0 Paroxysmal atrial fibrillation (principal)
CPT/HCPCS: 93270